=== PATIENT | female | born 1955 | race Caucasian/White ===

== ENCOUNTER → 2016-07-06 | Outpatient (CLI) | payer MEDICARE ==
[2016-07-06 14:01] VITALS: BMI 32.2
[2016-07-06 14:14] VITALS: BP 127/44; PULSE 40; TEMP 98.2
[2016-07-06 15:44] LABS: CH 27.9; CHCM 31.3; HCT 32.8 % (34.0-46.0); HDW 2.45; HGB 10.4 gm/dL (11.4-16.0); Hypochromasia Slight; MCH 28.4 pg (25.0-35.0); MCHC 31.7 g/dL (31.0-37.0); MCV 89.6 fL (80.0-100.0); Mean Platelet Volume 8.2; RBC 3.66 m/uL (3.80-5.40); RDW 15.9 % (11.5-15.5); WBC 3.8 k/uL (3.8-10.6)
[2016-07-06 15:55] LABS: INR 1.1 (<1.1); Partial Thromboplastin Time 23.6 sec (22.0-30.0); Prothrombin Time 10.7 sec (9.0-12.0)
[2016-07-06 16:06] LABS: ALT 27 U/L (9-52); AST 19 U/L (14-36); Alkaline Phosphatase 77 U/L (38-126); Anion Gap 9 mmol/L; Blood Urea Nitrogen 11 mg/dL (7-17); Calcium 9.9 mg/dL (8.4-10.2); Carbon Dioxide 27 mmol/L (22-30); Chloride 102 mmol/L (98-107); Cholesterol 204 mg/dL (<200); Glucose 89 mg/dL (74-99); HDL Cholesterol 73 mg/dL (40-60); Iron 57 ug/dL (37-170); Magnesium 1.7 mg/dL (1.6-2.3); Non-African American GFR(MDRD) 46 (>60 ml/min/1.73 sqM); Phosphorous 4.5 mg/dL (2.5-4.5); Potassium 4.3 mmol/L (3.5-5.1); Sodium 138 mmol/L (137-145); Total Bilirubin 0.6 mg/dL (0.2-1.3); Total Protein 6.6 g/dL (6.3-8.2); Triglycerides 84 mg/dL (<150)
[2016-07-06 16:17] LABS: Prealbumin 18 mg/dL (18-36); Total Iron Binding Capacity 250 ug/dL (265-497)
[2016-07-06 17:11] LABS: Vitamin B12 344 pg/mL (239-931)
[2016-07-06 19:46] LABS: Hemoglobin A1C 5.4 % (4.2-6.1)
[2016-07-12 17:58] LABS: Selenium 106 mcg/L (63-160)
--- NOTE | 2016-08-05 12:40 | P.PN ---
Progress Note - Text DATE OF SERVICE: 07/06/2016 CHIEF COMPLAINT: Follow up sleeve gastrectomy. HISTORY OF PRESENT ILLNESS: Anahi Nielsen is a 61-year-old female who is status post sleeve gastrectomy on 10/23/2015. She presents approximately 9 months postop. She has done remarkably well. At her height of 5 foot 4-1/2 inches her ideal body weight is 144 pounds. Highest personal weight was 272 pounds. Today she comes in weighing 190 pounds. She has lost 82 pounds. Percent excess weight loss 54%. Body mass index reduced from 46 down to 32.2. Total BMI point reduction 13.9 points. She is still 46 pounds overweight. She is accompanied by her who demonstrates that the patient actually has not been following her bariatric guideline. He reports poor protein intake. She is not taking her multivitamins as well. Separately she is still taking moderate amount of medications for fibromyalgia and as a result reports chronic low pulse and low blood pressure. She also has been tanning moderately as well. PAST MEDICAL HISTORY: 1. Diverticulitis. 2. Morbid obesity. 3. Hypothyroidism. 4. Restless leg syndrome. 5. Hypertension. 6. Osteoarthritis of the bilateral hips. 7. Osteoarthritis of the bilateral knees. 8. Depression. 9. Anxiety. 10. Fibromyalgia. 11. Panic disorder. PAST SURGICAL HISTORY: 1. Colon resection secondary to diverticulitis. 2. Cholecystectomy. 3. Heart catheterization. 4. Hysterectomy. 5. Joint replacement. 6. Tonsillectomy. 7. Upper endoscopy. 8. Status post sleeve gastrectomy. MEDICATIONS: 1. Ultram. 2. Risperidone. 3. Lamictal. 4. Catapres. 5. Risperdal. 6. Omeprazole. 7. Synthroid. 8. Ativan. 9. [place] 10. 10. Prozac. 11. Docusate. ALLERGIES: IODINE. SEROQUEL. SOCIAL HISTORY: Former tobacco user. No reports of illicit drug use. FAMILY HISTORY: Pertinent for diverticulitis including coronary artery disease. Reports morbid obesity. REVIEW OF SYSTEMS: CONSTITUTIONAL: [place] body weight 144 pounds. Highest weight of 272 pounds. Total weight loss of 82 pounds in approximately 9 months. Percent excess weight loss was 64%. CARDIOVASCULAR: She has developed new onset hypotension including severe bradycardia symptomatic. GASTROINTESTINAL: No reports of severe gastroesophageal reflux disease. She has not been taking her multivitamins. RESPIRATORY: She has completed sleep apnea assessment and is pending CPAP titration. MUSCULOSKELETAL: Has diffuse osteoarthritis. HEENT: No reports of troubles with vision or dysphagia. ENDOCRINE: No reports of diabetes. She has hypothyroidism. NEURO: No reports of stroke or seizure disorder. Has chronic pain. PSYCH: No reports of depression. No reports of suicidal ideation. She does take Prozac, however. HEMATOLOGIC: No reports of easy bruising or bleeding. DIETARY HISTORY: Prior history of medicinal including behavior changes for weight loss. PHYSICAL EXAM: VITAL SIGNS: 98.2, 40, 12, 127/44, 5 foot 4-1/2 inches, 190 pounds. Body mass index 32.2. ABDOMEN: Soft, nontender, nondistended. No palpable incisional hernias. GENERAL: Well-developed, pleasant female in no acute distress. HEENT: No sclerae icterus. Extraocular movements grossly intact. Moist buccal mucosa. NECK: Supple without lymphadenopathy. CHEST: Nonlabored respirations. Equal bilateral excursions. CARDIOVASCULAR: Regular rate and rhythm. MUSCULOSKELETAL: No clubbing, cyanosis, or edema. NEURO: No focal or lateralizing signs. PSYCH: Appropriate affect. Alert and oriented to person, place and time. ASSESSMENT: 1. Morbid obesity due to excess calories. 2. Body mass index reduced from 46 down to 32.2. 3. Obstructive sleep apnea, improved. 4. Status post sleeve gastrectomy. 5. Hypertriglyceridemia. 6. Renal insufficiency. 7. Elevated BUN. 8. Elevated creatinine. 9. History of depression. 10. Hypothyroidism. 11. Family history of premature cardiac . 12. History of diverticulitis. 13. A former tobacco user. 14. Hypercholesterolemia. 15. Glucose intolerance, now improved. 16. Dietary surveillance and counseling. 17. Medical noncompliance of bariatric guidelines. 18. Hypotension symptomatic secondary to medications. 19. Bradycardia, symptomatic. 20. Dietary surveillance and counseling. PLAN: 1. Recommend bariatric metabolic panel. 2. I am very concerned that she has not been taking her multivitamins or attaining her ideal protein intake. She also demonstrates generalized fatigue. 3. I have recommended close follow up especially for correction of any nutritional deficiency in the interim. 4. As she has symptomatic bradycardia I have also recommended to follow with her primary care provider including the principal clerk for adjustment of her medications. 5. I have also asked her to start taking her multivitamin in the interim. ADDENDUM: Bariatric metabolic panel was reviewed demonstrating hemoglobin low at 10.4. Platelet was low at 143. Creatinine was elevated at 1.2. Total iron binding capacity was low at 250. Cholesterol was elevated at 204, LDL elevated at 114, HDL elevated at 73. Thiamine low at 27. Thyroid stimulating hormone was suppressed at 0.15. Zinc was low at 58. I recommend thiamine supplement. I also recommend adjustment of her Synthroid medication as she is now having iatrogenic hyperthyroidism. Also recommend zinc supplement.
== END | disposition home or self-care (01) ==
LOC: BARWHC3 13:21
PROVIDERS: ATTEND Surgery Plastic and Reconstructive Surgery
DX: Z48.815 Encounter for surgical aftercare following surgery on the digestive system (principal); E66.01 Morbid (severe) obesity due to excess calories; Z68.32 Body mass index [BMI] 32.0-32.9, adult; Z71.3 Dietary counseling and surveillance; Z98.84 Bariatric surgery status; E21.1 Secondary hyperparathyroidism, not elsewhere classified; E89.1 Postprocedural hypoinsulinemia; D50.8 Other iron deficiency anemias; E44.0 Moderate protein-calorie malnutrition; E55.9 Vitamin D deficiency, unspecified; K74.1 Hepatic sclerosis; N19 Unspecified kidney failure; K50.90 Crohn's disease, unspecified, without complications
CPT/HCPCS: 84255; 84134; 84425; 80061; 80053; 82607; 82728; 83036; 82525; 82746; 83540; 83550; 83735; 84100; 84443; 84590; 84630; 85027; 85610; 85730; 82306; 83970; 97803; 36415; G0463; 99211

== ENCOUNTER → 2016-07-27 | Outpatient (CLI) | payer MEDICARE ==
[2016-07-27 16:22] VITALS: BP 166/74; PULSE 42; RESP 16; TEMP 97.7; BMI 31.3
--- NOTE | 2016-08-10 15:36 | P.PN ---
Progress Note - Text DATE OF SERVICE: 07/27/2016 CHIEF COMPLAINT: Follow up sleeve gastrectomy. HISTORY OF PRESENT ILLNESS: Anahi Nielsen is a 61-year-old female who is status post sleeve gastrectomy on 10/23/2015. She is 9 months postop. Since her last evaluation, she reported not taking her multivitamins or eating her goal protein of over 75 g daily. She had reported increased fatigue. At her height of 5 foot 4-1/2 inches her ideal body weight is 144 pounds. Highest personal weight was 272 pounds. Today she comes in weighing 185 pounds. She has lost 87 pounds. Percent excess weight loss 68%. Body mass index reduced from 46 down to 31.3. Total BMI point reduction 14.7 points. She is 41 pounds overweight. She has lost another 5 pounds in 3 weeks. PAST MEDICAL HISTORY: 1. Diverticulitis. 2. Morbid obesity. 3. Hypothyroidism. 4. Restless leg syndrome. 5. Hypertension. 6. Osteoarthritis of the bilateral hips. 7. Osteoarthritis of the bilateral knees. 8. Depression. 9. Anxiety. 10. Fibromyalgia. 11. Panic disorder. PAST SURGICAL HISTORY: 1. Colon resection secondary to diverticulitis. 2. Cholecystectomy. 3. Heart catheterization. 4. Hysterectomy. 5. Joint replacement. 6. Tonsillectomy. 7. Upper endoscopy. 8. Status post sleeve gastrectomy. MEDICATIONS: 1. Ultram. 2. Risperidone. 3. Lamictal. 4. Catapres. 5. Risperdal. 6. Omeprazole. 7. Synthroid. 8. Ativan. 9. [place] 10. 10. Prozac. 11. Docusate. ALLERGIES: IODINE. SEROQUEL. SOCIAL HISTORY: Former tobacco user. No reports of illicit drug use. FAMILY HISTORY: Pertinent for diverticulitis including coronary artery disease. Reports morbid obesity. REVIEW OF SYSTEMS: CONSTITUTIONAL: At her height of 5 foot 4-1/2 inches her ideal body weight is 144 pounds. Highest personal weight was 272 pounds. Today she comes in weighing 185 pounds. She has lost 87 pounds. Percent excess weight loss 68%. Body mass index reduced from 46 down to 31.3. Total BMI point reduction 14.7 points. She is 41 pounds overweight. CARDIOVASCULAR: She has developed new onset hypotension including bradycardia symptomatic. GASTROINTESTINAL: No reports of severe gastroesophageal reflux disease. She has not been taking her multivitamins. RESPIRATORY: She has completed sleep apnea assessment and is pending CPAP titration. MUSCULOSKELETAL: Has diffuse osteoarthritis. HEENT: No reports of troubles with vision or dysphagia. ENDOCRINE: No reports of diabetes. She has hypothyroidism. NEURO: No reports of stroke or seizure disorder. Has chronic pain. PSYCH: No reports of depression. No reports of suicidal ideation. She does take Prozac, however. HEMATOLOGIC: No reports of easy bruising or bleeding. DIETARY HISTORY: Prior history of medicinal including behavior changes for weight loss. PHYSICAL EXAM: VITAL SIGNS: 5 foot 4-1/2 inches, 190 pounds. Body mass index 31.3. Vital Signs Temp 97.7 F 07/27/16 16:14 Pulse 42 L 07/27/16 16:14 Resp 16 07/27/16 16:14 BP 166/74 07/27/16 16:14 Pulse Ox ABDOMEN: Soft, nontender, nondistended. No palpable incisional hernias. GENERAL: Well-developed, pleasant female in no acute distress. HEENT: No sclerae icterus. Extraocular movements grossly intact. Moist buccal mucosa. NECK: Supple without lymphadenopathy. CHEST: Nonlabored respirations. Equal bilateral excursions. CARDIOVASCULAR: Regular rate and rhythm. MUSCULOSKELETAL: No clubbing, cyanosis, or edema. NEURO: No focal or lateralizing signs. PSYCH: Appropriate affect. Alert and oriented to person, place and time. LABS: Laboratory Last Values WBC 3.8 k/uL (3.8-10.6) 07/06/16 15:04 RBC 3.66 m/uL (3.80-5.40) L 07/06/16 15:04 Hgb 10.4 gm/dL (11.4-16.0) L 07/06/16 15:04 Hct 32.8 % (34.0-46.0) L 07/06/16 15:04 MCV 89.6 fL (80.0-100.0) 07/06/16 15:04 MCH 28.4 pg (25.0-35.0) 07/06/16 15:04 MCHC 31.7 g/dL (31.0-37.0) 07/06/16 15:04 RDW 15.9 % (11.5-15.5) H 07/06/16 15:04 Plt Count 143 k/uL (150-450) L 07/06/16 15:04 Hypochromasia Slight 07/06/16 15:04 PT 10.7 sec (9.0-12.0) 07/06/16 15:04 INR 1.1 (<1.1) 07/06/16 15:04 APTT 23.6 sec (22.0-30.0) 07/06/16 15:04 Sodium 138 mmol/L (137-145) 07/06/16 15:04 Potassium 4.3 mmol/L (3.5-5.1) 07/06/16 15:04 Chloride 102 mmol/L (98-107) 07/06/16 15:04 Carbon Dioxide 27 mmol/L (22-30) 07/06/16 15:04 Anion Gap 9 mmol/L 07/06/16 15:04 BUN 11 mg/dL (7-17) 07/06/16 15:04 Creatinine 1.20 mg/dL (0.52-1.04) H 07/06/16 15:04 Est GFR (MDRD) Af Amer 55 (>60 ml/min/1.73 sqM) 07/06/16 15:04 Est GFR (MDRD) Non-Af 46 (>60 ml/min/1.73 sqM) 07/06/16 15:04 Glucose 89 mg/dL (74-99) 07/06/16 15:[address] Glu mg/dL 108 mg/dL 07/06/16 15:04 Hemoglobin A1c 5.4 % (4.2-6.1) 07/06/16 15:04 Calcium 9.9 mg/dL (8.4-10.2) 07/06/16 15:04 Phosphorus 4.5 mg/dL (2.5-4.5) 07/06/16 15:04 Magnesium 1.7 mg/dL (1.6-2.3) 07/06/16 15:04 Iron 57 ug/dL (37-170) 07/06/16 15:04 TIBC 250 ug/dL (265-497) L 07/06/16 15:04 Ferritin 121 ng/mL (11-264) 07/06/16 15:04 Total Bilirubin 0.6 mg/dL (0.2-1.3) 07/06/16 15:04 AST 19 U/L (14-36) 07/06/16 15:04 ALT 27 U/L (9-52) 07/06/16 15:04 Alkaline Phosphatase 77 U/L (38-126) 07/06/16 15:04 Total Protein 6.6 g/dL (6.3-8.2) 07/06/16 15:04 Albumin 3.9 g/dL (3.5-5.0) 07/06/16 15:04 Prealbumin 18 mg/dL (18-36) 07/06/16 15:04 Triglycerides 84 mg/dL (<150) 07/06/16 15:04 Cholesterol 204 mg/dL (<200) H 07/06/16 15:04 LDL Cholesterol, Calc 114 mg/dL (0-99) H 07/06/16 15:04 HDL Cholesterol 73 mg/dL (40-60) H 07/06/16 15:04 Vitamin A 39 ug/dL (38-106) 07/06/16 15:04 Vitamin B1 27 ug/L (38-122) L 07/06/16 15:04 Vitamin B12 344 pg/mL (239-931) 07/06/16 15:04 Vitamin D 25-Hydroxy 69.4 ng/mL (30.0-100.0) 07/06/16 15:04 Folate 4.90 ng/mL (>2.75) 07/06/16 15:04 TSH <0.015 mIU/L (0.465-4.680) L 07/06/16 15:04 PTH Intact 24.0 pg/mL (14.0-72.0) 07/06/16 15:04 Copper 1369 ug/L (810-1990) 07/06/16 15:04 Selenium 106 mcg/L (63-160) 07/06/16 15:04 Zinc 58 ug/dL (60-130) L 07/06/16 15:04 ASSESSMENT: 1. Morbid obesity due to excess calories. 2. Body mass index reduced from 46 down to 31.3 3. Obstructive sleep apnea, improved. 4. Status post sleeve gastrectomy. 5. Hypertriglyceridemia. 6. Renal insufficiency. 7. Elevated BUN. 8. Elevated creatinine. 9. History of depression. 10. Hypothyroidism. 11. Family history of premature cardiac . 12. History of diverticulitis. 13. A former tobacco user. 14. Hypercholesterolemia. 15. Glucose intolerance, now improved. 16. Dietary surveillance and counseling. 17. Medical noncompliance of bariatric guidelines. 18. Hypotension symptomatic secondary to medications. 19. Bradycardia, symptomatic. 20. Dietary surveillance and counseling. 21. Zinc deficiency. 22. Iron deficiency anemia. 23. Hyeprcholesterolemia. 24. Suppressed TSH, iatrogenic hyperthyroidism. 25. Thiamine deficiency, symptomatic. PLAN: 1. Recommend decreased doses of Synthroid. 2. Recommend iron supplement. 3. Recommend protein intake over at least 60 g daily. 4. Referral to bariatric dietitian regarding gastrectomy diet. 5. Recommend adjustment of cardiac medications for symptomatic bradycardia and hypotension. 6. Follow-up 1 year anniversary for October 2016. 7. Recommend IV thiamine infusions as she has symptomatic neuropathy with oral supplement to follow.
== END ==
LOC: BARWHC3 15:38
PROVIDERS: ATTEND Surgery Plastic and Reconstructive Surgery
DX: Z48.815 Encounter for surgical aftercare following surgery on the digestive system (principal); E66.01 Morbid (severe) obesity due to excess calories; G47.33 Obstructive sleep apnea (adult) (pediatric); E78.1 Pure hyperglyceridemia; N28.9 Disorder of kidney and ureter, unspecified; E03.9 Hypothyroidism, unspecified; E78.00 Pure hypercholesterolemia, unspecified; E74.39 Other disorders of intestinal carbohydrate absorption; R00.1 Bradycardia, unspecified; D50.9 Iron deficiency anemia, unspecified; E60 Dietary zinc deficiency; E51.9 Thiamine deficiency, unspecified; Z79.4 Long term (current) use of insulin; Z79.1 Long term (current) use of non-steroidal anti-inflammatories (NSAID); Z88.8 Allergy status to other drugs, medicaments and biological substances
CPT/HCPCS: 97803; G0463; 99211

== ENCOUNTER → 2016-10-27 | Outpatient (CLI) | payer MEDICARE ==
[2016-10-27 09:50] VITALS: BP 142/60; PULSE 54; RESP 16; TEMP 97.7; BMI 28.9
[2016-10-27 11:19] LABS: CH 29.8; HCT 39.1 % (34.0-46.0); HDW 2.24; HGB 12.5 gm/dL (11.4-16.0); MCV 90.5 fL (80.0-100.0); Mean Platelet Volume 7.8; RBC 4.32 m/uL (3.80-5.40); RDW 14.5 % (11.5-15.5)
[2016-10-27 11:22] LABS: Partial Thromboplastin Time 23.3 sec (22.0-30.0); Prothrombin Time 10.3 sec (9.0-12.0)
[2016-10-27 12:43] LABS: Hemoglobin A1C 5.1 % (4.2-6.1)
[2016-10-27 14:16] LABS: ALT 38 U/L (9-52); AST 79 U/L (14-36); Alkaline Phosphatase 75 U/L (38-126); Anion Gap 11 mmol/L; Blood Urea Nitrogen 13 mg/dL (7-17); Carbon Dioxide 29 mmol/L (22-30); Chloride 98 mmol/L (98-107); Glucose 85 mg/dL (74-99); HDL Cholesterol 102 mg/dL (40-60); Magnesium 1.5 mg/dL (1.6-2.3); Non-African American GFR(MDRD) 42 (>60 ml/min/1.73 sqM); Potassium 3.9 mmol/L (3.5-5.1); Sodium 138 mmol/L (137-145); Total Bilirubin 0.5 mg/dL (0.2-1.3); Total Protein 7.3 g/dL (6.3-8.2)
[2016-10-27 15:17] LABS: Cholesterol 340 mg/dL (<200); Vitamin B12 >1000 pg/mL (239-931)
[2016-10-27 16:21] LABS: Iron Saturation 31.11 (12.00-45.00)
[2016-11-02 19:15] LABS: Selenium 123 mcg/L (63-160)
--- NOTE | 2016-11-06 20:26 | P.PN ---
Progress Note - Text DATE OF SERVICE: 10/27/2016 CHIEF COMPLAINT: Follow up sleeve gastrectomy. HISTORY OF PRESENT ILLNESS: Anahi Nielsen is a 61-year-old female who is status post sleeve gastrectomy on 10/23/2015. She is 1 years out. At her height of 5 foot 6-1/2 inches, her ideal body weight is 154 pounds. Highest personal weight was 272 pounds. Today she comes in weighing 180 pounds. She has lost 92 pounds. Percent excess weight loss 78%. Body mass index reduced from 46 down to 28.9. She is 26 pounds overweight. She has lost another 5 pounds in 2 months. She feels much better after taking her multivitamins. She is still losing weight. She reports panniculitis and is pending panniculectomy. She also reports severe lower back pain. PAST MEDICAL HISTORY: 1. Diverticulitis. 2. Morbid obesity. 3. Hypothyroidism. 4. Restless leg syndrome. 5. Hypertension. 6. Osteoarthritis of the bilateral hips. 7. Osteoarthritis of the bilateral knees. 8. Depression. 9. Anxiety. 10. Fibromyalgia. 11. Panic disorder. PAST SURGICAL HISTORY: 1. Colon resection secondary to diverticulitis. 2. Cholecystectomy. 3. Heart catheterization. 4. Hysterectomy. 5. Joint replacement. 6. Tonsillectomy. 7. Upper endoscopy. 8. Status post sleeve gastrectomy. MEDICATIONS: 1. Ultram. 2. Risperidone. 3. Lamictal. 4. Catapres. 5. Risperdal. 6. Omeprazole. 7. Synthroid. 8. Ativan. 9. [place] 10. 10. Prozac. 11. Docusate. ALLERGIES: IODINE. SEROQUEL. SOCIAL HISTORY: Former tobacco user. No reports of illicit drug use. FAMILY HISTORY: Pertinent for diverticulitis including coronary artery disease. Reports morbid obesity. REVIEW OF SYSTEMS: CONSTITUTIONAL: At her height of 5 foot 6-1/2 inches, her ideal body weight is 154 pounds. Highest personal weight was 272 pounds. Today she comes in weighing 180 pounds. She has lost 92 pounds. Percent excess weight loss 78%. Body mass index reduced from 46 down to 28.9. She is 26 pounds overweight. She has lost another 5 pounds in 2 months. CARDIOVASCULAR: She has developed new onset hypotension including bradycardia symptomatic. GASTROINTESTINAL: No reports of severe gastroesophageal reflux disease. No diarrhea. RESPIRATORY: She has completed sleep apnea assessment. No asthma. MUSCULOSKELETAL: Has diffuse osteoarthritis. HEENT: No reports of troubles with vision or dysphagia. ENDOCRINE: No reports of diabetes. She has hypothyroidism. NEURO: No reports of stroke or seizure disorder. Has chronic pain. PSYCH: No reports of depression. No reports of suicidal ideation. She does take Prozac, however. HEMATOLOGIC: No reports of easy bruising or bleeding. PHYSICAL EXAM: VITAL SIGNS: 5 foot 6-1/2 inches, 180 pounds. Body mass index 28.9. Vital Signs Temp 97.7 F 10/27/16 10:19 Pulse 54 L 10/27/16 10:19 Resp 16 10/27/16 10:19 BP 142/60 10/27/16 10:19 Pulse Ox ABDOMEN: Soft, nontender, nondistended. No palpable incisional hernias. GENERAL: Well-developed, pleasant female in no acute distress. HEENT: No sclerae icterus. Extraocular movements grossly intact. Moist buccal mucosa. NECK: Supple without lymphadenopathy. CHEST: Nonlabored respirations. Equal bilateral excursions. CARDIOVASCULAR: Regular rate and rhythm. MUSCULOSKELETAL: No clubbing, cyanosis, or edema. NEURO: No focal or lateralizing signs. PSYCH: Appropriate affect. Alert and oriented to person, place and time. SKIN: Well perfused. Good skin turgor. Has panniculitis with weight of pannus of 5 pounds. LABS: Laboratory Last Values WBC 4.0 k/uL (3.8-10.6) 10/27/16 10:48 RBC 4.32 m/uL (3.80-5.40) 10/27/16 10:48 Hgb 12.5 gm/dL (11.4-16.0) 10/27/16 10:48 Hct 39.1 % (34.0-46.0) 10/27/16 10:48 MCV 90.5 fL (80.0-100.0) 10/27/16 10:48 MCH 29.0 pg (25.0-35.0) 10/27/16 10:48 MCHC 32.0 g/dL (31.0-37.0) 10/27/16 10:48 RDW 14.5 % (11.5-15.5) 10/27/16 10:48 Plt Count 172 k/uL (150-450) 10/27/16 10:48 PT 10.3 sec (9.0-12.0) 10/27/16 10:48 INR 1.0 (<1.2) 10/27/16 10:48 APTT 23.3 sec (22.0-30.0) 10/27/16 10:48 Sodium 138 mmol/L (137-145) 10/27/16 10:48 Potassium 3.9 mmol/L (3.5-5.1) 10/27/16 10:48 Chloride 98 mmol/L (98-107) 10/27/16 10:48 Carbon Dioxide 29 mmol/L (22-30) 10/27/16 10:48 Anion Gap 11 mmol/L 10/27/16 10:48 BUN 13 mg/dL (7-17) 10/27/16 10:48 Creatinine 1.30 mg/dL (0.52-1.04) H 10/27/16 10:48 Est GFR (MDRD) Af Amer 50 (>60 ml/min/1.73 sqM) 10/27/16 10:48 Est GFR (MDRD) Non-Af 42 (>60 ml/min/1.73 sqM) 10/27/16 10:48 Glucose 85 mg/dL (74-99) 10/27/16 10:[address] Glu mg/dL 100 mg/dL 10/27/16 10:48 Hemoglobin A1c 5.1 % (4.2-6.1) 10/27/16 10:48 Calcium 10.0 mg/dL (8.4-10.2) 10/27/16 10:48 Phosphorus 4.0 mg/dL (2.5-4.5) 10/27/16 10:48 Magnesium 1.5 mg/dL (1.6-2.3) L 10/27/16 10:48 Iron 84 ug/dL (50-170) 10/27/16 10:48 TIBC 270 ug/dL (228-460) 10/27/16 10:48 Iron Saturation 31.11 (12.00-45.00) 10/27/16 10:48 Ferritin 120.6 ng/mL (10.0-291.0) 10/27/16 10:48 Total Bilirubin 0.5 mg/dL (0.2-1.3) 10/27/16 10:48 AST 79 U/L (14-36) H 10/27/16 10:48 ALT 38 U/L (9-52) 10/27/16 10:48 Alkaline Phosphatase 75 U/L (38-126) 10/27/16 10:48 Total Protein 7.3 g/dL (6.3-8.2) 10/27/16 10:48 Albumin 4.3 g/dL (3.5-5.0) 10/27/16 10:48 Prealbumin 29.0 mg/dL (18.0-42.0) 10/27/16 10:48 Triglycerides 70 mg/dL (<150) 10/27/16 10:48 Cholesterol 340 mg/dL (<200) H 10/27/16 10:48 LDL Cholesterol, Calc 224 mg/dL (0-99) H 10/27/16 10:48 HDL Cholesterol 102 mg/dL (40-60) H 10/27/16 10:48 Vitamin A 61 ug/dL (38-106) 10/27/16 10:48 Vitamin B1 38 ug/L (38-122) 10/27/16 10:48 Vitamin B12 >1000 pg/mL (239-931) H 10/27/16 10:48 Vitamin D 25-Hydroxy 47.1 ng/mL (30.0-100.0) 10/27/16 10:48 Folate 8.7 ng/mL 10/27/16 10:48 TSH 4.890 mIU/L (0.465-4.680) H 10/27/16 10:48 PTH Intact 25.8 pg/mL (14.0-72.0) 10/27/16 10:48 Copper 1178 ug/L (810-1990) 10/27/16 10:48 Selenium 123 mcg/L (63-160) 10/27/16 10:48 Zinc 61 ug/dL (60-130) 10/27/16 10:48 ASSESSMENT: 1. Morbid obesity due to excess calories. 2. Body mass index reduced from 43.7 down to 28.9. 3. Obstructive sleep apnea, improved. 4. Status post sleeve gastrectomy. 5. Hypertriglyceridemia. 6. Renal insufficiency. 7. Elevated BUN. 8. Elevated creatinine. 9. History of depression. 10. Hypothyroidism. 11. Family history of premature cardiac . 12. History of diverticulitis. 13. A former tobacco user. 14. Hypercholesterolemia. 15. Glucose intolerance, now improved. 16. Dietary surveillance and counseling. 17. Elevated TSH. PLAN: 1. His TSH level is elevated consistent with hypothyroidism. Recommend adjustment of Synthroid. 2. She was recommended to continue taking her multivitamins. 3. On exam, her pannus is at least 5 pounds. She also has lower back pain. Recommend panniculectomy. 4. In the interim, treatment with nystatin powder. 5. Benefits and risks of panniculectomy was described in detail. The patient has right upper quadrant abdominal pain from an old gallbladder scar. Risk of panniculectomy including bleeding, infection, flap failure, postoperative seroma , chronic pain was described in detail. 6. Recommend correction of all nutritional deficiencies prior to panniculectomy.
== END | disposition home or self-care (01) ==
LOC: BARWHC3 09:02
PROVIDERS: ATTEND Surgery Plastic and Reconstructive Surgery
DX: Z48.815 Encounter for surgical aftercare following surgery on the digestive system (principal); E66.9 Obesity, unspecified; E78.1 Pure hyperglyceridemia; N28.9 Disorder of kidney and ureter, unspecified; F32.9 Major depressive disorder, single episode, unspecified; E03.9 Hypothyroidism, unspecified; R79.89 Other specified abnormal findings of blood chemistry; E21.1 Secondary hyperparathyroidism, not elsewhere classified; K90.9 Intestinal malabsorption, unspecified; E44.0 Moderate protein-calorie malnutrition; E55.9 Vitamin D deficiency, unspecified; K74.1 Hepatic sclerosis; N19 Unspecified kidney failure; K50.90 Crohn's disease, unspecified, without complications; E78.00 Pure hypercholesterolemia, unspecified; R94.6 Abnormal results of thyroid function studies; Z71.3 Dietary counseling and surveillance; Z68.28 Body mass index [BMI] 28.0-28.9, adult; Z79.899 Other long term (current) drug therapy; Z88.8 Allergy status to other drugs, medicaments and biological substances; Z98.84 Bariatric surgery status
CPT/HCPCS: 84255; 84134; 84425; 80061; 80053; 82607; 82728; 83036; 82525; 82746; 83540; 83550; 83735; 84100; 84443; 84590; 84630; 85027; 85610; 85730; 82306; 83970; G0463; 99211

== ENCOUNTER → 2017-05-31 | Outpatient (CLI) | payer MEDICARE ==
[2017-05-31 10:29] LABS: HCT 36.6 % (34.0-46.0); HGB 12.2 gm/dL (11.4-16.0); MCH 29.3 pg (25.0-35.0); MCHC 33.4 g/dL (31.0-37.0); MCV 87.8 fL (80.0-100.0); Mean Platelet Volume 7.6; Platelet Count 165 k/uL (150-450); RBC 4.17 m/uL (3.80-5.40); RDW 13.4 % (11.5-15.5); WBC 3.6 k/uL (3.8-10.6)
[2017-05-31 10:54] LABS: Albumin 4.3 g/dL (3.5-5.0); Calcium 9.7 mg/dL (8.4-10.2); Magnesium 1.5 mg/dL (1.6-2.3); Phosphorus 4.2 mg/dL (2.5-4.5); Prothrombin Time 9.9 sec (9.0-12.0); Total Bilirubin 0.6 mg/dL (0.2-1.3)
[2017-05-31 11:16] LABS: Partial Thromboplastin Time 21.6 sec (22.0-30.0)
[2017-05-31 16:21] LABS: Iron Saturation 23.86 (12.00-45.00)
[2017-05-31 16:30] LABS: Vitamin D 25 Hydroxy 50.6 ng/mL (30.0-100.0)
[2017-05-31 16:31] LABS: Folate, Serum 11.9 ng/mL
[2017-05-31 16:34] LABS: Parathyroid Hormone Intact 51.2 pg/mL (14.0-72.0)
[2017-06-01 14:46] LABS: Vitamin B1 37 ug/L (38-122)
[2017-06-01 15:02] LABS: Vitamin A 63 ug/dL (38-106)
[2017-06-02 07:02] LABS: Zinc, Serum 75 ug/dL (60-130)
[2017-06-02 19:00] LABS: Selenium 142 mcg/L (63-160)
== END | disposition home or self-care (01) ==
LOC: LABWHC1 09:52
PROVIDERS: ATTEND Surgery Plastic and Reconstructive Surgery
DX: E66.01 Morbid (severe) obesity due to excess calories (principal); E21.1 Secondary hyperparathyroidism, not elsewhere classified; E89.1 Postprocedural hypoinsulinemia; D50.9 Iron deficiency anemia, unspecified; E44.0 Moderate protein-calorie malnutrition; E55.9 Vitamin D deficiency, unspecified; K74.1 Hepatic sclerosis; N19 Unspecified kidney failure; K50.90 Crohn's disease, unspecified, without complications
CPT/HCPCS: 36415; 80053; 80061; 82306; 82525; 82607; 82728; 82746; 83036; 83540; 83550; 83735; 83970; 84100; 84134; 84255; 84425; 84443; 84590; 84630; 85027; 85610; 85730

== ENCOUNTER → 2017-06-07 | Outpatient (CLI) | payer MEDICARE ==
[2017-06-07 15:38] VITALS: BMI 28.5
[2017-06-07 15:47] VITALS: BP 163/72; PULSE 46; TEMP 98.1
--- NOTE | 2017-06-07 16:29 | P.PN ---
Subjective Progress Note Date: 06/07/17 DATE OF SERVICE: 06/07/2017 CHIEF COMPLAINT: Follow up sleeve gastrectomy. HISTORY OF PRESENT ILLNESS: Anahi Nielsen is a 62-year-old female who is status post sleeve gastrectomy on 10/23/2015. She is 1.5 years out. At her height of 5 foot 6-1/2 inches, her ideal body weight is 154 pounds. Highest personal weight was 272 pounds. Today she comes in weighing 178 from last visit 10/27/2016 at 180 pounds. She has lost 94 pounds. Percent excess weight loss 80% . Body mass index reduced from 43.3 down to 28.4. She is 24 pounds overweight. She has lost another 2 pounds in 8 months. She comes in with fogginess of thought. No reports of fatigue. She had past thiamine deficiency. No reports of nausea. She comes in with concern of her lab work. PAST MEDICAL HISTORY: 1. Diverticulitis. 2. Morbid obesity, BMI 43.3, initial. 3. Hypothyroidism. 4. Restless leg syndrome. 5. Hypertension. 6. Osteoarthritis of the bilateral hips. 7. Osteoarthritis of the bilateral knees. 8. Depression. 9. Anxiety. 10. Fibromyalgia. 11. Panic disorder. PAST SURGICAL HISTORY: 1. Colon resection secondary to diverticulitis. 2. Cholecystectomy. 3. Heart catheterization. 4. Hysterectomy. 5. Joint replacement. 6. Tonsillectomy. 7. Upper endoscopy. 8. Status post sleeve gastrectomy. MEDICATIONS: 1. Ultram. 2. Risperidone. 3. Lamictal. 4. Catapres. 5. Risperdal. 6. Omeprazole. 7. Synthroid. 8. Ativan. 9. [place] 10. 10. Prozac. 11. Docusate. ALLERGIES: IODINE. SEROQUEL. SOCIAL HISTORY: Former tobacco user. No reports of illicit drug use. FAMILY HISTORY: Pertinent for diverticulitis including coronary artery disease. Reports morbid obesity. REVIEW OF SYSTEMS: CONSTITUTIONAL: At her height of 5 foot 6-1/2 inches, her ideal body weight is 154 pounds. Highest personal weight was 272 pounds. Today she comes in weighing 178 from last visit 10/27/2016 at 180 pounds. She has lost 94 pounds. Percent excess weight loss 80%. Body mass index reduced from 43.3 down to 28.4. She is 24 pounds overweight. She has lost another 2 pounds in 8 months. CARDIOVASCULAR: Hypotension resolved. Normal total tachycardia. GASTROINTESTINAL: No reports of severe gastroesophageal reflux disease. No diarrhea. RESPIRATORY: She has completed sleep apnea assessment. No asthma. MUSCULOSKELETAL: Has diffuse osteoarthritis. HEENT: No reports of troubles with vision or dysphagia. ENDOCRINE: No reports of diabetes. She has hypothyroidism. NEURO: No reports of stroke or seizure disorder. Has chronic pain. PSYCH: No reports of depression. No reports of suicidal ideation. She does take Prozac, however. HEMATOLOGIC: No reports of easy bruising or bleeding. PHYSICAL EXAM: VITAL SIGNS: 5 foot 6-1/2 inches, 178 pounds. Body mass index 28.4. Vital Signs Temp 98.1 F 06/07/17 15:45 Pulse 46 L 06/07/17 15:45 Resp BP 163/72 06/07/17 15:45 Pulse Ox Intake & Output 06/06/17 06/07/17 06/07/17 18:59 06:59 18:59 Weight 80.966 kg ABDOMEN: Soft, nontender, nondistended. No palpable incisional hernias. GENERAL: Well-developed, pleasant female in no acute distress. HEENT: No sclerae icterus. Extraocular movements grossly intact. Moist buccal mucosa. NECK: Supple without lymphadenopathy. CHEST: Nonlabored respirations. Equal bilateral excursions. CARDIOVASCULAR: Regular rate and rhythm. MUSCULOSKELETAL: No clubbing, cyanosis, or edema. NEURO: No focal or lateralizing signs. PSYCH: Appropriate affect. Alert and oriented to person, place and time. SKIN: Well perfused. Good skin turgor. Has panniculitis with weight of pannus of 5 pounds. LABS:Reviewed. ASSESSMENT: 1. Morbid obesity due to excess calories. 2. Body mass index reduced from 43.3 down to 28.4. 3. Obstructive sleep apnea, improved. 4. Status post sleeve gastrectomy. 5. Hypertriglyceridemia. 6. Renal insufficiency. 7. Elevated BUN. 8. Elevated creatinine. 9. History of depression. 10. Hypothyroidism. 11. Family history of premature cardiac . 12. History of diverticulitis. 13. A former tobacco user. 14. Hypercholesterolemia. 15. Glucose intolerance, now improved. 16. Dietary surveillance and counseling. 17. Elevated TSH. 18. Thiamine deficiency. 19. Chronic constipation PLAN: 1. Her TSH level is elevated consistent with hypothyroidism. Recommend adjustment of Synthroid to 150 mcg daily for 2 months. 2. Thiamine is low. Needs supplement. 3. Kidney function is low and recommend drinking more fluids. 4. She has good HDL levels. 5. Follow up in 2 months for adjustment of thyroid medication. 6. She has troubles with constipation. Will start Miralax. Laboratory Last Values WBC 3.6 k/uL (3.8-10.6) L 05/31/17 09:54 RBC 4.17 m/uL (3.80-5.40) 05/31/17 09:54 Hgb 12.2 gm/dL (11.4-16.0) 05/31/17 09:54 Hct 36.6 % (34.0-46.0) 05/31/17 09:54 MCV 87.8 fL (80.0-100.0) 05/31/17 09:54 MCH 29.3 pg (25.0-35.0) 05/31/17 09:54 MCHC 33.4 g/dL (31.0-37.0) 05/31/17 09:54 RDW 13.4 % (11.5-15.5) 05/31/17 09:54 Plt Count 165 k/uL (150-450) 05/31/17 09:54 PT 9.9 sec (9.0-12.0) 05/31/17 09:54 INR 1.0 (<1.2) 05/31/17 09:54 APTT 21.6 sec (22.0-30.0) L 05/31/17 09:54 Sodium 142 mmol/L (137-145) 05/31/17 09:54 Potassium 4.0 mmol/L (3.5-5.1) 05/31/17 09:54 Chloride 98 mmol/L (98-107) 05/31/17 09:54 Carbon Dioxide 32 mmol/L (22-30) H 05/31/17 09:54 Anion Gap 12 mmol/L 05/31/17 09:54 BUN 19 mg/dL (7-17) H 05/31/17 09:54 Creatinine 1.49 mg/dL (0.52-1.04) H 05/31/17 09:54 Est GFR (CKD-EPI)AfAm 43 (>60 ml/min/1.73 sqM) 05/31/17 09:54 Est GFR (CKD-EPI)NonAf 38 (>60 ml/min/1.73 sqM) 05/31/17 09:54 Glucose 79 mg/dL (74-99) 05/31/17 09:[address] Glu mg/dL 97 05/31/17 09:54 Hemoglobin A1c 5.0 % (4.0-6.0) 05/31/17 09:54 Calcium 9.7 mg/dL (8.4-10.2) 05/31/17 09:54 Phosphorus 4.2 mg/dL (2.5-4.5) 05/31/17 09:54 Magnesium 1.5 mg/dL (1.6-2.3) L 05/31/17 09:54 Iron 73 ug/dL (50-170) 05/31/17 09:54 TIBC 306 ug/dL (228-460) 05/31/17 09:54 Iron Saturation 23.86 (12.00-45.00) 05/31/17 09:54 Ferritin 102.0 ng/mL (10.0-291.0) 05/31/17 09:54 Total Bilirubin 0.6 mg/dL (0.2-1.3) 05/31/17 09:54 AST 20 U/L (14-36) 05/31/17 09:54 ALT 22 U/L (9-52) 05/31/17 09:54 Alkaline Phosphatase 70 U/L (38-126) 05/31/17 09:54 Total Protein 7.0 g/dL (6.3-8.2) 05/31/17 09:54 Albumin 4.3 g/dL (3.5-5.0) 05/31/17 09:54 Prealbumin 31.0 mg/dL (18.0-42.0) 05/31/17 09:54 Triglycerides 69 mg/dL (<150) 05/31/17 09:54 Cholesterol 280 mg/dL (<200) H 05/31/17 09:54 LDL Cholesterol, Calc 178 mg/dL (0-99) H 05/31/17 09:54 HDL Cholesterol 88 mg/dL (40-60) H 05/31/17 09:54 Vitamin A 63 ug/dL (38-106) 05/31/17 09:54 Vitamin B1 37 ug/L (38-122) L 05/31/17 09:54 Vitamin B12 436.0 pg/mL (200.0-944.0) 05/31/17 09:54 Vitamin D 25-Hydroxy 50.6 ng/mL (30.0-100.0) 05/31/17 09:54 Folate 11.9 ng/mL 05/31/17 09:54 TSH 10.200 mIU/L (0.465-4.680) H 05/31/17 09:54 PTH Intact 51.2 pg/mL (14.0-72.0) 05/31/17 09:54 Copper 1078 ug/L (810-1990) 05/31/17 09:54 Selenium 142 mcg/L (63-160) 05/31/17 09:54 Zinc 75 ug/dL (60-130) 05/31/17 09:54 WBC is low Creatinine is elevated Cholesterol is elevated LDL is elevated HDL is elevated Thiamine is low TSH is elevated Magnesium is low Objective - Vital Signs Vital signs: Vital Signs Temp 98.1 F 06/07/17 15:45 Pulse 46 L 06/07/17 15:45 Resp BP 163/72 06/07/17 15:45 Pulse Ox Intake & Output 06/06/17 06/07/17 06/07/17 18:59 06:59 18:59 Weight 80.966 kg
== END | disposition home or self-care (01) ==
LOC: BARWHC3 14:40
PROVIDERS: ATTEND Surgery Plastic and Reconstructive Surgery
DX: Z09 Encounter for follow-up examination after completed treatment for conditions other than malignant neoplasm (principal); E44.0 Moderate protein-calorie malnutrition; E03.9 Hypothyroidism, unspecified; E66.01 Morbid (severe) obesity due to excess calories; Z68.28 Body mass index [BMI] 28.0-28.9, adult; G47.33 Obstructive sleep apnea (adult) (pediatric); E78.1 Pure hyperglyceridemia; N18.9 Chronic kidney disease, unspecified; R79.89 Other specified abnormal findings of blood chemistry; F32.9 Major depressive disorder, single episode, unspecified; E78.00 Pure hypercholesterolemia, unspecified; E74.39 Other disorders of intestinal carbohydrate absorption; R94.6 Abnormal results of thyroid function studies; E51.9 Thiamine deficiency, unspecified; K59.09 Other constipation; Z87.891 Personal history of nicotine dependence; Z98.84 Bariatric surgery status; Z87.19 Personal history of other diseases of the digestive system; Z84.89 Family history of other specified conditions; Z91.048 Other nonmedicinal substance allergy status; Z88.9 Allergy status to unspecified drugs, medicaments and biological substances; Z79.899 Other long term (current) drug therapy; Z79.891 Long term (current) use of opiate analgesic
CPT/HCPCS: 97803; G0463; 99211

== ENCOUNTER → 2017-07-20 | Outpatient (CLI) | payer MEDICARE | END | disposition home or self-care (01) | LOC: LABWHC1 10:45 | PROVIDERS: ATTEND Surgery Plastic and Reconstructive Surgery | DX: E66.01 Morbid (severe) obesity due to excess calories (principal); E44.0 Moderate protein-calorie malnutrition; E03.9 Hypothyroidism, unspecified | CPT/HCPCS: 36415; 84425; 84443 ==

== ENCOUNTER → 2018-08-20 | Outpatient (CLI) | payer MEDICARE ==
--- NOTE | 2018-08-20 15:57 | US ---
EXAMINATION TYPE: US kidneys/renal and bladder DATE OF EXAM: 08/20/2018 COMPARISON: NONE CLINICAL HISTORY: N18.2 Chronic kidney disease stage 2. CKD stage 2 EXAM MEASUREMENTS: Right Kidney: 9.4 x 4.0 x 4.3 cm Left Kidney: 10.0 x 5.1 x 5.2 cm Post Void Residual Volume: 5.9 mL Right Kidney: no hydronephrosis or masses seen Left Kidney: no hydronephrosis or masses seen Bladder: wnl Bilateral Jets seen: right jet seen, left jet not seen Normal Post Void Residual: yes IMPRESSION: No hydronephrosis or nephrolithiasis. Corticomedullary junction is maintained.
== END | disposition home or self-care (01) ==
LOC: RADUSWWP 15:06
PROVIDERS: ATTEND Family Medicine
DX: N18.2 Chronic kidney disease, stage 2 (mild) (principal)
CPT/HCPCS: 76770

== ENCOUNTER → 2019-02-12 | Outpatient (CLI) | payer MEDICARE ==
[2019-02-12 14:13] VITALS: BMI 31.6
== END | disposition home or self-care (01) ==
LOC: BARWHC3 12:38
PROVIDERS: ATTEND Surgery Plastic and Reconstructive Surgery
DX: E66.01 Morbid (severe) obesity due to excess calories (principal); Z68.31 Body mass index [BMI] 31.0-31.9, adult
CPT/HCPCS: 97803

== ENCOUNTER → 2019-07-04 | Outpatient (CLI) | payer MEDICARE | END | disposition home or self-care (01) | LOC: LABWHC1 09:34 | PROVIDERS: ATTEND Family Medicine | DX: Z98.84 Bariatric surgery status (principal) | CPT/HCPCS: 36415; 82607; 84425 ==

== ENCOUNTER → 2019-07-17 | Outpatient (CLI) | payer MEDICARE ==
[2019-07-17 14:57] VITALS: BP 150/70; PULSE 45; RESP 16; TEMP 98.1; BMI 32.3
--- NOTE | 2019-07-17 15:15 | P.PN ---
Subjective Progress Note Date: 07/17/19 DATE OF SERVICE: 07/17/2019 CHIEF COMPLAINT: Follow up sleeve gastrectomy. HISTORY OF PRESENT ILLNESS: Aanhi Nielsen is a 64-year-old female who is status post sleeve gastrectomy on 10/23/2015. She is 4 years out from her sleeve gastrectomy. Her last follow-up was over 2 years ago. She reports continued fatigue including worsening memory loss. She denies abdominal pain. She denies any gastroesophageal reflux disease. She has gained over 24 pounds in 2 years. She reports persistent low heart rate and is symptomatic with dizziness. She comes in with new problems of memory loss including bradycardia. She reports not seeing a sustainability officer in the past. At her height of 5 foot 6.25 inches, her ideal body weight is 154 pounds. Highest personal weight was 272 pounds. Today she comes in weighing 202 pounds from 178 pounds, 2 years ago. She has gained 23 pounds in 2 years. She has lost 70 pounds, lifetime. Percent excess weight loss 60%. Body mass index reduced from 43.3 down to 32.1. She is 48 pounds overweight. PAST MEDICAL HISTORY: 1. Diverticulitis. 2. Morbid obesity due to excess calories, BMI 43.3, initial. 3. Hypothyroidism. 4. Restless leg syndrome. 5. Hypertension. 6. Osteoarthritis of the bilateral hips. 7. Osteoarthritis of the bilateral knees. 8. Depression. 9. Anxiety. 10. Fibromyalgia. 11. Panic disorder. PAST SURGICAL HISTORY: 1. Colon resection secondary to diverticulitis. 2. Cholecystectomy. 3. Heart catheterization. 4. Hysterectomy. 5. Joint replacement. 6. Tonsillectomy. 7. Upper endoscopy. 8. Status post sleeve gastrectomy. MEDICATIONS: Home Medications Medication Instructions Recorded Confirmed FLUoxetine HCL [PROzac] 40 mg PO BID 08/19/15 06/07/17 LORazepam [Ativan] 0.5 mg PO TID PRN 08/19/15 06/07/17 Temazepam [Restoril] 30 mg PO HS 08/19/15 06/07/17 lamoTRIgine [LaMICtal] 100 mg PO BID 08/19/15 06/07/17 risperiDONE [RisperDAL] 1 mg PO BID 08/19/15 06/07/17 traMADol HCl [Ultram] 50 mg PO Q6H 08/19/15 06/07/17 Docusate Sodium [Dok] 100 mg PO TID 10/19/15 06/07/17 Levothyroxine Sodium [Synthroid] 75 mcg PO DAILY 10/23/15 06/07/17 cloNIDine HCL [Catapres] 0.2 mg PO BID 07/07/16 06/07/17 Polyethylene Glycol 3350 [Miralax] 17 gm PO DAILY PRN 07/27/16 06/07/17 Previous Rx's Medication Instructions Recorded HYDROcodone/APAP 10-325MG [[place] 1 each PO Q6H PRN #60 tab 10/23/15 10-325] Omeprazole 40 mg PO AC-BRKFST #60 cap 10/23/15 Polyethylene Glycol 3350 [Miralax] 17 gm PO DAILY PRN #255 gm 06/07/17 ALLERGIES: IODINE. SEROQUEL. SOCIAL HISTORY: Former tobacco user. No reports of illicit drug use. FAMILY HISTORY: Pertinent for diverticulitis including coronary artery disease. Reports morbid obesity. REVIEW OF SYSTEMS: CONSTITUTIONAL: At her height of 5 foot 6-1/2 inches, her ideal body weight is 154 pounds. Highest personal weight was 272 pounds. Body mass index reduced from 43.3. CARDIOVASCULAR: Reports new bradycardia. Reports dizziness. GASTROINTESTINAL: No reports of severe gastroesophageal reflux disease. No diarrhea. RESPIRATORY: Past sleep apnea. No asthma. MUSCULOSKELETAL: Has diffuse osteoarthritis. HEENT: No reports of troubles with vision or dysphagia. ENDOCRINE: No reports of diabetes. She has hypothyroidism. NEURO: No reports of stroke or seizure disorder. Has chronic pain. PSYCH: No reports of depression. No reports of suicidal ideation. HEMATOLOGIC: No reports of easy bruising or bleeding. SKIN: No rash. No cancer. PHYSICAL EXAM: VITAL SIGNS: 5 foot 6.25 inches, 202 pounds. Body mass index 32.4. Vital Signs Temp 98.1 F 07/17/19 14:54 Pulse 45 L 07/17/19 14:54 Resp 16 07/17/19 14:54 BP 150/70 07/17/19 14:54 Pulse Ox ABDOMEN: Soft, nontender, nondistended. GENERAL: Well-developed, pleasant female in no acute distress. HEENT: No sclerae icterus. Extraocular movements grossly intact. Moist buccal mucosa. NECK: Supple without lymphadenopathy. CHEST: Nonlabored respirations. Equal bilateral excursions. CARDIOVASCULAR: Regular rate and rhythm. MUSCULOSKELETAL: No clubbing, cyanosis, or edema. NEURO: No focal or lateralizing signs. Cranial nerves II through XII intact PSYCH: Appropriate affect. Alert and oriented to person, place and time. SKIN: Well perfused. Good skin turgor. Has panniculitis with weight of pannus of 5 pounds. LABS: Previous labs reviewed. Thiamine and vitamin B12 within normal limits. ASSESSMENT: 1. Morbid obesity due to excess calories. 2. Body mass index reduced from 43.3 down to 32.4 3. Obstructive sleep apnea, improved. 4. Status post sleeve gastrectomy. 5. Hypertriglyceridemia. 6. Renal insufficiency. 7. Elevated BUN. 8. Elevated creatinine. 9. History of depression. 10. Hypothyroidism. 11. Family history of premature cardiac . 12. History of diverticulitis. 13. A former tobacco user. 14. Hypercholesterolemia. 15. Glucose intolerance, now improved. 16. Dietary surveillance and counseling. 17. Elevated TSH. 18. Thiamine deficiency. 19. Chronic constipation 20. Bradycardia, symptomatic PLAN: 1. Recommend full bariatric labs 2. Recommend cardiologists to evaluate for symptomatic bradycardia. Objective - Vital Signs Vital signs: Vital Signs Temp 98.1 F 07/17/19 14:54 Pulse 45 L 07/17/19 14:54 Resp 16 07/17/19 14:54 BP 150/70 07/17/19 14:54 Pulse Ox Intake & Output 07/16/19 07/17/19 07/17/19 18:59 06:59 18:59 Weight 91.626 kg
== END | disposition home or self-care (01) ==
LOC: BARWHC3 14:38
PROVIDERS: ATTEND Surgery Plastic and Reconstructive Surgery
DX: E66.01 Morbid (severe) obesity due to excess calories (principal); Z68.32 Body mass index [BMI] 32.0-32.9, adult; E78.1 Pure hyperglyceridemia; N28.9 Disorder of kidney and ureter, unspecified; R94.4 Abnormal results of kidney function studies; R79.89 Other specified abnormal findings of blood chemistry; E03.9 Hypothyroidism, unspecified; E78.00 Pure hypercholesterolemia, unspecified; Z71.3 Dietary counseling and surveillance; R94.6 Abnormal results of thyroid function studies; K59.09 Other constipation; R00.1 Bradycardia, unspecified; Z87.891 Personal history of nicotine dependence; Z86.74 Personal history of sudden cardiac arrest; Z87.19 Personal history of other diseases of the digestive system; Z86.59 Personal history of other mental and behavioral disorders; Z88.8 Allergy status to other drugs, medicaments and biological substances; Z79.891 Long term (current) use of opiate analgesic; Z79.899 Other long term (current) drug therapy
CPT/HCPCS: 99211

== ENCOUNTER 2019-08-29 06:55 | Day surgery (SDC) | payer MEDICARE ==
[~2019-08-29 06:55] MED LIST: ALPRAZolam 0.25 MG TAB PO PRN; ALPRAZolam 0.5 MG TAB PO PRN; NITROGLYCERIN SL TABS 0.4 MG TAB SUBLINGUAL PRN; SODIUM CHLORIDE 0.9% 1,000 ML in EMPTY BAG 1 BAG IV ONE
[2019-08-29] MEDS ORDERED: ATORVASTATIN 80 MG TAB PO ONE (07:00)
[2019-08-29] MEDS ORDERED: ASPIRIN 325 MG TAB PO ONE (07:00)
[2019-08-29] MEDS ORDERED: SODIUM CHLORIDE 0.9% 1,000 ML IV ONE (07:40)
[2019-08-29] MEDS ORDERED: LIDOCAINE 1% INJ 10MG/ML (20 ML MDV) ONE (08:50)
[2019-08-29] MEDS ORDERED: fentaNYL (PF) 50 MCG/ML 2 ML AMP ONE (08:50)
[2019-08-29] MEDS ORDERED: VERAPAMIL 2.5 MG/ML 2 ML AMP ONE (09:00)
[2019-08-29] MEDS ORDERED: fentaNYL (PF) 50 MCG/ML 2 ML AMP IVP ONE (09:16)
[2019-08-29] MEDS: MIDAZOLAM 2 MG/2 ML VIAL IVP ONE ×2 (09:16→09:54)
[2019-08-29] MEDS ORDERED: LIDOCAINE 1% INJ 10MG/ML (20 ML MDV) SQ ONE (09:19)
[2019-08-29] MEDS ORDERED: HEPARIN SODIUM 1,000 UN/ML (10ML VL) ONE (09:21)
[2019-08-29] MEDS ORDERED: VERAPAMIL SYRINGE (5 MG/10 ML) INTRAARTER ONE (09:21)
[2019-08-29] MEDS: HEPARIN SODIUM 1,000 UN/ML (10ML VL) IV ONE ×2 (09:22→09:54)
[2019-08-29] MEDS ORDERED: IOPAMIDOL-370 100ML BTL INJ ONE ×3 (09:36→10:21)
--- NOTE | 2019-08-29 09:50 | P.CARDCATH ---
Date of Procedure: 08/29/19 Description of Procedure: T HISTORY: This is a 64-year-old female with history of hypertension, hypercholes terolemia and smoking history has been complaining of exertional shortness of breath. Patient had a nuclear stress test which showed left bundle-branch block pattern. There was reversible ischemia in the anterolateral wall. She was advised to have a cardiac catheterization for definitive diagnosiT CONSENT:I have discussed the risks, benefits and alternative therapies for the above-mentioned procedure and for both sedation/analgesia as well as necessary blood product administration, if indicated, as they pertain to this patient. The patient has indicated understanding and acceptance of the risks and procedures discussed. PROCEDURE: Patient was brought to the lab in a fasting state. Patient was given some IV sedation. The right wrist is infiltrated with lidocaine and right radial artery was entered using Seldinger technique. A 6-[place] catheter was left in place and selective coronary arteriography was performed. Patient tolerated the procedure well. Patient is found to have a critical lesion in the mid LAD. She went on to have stent placement of the LAD by Dr. Sena. No immediate complications were noted . Conscious Sedation: Versed 1mg Fentanyl 50 g Duration 23minutes HEMODYNAMICS: Aortic pressure is 140/70. Left ventricle end-diastolic pressures of 12 to15. There was no gradient across the aortic valve SELECTIVE CORONARY ARTERIOGRAPHY: LEFT MAIN: Good in caliber and free of occlusive disease. He mild calcification noted in the left coronary system THE LEFT ANTERIOR DESCENDING CORONARY ARTERY: Fair caliber vessel reaching the apex. There is calcification of the left anterior descending coronary artery. There appears to be a concentric 70% stenosis in mid LAD, followed by another 60-70% of the distal LAD THE LEFT CIRCUMFLEX AND IS CORONARY ARTERY: Good caliber vessel free of any significant occlusive disease THE RIGHT CORONARY ARTERY:. Good caliber vessel with mild disease and calcification LEFT VENTRICULOGRAPHY: Not performed FINAL IMPRESSION: Critical lesion in the mid LAD, followed by moderate to severe disease in the distal LAD. Calcified coronary system, especially left coronary system PLAN: Stent placement of the LAD being done by Dr. Sena PROGNOSIS: Fair
[2019-08-29] MEDS: NITROGLYCERIN 1000MCG/10ML SYRINGE INTRACORON ONE ×3 (10:02→10:16)
[2019-08-29] MEDS ORDERED: HYDROmorphone 1 MG/ML 1 ML SYRINGE ONE (10:05)
[2019-08-29] MEDS ORDERED: HYDROmorphone 1 MG/ML 1 ML SYRINGE IVP ONE (10:06)
[2019-08-29] MEDS ORDERED: TICAGRELOR 90 MG TAB ONE (10:11)
[2019-08-29] MEDS ORDERED: TICAGRELOR 90 MG TAB PO ONE (10:18)
[2019-08-29] MEDS ORDERED: DOCUSATE 100 MG CAP PO PRN (10:24)
[2019-08-29] MEDS ORDERED: NITROGLYCERIN SL TABS 0.4 MG TAB SUBLINGUAL PRN ×2 (10:24→10:26)
[2019-08-29] MEDS ORDERED: LORazepam 1 MG TAB PO PRN (10:24)
[2019-08-29] MEDS ORDERED: HYDROcodone/APAP 10-325MG 1 EACH TAB PO PRN (10:24)
[2019-08-29] MEDS ORDERED: polyethylene glycoL 3350 17 GM POWD.PACK PO PRN (10:24)
[2019-08-29] MEDS ORDERED: RX INFO: IV CONTRAST WAS GIVEN 1 EACH MISC MISCELLANE PRN (10:26)
[2019-08-29] MEDS ORDERED: ZOLPIDEM 5 MG TAB PO PRN (10:26)
[2019-08-29] MEDS ORDERED: MAG HYDROX/AL HYDROX/SIMETH 30 ML CUP PO PRN (10:26)
[2019-08-29] MEDS ORDERED: ATROPINE SULFATE 0.1 MG/ML 10ML SYRINGE IV PRN (10:26)
[2019-08-29] MEDS ORDERED: SODIUM CHLORIDE 0.9% 1,000 ML IV SCH (10:30)
--- NOTE | 2019-08-29 11:26 | PTCA ---
PERCUTANEOUSTRANS CORORONARY ANGIOGRAPHY DATE OF SERVICE: 08/29/2019. PERFORMING PHYSICIAN: Aníbal Stratton MD. PROCEDURE PERFORMED: Successful stenting of the mid left anterior descending artery using 2.5 x 18 mm Xience TAMARA which was post-dilated using 2.75 mm NC balloon with an excellent angiographic results and reduction of stenosis from 80% to 0%. INDICATION: This is a 64-year-old female patient who sees Dr. Edouard in the office, who was experiencing symptoms of chest discomfort and underwent myocardial perfusion imaging stress test and that revealed anterolateral ischemia. Because of that, a heart catheterization was advised. The patient underwent a heart catheterization by Dr. Edouard and was found to have severe disease involving the mid LAD. Because of that, a decision was made toward percutaneous coronary intervention. APPROACH: Right radial artery. COMPLICATION: None. LEVEL OF SEDATION: Moderate with sedation length of 32 minutes. PROCEDURE DESCRIPTION: Please refer to the diagnostic heart catheterization that was performed by Dr. Edouard earlier today. Anticoagulation was achieved with heparin with continuous ECT monitoring. The left main was engaged using JL3.5 guide. I did wire the LAD using 2 wires. The first wire was run-through and the second wire was Whisper wire. I did balloon angioplasty using 2.5 x 12 mm balloon where the balloon was inflated under 14 atmospheres for 20 seconds. After that, I deployed 2.5 x 18 mm Xience TAMARA where the stent was positioned under fluoroscopy guidance and deployed under 12 atmospheres for 20 seconds. I post-dilated the stent using 2.75 mm balloon. The final angiogram showed excellent angiographic results and the procedure was completed without any complication. POSTPROCEDURE MANAGEMENT: 1. Dual anti-platelet therapy. 2. Risk factor modifications. 3. Follow up with the patient. MMODL / IJN: [id number] /
[2019-08-29] MEDS: SODIUM CHLORIDE 0.9% 1,000 ML IV SCH ×2 (14:04→19:42)
[2019-08-29] MEDS: traMADol 50 MG TAB PO SCH ×2 (14:06→17:12)
[2019-08-29 15:32] VITALS: BMI 32.7
[2019-08-29] MEDS: amLODIPine 5 MG TAB PO SCH (20:29)
[2019-08-29] MEDS: TICAGRELOR 90 MG TAB PO SCH (20:29)
[2019-08-29] MEDS: hydrALAZINE HCL 50 MG TAB PO SCH (20:29)
[2019-08-29] MEDS: FLUoxetine HCL 20 MG CAP PO SCH (20:29)
[2019-08-29] MEDS: lamoTRIgine 100 MG TAB PO SCH (20:30)
[2019-08-29] MEDS: risperiDONE 1 MG TAB PO SCH (20:30)
[2019-08-29] MEDS ORDERED: TEMAZEPAM 15 MG CAP PO SCH (21:00)
[2019-08-29] MEDS ORDERED: TEMAZEPAM 30 MG CAP PO SCH (21:00)
[2019-08-30] MEDS: traMADol 50 MG TAB PO SCH ×3 (00:18→11:55)
[2019-08-30 03:18] VITALS: TEMP 98
[2019-08-30] MEDS: SODIUM CHLORIDE 0.9% 1,000 ML IV SCH (05:23)
[2019-08-30] MEDS ORDERED: LEVOTHYROXINE 75 MCG TAB PO SCH (06:30)
[2019-08-30] MEDS ORDERED: PANTOPRAZOLE 40 MG TABLET PO SCH (07:30)
[2019-08-30] MEDS ORDERED: hydroCHLOROthiazide 25 MG TAB PO SCH (09:00)
[2019-08-30] MEDS ORDERED: ATORVASTATIN 20 MG TAB PO SCH (09:00)
[2019-08-30] MEDS ORDERED: ASPIRIN 81 MG PO SCH (09:00)
[2019-08-30] MEDS ORDERED: CYANOCOBALAMIN 500 MCG TAB PO SCH (09:00)
[2019-08-30 09:17] VITALS: BP 125/69; PULSE 53; RESP 16
[2019-08-30] MEDS: amLODIPine 5 MG TAB PO SCH (09:45)
[2019-08-30] MEDS: FLUoxetine HCL 20 MG CAP PO SCH (09:45)
[2019-08-30] MEDS: hydrALAZINE HCL 50 MG TAB PO SCH (09:45)
[2019-08-30] MEDS: lamoTRIgine 100 MG TAB PO SCH (09:46)
[2019-08-30] MEDS: TICAGRELOR 90 MG TAB PO SCH (09:46)
[2019-08-30] MEDS: risperiDONE 1 MG TAB PO SCH (09:46)
--- NOTE | 2019-08-30 12:06 | P.DS ---
Providers Date of admission: 08/29/2019 Attending physician: Jessica Edouard Consults: 08/29/19 10:26 Consult Physician Routine Consulting Provider: [facility] Consult Reason/Comments: Post Interventional patient Do you want consulting provider notified?: Already Contacted Primary care physician: Isaias Ayon - Discharge Diagnosis(es) (1) Exertional dyspnea Current Visit: Yes Status: Acute (2) Positive cardiac stress test Current Visit: Yes Status: Acute (3) CAD (coronary artery disease) Current Visit: Yes Status: Acute (4) Bradycardia Current Visit: Yes Status: Acute Hospital Course: This patient was brought in for outpatient cardiac catheterization because of positive stress test and symptoms of exertional dyspnea. Cardiac catheterization revealed about 70% stenosis of the mid LAD and about 60% stenosis of the distal LAD. Calcification and diffuse disease noted in the right coronary artery. Patient had successful stenting of the mid LAD. Patient remained stable overnight. She still gets occasional episodes where she sat to take deep breaths but otherwise seemed to be comfortable. This puncture site has healed well without any evidence of hematoma. The radial pulses bounding. A lung findings are stable. Patient is being discharged home to stay on aspirin with addition of Brillinta. Patient is not a candidate for beta cindy because of bradycardia. Patient have follow-up in the office in one week. The patient is advised to not to do any heavy lifting, pushing or pulling with the right wrist Plan - Discharge Summary Discharge Rx Participant: Yes New Discharge Prescriptions: New Ticagrelor [Brilinta] 90 mg PO BID #180 tab Continue traMADol HCl [Ultram] 50 mg PO Q6H risperiDONE [RisperDAL] 1 mg PO BID FLUoxetine HCL [PROzac] 40 mg PO BID lamoTRIgine [LaMICtal] 100 mg PO BID Temazepam [Restoril] 30 mg PO HS LORazepam [Ativan] 1 mg PO TID PRN PRN Reason: Anxiety Docusate Sodium [Dok] 100 mg PO BID PRN PRN Reason: Constipation Levothyroxine Sodium [Synthroid] 150 mcg PO DAILY Omeprazole 40 mg PO AC-BRKFST #60 cap Polyethylene Glycol 3350 [Miralax] 17 gm PO DAILY PRN PRN Reason: Constipation HYDROcodone/APAP 10-325MG [[place] 10-325] 1 each PO Q12H PRN PRN Reason: Pain hydrALAZINE HCL [Apresoline] 50 mg PO BID Nitroglycerin Sl Tabs [Nitrostat] 0.4 mg SUBLINGUAL Q5M PRN PRN Reason: Chest Pain Cyanocobalamin [Vitamin B-12] 500 mcg PO DAILY Atorvastatin [Lipitor] 20 mg PO DAILY amLODIPine [Norvasc] 5 mg PO BID hydroCHLOROthiazide 25 mg PO DAILY Discharge Medication List FLUoxetine HCL [PROzac] 40 mg PO BID 08/19/15 [History] LORazepam [Ativan] 1 mg PO TID PRN 08/19/15 [History] Temazepam [Restoril] 30 mg PO HS 08/19/15 [History] lamoTRIgine [LaMICtal] 100 mg PO BID 08/19/15 [History] risperiDONE [RisperDAL] 1 mg PO BID 08/19/15 [History] traMADol HCl [Ultram] 50 mg PO Q6H 08/19/15 [History] Docusate Sodium [Dok] 100 mg PO BID PRN 10/19/15 [History] Levothyroxine Sodium [Synthroid] 150 mcg PO DAILY 10/23/15 [History] Omeprazole 40 mg PO AC-BRKFST #60 cap 10/23/15 [Rx] Polyethylene Glycol 3350 [Miralax] 17 gm PO DAILY PRN 07/27/16 [History] Atorvastatin [Lipitor] 20 mg PO DAILY 08/28/19 [History] Cyanocobalamin [Vitamin B-12] 500 mcg PO DAILY 08/28/19 [History] HYDROcodone/APAP 10-325MG [[place] 10-325] 1 each PO Q12H PRN 08/28/19 [History] Nitroglycerin Sl Tabs [Nitrostat] 0.4 mg SUBLINGUAL Q5M PRN 08/28/19 [History] amLODIPine [Norvasc] 5 mg PO BID 08/28/19 [History] hydrALAZINE HCL [Apresoline] 50 mg PO BID 08/28/19 [History] hydroCHLOROthiazide 25 mg PO DAILY 08/28/19 [History] Ticagrelor [Brilinta] 90 mg PO BID #180 tab 08/30/19 [Rx] Follow up Appointment(s)/Referral(s): Jessica Edouard MD [STAFF PHYSICIAN] - 09/05/19 2:15 pm
== END 2019-08-30 13:20 | disposition home or self-care (01) ==
LOC: CATHCVL 06:55 → 3NCARDOBS 13:48 → CATHCVL 08-30 13:20
PROVIDERS: ATTEND Internal Medicine Cardiovascular Disease
DX: I25.10 Atherosclerotic heart disease of native coronary artery without angina pectoris (principal); I10 Essential (primary) hypertension; I35.9 Nonrheumatic aortic valve disorder, unspecified; E78.00 Pure hypercholesterolemia, unspecified; E78.5 Hyperlipidemia, unspecified; E66.01 Morbid (severe) obesity due to excess calories; Z79.899 Other long term (current) drug therapy; Z79.890 Hormone replacement therapy; Z79.1 Long term (current) use of non-steroidal anti-inflammatories (NSAID); Z72.0 Tobacco use; Z68.34 Body mass index [BMI] 34.0-34.9, adult; Z91.041 Radiographic dye allergy status; Z88.8 Allergy status to other drugs, medicaments and biological substances; Z82.49 Family history of ischemic heart disease and other diseases of the circulatory system
CPT/HCPCS: 93458; 85347; 82565; C9600; C1769 ×3; C1887; C1725; C1874; C1894; J2250; J2001; J3010; J1644; J1170; Q9967

== ENCOUNTER 2019-09-01 13:01 | Observation (INO) | payer MEDICARE ==
[2019-09-01 13:43] LABS: Basophils % (A) 0 %; Eosinophils # (A) 0.1 k/uL (0-0.7); Eosinophils % (A) 2 %; HCT 37.4 % (34.0-46.0); HGB 12.6 gm/dL (11.4-16.0); Lymphocytes # (A) 0.7 k/uL (1.0-4.8); Lymphocytes % (A) 11 %; MCH 28.6 pg (25.0-35.0); MCHC 33.6 g/dL (31.0-37.0); MCV 85.2 fL (80.0-100.0); Mean Platelet Volume 7.5; Monocytes # (A) 0.4 k/uL (0-1.0); Monocytes % (A) 7 %; Neutrophils # (A) 5.1 k/uL (1.3-7.7); Neutrophils % (A) 78 %; Platelet Count 221 k/uL (150-450); RBC 4.39 m/uL (3.80-5.40); RDW 13.4 % (11.5-15.5); WBC 6.5 k/uL (3.8-10.6)
--- NOTE | 2019-09-01 13:43 | ED ---
General Adult HPI - General Chief complaint: Chest Pain Stated complaint: ERICK, cath done 08/28 Time Seen by Provider: 09/01/19 13:07 Source: patient, RN notes reviewed, old records reviewed Mode of arrival: wheelchair Limitations: no limitations - History of Present Illness Initial comments: 64-year-old female with chest heaviness, orthopnea and dyspnea for the past 3 days. She had a heart catheterization 3 days prior with stenting of the LAD. She has been prescribed Brilinta and aspirin. She has been compliant with these medications. She states her symptoms have been consistent over the past 3 days. She describes a chest pressure and tightness. Additionally she had some lower extremity edema and dyspnea while lying flat. No cough or fever. Previous tobacco use. - Related Data Home Medications Medication Instructions Recorded Confirmed FLUoxetine HCL [PROzac] 40 mg PO BID 08/19/15 08/29/19 LORazepam [Ativan] 1 mg PO TID PRN 08/19/15 08/29/19 Temazepam [Restoril] 30 mg PO HS 08/19/15 08/29/19 lamoTRIgine [LaMICtal] 100 mg PO BID 08/19/15 08/29/19 risperiDONE [RisperDAL] 1 mg PO BID 08/19/15 08/29/19 traMADol HCl [Ultram] 50 mg PO Q6H 08/19/15 08/29/19 Docusate Sodium [Dok] 100 mg PO BID PRN 10/19/15 08/28/19 Levothyroxine Sodium [Synthroid] 150 mcg PO DAILY 10/23/15 08/29/19 Polyethylene Glycol 3350 [Miralax] 17 gm PO DAILY PRN 07/27/16 08/28/19 Atorvastatin [Lipitor] 20 mg PO DAILY 08/28/19 08/29/19 Cyanocobalamin [Vitamin B-12] 500 mcg PO DAILY 08/28/19 08/28/19 HYDROcodone/APAP 10-325MG [[place] 1 each PO Q12H PRN 08/28/19 08/29/19 10-325] Nitroglycerin Sl Tabs [Nitrostat] 0.4 mg SUBLINGUAL Q5M PRN 08/28/19 08/28/19 amLODIPine [Norvasc] 5 mg PO BID 08/28/19 08/28/19 hydrALAZINE HCL [Apresoline] 50 mg PO BID 08/28/19 08/28/19 hydroCHLOROthiazide 25 mg PO DAILY 08/28/19 08/28/19 Previous Rx's Medication Instructions Recorded Omeprazole 40 mg PO AC-BRKFST #60 cap 10/23/15 Ticagrelor [Brilinta] 90 mg PO BID #180 tab 08/30/19 Allergies Allergy/AdvReac Type Severity Reaction Status Date / Time Iodinated Contrast Media Allergy Itching, Verified 09/01/19 13:06 hives quetiapine fumarate AdvReac Unknown Verified 09/01/19 13:06 [From Seroquel] Review of Systems ROS Statement: Those systems with pertinent positive or pertinent negative responses have been documented in the HPI. ROS Other: All systems not noted in ROS Statement are negative. Past Medical History Past Medical History: Coronary Artery Disease (CAD), Fibromyalgia, GERD/Reflux, Hearing Disorder / Deafness, Hyperlipidemia, Hypertension, Osteoarthritis (OA), Sleep Apnea/CPAP/BIPAP, Thyroid Disorder Additional Past Medical History / Comment(s): MINOR "LEAKY HEART VALVE." Hypothyroid. Diverticulitis. NO TX FOR SLEEP APNEA. past hx. FX JOSELO FEET, LOWER BACK pain, HYPOGLYCEMIA, [place] bilaterally, recent stresst test & echo, "slow heart rate", see Dr Edouard H & P History of Any Multi-Drug Resistant Organisms: None Reported Past Surgical History: Bariatric Surgery, Bowel Resection, Cholecystectomy, Hear t Catheterization, Hysterectomy, Joint Replacement, Tonsillectomy Additional Past Surgical History / Comment(s): 10/23/15 Laparoscopic gastric sleeve.EGD/extensive lysis of adhesions. Other surgical hx: Lt Hip Replaced. 8 inches Colon Removed. Colonoscopy and EGD. Past Anesthesia/Blood Transfusion Reactions: Motion Sickness Additional Past Anesthesia/Blood Transfusion Reaction / Comment(s): Pt states she has received blood in the past without reacion. Past Psychological History: Anxiety, Depression, Panic Disorder Smoking Status: Former smoker Past Alcohol Use History: Abuse Past Drug Use History: None Reported - Past Family History Father Family Medical History: Coronary Artery Disease (CAD) Additional Family Medical History / Comment(s): from Heart attack Mother Family Medical History: Congestive Heart Failure (CHF) Additional Family Medical History / Comment(s): from heart attack General Exam Limitations: no limitations General appearance: alert, in no apparent distress Head exam: Present: atraumatic, normocephalic Eye exam: Present: normal appearance, PERRL ENT exam: Present: normal exam Neck exam: Present: normal inspection. Absent: tenderness, meningismus Respiratory exam: Present: normal lung sounds bilaterally. Absent: respiratory distress, wheezes Cardiovascular Exam: Present: regular rate, normal rhythm GI/Abdominal exam: Present: soft. Absent: distended, tenderness, guarding Extremities exam: Present: normal inspection, normal capillary refill. Absent: pedal edema Back exam: Present: normal inspection Neurological exam: Present: alert, oriented X3, CN II-XII intact. Absent: motor sensory deficit Psychiatric exam: Present: normal affect, normal mood Skin exam: Present: warm, dry, intact. Absent: cyanosis, diaphoretic Course Vital Signs 09/01/19 09/01/19 13:04 14:26 Temperature 97.6 F Pulse Rate 65 56 L Respiratory 16 18 Rate Blood Pressure 144/70 162/75 O2 Sat by Pulse 99 100 Oximetry EKG Findings - EKG Comments: EKG Findings:: EKG: Sinus bradycardia with LVH ST segment depression in the lateral precordial leads, no ST segment elevation, rate of 57, MT interval 170, QRS duration 116, QTC 461, similar ST segment changes compared to previous EKG obtained August. Medical Decision Making - Medical Decision Making 64-year-old female 3 days status post heart cath with stenting in the LAD presents for evaluation of chest discomfort and dyspnea which is been ongoing over the past several days. Patient has EKG showing sinus rhythm with no significant change compared to EKG obtained. Prior. No ST segment elevation. She has a normal CBC, chest x-ray showing cardiomegaly. She has mild hyponatremia with a sodium of 129. Troponin is 0.088, this is likely post cath troponin elevation but this level will be trended. I did discuss case with Dr. Esparza, and with Dr. Bradford who will admit. Echo has been ordered. - Lab Data Result diagrams: 09/01/19 13:26 09/01/19 13:26 Lab Results 09/01/19 09/01/19 09/01/19 Range/Units 13:26 13:26 13:26 WBC 6.5 (3.8-10.6) k/uL RBC 4.39 (3.80-5.40) m/uL Hgb 12.6 (11.4-16.0) gm/dL Hct 37.4 (34.0-46.0) % MCV 85.2 (80.0-100.0) fL MCH 28.6 (25.0-35.0) pg MCHC 33.6 (31.0-37.0) g/dL RDW 13.4 (11.5-15.5) % Plt Count 221 (150-450) k/uL Neutrophils % 78 % Lymphocytes % 11 % Monocytes % 7 % Eosinophils % 2 % Basophils % 0 % Neutrophils # 5.1 (1.3-7.7) k/uL Lymphocytes # 0.7 L (1.0-4.8) k/uL Monocytes # 0.4 (0-1.0) k/uL Eosinophils # 0.1 (0-0.7) k/uL Basophils # 0.0 (0-0.2) k/uL PT 10.1 (9.0-12.0) sec INR 1.0 (<1.2) APTT 23.2 (22.0-30.0) sec Sodium 129 L (137-145) mmol/L Potassium 3.5 (3.5-5.1) mmol/L Chloride 94 L (98-107) mmol/L Carbon Dioxide 23 (22-30) mmol/L Anion Gap 12 mmol/L BUN 16 (7-17) mg/dL Creatinine 1.28 H (0.52-1.04) mg/dL Est GFR (CKD-EPI)AfAm 51 (>60 ml/min/1.73 sqM) Est GFR (CKD-EPI)NonAf 45 (>60 ml/min/1.73 sqM) Glucose 115 H (74-99) mg/dL Calcium 9.5 (8.4-10.2) mg/dL Magnesium 1.6 (1.6-2.3) mg/dL Total Bilirubin 0.6 (0.2-1.3) mg/dL AST 37 H (14-36) U/L ALT 25 (4-34) U/L Alkaline Phosphatase 84 (38-126) U/L Troponin I (0.000-0.034) ng/mL NT-Pro-B Natriuret Pep pg/mL Total Protein 7.2 (6.3-8.2) g/dL Albumin 4.2 (3.5-5.0) g/dL 09/01/19 09/01/19 Range/Units 13:26 13:26 WBC (3.8-10.6) k/uL RBC (3.80-5.40) m/uL Hgb (11.4-16.0) gm/dL Hct (34.0-46.0) % MCV (80.0-100.0) fL MCH (25.0-35.0) pg MCHC (31.0-37.0) g/dL RDW (11.5-15.5) % Plt Count (150-450) k/uL Neutrophils % % Lymphocytes % % Monocytes % % Eosinophils % % Basophils % % Neutrophils # (1.3-7.7) k/uL Lymphocytes # (1.0-4.8) k/uL Monocytes # (0-1.0) k/uL Eosinophils # (0-0.7) k/uL Basophils # (0-0.2) k/uL PT (9.0-12.0) sec INR (<1.2) APTT (22.0-30.0) sec Sodium (137-145) mmol/L Potassium (3.5-5.1) mmol/L Chloride (98-107) mmol/L Carbon Dioxide (22-30) mmol/L Anion Gap mmol/L BUN (7-17) mg/dL Creatinine (0.52-1.04) mg/dL Est GFR (CKD-EPI)AfAm (>60 ml/min/1.73 sqM) Est GFR (CKD-EPI)NonAf (>60 ml/min/1.73 sqM) Glucose (74-99) mg/dL Calcium (8.4-10.2) mg/dL Magnesium (1.6-2.3) mg/dL Total Bilirubin (0.2-1.3) mg/dL AST (14-36) U/L ALT (4-34) U/L Alkaline Phosphatase (38-126) U/L Troponin I 0.088 H* (0.000-0.034) ng/mL NT-Pro-B Natriuret Pep 201 pg/mL Total Protein (6.3-8.2) g/dL Albumin (3.5-5.0) g/dL Disposition Clinical Impression: CAD (coronary artery disease), Elevated troponin Disposition: ADMITTED IP TO THIS HOSP Condition: Stable Is patient prescribed a controlled substance at d/c from ED?: No Referrals: Isaias Ayon MD [Primary Care Provider] - 1-2 days Decision to Admit Reason: Admit from EC Decision Date: 09/01/19 Decision Time: 15:04
[2019-09-01 13:50] LABS: Albumin 4.2 g/dL (3.5-5.0); Calcium 9.5 mg/dL (8.4-10.2); Magnesium 1.6 mg/dL (1.6-2.3); Potassium 3.5 mmol/L (3.5-5.1); Total Bilirubin 0.6 mg/dL (0.2-1.3); Total Protein 7.2 g/dL (6.3-8.2)
[2019-09-01 13:52] LABS: Partial Thromboplastin Time 23.2 sec (22.0-30.0); Prothrombin Time 10.1 sec (9.0-12.0)
--- NOTE | 2019-09-01 14:42 | XR ---
EXAMINATION TYPE: XR chest 2V DATE OF EXAM: 09/01/2019 HISTORY: Chest Pain. REFERENCE: Previous study dated 03/06/2013. FINDINGS: The heart is enlarged. The lungs are clear. Pleural space are clear. IMPRESSION: CARDIOMEGALY.
[2019-09-01] MEDS ORDERED: NALOXONE 0.4 MG/ML 1 ML VIAL IV PRN (15:00)
[2019-09-01] MEDS ORDERED: ACETAMINOPHEN TAB 325 MG TAB PO PRN (15:00)
[2019-09-01] MEDS ORDERED: NITROGLYCERIN SL TABS 0.4 MG TAB SUBLINGUAL PRN (17:12)
[2019-09-01] MEDS ORDERED: polyethylene glycoL 3350 17 GM POWD.PACK PO PRN (17:12)
[2019-09-01] MEDS ORDERED: LORazepam 1 MG TAB PO PRN (17:12)
[2019-09-01] MEDS ORDERED: DOCUSATE 100 MG CAP PO PRN (17:12)
--- NOTE | 2019-09-01 17:29 | P.HPIM ---
History of Present Illness H&P Date: 09/01/19 Chief Complaint: Chest pain 64-year-old female with PMH of CAD, hypothyroidism, hypertension, bipolar disorder, recent stent placement on August 28 presents the ED for chest heaviness. Patient reports undergoing cardiac cath on August 28 which showed 70 % stenosis in the mid LAD, 60-70% of the distal LAD. Subsequently, a stent was placed in the LAD. Patient states that she went home and started to feel heaviness in her chest. Patient states that "I couldn't catch my breath". She reports shortness of breath with minimal exertion and orthopnea since her cardiac cath. She also reports lightheadedness that changes with position which started yesterday. Patient states that she took sublingual nitroglycerin today which helped her symptoms. These symptoms prompted her to come to the ED. Patient denies any headache, lower extremity edema, nausea vomiting, fever or chills, cough, palpitations, changes in urination or bowel habits. She does report one episode of diarrhea today. She denies any numbness/weakness/tingling of the extremities. In the ED, vital signs were stable. Her blood pressure was 162/75 and pulse was 56. CBC showed lymphocyte count of 0.7. INR was 1. CMP showed sodium of 129, chloride of 94, creatinine 1.28, glucose 115, AST 37. Troponin was 0.088, EKG showing sinus bradycardia. BNP was 201, chest x-ray showing cardiomegaly. Patient is admitted for chest heaviness, troponin elevation with cardiology on consultation. Review of Systems Pertinent positives and negatives as discussed in HPI, a complete review of systems was performed and all other systems are negative. Past Medical History Past Medical History: Coronary Artery Disease (CAD), Fibromyalgia, GERD/Reflux, Hearing Disorder / Deafness, Hyperlipidemia, Hypertension, Osteoarthritis (OA), Sleep Apnea/CPAP/BIPAP, Thyroid Disorder Additional Past Medical History / Comment(s): MINOR "LEAKY HEART VALVE." Hypothyroid. Diverticulitis. NO TX FOR SLEEP APNEA. past hx. FX JOSELO FEET, LOWER BACK pain, HYPOGLYCEMIA, [place] bilaterally, recent stresst test & echo, "slow heart rate", see Dr Edouard H & P History of Any Multi-Drug Resistant Organisms: None Reported Past Surgical History: Bariatric Surgery, Bowel Resection, Cholecystectomy, Heart Catheterization, Hysterectomy, Joint Replacement, Tonsillectomy Additional Past Surgical History / Comment(s): 10/23/15 Laparoscopic gastric sleeve.EGD/extensive lysis of adhesions. Other surgical hx: Lt Hip Replaced. 8 inches Colon Removed. Colonoscopy and EGD. Past Anesthesia/Blood Transfusion Reactions: Motion Sickness Additional Past Anesthesia/Blood Transfusion Reaction / Comment(s): Pt states she has received blood in the past without reacion. Past Psychological History: Anxiety, Depression, Panic Disorder Smoking Status: Former smoker Past Alcohol Use History: Abuse Past Drug Use History: None Reported - Past Family History Father Family Medical History: Coronary Artery Disease (CAD) Additional Family Medical History / Comment(s): from Heart attack Mother Family Medical History: Congestive Heart Failure (CHF) Additional Family Medical History / Comment(s): from heart attack Medications and Allergies Home Medications Medication Instructions Recorded Confirmed Type FLUoxetine HCL [PROzac] 40 mg PO BID 08/19/15 08/29/19 History LORazepam [Ativan] 1 mg PO TID PRN 08/19/15 08/29/19 History Temazepam [Restoril] 30 mg PO HS 08/19/15 08/29/19 History lamoTRIgine [LaMICtal] 100 mg PO BID 08/19/15 08/29/19 History risperiDONE [RisperDAL] 1 mg PO BID 08/19/15 08/29/19 History traMADol HCl [Ultram] 50 mg PO Q6H 08/19/15 08/29/19 History Docusate Sodium [Dok] 100 mg PO BID PRN 10/19/15 08/28/19 History Levothyroxine Sodium [Synthroid] 150 mcg PO DAILY 10/23/15 08/29/19 History Omeprazole 40 mg PO AC-BRKFST #60 cap 10/23/15 08/29/19 Rx Polyethylene Glycol 3350 [Miralax] 17 gm PO DAILY PRN 07/27/16 08/28/19 History Atorvastatin [Lipitor] 20 mg PO DAILY 08/28/19 08/29/19 History Cyanocobalamin [Vitamin B-12] 500 mcg PO DAILY 08/28/19 08/28/19 History HYDROcodone/APAP 10-325MG [[place] 1 each PO Q12H PRN 08/28/19 08/29/19 History 10-325] Nitroglycerin Sl Tabs [Nitrostat] 0.4 mg SUBLINGUAL Q5M PRN 08/28/19 08/28/19 History amLODIPine [Norvasc] 5 mg PO BID 08/28/19 08/28/19 History hydrALAZINE HCL [Apresoline] 50 mg PO BID 08/28/19 08/28/19 History hydroCHLOROthiazide 25 mg PO DAILY 08/28/19 08/28/19 History Ticagrelor [Brilinta] 90 mg PO BID #180 tab 08/30/19 Rx Lactulose [Constulose] 6.66 gm PO Q12H 09/01/19 09/01/19 History cycloSPORINE 0.05% OPHTH SOLN 1 drop BOTH EYES BID 09/01/19 09/01/19 History [Restasis] Allergies Allergy/AdvReac Type Severity Reaction Status Date / Time Iodinated Contrast Media Allergy Itching, Verified 09/01/19 16:00 hives quetiapine fumarate AdvReac Unknown Verified 09/01/19 16:00 [From Seroquel] Physical Exam Vitals: Vital Signs Temp Pulse Resp BP Pulse Ox 09/01/19 16:04 97.8 F 58 L 18 162/72 100 09/01/19 15:22 97.8 F 55 L 18 158/73 100 09/01/19 14:26 56 L 18 162/75 100 09/01/19 13:04 97.6 F 65 16 144/70 99 Intake and Output 09/01/19 09/01/19 09/01/19 06:59 14:59 22:59 Other: Weight 88.904 kg General: [non toxic], [no distress], [appears at stated age] Derm: [warm], [dry] Head: [atraumatic], [normocephalic], [symmetric] Eyes: [EOMI], [no lid lag], [anicteric sclera] Mouth: [no lip lesion], [mucus membranes moist] Cardiovascular: [S1S2 reg], [holosystolic murmur], [positive DP pulse bilateral], Lungs: [CTA bilateral], [no rhonchi, no rales] , [no accessory muscle use] Abdominal: [soft], [ nontender to palpation], [no guarding], [no appreciable organomegaly] Ext: [no gross muscle atrophy], [no edema], [no contractures], right wrist with bruising Neuro: [ CN II-XI grossly intact], [no focal neuro deficits] Psych: [Alert], [oriented], [appropriate affect] Results CBC & Chem 7: 09/01/19 13:09/01/19 13: Labs: Abnormal Lab Results - Last 24 Hours (Table) 09/01/19 09/01/19 09/01/19 Range/Units 13: 13: 13: Lymphocytes # 0.7 L (1.0-4.8) k/uL Sodium 129 L (137-145) mmol/L Chloride 94 L (98-107) mmol/L Creatinine 1.28 H (0.52-1.04) mg/dL Glucose 115 H (74-99) mg/dL AST 37 H (14-36) U/L Troponin I 0.088 H* (0.000-0.034) ng/mL Assessment and Plan Assessment: Chest pain with troponin elevation, history of CAD and recent stent Hyponatremia with Acute kidney injury Hypertension Bipolar disorder, anxiety and depression Hypothyroidism Patient symptoms are concerning for ACS, new onset CHF. Troponin is 0.088 with EKG showing sinus bradycardia. Patient underwent cardiac cath and stent placement of the LAD on August 28. She has been compliant with her antiplatelet medication. Plans: Trend troponins/EKG to rule out ACS. Continue aspirin, L ipitor and Brilinta. Repeat echocardiogram. Telemetry monitoring. Follow cardiology consultation. Patient's sodium is 129. Her creatinine is 1.28. This is likely related to dehydration versus contrast-induced. Plans: Start normal saline at 50 mL per hour. Avoid nephrotoxic medications. Repeat BMP tomorrow morning. Her BP is 162/72. Plans: Continue amlodipine, hydrochlorothiazide, hydralazine. Monitor vitals and adjust medications as necessary. Plans: Continue Lamictal and Risperdal for bipolar disorder. Restart fluoxetine and Ativan as needed for depression and bipolar disorder. Restart temazepam for sleep. Plans: Restart Synthroid. DVT prophylaxis: [Heparin] Discussed with: [Patient] Anticipated discharge: [1-2 days] Anticipated discharge place: [Home] A total of [45] minutes was spent on the care of this complex patient more than 50% of the time was spent in counseling and care coordination. Patient names her Vik decision maker if she can't make decisions for herself. Patient would like to be full code.
[2019-09-01] MEDS ORDERED: SODIUM CHLORIDE 0.9% 1,000 ML IV SCH (17:30)
[2019-09-01] MEDS: LORazepam 1 MG TAB PO SCH ×2 (18:21→22:21)
[2019-09-01] MEDS ORDERED: TEMAZEPAM 30 MG CAP PO PRN (21:00)
[2019-09-01] MEDS: lamoTRIgine 100 MG TAB PO SCH (21:11)
[2019-09-01] MEDS: FLUoxetine HCL 20 MG CAP PO SCH (21:11)
[2019-09-01] MEDS: TICAGRELOR 90 MG TAB PO SCH (21:11)
[2019-09-01] MEDS: risperiDONE 1 MG TAB PO SCH (21:11)
[2019-09-01] MEDS: amLODIPine 5 MG TAB PO SCH (21:11)
[2019-09-01] MEDS: HEPARIN SODIUM,PORCINE 5,000 UNIT/ML 1 ML VIAL SQ SCH (21:11)
[2019-09-01] MEDS: hydrALAZINE HCL 50 MG TAB PO SCH (21:11)
[2019-09-01] MEDS: HYDROcodone/APAP 10-325MG 1 EACH TAB PO PRN (21:15)
[2019-09-01] MEDS: TEMAZEPAM 15 MG CAP PO PRN (23:57)
[2019-09-02] MEDS: PANTOPRAZOLE 40 MG TABLET PO SCH (05:54)
[2019-09-02] MEDS: LEVOTHYROXINE 75 MCG TAB PO SCH (05:54)
[2019-09-02 07:34] LABS: Basophils % (A) 0 %; Eosinophils # (A) 0.1 k/uL (0-0.7); Eosinophils % (A) 2 %; HCT 35.2 % (34.0-46.0); HGB 11.3 gm/dL (11.4-16.0); Lymphocytes # (A) 0.7 k/uL (1.0-4.8); Lymphocytes % (A) 15 %; MCH 27.9 pg (25.0-35.0); MCHC 32.2 g/dL (31.0-37.0); MCV 86.5 fL (80.0-100.0); Mean Platelet Volume 7.2; Monocytes # (A) 0.4 k/uL (0-1.0); Monocytes % (A) 9 %; Neutrophils # (A) 3.4 k/uL (1.3-7.7); Neutrophils % (A) 71 %; Platelet Count 209 k/uL (150-450); RBC 4.07 m/uL (3.80-5.40); RDW 13.7 % (11.5-15.5); WBC 4.8 k/uL (3.8-10.6)
[2019-09-02 07:40] LABS: Albumin 3.7 g/dL (3.5-5.0); Potassium 3.8 mmol/L (3.5-5.1); Total Bilirubin 0.7 mg/dL (0.2-1.3); Total Protein 6.3 g/dL (6.3-8.2)
[2019-09-02] MEDS: ATORVASTATIN 20 MG TAB PO SCH (08:19)
[2019-09-02] MEDS: ASPIRIN 81 MG PO SCH (08:19)
[2019-09-02] MEDS: hydrALAZINE HCL 50 MG TAB PO SCH ×2 (08:19→21:22)
[2019-09-02] MEDS: risperiDONE 1 MG TAB PO SCH ×2 (08:19→21:22)
[2019-09-02] MEDS: LORazepam 1 MG TAB PO SCH ×3 (08:19→21:23)
[2019-09-02] MEDS: TICAGRELOR 90 MG TAB PO SCH ×2 (08:20→21:22)
[2019-09-02] MEDS: FLUoxetine HCL 20 MG CAP PO SCH ×2 (08:20→21:21)
[2019-09-02] MEDS: amLODIPine 5 MG TAB PO SCH ×2 (08:20→21:21)
[2019-09-02] MEDS: HEPARIN SODIUM,PORCINE 5,000 UNIT/ML 1 ML VIAL SQ SCH ×2 (08:20→21:23)
[2019-09-02] MEDS: lamoTRIgine 100 MG TAB PO SCH ×2 (08:20→21:21)
[2019-09-02] MEDS ORDERED: hydroCHLOROthiazide 25 MG TAB PO SCH (09:00)
--- NOTE | 2019-09-02 09:54 | ECHOF ---
Referral Reason:CP MEASUREMENTS -------- HEIGHT: 167.6 cm WEIGHT: 89.4 kg BP: RVIDd: 2.1 cm (< 3.3) IVSd: 1.5 cm (0.6 - 1.1) LVIDd: 3.9 cm (3.9 - 5.3) LVPWd: 1.4 cm (0.6 - 1.1) IVSs: 1.8 cm LVIDs: 2.2 cm LVPWs: 1.9 cm LAESV Index (A-L): 37.76 ml/m Ao Diam: 2.6 cm (2.0 - 3.7) AV Cusp: 1.7 cm (1.5 - 2.6) LA Diam: 3.8 cm (2.7 - 3.8) MV EXCURSION: 15.271 mm (> 18.000) MV EF SLOPE: 107 mm/s (70 - 150) EPSS: 0.9 cm MV E Darrell: 1.09 m/s MV DecT: 265 ms MV A Darrell: 1.11 m/s MV E/A Ratio: 0.99 AR PHT: 509 ms RAP: 5.00 mmHg RVSP: 20.08 mmHg FINDINGS -------- Sinus rhythm. This was a technically good study. The left ventricular size is normal. There is moderate concentric left ventricular hypertrophy. O verall left ventricular systolic function is normal with, an EF between 55 - 60 %. Increased LAP Gr albert 2 Diastolic Dysfunction. The right ventricle is normal in size. LA is moderately dilated 34-39 ml/m2 The right atrial size is normal. Interatrial and interventricular septum intact. The aortic valve is trileaflet and appears structurally normal. There is moderate aortic regurgitat ion. The mitral valve is normal. The mitral valve leaflets are mildly thickened. Mild mitral regurgita tion is present. The tricuspid valve appears structurally normal. Mild tricuspid regurgitation present. Right vent ricular systolic pressure is normal at < 35 mmHg. There is no pulmonic regurgitation present. The aortic root size is normal. IVC Not well visulized. There is no pericardial effusion. CONCLUSIONS -------- 1. There is moderate concentric left ventricular hypertrophy. 2. Overall left ventricular systolic function is normal with, an EF between 55 - 60 %. 3. Increased LAP Grade 2 Diastolic Dysfunction. 4. LA is moderately dilated 34-39 ml/m2 5. There is moderate aortic regurgitation. 6. The mitral valve leaflets are mildly thickened. 7. Mild mitral regurgitation is present. 8. Mild tricuspid regurgitation present. END FINDER TWISTING DEPARTMENT: Leona Saeed RDCS
[2019-09-02] MEDS: SODIUM CHLORIDE 0.9% 1,000 ML IV SCH ×2 (12:26→21:33)
[2019-09-02 12:38] VITALS: BMI 31.8
--- NOTE | 2019-09-02 16:19 | CONS ---
CONSULTATION Anahi Rodriguez is a 64-year-old lady with recent history of coronary artery disease, status post angioplasty of LAD who after going home, has had symptoms of feeling heaviness and shortness of breath. She took sublingual nitroglycerin following which her symptoms have resolved. Her EKG shows extensive ST-T wave changes but there were noted before. Troponin was slightly elevated, but it does not have a pattern to it and I do not have the troponin from her recent admission. The creatinine is slightly elevated and that could be contributing to the troponin elevation also. There are 1 of 3 etiological possibilities for her shortness of breath. One of them is a pulmonary embolism in a recently hospitalized patient, congestive heart failure or problems related to the recent intervention. Patient at the time of my evaluation appears comfortable at rest and is free of symptoms. I obtained a D-dimer on her that came back negative. Her BNP is normal. She had an echocardiogram that showed an ejection fraction of 55%-60% with moderate aortic regurgitation. PAST MEDICAL HISTORY: Significant for hypertension, hypothyroidism, dyslipidemia, coronary artery disease, status post recent intervention. PATIENT'S CURRENT MEDICATIONS: Include Ultram, Brilinta, Restoril, Lamictal, Apresoline, Synthroid, Ativan, [place], Lipitor and Norvasc. The patient is allergic to IV DYE and STEROIDS. FAMILY HISTORY: Negative for premature coronary artery disease. SOCIAL HISTORY: Negative for current smoking, EtOH abuse, or drug abuse. REVIEW OF SYSTEMS: HEENT: Unremarkable. CARDIAC: As described above. RESPIRATORY: As described above. GI: Negative. GENITOURINARY: Negative. ALLERGY: Negative. SKIN: Negative. MUSCULOSKELETAL: Significant for arthritis. PSYCHOSOCIAL: Negative. CONSTITUTIONAL: Negative. DERMATOLOGICAL: Negative. ONCOLOGICAL: Negative. EXECUTIVE MANAGER: Negative. Rest of the system review is not relevant. PHYSICAL EXAM: Comfortable at rest, afebrile. Heart rate is 57 beats per minute. Blood pressure is 130/66, respiratory rate is 18. There is no jugular venous distention. Carotid upstroke is diminished. There is no bruit. Chest exam reveals good air entry bilaterally. Heart exam reveals first and second heart sounds. No gallop. No murmur. Abdomen is soft. Exam of extremities did not reveal any edema. Peripheral pulses are felt. EKG is abnormal as described above. Troponins are mildly elevated. ASSESSMENT: 1. Symptoms of unstable angina in a patient who recently underwent a cardiac catheterization and angioplasty of LAD. 2. Hypertension. 3. Dyslipidemia. PLAN: The patient is not in congestive heart failure. Does not have pulmonary embolism. I believe we need to rule out problems related to recent stenting. I have advised her to undergo cardiac catheterization. She is being hydrated at the moment. The right radial artery access site shows quite a bit of ecchymosis and mild swelling. We might have to do a femoral catheterization on her. MMODL / IJN: [id number] /
--- NOTE | 2019-09-02 19:36 | P.PN ---
Progress Note - Text Progress Note Date: 09/02/19 Presenting complaint: Chest pain Interval history: This is a 64-year-old patient of from [facility] chronic stable medical conditions include fibromyalgia, GERD, hypertension, hyperlipidemia, question status, hypothyroid anxiety depression. cardiac cath on August 28 which showed 70 % stenosis in the mid LAD, 60-70% of the distal LAD. Subsequently, a stent was placed in the LAD. Patient now presents with the chest heaviness. Today-tired. Laying in bed. Review of systems: Was done for constitutional, cardiovascular, GI, pulmonary. relevant finding as above Active Medications Acetaminophen (Tylenol Tab) 650 mg PO Q6HR PRN PRN Reason: Mild Pain or Fever > 100.5 Hydrocodone Bitart/Acetaminophen ([place] 10) 1 each PO Q12H PRN PRN Reason: Pain Last Admin: 09/01/19 21:15 Dose: 1 each Documented by: Aminophylline (Aminophylline) 100 mg IV ONCE PRN PRN Reason: Patient Response Stop: 09/03/19 23:00 Amlodipine Besylate (Norvasc) 5 mg PO BID [facility] Last Admin: 09/02/19 08:20 Dose: 5 mg Documented by: Aspirin (Aspirin) 81 mg PO DAILY [facility] Last Admin: 09/02/19 08:19 Dose: 81 mg Documented by: Atorvastatin Calcium (Lipitor) 20 mg PO DAILY [facility] Last Admin: 09/02/19 08:19 Dose: 20 mg Documented by: Caffeine Citrate (Cafcit Inj) 60 mg IV ONCE PRN PRN Reason: Patient Response Stop: 09/03/19 23:00 Docusate Sodium (Colace) 100 mg PO BID PRN PRN Reason: Constipation Fluoxetine HCl (Prozac) 40 mg PO BID [facility] Last Admin: 09/02/19 08:20 Dose: 40 mg Documented by: Heparin Sodium (Porcine) (Heparin) 5,000 unit SQ Q12HR [facility] Last Admin: 09/02/19 08:20 Dose: 5,000 unit Documented by: Hydralazine HCl (Apresoline) 50 mg PO BID [facility] Last Admin: 09/02/19 08:19 Dose: 50 mg Documented by: Hydrochlorothiazide (Hydrodiuril) 25 mg PO DAILY [facility] Last Admin: 09/02/19 08:19 Dose: 25 mg Documented by: Sodium Chloride (Saline 0.9%) 1,000 mls @ 100 mls/hr IV .Q10H [facility] Last Admin: 09/02/19 12:26 Dose: Not Given Documented by: Lamotrigine (Lamictal) 100 mg PO BID [facility] Last Admin: 09/02/19 08:20 Dose: 100 mg Documented by: Levothyroxine Sodium (Synthroid) 150 mcg PO DAILY@0630 [facility] Last Admin: 09/02/19 05:54 Dose: 150 mcg Documented by: Lorazepam (Ativan) 1 mg PO TID [facility] Last Admin: 09/02/19 16:33 Dose: 1 mg Documented by: Naloxone HCl (Narcan) 0.2 mg IV Q2M PRN PRN Reason: Opioid Reversal Nitroglycerin (Nitrostat) 0.4 mg SUBLINGUAL Q5M PRN PRN Reason: Chest Pain Pantoprazole Sodium (Protonix) 40 mg PO AC-BRKFST [facility] Last Admin: 09/02/19 05:54 Dose: 40 mg Documented by: Polyethylene Glycol (Miralax) 17 gm PO DAILY PRN PRN Reason: Constipation Regadenoson (Lexiscan) 0.4 mg IV ONCE ONE Stop: 09/03/19 07:01 Risperidone (Risperdal) 1 mg PO BID [facility] Last Admin: 09/02/19 08:19 Dose: 1 mg Documented by: Temazepam (Restoril) 30 mg PO HS PRN PRN Reason: Insomnia Last Admin: 09/01/19 23:57 Dose: 30 mg Documented by: Ticagrelor (Brilinta) 90 mg PO BID [facility] Last Admin: 09/02/19 08:20 Dose: 90 mg Documented by: On examination: VITAL SIGNS: 98.2, 60, 16, and 52/6 26, 98% room GENERAL APPEARANCE: BMI 31.9, laying in bed awake. HEENT: Normal external appearance of nose and ear. Oral cavity normal EYES: Pupils equal. Conjunctiva normal. NECK: JVD not raised. Mass not palpable. RESPIRATORY: Respiratory effort normal. Lungs clear to auscultation. CARDIOVASCULAR: First and second sounds normal. No edema. ABDOMEN: Soft. Liver and spleen not palpable. No tenderness. No mass palpable. PSYCHIATRY: Alert and oriented x3. Mood and affect normal. INVESTIGATIONS, reviewed in the clinical context: White count 4.8 hemoglobin 11.3 potassium 3.8 creatinine 1.16 Troponin I 0.088, 0.85, 0.086 EKG tracing personally reviewed by me-sensitive with LVH Chest x-ray from-cardiomegaly 2-D echocardiogram-EF 55-60%, moderate aortic regurgitation, moderate concentric LVH Previous labs: Creatinine 1.09 on August 29 Assessment: -Possible unstable angina in a patient with recent coronary intervention on August 28, pending cardiac catheterization -Coronary artery disease stent on August 28 2 LAD -Chronic fibromyalgia -Hyperlipidemia -Essential hypertension -Primary osteoarthritis -Hypothyroid -Hyponatremia Plan: Patient is getting hydrated. Awaiting cardiac catheterization tomorrow. Discussed with the patient. Other medications to continue. Repeat BMP in the morning. Patient is on aspirin and Brilinta
[2019-09-02] MEDS: TEMAZEPAM 15 MG CAP PO PRN (21:22)
[2019-09-02] MEDS: HYDROcodone/APAP 10-325MG 1 EACH TAB PO PRN (22:33)
[2019-09-03] MEDS: LEVOTHYROXINE 75 MCG TAB PO SCH (05:42)
[2019-09-03] MEDS: SODIUM CHLORIDE 0.9% 1,000 ML IV SCH (05:43)
[2019-09-03] MEDS ORDERED: CAFFEINE CITRATE 60 MG/3 ML VIAL IV PRN (06:00)
[2019-09-03] MEDS: PANTOPRAZOLE 40 MG TABLET PO SCH (06:16)
[2019-09-03] MEDS ORDERED: AMINOPHYLLINE 500 MG/20 ML VIAL IV PRN (07:00)
[2019-09-03] MEDS ORDERED: REGADENOSON 0.4 MG/5 ML SYRINGE IV ONE (07:00)
[2019-09-03 10:28] VITALS: RESP 18
--- NOTE | 2019-09-03 11:25 | NM ---
EXAMINATION TYPE: NM stress lexiscan cardiolite DATE OF EXAM: 09/03/2019 COMPARISON: NONE HISTORY: Elevated troponins. Shortness of breath. TECHNIQUE: After the intravenous administration of 9.6 mCi Tc 99m Sestamibi - Cardiolite resting SPE CT images acquired 60 minutes post injection. The patient received 0.4mg Lexiscan, 25.2 mCi Tc 99m Sestamibi - Stress images obtained [address] injection FINDINGS: Review of stress and rest SPECT images demonstrates no distinct perfusion abnormality. There is some decreased perfusion of the anterior wall which improves with stress, due to breast attenuation artif act. Gated analysis shows normal wall motion with an estimated left ventricular ejection fraction of 69%. TID 1.0 IMPRESSION: 1. No scintigraphic evidence for reversible ischemia. 2. Ejection fraction 69%.
[2019-09-03] MEDS: amLODIPine 5 MG TAB PO SCH (11:31)
[2019-09-03] MEDS: FLUoxetine HCL 20 MG CAP PO SCH (11:31)
[2019-09-03] MEDS: ATORVASTATIN 20 MG TAB PO SCH (11:31)
[2019-09-03] MEDS: ASPIRIN 81 MG PO SCH (11:31)
[2019-09-03] MEDS: risperiDONE 1 MG TAB PO SCH (11:32)
[2019-09-03] MEDS: hydrALAZINE HCL 50 MG TAB PO SCH (11:32)
[2019-09-03] MEDS: TICAGRELOR 90 MG TAB PO SCH (11:32)
[2019-09-03] MEDS: LORazepam 1 MG TAB PO SCH (11:32)
[2019-09-03] MEDS: HEPARIN SODIUM,PORCINE 5,000 UNIT/ML 1 ML VIAL SQ SCH (11:33)
[2019-09-03] MEDS: lamoTRIgine 100 MG TAB PO SCH (11:33)
[2019-09-03] MEDS: HYDROcodone/APAP 10-325MG 1 EACH TAB PO PRN (11:33)
--- NOTE | 2019-09-03 12:27 | PN ---
PROGRESS NOTE Anahi is a 64-year-old lady who is admitted to hospital with chest pain. She had a recent admission with intervention, had a distal LAD lesion that was not addressed. Her troponin was slightly elevated. On this admission, her primary alteration tailor apprentice, Dr. Edouard, wanted her to have a Lexiscan and if that showed an abnormality that he would perform a cardiac catheterization on her. The coronavirus test had come back negative. She did not have any other labs today. An echocardiogram on this admission showed an ejection fraction of 55%-60% with moderate aortic regurgitation. On exam, her vital signs are stable. O2 saturation is 98% and rest of her exam is unchanged. ASSESSMENT: Precordial chest pain in a patient with known CAD, status post recent angioplasty. PLAN: Patient is undergoing Lexiscan. If this is abnormal, she needs further intervention. MMODL / IJN: [id number] /
--- NOTE | 2019-09-03 14:14 | EST ---
EXERCISE STRESS AGE: 64 SEX: F HT: 66" WT: 197 lbs. PROTOCOL: Lexiscan STAGE: DURATION OF EXERCISE: HEART RATE REST: 59 BLOOD PRESSURE REST: 151/66 MAXIMUM HEART RATE ACHIEVED: 82 MAXIMUM BLOOD PRESSURE: 151/66 85% MPHR: 133 100% MPHR: 156 METS: INDICATIONS: Elevated troponin with difficulty in breathing. CLINICAL INFORMATION: Baseline EKG revealed normal sinus rhythm with inferolateral ST abnormality and mild QRS widening. Possibility of LVH should be considered. The patient was administered Lexiscan as per protocol. Heart rate changed from 59 to 80 beats per minute, blood pressure changed from 151/66 to 147/46. Patient demonstrated IVCD with nonspecific ST- T changes. No angina. By EKG criteria, this is an inconclusive stress test because of resting EKG changes. The nuclear scan results which are more pertinent will be reported by the radiologist. RODY / SCARLETT: [id number] /
[2019-09-03 16:13] VITALS: BP 139/75; PULSE 65; TEMP 97.8
--- NOTE | 2019-09-04 00:35 | P.DS ---
Providers Date of admission: 09/01/19 15:00 Expected date of discharge: 09/03/19 Attending physician: Vj Dillard Consults: 09/01/19 15:01 Consult Physician Routine Consulting Provider: Willam Esparza Consult Reason/Comments: Chest discomfort, dyspnea status post cath Do you want consulting provider notified?: Already Contacted Primary care physician: Isaias Ayon [facility] Course: Presenting complaint: Chest pain Interval history: This is a 64-year-old patient of from [facility] chronic stable medical conditions include fibromyalgia, GERD, hypertension, hyperlipidemia, question status, hypothyroid anxiety depression. cardiac cath on August 28 which showed 70 % stenosis in the mid LAD, 60-70% of the distal LAD. Subsequently, a stent was placed in the LAD. Patient now presents with the chest heaviness. nuclear stress test was negative. cleared by cardiology. No further chest pain. Consultation: Cardiology associates. On examination: VITAL SIGNS: 97.8, 65, 18, 139/75, 98% room air GENERAL APPEARANCE: negative but, comfortable HEENT: Normal external appearance of nose and ear. Oral cavity normal EYES: Pupils equal. Conjunctiva normal. NECK: JVD not raised. Mass not palpable. RESPIRATORY: Respiratory effort normal. Lungs clear to auscultation. CARDIOVASCULAR: First and second sounds normal. No edema. ABDOMEN: Soft. Liver and spleen not palpable. No tenderness. No mass palpable. PSYCHIATRY: Alert and oriented x3. Mood and affect normal. INVESTIGATIONS, reviewed in the clinical context: Nuclear stress tests did show any reversibility White count 4.8 hemoglobin 11.3 potassium 3.8 creatinine 1.16 Troponin I 0.088, 0.85, 0.086 EKG tracing personally reviewed by me-sensitive with LVH Chest x-ray from-cardiomegaly 2-D echocardiogram-EF 55-60%, moderate aortic regurgitation, moderate concentric LVH Previous labs: Creatinine 1.09 on August 29 Assessment: -anterior chest wall pain could be musculoskeletal -Coronary artery disease stent on August 28 2 LAD -Chronic fibromyalgia -Hyperlipidemia -Essential hypertension -Primary osteoarthritis -Hypothyroid -Hyponatremia -Moderate aortic regurgitation disposition: Home Patient Condition at Discharge: Stable Plan - Discharge Summary Discharge Rx Participant: Yes New Discharge Prescriptions: New Aspirin 81 mg PO DAILY chew Chlorthalidone 25 mg PO DAILY #30 tab Continue traMADol HCl [Ultram] 50 mg PO Q6H risperiDONE [RisperDAL] 1 mg PO BID FLUoxetine HCL [PROzac] 40 mg PO BID lamoTRIgine [LaMICtal] 100 mg PO BID Temazepam [Restoril] 30 mg PO HS LORazepam [Ativan] 1 mg PO TID PRN PRN Reason: Anxiety Docusate Sodium [Dok] 100 mg PO BID PRN PRN Reason: Constipation Levothyroxine Sodium [Synthroid] 150 mcg PO DAILY Omeprazole 40 mg PO AC-BRKFST #60 cap Polyethylene Glycol 3350 [Miralax] 17 gm PO DAILY PRN PRN Reason: Constipation HYDROcodone/APAP 10-325MG [[place] 10-325] 1 each PO Q12H PRN PRN Reason: Pain hydrALAZINE HCL [Apresoline] 50 mg PO BID Nitroglycerin Sl Tabs [Nitrostat] 0.4 mg SUBLINGUAL Q5M PRN PRN Reason: Chest Pain Cyanocobalamin [Vitamin B-12] 500 mcg PO DAILY Atorvastatin [Lipitor] 20 mg PO DAILY amLODIPine [Norvasc] 5 mg PO BID Ticagrelor [Brilinta] 90 mg PO BID #180 tab cycloSPORINE 0.05% OPHTH SOLN [Restasis] 1 drop BOTH EYES BID Lactulose [Constulose] 6.66 gm PO Q12H Discontinued hydroCHLOROthiazide 25 mg PO DAILY Discharge Medication List FLUoxetine HCL [PROzac] 40 mg PO BID 08/19/15 [History] LORazepam [Ativan] 1 mg PO TID PRN 08/19/15 [History] Temazepam [Restoril] 30 mg PO HS 08/19/15 [History] lamoTRIgine [LaMICtal] 100 mg PO BID 08/19/15 [History] risperiDONE [RisperDAL] 1 mg PO BID 08/19/15 [History] traMADol HCl [Ultram] 50 mg PO Q6H 08/19/15 [History] Docusate Sodium [Dok] 100 mg PO BID PRN 10/19/15 [History] Levothyroxine Sodium [Synthroid] 150 mcg PO DAILY 10/23/15 [History] Omeprazole 40 mg PO AC-BRKFST #60 cap 10/23/15 [Rx] Polyethylene Glycol 3350 [Miralax] 17 gm PO DAILY PRN 07/27/16 [History] Atorvastatin [Lipitor] 20 mg PO DAILY 08/28/19 [History] Cyanocobalamin [Vitamin B-12] 500 mcg PO DAILY 08/28/19 [History] HYDROcodone/APAP 10-325MG [[place] 10-325] 1 each PO Q12H PRN 08/28/19 [History] Nitroglycerin Sl Tabs [Nitrostat] 0.4 mg SUBLINGUAL Q5M PRN 08/28/19 [History] amLODIPine [Norvasc] 5 mg PO BID 08/28/19 [History] hydrALAZINE HCL [Apresoline] 50 mg PO BID 08/28/19 [History] Ticagrelor [Brilinta] 90 mg PO BID #180 tab 08/30/19 [Rx] Lactulose [Constulose] 6.66 gm PO Q12H 09/01/19 [History] cycloSPORINE 0.05% OPHTH SOLN [Restasis] 1 drop BOTH EYES BID 09/01/19 [History] Aspirin 81 mg PO DAILY chew 09/03/19 [Rx] Chlorthalidone 25 mg PO DAILY #30 tab 09/03/19 [Rx] Follow up Appointment(s)/Referral(s): Isaias Ayon MD [Primary Care Provider] - 1-2 days Jessica Edouard MD [STAFF PHYSICIAN] - 1 Week (September 04, 2:15) Patient Instructions/Handouts: Coronary Artery Disease in Women (DC) Activity/Diet/Wound Care/Special Instructions: heart healthy diet activity as tolerated Discharge Disposition: HOME SELF-CARE
== END 2019-09-03 15:55 | disposition home or self-care (01) ==
LOC: EC 13:01 → 3SCARD 15:00
PROVIDERS: ADMIT Hospitalist; ATTEND Hospitalist
DX: R07.89 Other chest pain (principal); I25.110 Atherosclerotic heart disease of native coronary artery with unstable angina pectoris; N17.9 Acute kidney failure, unspecified; I35.1 Nonrheumatic aortic (valve) insufficiency; E87.1 Hypo-osmolality and hyponatremia; I11.0 Hypertensive heart disease with heart failure; I50.9 Heart failure, unspecified; K21.9 Gastro-esophageal reflux disease without esophagitis; H91.90 Unspecified hearing loss, unspecified ear; Z95.5 Presence of coronary angioplasty implant and graft; Z87.891 Personal history of nicotine dependence; E78.5 Hyperlipidemia, unspecified; M19.91 Primary osteoarthritis, unspecified site; G47.30 Sleep apnea, unspecified; F31.9 Bipolar disorder, unspecified; R06.01 Orthopnea; M79.7 Fibromyalgia; Z99.89 Dependence on other enabling machines and devices; I38 Endocarditis, valve unspecified; E03.9 Hypothyroidism, unspecified; E16.2 Hypoglycemia, unspecified; H91.93 Unspecified hearing loss, bilateral; Z98.84 Bariatric surgery status; F41.9 Anxiety disorder, unspecified; F32.9 Major depressive disorder, single episode, unspecified; F41.0 Panic disorder [episodic paroxysmal anxiety]; Z82.49 Family history of ischemic heart disease and other diseases of the circulatory system; Z90.49 Acquired absence of other specified parts of digestive tract; Z90.710 Acquired absence of both cervix and uterus; Z96.642 Presence of left artificial hip joint; Z98.890 Other specified postprocedural states; Z79.890 Hormone replacement therapy; Z79.891 Long term (current) use of opiate analgesic; Z79.899 Other long term (current) drug therapy; Z79.02 Long term (current) use of antithrombotics/antiplatelets; Z88.8 Allergy status to other drugs, medicaments and biological substances; Z91.041 Radiographic dye allergy status
CPT/HCPCS: 96372 ×3; 99285; 36415; 93005; 93017; 93306; 85379; 83880; 80053 ×2; 83735; 84484; 85025 ×2; 85610; 85730; 71046; 78452; G0378 ×3; U0003; A9500; J1644 ×3; J2785

== ENCOUNTER 2020-07-24 05:31 | Day surgery (SDC) | payer MEDICARE ==
[2020-07-23 08:58] VITALS: BMI 33.8
[2020-07-24] MEDS ORDERED: SODIUM CHLORIDE 0.9% 500 ML 500 ML IV ONE (06:15)
[2020-07-24 06:24] VITALS: RESP 16; TEMP 98.5
[2020-07-24] MEDS ORDERED: fentaNYL (PF) 50 MCG/ML 2 ML AMP ONE (07:08)
[2020-07-24] MEDS ORDERED: hydrALAZINE HCL 20 MG/ML 1 ML VIAL ONE (07:41)
[2020-07-24] MEDS: BENZOCAINE SPRAY 1 CAN TOPICAL ONE ×2 (07:43→07:53)
[2020-07-24] MEDS ORDERED: MIDAZOLAM 2 MG/2 ML VIAL IVP ONE ×2 (07:54→07:55)
[2020-07-24] MEDS ORDERED: fentaNYL (PF) 50 MCG/ML 2 ML AMP IVP ONE (07:54)
[2020-07-24] MEDS ORDERED: hydrALAZINE HCL 20 MG/ML 1 ML VIAL IVP ONE (08:04)
[2020-07-24] MEDS ORDERED: SODIUM CHLORIDE 0.9% 1,000 ML IV SCH (08:15)
--- NOTE | 2020-07-24 08:18 | P.TEE ---
Indications for Procedure(s): Aortic stenosis and regurgitation and symptoms of dyspnea Date of Procedure: 07/24/20 Preoperative Diagnosis: Nontraumatic aortic regurgitation/stenosis Postoperative Diagnosis: No evidence of aortic stenosis. 3+ aortic regurgitation and 2+ mitral regur gitation Procedure(s) Performed: THEODORE Description of Procedure(s): INDICATION: This is a 65-year-old female with history of hypertension and also aortic valve disease who was noted to have evidence of moderate to severe aortic stenosis and regurgitation. Patient is advised to have a THEODORE examination. Because of symptoms of shortness of breath and edema CONSENT:. Informed consent was obtained from the patient verbally PROCEDURE: Patient was brought to the lab in a fasting state. Patient was prepped and draped in the usual fashion. The throat was sprayed with Hurricaine. Patient was given a total of 12 mg of Versed and 50 g of fentanyl for sedation. A lubricated Omni probe was introduced into the oropharynx and was advanced into the esophagus. Multiple views were obtained. Color, pulsed and continuous Doppler studies were done. Saline contrast bubble injection was performed. She tolerated the procedure well FINDINGS:. The aortic valve is tricuspid and seemed to be opening normally. There is 3+ aortic regurgitation, which is slightly eccentric. The aortic root diameter is normal. The ascending aorta appeared slightly dilated. The mitral valve showed mild thickening and evidence of central 2+ regurgitation. Tricuspid valve showed mild to moderate regurgitation. The calculated peak Systolic blood blood pressure is about 40-45. There appears to be biatrial enlargement. Left ankle size and normal with preserved LV function. The left atrial appendage is free of any clot. The interatrial septum appeared to be intact without any spontaneous shunt. Injection of the contrast bubble did not show any shunt. IMPRESSION: #1. No evidence for aortic stenosis. #2. 3+ aortic regurgitation #3. 2+ mitral regurgitation #4.. 2+ tricuspid regurgitation. #5. Mild to moderate pulmonary hypertension #6. Preserved LV function. #7. No clot in the left atrial appendage. #8. No PFO PLAN: Continued medical therapy and optimal control of blood pressure. Patient may need aortic valve surgery in the future
[2020-07-24 09:09] VITALS: BP 142/64; PULSE 58
== END 2020-07-24 09:11 | disposition home or self-care (01) ==
LOC: CATHCVL 05:31
PROVIDERS: ATTEND Internal Medicine Cardiovascular Disease
DX: I08.3 Combined rheumatic disorders of mitral, aortic and tricuspid valves (principal); I27.20 Pulmonary hypertension, unspecified; I25.10 Atherosclerotic heart disease of native coronary artery without angina pectoris; I10 Essential (primary) hypertension; E78.00 Pure hypercholesterolemia, unspecified; E78.5 Hyperlipidemia, unspecified; Z20.822 Contact with and (suspected) exposure to COVID-19; Z86.16 Personal history of COVID-19; Z82.49 Family history of ischemic heart disease and other diseases of the circulatory system; Z72.0 Tobacco use; E66.2 Morbid (severe) obesity with alveolar hypoventilation; Z68.35 Body mass index [BMI] 35.0-35.9, adult; Q23.1 Congenital insufficiency of aortic valve; Z79.02 Long term (current) use of antithrombotics/antiplatelets; Z79.82 Long term (current) use of aspirin; Z79.890 Hormone replacement therapy; Z79.899 Other long term (current) drug therapy; Z91.048 Other nonmedicinal substance allergy status; Z88.8 Allergy status to other drugs, medicaments and biological substances
CPT/HCPCS: 93312; 93320; 93325; 87635; J2250; J0360; J3010

== ENCOUNTER → 2020-11-05 | Outpatient (CLI) | payer MEDICARE ==
--- NOTE | 2020-11-05 12:25 | XR ---
EXAMINATION TYPE: XR chest 2V DATE OF EXAM: 11/05/2020 COMPARISON: Chest x-ray 09/01/2019 HISTORY: Shortness of breath, chest pain TECHNIQUE: Frontal and lateral views of the chest are obtained. FINDINGS: There is no focal air space opacity, pleural effusion, or pneumothorax seen. Some minimal possible scarring present in the lingula. The cardiac silhouette size is stable, enlarged. Suspect coronary artery calcification, stent placement is present. Aorta is dense. The osseous structures are intact. IMPRESSION: Cardiomegaly, coronary artery disease.
[2020-11-06 00:26] LABS: African American GFR (CKD) 42.6 (60.0-200.0); Anion Gap 12.5 mmol/L (4.00-12.00); BUN/Creat Ratio 12.57 Ratio (12.00-20.00); Blood Urea Nitrogen 18.6 mg/dL (9.0-27.0); Calcium 9.4 mg/dL (8.7-10.3); Carbon Dioxide 21.8 mmol/L (21.6-31.8); Non-African American GFR(CKD) 36.8 (60.0-200.0); Potassium 4.3 mmol/L (3.5-5.5)
== END | disposition home or self-care (01) ==
LOC: LABWHC1 10:16
PROVIDERS: ATTEND Internal Medicine Cardiovascular Disease
DX: I51.7 Cardiomegaly (principal); I25.10 Atherosclerotic heart disease of native coronary artery without angina pectoris
CPT/HCPCS: 36415; 71046; 80048; 83880

== ENCOUNTER → 2021-01-21 | Outpatient (CLI) | payer MEDICARE ==
[2021-01-21 10:27] LABS: HCT 36.2 % (34.0-46.0); HGB 12.1 gm/dL (11.4-16.0); MCH 31.1 pg (25.0-35.0); MCHC 33.4 g/dL (31.0-37.0); MCV 93.3 fL (80.0-100.0); Mean Platelet Volume 8.3; Platelet Count 185 k/uL (150-450); RBC 3.88 m/uL (3.80-5.40)
[2021-01-21 10:34] LABS: Potassium 4.9 mmol/L (3.5-5.1)
== END | disposition home or self-care (01) ==
LOC: LABWHC1 08:30
PROVIDERS: ATTEND Internal Medicine Cardiovascular Disease
DX: Z01.812 Encounter for preprocedural laboratory examination (principal); Z20.822 Contact with and (suspected) exposure to COVID-19; R07.9 Chest pain, unspecified
CPT/HCPCS: 80051; 82565; 84520; 85027; 36415; U0003; C9803

== ENCOUNTER 2021-01-25 12:13 | Inpatient (IN) | payer MEDICARE ==
[2021-01-25] MEDS ORDERED: NITROGLYCERIN SL TABS 0.4 MG TAB SUBLINGUAL STA ×3 (13:39)
[2021-01-25] MEDS ORDERED: ASPIRIN 81 MG PO STA ×2 (13:39→14:21)
--- NOTE | 2021-01-25 13:45 | ED ---
General Adult HPI - General Chief complaint: Chest Pain Stated complaint: chest pain, SOB Time Seen by Provider: 01/25/21 12:25 Source: patient, RN notes reviewed Limitations: no limitations - History of Present Illness Initial comments: Patient is a pleasant 65-year-old female presenting to the emergency department with chest discomfort. Symptoms have been occurring for several months. Patient was supposed to have heart catheterization today however her kidney function was not good enough and she was told he could not occur. Patient is still having discomfort. Discomfort is currently 7/10. Discomfort feels like heaviness. Patient has mild associated dyspnea. Patient does have history of cardiac stent placed just over a year ago. No leg pain or leg swelling. Blood pressure has been labile. - Related Data Home Medications Medication Instructions Recorded Confirmed Temazepam [Restoril] 30 mg PO HS 08/19/15 01/25/21 lamoTRIgine [LaMICtal] 100 mg PO DAILY 08/19/15 01/25/21 risperiDONE [RisperDAL] 1 mg PO BID 08/19/15 01/25/21 Levothyroxine Sodium [Synthroid] 150 mcg PO DAILY 10/23/15 01/25/21 Atorvastatin [Lipitor] 20 mg PO DAILY 08/28/19 01/25/21 HYDROcodone/APAP 10-325MG [[place] 1 tab PO Q12H PRN 08/28/19 01/25/21 10-325] FLUoxetine HCL [PROzac] 40 mg PO BID 10/23/19 01/25/21 Aspirin 81 mg PO DAILY 07/23/20 01/25/21 Furosemide [Lasix] 20 mg PO DAILY 07/23/20 01/25/21 Potassium Chloride [Klor-Con 10 ER] 10 meq PO DAILY 07/23/20 01/25/21 Docusate [Colace] 100 mg PO BID 01/22/21 01/25/21 Isosorbide Mononitrate [Isosorbide 30 mg PO DAILY 01/22/21 01/25/21 Mononitrate ER] LORazepam [Ativan] 1 mg PO TID 01/25/21 01/25/21 hydrALAZINE HCL [Apresoline] 100 mg PO TID 01/25/21 01/25/21 lisinopriL [Zestril] 5 mg PO DAILY 01/25/21 01/25/21 traMADol HCL 50 mg PO Q4H 01/25/21 01/25/21 Allergies Allergy/AdvReac Type Severity Reaction Status Date / Time Iodinated Contrast Media Allergy Itching, Verified 01/25/21 14:30 hives quetiapine fumarate AdvReac Unknown Verified 01/25/21 14:30 [From Seroquel] Review of Systems ROS Statement: Those systems with pertinent positive or pertinent negative responses have been documented in the HPI. ROS Other: All systems not noted in ROS Statement are negative. Constitutional: Denies: fever Eyes: Denies: eye pain ENT: Denies: ear pain Respiratory: Reports: as per HPI, dyspnea Cardiovascular: Reports: as per HPI, chest pain Endocrine: Denies: fatigue Gastrointestinal: Reports: nausea. Denies: abdominal pain Genitourinary: Denies: dysuria Musculoskeletal: Denies: arthralgia Skin: Denies: rash Neurological: Denies: weakness Past Medical History Past Medical History: Coronary Artery Disease (CAD), Fibromyalgia, Hearing Disorder / Deafness, Hyperlipidemia, Hypertension, Osteoarthritis (OA), Sleep Apnea/CPAP/BIPAP, Thyroid Disorder Additional Past Medical History / Comment(s): leaky heart valve, SOB w/exertion, Hypothyroid. Diverticulitis. no longer has sleep apnea since lost 100 lbs. w/bariatric surg. past hx. FX JOSELO FEET, LOWER BACK pain, HYPOGLYCEMIA, see Dr Edouard H & P History of Any Multi-Drug Resistant Organisms: None Reported Past Surgical History: Bariatric Surgery, Bowel Resection, Cholecystectomy, Heart Catheterization, Heart Catheterization With Stent, Hysterectomy, Joint Replacement, Tonsillectomy Additional Past Surgical History / Comment(s): 10/23/15 Laparoscopic gastric sleeve.EGD/extensive lysis of adhesions. Other surgical hx: Lt Hip Replaced. 8 inches Colon Removed. Colonoscopy and EGD. stent placement 08/2019 Past Anesthesia/Blood Transfusion Reactions: Motion Sickness Additional Past Anesthesia/Blood Transfusion Reaction / Comment(s): Pt states she has received blood in the past without reaction. Date of Last Stent Placement:: 08/2019 Past Psychological History: Anxiety, Depression, Panic Disorder Smoking Status: Former smoker Past Alcohol Use History: Abuse Past Drug Use History: None Reported - Past Family History Father Family Medical History: Coronary Artery Disease (CAD) Additional Family Medical History / Comment(s): from heart attack. Mother Family Medical History: Congestive Heart Failure (CHF) Additional Family Medical History / Comment(s): from heart attack. General Exam Limitations: no limitations General appearance: alert, in no apparent distress Head exam: Present: normocephalic Eye exam: Present: normal appearance Neck exam: Present: normal inspection Respiratory exam: Present: normal lung sounds bilaterally Cardiovascular Exam: Present: regular rate, normal rhythm Expanded Peripheral pulses: 2+: Radial (R), Radial (L), Posterior Tibialis (R), Posterior Tibialis (L) GI/Abdominal exam: Present: soft. Absent: tenderness Extremities exam: Present: normal inspection. Absent: pedal edema, calf tenderness Back exam: Present: normal inspection. Absent: tenderness Neurological exam: Present: alert Psychiatric exam: Present: normal affect, normal mood Skin exam: Present: normal color Course Vital Signs 01/25/21 01/25/21 01/25/21 12:16 14:24 15:15 Temperature 97.7 F Pulse Rate 63 52 L 64 Respiratory 18 18 20 Rate Blood Pressure 142/67 168/63 178/67 O2 Sat by Pulse 97 100 100 Oximetry EKG Findings - EKG Comments: EKG Findings:: Sinus bradycardia with rate of 58. IN 156. QRS 114. QT 438. QTC 429. Normal axis. Normal QRS. Nonspecific ST-T. Previous EKG reviewed. Medical Decision Making - Medical Decision Making Patient reevaluated and resting comfortably in bed. Patient and family updated. Patient does admit to drinking large amounts of water and agrees with this. Case was discussed with Dr. Lucia, who will admit covering for Dr. Allred. He does request consults with cardiology and nephrology. - Lab Data Result diagrams: 01/25/21 14:07 01/25/21 14:07 Lab Results 01/25/21 01/25/21 01/25/21 Range/Units 12:19 14:07 14:07 WBC 5.6 (3.8-10.6) k/uL RBC 4.14 (3.80-5.40) m/uL Hgb 12.6 (11.4-16.0) gm/dL Hct 36.7 (34.0-46.0) % MCV 88.8 (80.0-100.0) fL MCH 30.6 (25.0-35.0) pg MCHC 34.5 (31.0-37.0) g/dL RDW 12.6 (11.5-15.5) % Plt Count 183 (150-450) k/uL MPV 7.7 Neutrophils % 82 % Lymphocytes % 8 % Monocytes % 8 % Eosinophils % 1 % Basophils % 0 % Neutrophils # 4.6 (1.3-7.7) k/uL Lymphocytes # 0.5 L (1.0-4.8) k/uL Monocytes # 0.4 (0-1.0) k/uL Eosinophils # 0.1 (0-0.7) k/uL Basophils # 0.0 (0-0.2) k/uL PT 9.7 (9.0-12.0) sec INR 0.9 (<1.2) APTT 24.7 (22.0-30.0) sec D-Dimer 6.10 H (<0.60) mg/L FEU Sodium (137-145) mmol/L Potassium (3.5-5.1) mmol/L Chloride (98-107) mmol/L Carbon Dioxide (22-30) mmol/L Anion Gap mmol/L BUN (7-17) mg/dL Creatinine (0.52-1.04) mg/dL Est GFR (CKD-EPI)AfAm (>60 ml/min/1.73 sqM) Est GFR (CKD-EPI)NonAf (>60 ml/min/1.73 sqM) Glucose (74-99) mg/dL Calcium (8.4-10.2) mg/dL Magnesium (1.6-2.3) mg/dL Total Bilirubin (0.2-1.3) mg/dL AST (14-36) U/L ALT (4-34) U/L Alkaline Phosphatase (38-126) U/L Troponin I (0.000-0.034) ng/mL NT-Pro-B Natriuret Pep pg/mL Total Protein (6.3-8.2) g/dL Albumin (3.5-5.0) g/dL Coronavirus (PCR) Not Detected (Not Detectd) 01/25/21 01/25/21 01/25/21 Range/Units 14:07 14:07 14:07 WBC (3.8-10.6) k/uL RBC (3.80-5.40) m/uL Hgb (11.4-16.0) gm/dL Hct (34.0-46.0) % MCV (80.0-100.0) fL MCH (25.0-35.0) pg MCHC (31.0-37.0) g/dL RDW (11.5-15.5) % Plt Count (150-450) k/uL MPV Neutrophils % % Lymphocytes % % Monocytes % % Eosinophils % % Basophils % % Neutrophils # (1.3-7.7) k/uL Lymphocytes # (1.0-4.8) k/uL Monocytes # (0-1.0) k/uL Eosinophils # (0-0.7) k/uL Basophils # (0-0.2) k/uL PT (9.0-12.0) sec INR (<1.2) APTT (22.0-30.0) sec D-Dimer (<0.60) mg/L FEU Sodium 121 L (137-145) mmol/L Potassium 4.2 (3.5-5.1) mmol/L Chloride 86 L (98-107) mmol/L Carbon Dioxide 21 L (22-30) mmol/L Anion Gap 14 mmol/L BUN 20 H (7-17) mg/dL Creatinine 1.31 H (0.52-1.04) mg/dL Est GFR (CKD-EPI)AfAm 49 (>60 ml/min/1.73 sqM) Est GFR (CKD-EPI)NonAf 43 (>60 ml/min/1.73 sqM) Glucose 101 H (74-99) mg/dL Calcium 9.3 (8.4-10.2) mg/dL Magnesium 1.4 L (1.6-2.3) mg/dL Total Bilirubin 0.6 (0.2-1.3) mg/dL AST 24 (14-36) U/L ALT 15 (4-34) U/L Alkaline Phosphatase 79 (38-126) U/L Troponin I <0.012 (0.000-0.034) ng/mL NT-Pro-B Natriuret Pep 313 pg/mL Total Protein 7.6 (6.3-8.2) g/dL Albumin 4.5 (3.5-5.0) g/dL Coronavirus (PCR) (Not Detectd) - Radiology Data Radiology results: image reviewed (Left lower lobe possible scarring or atelectasis.) Disposition Clinical Impression: Chest pain, Hyponatremia Disposition: ADMITTED IP TO THIS HOSP Is patient prescribed a controlled substance at d/c from ED?: No Referrals: Isaias Ayon MD [Primary Care Provider] - 1-2 days Decision Time: 15:19
[2021-01-25 14:32] LABS: Basophils % (A) 0 %; Eosinophils # (A) 0.1 k/uL (0-0.7); Eosinophils % (A) 1 %; HCT 36.7 % (34.0-46.0); HGB 12.6 gm/dL (11.4-16.0); Lymphocytes # (A) 0.5 k/uL (1.0-4.8); Lymphocytes % (A) 8 %; MCH 30.6 pg (25.0-35.0); MCHC 34.5 g/dL (31.0-37.0); MCV 88.8 fL (80.0-100.0); Mean Platelet Volume 7.7; Monocytes # (A) 0.4 k/uL (0-1.0); Monocytes % (A) 8 %; Neutrophils # (A) 4.6 k/uL (1.3-7.7); Neutrophils % (A) 82 %; Platelet Count 183 k/uL (150-450); RBC 4.14 m/uL (3.80-5.40); RDW 12.6 % (11.5-15.5); WBC 5.6 k/uL (3.8-10.6)
[2021-01-25 14:46] LABS: Albumin 4.5 g/dL (3.5-5.0); Calcium 9.3 mg/dL (8.4-10.2); Magnesium 1.4 mg/dL (1.6-2.3); Potassium 4.2 mmol/L (3.5-5.1); Total Bilirubin 0.6 mg/dL (0.2-1.3); Total Protein 7.6 g/dL (6.3-8.2)
--- NOTE | 2021-01-25 14:50 | XR ---
EXAMINATION TYPE: XR chest 2V DATE OF EXAM: 01/25/2021 COMPARISON: 11/05/2020 TECHNIQUE: PA and lateral views submitted. HISTORY: Chest pain FINDINGS: The lungs are clear and there is no pneumothorax, pleural effusion, or focal pneumonia. Left midlun g and lower lobe subsegmental atelectasis favored over infiltrate. No overt failure. Hypertrophic and degenerative change of the spine. Atherosclerotic change of the aorta. IMPRESSION: 1. Linear changes involving the left midlung and lower lobe suggestive of scar or atelectasis unchang ed prior exam..
[2021-01-25 14:53] LABS: INR 0.9 (<1.2); Partial Thromboplastin Time 24.7 sec (22.0-30.0); Prothrombin Time 9.7 sec (9.0-12.0)
[2021-01-25] MEDS ORDERED: SODIUM CHLORIDE 0.9% 250 ML IV STA (14:59)
[2021-01-25] MEDS ORDERED: SODIUM CHLORIDE 0.9% 1,000 ML IV STA (14:59)
[2021-01-25] MEDS ORDERED: FAMOTIDINE 20 MG/2 ML VIAL IV STA (15:03)
[2021-01-25] MEDS ORDERED: methylPREDNISolone SOD SUCCI 125 MG/2 ML VIAL IV STA (15:03)
[2021-01-25] MEDS ORDERED: diphenhydrAMINE 50 MG/ML 1 ML VIAL IVP STA (15:03)
[2021-01-25] MEDS ORDERED: NITROGLYCERIN SL TABS 0.4 MG TAB SUBLINGUAL PRN (15:20)
--- NOTE | 2021-01-25 15:35 | P.HPIM ---
History of Present Illness H&P Date: 01/25/21 This is a 65-year-old female with past medical history of chronic kidney disease hypertension was admitted to the hospital with chest pains and generalized weakness nausea and not feeling well for the last few days patient was supposed to have cardiac cath as an outpatient but because of the elevated creatinine it was postponed but the patient continued to have nausea and chest pain and was then directed to the ER was found to have hyponatremia and elevated d-dimer Review of systems and systems has been reviewed all negative and positive findings as per history of present illness Constitutional: No acute distress, conversant, pleasant Eyes: Anicteric sclerae, moist conjunctiva, no lid-lag PERRLA ENMT: NC/AT Oropharynx clear, no erythema, exudates Neck: Supple, FROM, no masses, or JVD No carotid bruits No thyromegaly Lungs: Clear to auscultation Clear to percussion Normal respiratory effort, no accessory muscle use Cardiovascular: Heart regular in rate and rhythm, No murmurs, gallops, or rubs No peripheral edema Abdominal: Soft Nontender, no guarding, rebound or rigidity Abdomen moving with respiration Normoactive bowel sounds No hepatomegaly, No splenomegaly No palpable mass No abdominal wall hernia noted Skin: Normal temperature, tone, texture, turgor No induration No subcutaneous nodules No rash, lesions No ulcers Extremities: No digital cyanosis No clubbing Pedal pulses intact and symmetrical Radial pulses intact and symmetrical Normal gait and station No calf tenderness Psychiatric:Alert and oriented to person, place and time Appropriate affect Intact judgement Neuro: Muscles Strength 5/5 in all 4 extremities Sensation to light touch grossly present throughout Cranial nerves II-XII grossly intact No focal sensory deficits Assessment and plan Symptomatic hyponatremia likely due to diuretics hydrochlorothiazide nephrology has been consulted and patient has been started on normal saline Elevated E d-dimer in the setting of chest pain computed tomography scan of the chest has been ordered to rule out PE Cardiology has been consulted Hypertension Other: Past Medical History Past Medical History: Coronary Artery Disease (CAD), Fibromyalgia, Hearing Disorder / Deafness, Hyperlipidemia, Hypertension, Osteoarthritis (OA), Sleep Apnea/CPAP/BIPAP, Thyroid Disorder Additional Past Medical History / Comment(s): leaky heart valve, SOB w/exertion, Hypothyroid. Diverticulitis. no longer has sleep apnea since lost 100 lbs. w/bariatric surg. past hx. FX JOSELO FEET, LOWER BACK pain, HYPOGLYCEMIA, see Dr Edouard H & P History of Any Multi-Drug Resistant Organisms: None Reported Past Surgical History: Bariatric Surgery, Bowel Resection, Cholecystectomy, Heart Catheterization, Heart Catheterization With Stent, Hysterectomy, Joint Replacement, Tonsillectomy Additional Past Surgical History / Comment(s): 10/23/15 Laparoscopic gastric sleeve.EGD/extensive lysis of adhesions. Other surgical hx: Lt Hip Replaced. 8 inches Colon Removed. Colonoscopy and EGD. stent placement 08/2019 Past Anesthesia/Blood Transfusion Reactions: Motion Sickness Additional Past Anesthesia/Blood Transfusion Reaction / Comment(s): Pt states she has received blood in the past without reaction. Date of Last Stent Placement:: 08/2019 Past Psychological History: Anxiety, Depression, Panic Disorder Smoking Status: Former smoker Past Alcohol Use History: Abuse Past Drug Use History: None Reported - Past Family History Father Family Medical History: Coronary Artery Disease (CAD) Additional Family Medical History / Comment(s): from heart attack. Mother Family Medical History: Congestive Heart Failure (CHF) Additional Family Medical History / Comment(s): from heart attack. Medications and Allergies Home Medications Medication Instructions Recorded Confirmed Type Temazepam [Restoril] 30 mg PO HS 08/19/15 01/25/21 History lamoTRIgine [LaMICtal] 100 mg PO DAILY 08/19/15 01/25/21 History risperiDONE [RisperDAL] 1 mg PO BID 08/19/15 01/25/21 History Levothyroxine Sodium [Synthroid] 150 mcg PO DAILY 10/23/15 01/25/21 History Atorvastatin [Lipitor] 20 mg PO DAILY 08/28/19 01/25/21 History HYDROcodone/APAP 10-325MG [[place] 1 tab PO Q12H PRN 08/28/19 01/25/21 History 10-325] FLUoxetine HCL [PROzac] 40 mg PO BID 10/23/19 01/25/21 History Aspirin 81 mg PO DAILY 07/23/20 01/25/21 History Furosemide [Lasix] 20 mg PO DAILY 07/23/20 01/25/21 History Potassium Chloride [Klor-Con 10 ER] 10 meq PO DAILY 07/23/20 01/25/21 History Docusate [Colace] 100 mg PO BID 01/22/21 01/25/21 History Isosorbide Mononitrate [Isosorbide 30 mg PO DAILY 01/22/21 01/25/21 History Mononitrate ER] LORazepam [Ativan] 1 mg PO TID 01/25/21 01/25/21 History hydrALAZINE HCL [Apresoline] 100 mg PO TID 01/25/21 01/25/21 History lisinopriL [Zestril] 5 mg PO DAILY 01/25/21 01/25/21 History traMADol HCL 50 mg PO Q4H 01/25/21 01/25/21 History Allergies Allergy/AdvReac Type Severity Reaction Status Date / Time Iodinated Contrast Media Allergy Itching, Verified 01/25/21 14:30 hives quetiapine fumarate AdvReac Unknown Verified 01/25/21 14:30 [From Seroquel] Physical Exam Vitals: Vital Signs Temp Pulse Resp BP Pulse Ox 01/25/21 15:15 64 20 178/67 100 01/25/21 14:24 52 L 18 168/63 100 01/25/21 12:16 97.7 F 63 18 142/67 97 Intake and Output 01/25/21 01/25/21 01/25/21 06:59 14:59 22:59 Other: Weight 102.058 kg Results CBC & Chem 7: 01/25/21 14:07 01/25/21 14:07 Labs: Abnormal Lab Results - Last 24 Hours (Table) 01/25/21 01/25/21 01/25/21 Range/Units 14:07 14:07 14:07 Lymphocytes # 0.5 L (1.0-4.8) k/uL D-Dimer 6.10 H (<0.60) mg/L FEU Sodium 121 L (137-145) mmol/L Chloride 86 L (98-107) mmol/L Carbon Dioxide 21 L (22-30) mmol/L BUN 20 H (7-17) mg/dL Creatinine 1.31 H (0.52-1.04) mg/dL Glucose 101 H (74-99) mg/dL Magnesium 1.4 L (1.6-2.3) mg/dL
[2021-01-25] MEDS ORDERED: ACETAMINOPHEN TAB 325 MG TAB PO PRN (15:37)
[2021-01-25] MEDS ORDERED: NALOXONE 0.4 MG/ML 1 ML VIAL IV PRN (15:37)
[2021-01-25] MEDS ORDERED: MAG HYDROX/AL HYDROX/SIMETH 30 ML CUP PO PRN (15:37)
[2021-01-25] MEDS ORDERED: CALCIUM CARBONATE 500 MG CHEWABLE PO PRN (15:37)
[2021-01-25] MEDS ORDERED: ONDANSETRON 4 MG/2 ML VIAL IVP PRN (15:37)
--- NOTE | 2021-01-25 16:13 | CT ---
EXAMINATION TYPE: CT angio chest DATE OF EXAM: 01/25/2021 COMPARISON: Radiographs same date HISTORY: 65-year-old female chest pain TECHNIQUE: Contiguous axial scanning of the chest performed with IV Contrast, patient injected with 7 0cc mL of Isovue 370. Coronal/sagittal MIP reconstructions performed. 3-D reconstructions generated o n a dedicated independent workstation. CT DLP: 423.1 mGycm Automated exposure control for dose reduction was used. FINDINGS: The heart is upper limits of normal in size without pericardial effusion. Three-vessel coronary arter y calcifications are present. No flattening of the interventricular septum reflux of contrast into th e hepatic veins. Mild atherosclerotic calcification and plaque within the aortic arch. Conventional arch vessel branch ing anatomy. No thoracic lymphadenopathy by CT size criteria. Satisfactory opacification of the pulmonary arterial system without evidence for pulmonary embolus. Mild diffuse bronchial wall thickening. Some stranding areas of atelectasis in the mid and lower lung s. No consolidation or pleural effusion. Small hiatal hernia. Post surgical changes of sleeve gastrectomy. Hilar splenule. A few left-sided co lonic diverticula noted. Bones: DISH in the lower thoracic spine. IMPRESSION: 1. NO EVIDENCE FOR PULMONARY EMBOLUS. 2. MILD BRONCHIAL WALL THICKENING MAY BE SEEN WITH BRONCHITIS OR CHRONIC ASTHMA. STRANDY AREAS OF ATE LECTASIS IN THE MID AND LOWER LUNGS. 3. THREE-VESSEL CORONARY ARTERY CALCIFICATIONS. 4. SMALL HIATAL HERNIA. STATUS POST SLEEVE GASTRECTOMY.
[2021-01-25] MEDS: NITROGLYCERIN OINT 1 INCH/GM PACKET TOPICAL SCH (18:01)
[2021-01-25] MEDS: hydrALAZINE HCL 50 MG TAB PO SCH (18:01)
[2021-01-25] MEDS ORDERED: TEMAZEPAM 30 MG CAP PO SCH (21:00)
[2021-01-25] MEDS: risperiDONE 1 MG TAB PO SCH (21:35)
[2021-01-25] MEDS: DOCUSATE 100 MG CAP PO SCH (21:35)
[2021-01-25] MEDS: FLUoxetine HCL 20 MG CAP PO SCH (21:35)
[2021-01-25] MEDS: HYDROcodone/APAP 10-325MG 1 EACH TAB PO PRN (23:10)
[2021-01-26] MEDS: hydrALAZINE HCL 50 MG TAB PO SCH ×4 (00:06→23:03)
[2021-01-26] MEDS: NITROGLYCERIN OINT 1 INCH/GM PACKET TOPICAL SCH ×5 (00:07→23:04)
[2021-01-26] MEDS: LEVOTHYROXINE 75 MCG TAB PO SCH (05:32)
[2021-01-26 05:48] LABS: Calcium 9.1 mg/dL (8.4-10.2); Potassium 4.1 mmol/L (3.5-5.1)
[2021-01-26] MEDS ORDERED: HEPARIN SODIUM 1,000 UN/ML (10ML VL) IV ONE (08:50)
[2021-01-26] MEDS ORDERED: HEPARIN SODIUM 1,000 UN/ML (10ML VL) IV PRN (08:50)
[2021-01-26] MEDS ORDERED: hydrALAZINE HCL 20 MG/ML 1 ML VIAL IVP PRN (08:58)
[2021-01-26] MEDS ORDERED: FUROSEMIDE 20 MG TAB PO SCH (09:00)
[2021-01-26] MEDS ORDERED: POTASSIUM CITRATE 10 MEQ TABLET.ER PO SCH (09:00)
[2021-01-26] MEDS ORDERED: ASPIRIN 325 MG TAB PO SCH (09:00)
--- NOTE | 2021-01-26 09:02 | P.NPCON ---
History of Present Illness - Reason for Consult hyponatremia - History of Present Illness Reason for consultation: Hyponatremia and chronic kidney disease History of present illness: Patient is a 65-year-old female seen in renal consultation for chronic kidney disease and hyponatremia. Patient has chronic kidney disease stage III with baseline creatinine near 1.3. Renal function is stable. Sodium level was 121 on admission and repeated was down to 119. It was back up to 122 this morning. She is receiving normal saline at 75 mL an hour. Patient presented to the hospital with nausea vomiting going on for the last few days as well as chest discomfort. Patient states she had a cardiac stent placed in August 2019. She was scheduled for outpatient cardiac catheterization yesterday but was admitted instead due to chest pain and hyponatremia. Blood pressure has been on the higher side. No vomiting or diarrhea today. Oral intake is fair. Patient states she's been quite nauseated and was not eating much prior to admission and was only drinking fluids. Patient states she was also taken off hydrochlorothiazide last Monday by cardiology. She still does take Lasix 20 mg daily. Denies use of nonsteroidals. No history of malignancy. No hematuria or dysuria. No history of diabetes. Vital signs are stable. General: The patient appeared well nourished and normally developed. HEENT: Head exam is unremarkable. LUNGS: Breath sounds decreased. HEART: Rate and Rhythm are regular. ABDOMEN: Soft, no distention. EXTREMITITES: No edema. Past Medical History Past Medical History: Coronary Artery Disease (CAD), Fibromyalgia, Hearing Disorder / Deafness, Hyperlipidemia, Hypertension, Osteoarthritis (OA), Sleep Apnea/CPAP/BIPAP, Thyroid Disorder Additional Past Medical History / Comment(s): leaky heart valve, SOB w/exertion, Hypothyroid. Diverticulitis. no longer has sleep apnea since lost 100 lbs. w/bariatric surg. past hx. FX JOSELO FEET, LOWER BACK pain, HYPOGLYCEMIA, see Dr Edouard H & P History of Any Multi-Drug Resistant Organisms: None Reported Past Surgical History: Bariatric Surgery, Bowel Resection, Cholecystectomy, Heart Catheterization, Heart Catheterization With Stent, Hysterectomy, Joint Replacement, Tonsillectomy Additional Past Surgical History / Comment(s): 10/23/15 Laparoscopic gastric sleeve.EGD/extensive lysis of adhesions. Other surgical hx: Lt Hip Replaced. 8 inches Colon Removed. Colonoscopy and EGD. stent placement 08/2019 Past Anesthesia/Blood Transfusion Reactions: Motion Sickness Additional Past Anesthesia/Blood Transfusion Reaction / Comment(s): Pt states she has received blood in the past without reaction. Date of Last Stent Placement:: 08/2019 Past Psychological History: Anxiety, Depression, Panic Disorder Additional Psychological History / Comment(s): since medicated 10 years ago no issues. Pt lives at home with her spouse. She is independent. Smoking Status: Former smoker Past Alcohol Use History: Abuse Additional Past Alcohol Use History / Comment(s): SMOKED 10 YEARS, 1 1/2 PPD, Quit 2010. HX ETOH ABUSE, Quit ALCOHOL in 2008 Past Drug Use History: None Reported - Past Family History Father Family Medical History: Coronary Artery Disease (CAD) Additional Family Medical History / Comment(s): from heart attack. Mother Family Medical History: Congestive Heart Failure (CHF) Additional Family Medical History / Comment(s): from heart attack. Medications and Allergies Home Medications Medication Instructions Recorded Confirmed Type Temazepam [Restoril] 30 mg PO HS 08/19/15 01/25/21 History lamoTRIgine [LaMICtal] 100 mg PO DAILY 08/19/15 01/25/21 History risperiDONE [RisperDAL] 1 mg PO BID 08/19/15 01/25/21 History Levothyroxine Sodium [Synthroid] 150 mcg PO DAILY 10/23/15 01/25/21 History Atorvastatin [Lipitor] 20 mg PO DAILY 08/28/19 01/25/21 History HYDROcodone/APAP 10-325MG [[place] 1 tab PO Q12H PRN 08/28/19 01/25/21 History 10-325] FLUoxetine HCL [PROzac] 40 mg PO BID 10/23/19 01/25/21 History Aspirin 81 mg PO DAILY 07/23/20 01/25/21 History Furosemide [Lasix] 20 mg PO DAILY 07/23/20 01/25/21 History Potassium Chloride [Klor-Con 10 ER] 10 meq PO DAILY 07/23/20 01/25/21 History Docusate [Colace] 100 mg PO BID 01/22/21 01/25/21 History Isosorbide Mononitrate [Isosorbide 30 mg PO DAILY 01/22/21 01/25/21 History Mononitrate ER] LORazepam [Ativan] 1 mg PO TID 01/25/21 01/25/21 History hydrALAZINE HCL [Apresoline] 100 mg PO TID 01/25/21 01/25/21 History lisinopriL [Zestril] 5 mg PO DAILY 01/25/21 01/25/21 History traMADol HCL 50 mg PO Q4H 01/25/21 01/25/21 History Allergies Allergy/AdvReac Type Severity Reaction Status Date / Time Iodinated Contrast Media Allergy Itching, Verified 01/25/21 14:30 hives quetiapine fumarate AdvReac Unknown Verified 01/25/21 14:30 [From Seroquel] Physical Exam Vitals: Vital Signs Temp Pulse Pulse Resp BP BP Pulse Ox 01/26/21 04:00 98.0 F 60 18 152/65 95 01/26/21 02:00 56 L 01/26/21 00:00 97.9 F 56 L 18 176/66 98 01/25/21 20:07 97 01/25/21 17:41 98.0 F 61 16 183/64 99 01/25/21 17:34 97.7 F 62 20 182/70 100 01/25/21 16:59 62 20 182/70 100 01/25/21 15:15 64 20 178/67 100 01/25/21 14:24 52 L 18 168/63 100 01/25/21 12:16 97.7 F 63 18 142/67 97 Intake and Output 01/25/21 01/26/21 01/26/21 22:59 06:59 14:59 Output Total 200 Balance -200 Output: Urine 200 Other: # Voids 1 Weight 102.058 kg 102.7 kg Results - Lab Results Most recent lab results Calcium 9.1 mg/dL (8.4-10.2) 01/26/21 05:26 Magnesium 1.4 mg/dL (1.6-2.3) L 01/25/21 14:07 01/25/21 14:07 01/26/21 05:26 Assessment and Plan Plan: Assessment: 1. Hyponatremia. Partially hypovolemic as did improve with IV fluids. Also component of poor solute intake. Hydrochlorothiazide was discontinued last week. Sodium level was 119 last night and up to 122 this morning. TSH low. 2. Chronic kidney disease stage IIIa with baseline creatinine near 1.3. Etiology is nephrosclerosis. 3. Hypertension with chronic kidney disease. 4. Coronary artery disease. Had a stent placed in August 2019. Currently on he nimo drip. Plan: Maintain IV fluids. 1200 mL fluid restriction. Encourage oral intake. Check urine sodium and urine osmolality. Add IV hydralazine as needed for systolic blood pressure greater than 160. Repeat sodium level at noon. May need cardiac catheterization this admission. She is on IV fluids. Will monitor for contrast-induced acute kidney injury. Hold Lasix for now. Avoid thiazide diuretics. Thank you for the consultation. I will continue to follow the patient with you during her hospital stay.
[2021-01-26] MEDS: lisinopriL 5 MG TAB PO SCH (09:19)
[2021-01-26] MEDS: risperiDONE 1 MG TAB PO SCH ×2 (09:19→20:03)
[2021-01-26] MEDS: ASPIRIN 81 MG PO SCH (09:20)
[2021-01-26] MEDS: ATORVASTATIN 20 MG TAB PO SCH (09:20)
[2021-01-26] MEDS: FLUoxetine HCL 20 MG CAP PO SCH ×2 (09:20→20:03)
[2021-01-26] MEDS: DOCUSATE 100 MG CAP PO SCH ×2 (09:20→20:03)
[2021-01-26 10:09] LABS: Basophils % (A) 0 %; Eosinophils % (A) 0 %; HCT 38.3 % (34.0-46.0); HGB 13.1 gm/dL (11.4-16.0); Lymphocytes # (A) 0.4 k/uL (1.0-4.8); Lymphocytes % (A) 5 %; MCH 30.6 pg (25.0-35.0); MCHC 34.2 g/dL (31.0-37.0); MCV 89.3 fL (80.0-100.0); Mean Platelet Volume 7.9; Monocytes # (A) 0.3 k/uL (0-1.0); Monocytes % (A) 4 %; Neutrophils # (A) 7.8 k/uL (1.3-7.7); Neutrophils % (A) 90 %; Platelet Count 179 k/uL (150-450); RBC 4.29 m/uL (3.80-5.40); RDW 12.5 % (11.5-15.5); WBC 8.7 k/uL (3.8-10.6)
[2021-01-26] MEDS: traMADol 50 MG TAB PO SCH (10:25)
[2021-01-26] MEDS: HEPARIN SOD,PORK IN 0.45% NACL 25,000 UNIT in 0.45% NACL 1 250ML.BAG IV SCH (10:27)
[2021-01-26 10:40] LABS: INR 0.9 (<1.2); Prothrombin Time 9.8 sec (9.0-12.0)
[2021-01-26] MEDS: SODIUM CHLORIDE 0.9% 1,000 ML IV SCH ×2 (10:44→23:05)
--- NOTE | 2021-01-26 10:51 | P.CRDCN ---
History of Present Illness History of present illness: HISTORY OF PRESENTING ILLNESS This is a pleasant 65-year-old female past medical history significant for coronary artery disease status post PCI to mid LAD in 08/2019, hypertension, dyslipidemia, former tobacco use, aortic regurgitation, mitral regurgitation. She follows in the office with Dr. Edouard . We have been asked to see in consultation for chest pain. Patient presents to the emergency department with complaints of chest pain starting on Monday. She states she had chest pain in the center of her chest, describes it as heaviness/pressure as if "someone is sitting on the chest". She rates it /. Radiating to her back and under her left breast. She had associated nausea, vomiting, shortness of breath and lightheadedness. She states she also had episode of diarrhea on Monday. Her pain continued through Monday. She took a total of 4 nitros without any relief. Her pain was aggravated by any activity. She denies any specific alleviating factors. This morning she continues to have chest pain but has significantly improved from Monday. She denies lower extremity edema, orthopnea, PND, syncope or near syncope. She is a former smoker, quit in 2010. Patient did have an abnormal Lexiscan in 12/2020 and had a planned cardiac catheterization on 01/25/[address] Edouard DIAGNOSTICS -EKG reveals sinus bradycardia HR 58, early repolarization, nonspecific ST-T wave abnormalities. Prior EKG with similar findings -[facility] 07/2020- Preserved LV Function, No evidence of aortic stenosis, 3+ aortic regurgitation, 2+ mitral regurgitation, 2+tricuspid regurgitation, mild to moderate pulmonary hypertesion, No clot in left atrial appendage, No PFO -Last Cardiac Catheterization 08/2019- 70% stenosis in the mid LAD, followed by another 6070 percent distal LAD, left circumflex free of any significant occlusive disease. Mild disease in RCA. Patient underwent PCI to LAD -Telemetry tracings indicate sinus mechanism . -Chest CT- no evidence of pulmonary embolism, three-vessel coronary artery calcifications, small hiatal hernia, mild bronchial wall thickening -Laboratory reviewed, troponin negative x 3, WBC 8.6, hemoglobin 13, platelets 179, sodium 122, potassium 4.1, BUN 19, serum creatinine 1.3, TSH 0.3, free T4 within normal limits. -Current home medications include lisinopril 5 mg daily, hydralazine 100 mg 3 times a day, Imdur 30 mg daily, Lasix 20 mg daily, atorvastatin 20 mg daily, aspirin 81 mg daily REVIEW OF SYSTEMS At the time of my exam: CONSTITUTIONAL: Denies fever or chills. CARDIOVASCULAR:+ chest pain, +shortness of breath, Denies orthopnea, PND or palpitations. RESPIRATORY: Denies cough. GASTROINTESTINAL: +nausea +vomiting Denies abdominal pain, diarrhea, constipation MUSCULOSKELETAL: Denies myalgias. NEUROLOGIC: Denies numbness, tingling, headache or weakness. ENDOCRINE: Denies fatigue, weight change, polydipsia or polyurina. GENITOURINARY: Denies burning, hematuria or urgency with micturation. HEMATOLOGIC: Denies history of anemia or bleeding. PHYSICAL EXAMINATION Blood pressure 152/65 HR 60, afebrile, SpO2 95% 2L nasal cannula CONSTITUTIONAL: No apparent distress. HEENT: Head is normocephalic. Pupils are equal, round. Sclerae anicteric. Mucous membranes of the mouth are moist. No JVD. No carotid bruit. CHEST EXAMINATION: Lungs are clear to auscultation. No chest wall tenderness is noted on palpation or with deep breathing. HEART EXAMINATION: Regular rate and rhythm. S1, S2 heard. Systolic and diastolic murmur noted. ABDOMEN: Soft, nontender. Positive bowel sounds. EXTREMITIES: 2+ peripheral pulses, no lower extremity edema and no calf tenderness. SKIN: warm, dry NEUROLOGIC EXAMINATION: Patient is awake, alert and oriented x3. ASSESSMENT Unstable Angina Chronic kidney disease Hyponatremia Coronary artery disease status post PCI to mid LAD in 08/2019 Hypertension Dyslipidemia Former nicotine dependence Aortic regurgitation Mitral regurgitation PLAN -Obtain 2D echocardiogram and doppler study to assess cardiac structure and function. -Continue IV Fluids, hold Lasix -Nephrology consult for hyponatremia -Continue IV Heparin, aspirin, statin, hydralazine and lisinopril and PRN Nitro -Patient not on beta cindy due to bradycardia -We will monitor patient's renal function and electrolytes -Patient will need cardiac catheterization I have discussed the risks, benefits and alternative therapies for the above-mentioned procedure and for both sedation/analgesia as well as necessary blood product administration, if indicated, as they pertain to this patient. The patient has indicated understanding and acceptance of the risks and procedures discussed. Questions have been answered appropriately and she is agreeable to move forward with the above-stated procedure. Will monitor patient's renal function, sodium and electrolytes to decide on timing on cardiac catheterization Thank you kindly for this consultation. Nurse Practitioner note has been reviewed, I agree with a documented findings and plan of care. Patient was seen and examined. Past Medical History Past Medical History: Coronary Artery Disease (CAD), Fibromyalgia, Hearing Disorder / Deafness, Hyperlipidemia, Hypertension, Osteoarthritis (OA), Sleep Apnea/CPAP/BIPAP, Thyroid Disorder Additional Past Medical History / Comment(s): leaky heart valve, SOB w/exertion, Hypothyroid. Diverticulitis. no longer has sleep apnea since lost 100 lbs. w/bariatric surg. past hx. FX JOSELO FEET, LOWER BACK pain, HYPOGLYCEMIA, see Dr Edouard H & P History of Any Multi-Drug Resistant Organisms: None Reported Past Surgical History: Bariatric Surgery, Bowel Resection, Cholecystectomy, Heart Catheterization, Heart Catheterization With Stent, Hysterectomy, Joint Replacement, Tonsillectomy Additional Past Surgical History / Comment(s): 10/23/15 Laparoscopic gastric sleeve.EGD/extensive lysis of adhesions. Other surgical hx: Lt Hip Replaced. 8 inches Colon Removed. Colonoscopy and EGD. stent placement 08/2019 Past Anesthesia/Blood Transfusion Reactions: Motion Sickness Additional Past Anesthesia/Blood Transfusion Reaction / Comment(s): Pt states she has received blood in the past without reaction. Date of Last Stent Placement:: 08/2019 Past Psychological History: Anxiety, Depression, Panic Disorder Additional Psychological History / Comment(s): since medicated 10 years ago no issues. Pt lives at home with her spouse. She is independent. Smoking Status: Former smoker Past Alcohol Use History: Abuse Additional Past Alcohol Use History / Comment(s): SMOKED 10 YEARS, 1 1/2 PPD, Quit 2010. HX ETOH ABUSE, Quit ALCOHOL in 2008 Past Drug Use History: None Reported - Past Family History Father Family Medical History: Coronary Artery Disease (CAD) Additional Family Medical History / Comment(s): from heart attack. Mother Family Medical History: Congestive Heart Failure (CHF) Additional Family Medical History / Comment(s): from heart attack. Medications and Allergies Home Medications Medication Instructions Recorded Confirmed Type Temazepam [Restoril] 30 mg PO HS 08/19/15 01/25/21 History lamoTRIgine [LaMICtal] 100 mg PO DAILY 08/19/15 01/25/21 History risperiDONE [RisperDAL] 1 mg PO BID 08/19/15 01/25/21 History Levothyroxine Sodium [Synthroid] 150 mcg PO DAILY 10/23/15 01/25/21 History Atorvastatin [Lipitor] 20 mg PO DAILY 08/28/19 01/25/21 History HYDROcodone/APAP 10-325MG [[place] 1 tab PO Q12H PRN 08/28/19 01/25/21 History 10-325] FLUoxetine HCL [PROzac] 40 mg PO BID 10/23/19 01/25/21 History Aspirin 81 mg PO DAILY 07/23/20 01/25/21 History Furosemide [Lasix] 20 mg PO DAILY 07/23/20 01/25/21 History Potassium Chloride [Klor-Con 10 ER] 10 meq PO DAILY 07/23/20 01/25/21 History Docusate [Colace] 100 mg PO BID 01/22/21 01/25/21 History Isosorbide Mononitrate [Isosorbide 30 mg PO DAILY 01/22/21 01/25/21 History Mononitrate ER] LORazepam [Ativan] 1 mg PO TID 01/25/21 01/25/21 History hydrALAZINE HCL [Apresoline] 100 mg PO TID 01/25/21 01/25/21 History lisinopriL [Zestril] 5 mg PO DAILY 01/25/21 01/25/21 History traMADol HCL 50 mg PO Q4H 01/25/21 01/25/21 History Allergies Allergy/AdvReac Type Severity Reaction Status Date / Time Iodinated Contrast Media Allergy Itching, Verified 01/25/21 14:30 hives quetiapine fumarate AdvReac Unknown Verified 01/25/21 14:30 [From Seroquel] Physical Exam Vitals: Vital Signs Temp Pulse Pulse Resp BP BP Pulse Ox 01/26/21 04:00 98.0 F 60 18 152/65 95 01/26/21 02:00 56 L 01/26/21 00:00 97.9 F 56 L 18 176/66 98 01/25/21 20:07 97 01/25/21 17:41 98.0 F 61 16 183/64 99 01/25/21 17:34 97.7 F 62 20 182/70 100 01/25/21 16:59 62 20 182/70 100 01/25/21 15:15 64 20 178/67 100 01/25/21 14:24 52 L 18 168/63 100 01/25/21 12:16 97.7 F 63 18 142/67 97 Intake and Output 01/25/21 01/25/21 01/26/21 14:59 22:59 06:59 Output Total 200 Balance -200 Output: Urine 200 Other: # Voids 1 Weight 102.058 kg 102.058 kg 102.7 kg Results 01/26/21 09:46 01/26/21 05:26 Cardiac Enzymes 01/25/21 01/25/21 01/25/21 Range/Units 14:07 14:07 15:56 AST 24 (14-36) U/L Troponin I <0.012 <0.012 (0.000-0.034) ng/mL 01/25/21 Range/Units 19:04 AST (14-36) U/L Troponin I 0.012 (0.000-0.034) ng/mL Coagulation 01/25/21 Range/Units 14:07 PT 9.7 (9.0-12.0) sec APTT 24.7 (22.0-30.0) sec CBC 01/25/21 Range/Units 14:07 WBC 5.6 (3.8-10.6) k/uL RBC 4.14 (3.80-5.40) m/uL Hgb 12.6 (11.4-16.0) gm/dL Hct 36.7 (34.0-46.0) % Plt Count 183 (150-450) k/uL Comprehensive Metabolic Panel 01/25/21 01/25/21 01/26/21 Range/Units 14:07 22:37 05:26 Sodium 121 L 119 L* 122 L (137-145) mmol/L Potassium 4.2 4.1 (3.5-5.1) mmol/L Chloride 86 L 92 L (98-107) mmol/L Carbon Dioxide 21 L 22 (22-30) mmol/L BUN 20 H 19 H (7-17) mg/dL Creatinine 1.31 H 1.33 H (0.52-1.04) mg/dL Glucose 101 H 124 H (74-99) mg/dL Calcium 9.3 9.1 (8.4-10.2) mg/dL AST 24 (14-36) U/L ALT 15 (4-34) U/L Alkaline Phosphatase 79 (38-126) U/L Total Protein 7.6 (6.3-8.2) g/dL Albumin 4.5 (3.5-5.0) g/dL Current Medications Generic Name Dose Route Start Last Admin Trade Name Freq PRN Reason Stop Dose Admin Acetaminophen 650 mg 01/25/21 15:37 Acetaminophen Tab 325 Mg Tab PO Q6HR PRN Mild Pain or Fever > 100.5 Hydrocodone Bitart/Acetaminophen 1 each 01/25/21 16:46 01/25/21 23:10 Hydrocodone/Apap 10-325mg 1 Each Tab PO 1 each Q12H PRN Administration Pain Al Hydroxide/Mg Hydroxide 15 ml 01/25/21 15:37 Mag Hydrox/Al Hydrox/Simeth 30 Ml Cup PO Q6HR PRN Indigestion Aspirin 325 mg 01/26/21 09:00 Aspirin 325 Mg Tab PO DAILY REPLACED BY [facility] Atorvastatin Calcium 20 mg 01/26/21 09:00 Atorvastatin 20 Mg Tab PO DAILY VALERIE Calcium Carbonate/Glycine 1,000 mg 01/25/21 15:37 Calcium Carbonate 500 Mg Chewable PO Q4HR PRN Dyspepsia Docusate Sodium 100 mg 01/25/21 21:00 01/25/21 21:35 Docusate 100 Mg Cap PO 100 mg BID VALERIE Administration Fluoxetine HCl 40 mg 01/25/21 21:00 01/25/21 21:35 Fluoxetine Hcl 20 Mg Cap PO 40 mg BID VALERIE Administration Furosemide 20 mg 01/26/21 09:00 Furosemide 20 Mg Tab PO DAILY VALERIE Hydralazine HCl 100 mg 01/25/21 17:00 01/26/21 00:06 Hydralazine Hcl 50 Mg Tab PO 100 mg TID VALERIE Administration Levothyroxine Sodium 150 mcg 01/26/21 06:30 01/26/21 05:32 Levothyroxine 75 Mcg Tab PO 150 mcg DAILY@0630 VALERIE Administration Lisinopril 5 mg 01/26/21 09:00 Lisinopril 5 Mg Tab PO DAILY VALERIE Naloxone HCl 0.2 mg 01/25/21 15:37 Naloxone 0.4 Mg/Ml 1 Ml Vial IV Q2M PRN Opioid Reversal Nitroglycerin 0.4 mg 01/25/21 15:20 Nitroglycerin Sl Tabs 0.4 Mg Tab SUBLINGUAL Q5M PRN Chest Pain Nitroglycerin 1 inch 01/25/21 18:00 01/26/21 05:32 Nitroglycerin Oint 1 Inch/Gm Packet TOPICAL 1 inch Q6HR VALERIE Administration Ondansetron HCl 4 mg 01/25/21 15:37 Ondansetron 4 Mg/2 Ml Vial IVP Q8HR PRN Nausea And Vomiting Potassium Citrate 10 meq 01/26/21 09:00 Potassium Citrate 10 Meq Tablet.Er PO DAILY VALERIE Risperidone 1 mg 01/25/21 21:00 01/25/21 21:35 Risperidone 1 Mg Tab PO 1 mg BID VALERIE Administration Temazepam 30 mg 01/26/21 21:00 Temazepam 15 Mg Cap PO HS VALERIE Intake and Output 01/25/21 01/25/21 01/26/21 14:59 22:59 06:59 Output Total 200 Balance -200 Output: Urine 200 Other: # Voids 1 Weight 102.058 kg 102.058 kg 102.7 kg Patient Weight 01/26/21 06:59 Weight 102.7 kg 01/25/21 14:07 01/26/21 05:26
--- NOTE | 2021-01-26 11:11 | P.PN ---
Subjective Progress Note Date: 01/26/21 Patient feels better still have some chest heaviness but overall improving Constitutional: No acute distress, conversant, pleasant Eyes: Anicteric sclerae, moist conjunctiva, no lid-lag PERRLA ENMT: NC/AT Oropharynx clear, no erythema, exudates Neck: Supple, FROM, no masses, or JVD No carotid bruits No thyromegaly Lungs: Clear to auscultation Clear to percussion Normal respiratory effort, no accessory muscle use Cardiovascular: Heart regular in rate and rhythm, No murmurs, gallops, or rubs No peripheral edema Abdominal: Soft Nontender, no guarding, rebound or rigidity Abdomen moving with respiration Normoactive bowel sounds No hepatomegaly, No splenomegaly No palpable mass No abdominal wall hernia noted Skin: Normal temperature, tone, texture, turgor No induration No subcutaneous nodules No rash, lesions No ulcers Extremities: No digital cyanosis No clubbing Pedal pulses intact and symmetrical Radial pulses intact and symmetrical Normal gait and station No calf tenderness Psychiatric:Alert and oriented to person, place and time Appropriate affect Intact judgement Neuro: Muscles Strength 5/5 in all 4 extremities Sensation to light touch grossly present throughout Cranial nerves II-XII grossly intact No focal sensory deficits Symptomatic hyponatremia l nephrology following Elevated E d-dimer in the setting of chest pain computed tomography scan of the chest has been ordered to rule out PE Cardiology has been consulted Hypertension Other: Overall improving we'll continue to monitor overnight Objective - Vital Signs Vital signs: Vital Signs Temp 98.0 F 01/26/21 09:33 Pulse 56 L 01/26/21 09:33 Resp 18 01/26/21 09:33 BP 187/71 01/26/21 09:33 Pulse Ox 100 01/26/21 09:33 Intake & Output 01/25/21 01/26/21 01/26/21 18:59 06:59 18:59 Intake Total 360 Output Total 200 Balance -200 360 Weight 102.058 kg 102.7 kg Intake: Oral 360 Output: Urine 200 Other: # Voids 1 - Labs CBC & Chem 7: 01/26/21 09:46 01/26/21 05:26 Labs: Abnormal Lab Results - Last 24 Hours (Table) 01/25/21 01/25/21 01/25/21 Range/Units 14:07 14:07 14:07 Neutrophils # (1.3-7.7) k/uL Lymphocytes # 0.5 L (1.0-4.8) k/uL D-Dimer 6.10 H (<0.60) mg/L FEU Sodium 121 L (137-145) mmol/L Chloride 86 L (98-107) mmol/L Carbon Dioxide 21 L (22-30) mmol/L BUN 20 H (7-17) mg/dL Creatinine 1.31 H (0.52-1.04) mg/dL Glucose 101 H (74-99) mg/dL Osmolality (280-301) mosm/kg Magnesium 1.4 L (1.6-2.3) mg/dL TSH (0.465-4.680) mIU/L 01/25/21 01/26/21 01/26/21 Range/Units 22:37 05:26 05:26 Neutrophils # (1.3-7.7) k/uL Lymphocytes # (1.0-4.8) k/uL D-Dimer (<0.60) mg/L FEU Sodium 119 L* 122 L (137-145) mmol/L Chloride 92 L (98-107) mmol/L Carbon Dioxide (22-30) mmol/L BUN 19 H (7-17) mg/dL Creatinine 1.33 H (0.52-1.04) mg/dL Glucose 124 H (74-99) mg/dL Osmolality 258 L (280-301) mosm/kg Magnesium (1.6-2.3) mg/dL TSH 0.321 L (0.465-4.680) mIU/L 01/26/21 Range/Units 09:46 Neutrophils # 7.8 H (1.3-7.7) k/uL Lymphocytes # 0.4 L (1.0-4.8) k/uL D-Dimer (<0.60) mg/L FEU Sodium (137-145) mmol/L Chloride (98-107) mmol/L Carbon Dioxide (22-30) mmol/L BUN (7-17) mg/dL Creatinine (0.52-1.04) mg/dL Glucose (74-99) mg/dL Osmolality (280-301) mosm/kg Magnesium (1.6-2.3) mg/dL TSH (0.465-4.680) mIU/L
[2021-01-26 14:08] VITALS: BMI 36.5
[2021-01-26] MEDS ORDERED: traMADol 50 MG TAB PO PRN (15:27)
[2021-01-26] MEDS: HYDROcodone/APAP 10-325MG 1 EACH TAB PO PRN (20:04)
[2021-01-26] MEDS: TEMAZEPAM 15 MG CAP PO SCH (20:04)
[2021-01-27] MEDS: LEVOTHYROXINE 75 MCG TAB PO SCH (06:35)
[2021-01-27] MEDS: NITROGLYCERIN OINT 1 INCH/GM PACKET TOPICAL SCH ×4 (06:36→23:28)
[2021-01-27] MEDS: traMADol 50 MG TAB PO SCH (07:58)
[2021-01-27 08:26] LABS: INR 0.9 (<1.2); Partial Thromboplastin Time 48.7 sec (22.0-30.0); Prothrombin Time 10.2 sec (9.0-12.0)
[2021-01-27 08:31] LABS: Basophils % (A) 0 %; Eosinophils % (A) 0 %; HCT 33.9 % (34.0-46.0); HGB 11.3 gm/dL (11.4-16.0); Lymphocytes # (A) 0.7 k/uL (1.0-4.8); Lymphocytes % (A) 11 %; MCH 30.4 pg (25.0-35.0); MCHC 33.3 g/dL (31.0-37.0); MCV 91.1 fL (80.0-100.0); Mean Platelet Volume 8.1; Monocytes # (A) 0.6 k/uL (0-1.0); Monocytes % (A) 10 %; Neutrophils # (A) 4.9 k/uL (1.3-7.7); Neutrophils % (A) 77 %; Platelet Count 181 k/uL (150-450); RBC 3.72 m/uL (3.80-5.40); RDW 12.9 % (11.5-15.5); WBC 6.3 k/uL (3.8-10.6)
[2021-01-27 08:36] LABS: Albumin 3.6 g/dL (3.5-5.0); Magnesium 1.6 mg/dL (1.6-2.3); Potassium 4.3 mmol/L (3.5-5.1); Total Bilirubin 0.4 mg/dL (0.2-1.3); Total Protein 6.4 g/dL (6.3-8.2)
--- NOTE | 2021-01-27 09:15 | ECHOF ---
Referral Reason: MEASUREMENTS -------- HEIGHT: 165.1 cm WEIGHT: 102.1 kg BP: IVSd: 1.2 cm (0.6 - 1.1) LVIDd: 4.9 cm (3.9 - 5.3) LVPWd: 1.7 cm (0.6 - 1.1) IVSs: 1.6 cm LVIDs: 2.4 cm LVPWs: 2.1 cm LAESV Index (A-L): 42.79 ml/m Ao Diam: 2.6 cm (2.0 - 3.7) LA Diam: 4.8 cm (2.7 - 3.8) MV EXCURSION: 15.618 mm (> 18.000) MV EF SLOPE: 65 mm/s (70 - 150) EPSS: 0.4 cm MV E Darrell: 0.77 m/s MV DecT: 299 ms MV A Darrell: 1.05 m/s MV E/A Ratio: 0.74 AV maxP.53 mmHg AV meanP.72 mmHg AR PHT: 617 ms RAP: 5.00 mmHg RVSP: 10.82 mmHg FINDINGS -------- Sinus rhythm. This was a technically adequate study. The left ventricular size is normal. There is mild concentric left ventricular hypertrophy. Overa ll left ventricular systolic function is low-normal with, an EF between 50 - 55 %. The right ventricle is normal in size. The right atrial size is normal. The aortic valve was not well visualized. There is yexi-zj-loscdpzs aortic regurgitation. There i s mild aortic stenosis present. Peak/mean gradient across the Aortic Valve is 44.53mmHg / 18.72mmHg . Mild mitral regurgitation is present. Mild tricuspid regurgitation present. Right ventricular systolic pressure is normal at < 35 mmHg. There is no pulmonic regurgitation present. The aortic root size is normal. There is no pericardial effusion. CONCLUSIONS -------- 1. The left ventricular size is normal. 2. There is mild concentric left ventricular hypertrophy. 3. Overall left ventricular systolic function is low-normal with, an EF between 50 - 55 %. 4. The right ventricle is normal in size. 5. The right atrial size is normal. 6. The aortic valve was not well visualized. 7. There is gbex-av-sydhehrc aortic regurgitation. 8. There is mild aortic stenosis present. 9. Peak/mean gradient across the Aortic Valve is 44.53mmHg / 18.72mmHg. 10. Mild mitral regurgitation is present. 11. Mild tricuspid regurgitation present. 12. The aortic root size is normal. 13. There is no pericardial effusion. DIRECTOR SALES SUPPORT: Matilde Layne RDCS
[2021-01-27] MEDS: ASPIRIN 81 MG PO SCH (09:19)
[2021-01-27] MEDS: DOCUSATE 100 MG CAP PO SCH ×2 (09:19→19:59)
[2021-01-27] MEDS: lisinopriL 5 MG TAB PO SCH (09:19)
[2021-01-27] MEDS: FLUoxetine HCL 20 MG CAP PO SCH ×2 (09:19→19:59)
[2021-01-27] MEDS: risperiDONE 1 MG TAB PO SCH ×2 (09:19→19:59)
[2021-01-27] MEDS: ATORVASTATIN 20 MG TAB PO SCH (09:19)
[2021-01-27] MEDS: hydrALAZINE HCL 50 MG TAB PO SCH ×3 (09:20→23:28)
--- NOTE | 2021-01-27 09:22 | P.PN ---
Subjective Patient is seen in follow-up for hyponatremia and chronic kidney disease. Sodium level improving with IV hydration. Renal function fairly stable. May undergo cardiac catheterization today. Hemodynamically stable. Vital signs are stable. General: The patient appeared well nourished and normally developed. HEENT: Head exam is unremarkable. LUNGS: Breath sounds decreased. HEART: Rate and Rhythm are regular. ABDOMEN: Soft, no distention. EXTREMITITES: No edema. Objective - Vital Signs Vital signs: Vital Signs Temp 98.0 F 01/27/21 04:00 Pulse 60 01/27/21 04:00 Resp 20 01/27/21 04:00 BP 156/63 01/27/21 04:00 Pulse Ox 99 01/27/21 04:00 Intake & Output 01/26/21 01/27/21 01/27/21 18:59 06:59 18:59 Intake Total 1090 Output Total 800 Balance 1090 -800 Weight 102.7 kg Intake: Oral 1090 Output: Urine 800 Other: Voiding Method Toilet # Voids 2 1 - Labs CBC & Chem 7: 01/27/21 07:00 01/27/21 07:00 Labs: Abnormal Lab Results - Last 24 Hours (Table) 01/26/21 01/26/21 01/26/21 Range/Units 02:01 09:46 11:43 RBC (3.80-5.40) m/uL Hgb (11.4-16.0) gm/dL Hct (34.0-46.0) % Neutrophils # 7.8 H (1.3-7.7) k/uL Lymphocytes # 0.4 L (1.0-4.8) k/uL APTT (22.0-30.0) sec Sodium 124 L (137-145) mmol/L Chloride (98-107) mmol/L BUN (7-17) mg/dL Creatinine (0.52-1.04) mg/dL Ur Random Sodium 25 L (40-220) mmol/L 01/26/21 01/26/21 01/27/21 Range/Units 16:27 16:27 07:00 RBC (3.80-5.40) m/uL Hgb (11.4-16.0) gm/dL Hct (34.0-46.0) % Neutrophils # (1.3-7.7) k/uL Lymphocytes # (1.0-4.8) k/uL APTT 49.8 H (22.0-30.0) sec Sodium 126 L 127 L (137-145) mmol/L Chloride 96 L (98-107) mmol/L BUN 20 H (7-17) mg/dL Creatinine 1.41 H (0.52-1.04) mg/dL Ur Random Sodium (40-220) mmol/L 01/27/21 01/27/21 Range/Units 07:00 07:00 RBC 3.72 L (3.80-5.40) m/uL Hgb 11.3 L (11.4-16.0) gm/dL Hct 33.9 L (34.0-46.0) % Neutrophils # (1.3-7.7) k/uL Lymphocytes # 0.7 L (1.0-4.8) k/uL APTT 48.7 H (22.0-30.0) sec Sodium (137-145) mmol/L Chloride (98-107) mmol/L BUN (7-17) mg/dL Creatinine (0.52-1.04) mg/dL Ur Random Sodium (40-220) mmol/L Assessment and Plan Plan: Assessment: 1. Hyponatremia. Partially hypovolemic as improving with IV fluids. Also component of poor solute intake. Hydrochlorothiazide was discontinued last week. Sodium level was as low as 119 this admission and up to 127 this morning. TSH low. Urine sodium 25 and urine osmolality 399. 2. Chronic kidney disease stage IIIa with baseline creatinine near 1.3. Etiology is nephrosclerosis. 3. Hypertension with chronic kidney disease. 4. Coronary artery disease. Had a stent placed in August 2019. Currently on heparin drip. Plan: Maintain normal saline at 50 mL an hour - increase rate to 75 mL an hour if goes for cardiac catheterization and Hep-Lock 10-12 hours post cardiac c atheterization. 1200 mL fluid restriction. Encourage oral intake. Risk of worsening renal function post IV contrast exposure was discussed with the patient. She understands. Monitor for contrast-induced acute kidney injury. Continue to hold Lasix for now. Avoid thiazide diuretics. Add amlodipine
[2021-01-27] MEDS: HYDROcodone/APAP 10-325MG 1 EACH TAB PO PRN (09:25)
[2021-01-27] MEDS: HEPARIN SOD,PORK IN 0.45% NACL 25,000 UNIT in 0.45% NACL 1 250ML.BAG IV SCH (11:33)
[2021-01-27] MEDS: amLODIPine 5 MG TAB PO SCH (12:23)
--- NOTE | 2021-01-27 12:42 | P.PN ---
Subjective Progress Note Date: 01/27/21 No new complaints today, pending [facility] tomorrow per cardiology. Na is improving, nephrology following, Cr stable to mildly worse. Objective - Vital Signs Vital signs: Vital Signs Temp 98.3 F 01/27/21 09:05 Pulse 55 L 01/27/21 09:05 Resp 20 01/27/21 09:05 BP 173/69 01/27/21 09:05 Pulse Ox 100 01/27/21 09:05 Intake & Output 01/26/21 01/27/21 01/27/21 18:59 06:59 18:59 Intake Total 1090 250 Output Total 800 350 Balance 1090 -800 -100 Weight 102.7 kg 103.2 kg Intake: Intake, IV Titration 250 Amount Heparin Sod,Pork in 0.45% 250 NaCl 25,000 unit In 0.45 % NaCl 1 250ml.bag @ 9.74 UNITS/KG/HR 10.003 mls/ hr IV .Q24H [facility] Rx#: [id number] Oral 1090 Output: Urine 800 350 Other: Voiding Method Toilet Toilet # Voids 2 1 - Exam Gen: awake, alert HEENT: normocephalic, atraumatic, good hearing acuity, moist mucous membranes Resp: good air exchange, breathing comfortably with no accessory muscle use CVS: good distal perfusion x 4, GI: soft, NTTP, ND : no SPT, no CVAT, peralta catheter not present MSK: no pitting edema, no clubbing Neuro: non-focal, moving all extremities Psych: cooperative, euthymic mood - Labs CBC & Chem 7: 01/27/21 07:00 01/27/21 07:00 Labs: Abnormal Lab Results - Last 24 Hours (Table) 01/26/21 01/26/21 01/26/21 Range/Units 11:43 16:27 16:27 RBC (3.80-5.40) m/uL Hgb (11.4-16.0) gm/dL Hct (34.0-46.0) % Lymphocytes # (1.0-4.8) k/uL APTT 49.8 H (22.0-30.0) sec Sodium 124 L 126 L (137-145) mmol/L Chloride (98-107) mmol/L BUN (7-17) mg/dL Creatinine (0.52-1.04) mg/dL 01/27/21 01/27/21 01/27/21 Range/Units 07:00 07:00 07:00 RBC 3.72 L (3.80-5.40) m/uL Hgb 11.3 L (11.4-16.0) gm/dL Hct 33.9 L (34.0-46.0) % Lymphocytes # 0.7 L (1.0-4.8) k/uL APTT 48.7 H (22.0-30.0) sec Sodium 127 L (137-145) mmol/L Chloride 96 L (98-107) mmol/L BUN 20 H (7-17) mg/dL Creatinine 1.41 H (0.52-1.04) mg/dL Assessment and Plan Assessment: Unstable Angina -admit to inpatient, telemetry -Cardiology consulted, left heart cath planned for 01/28 -Aspirin, statin, heparin drip -1 inch Nitropaste every 6 hours him a hold home imdur while on Nitropaste -Echo with good EF, no wall motion abnormality, mild aortic stenosis, mild AR Hyponatremia -Continue IV fluids -Fluid restriction of 1200 mL -Nephrology following -Continue to monitor HTN HLD Mood Disorder Hypothyroidism -Home medications reviewed and reconciled, changes noted above Patient is full code On heparin drip
--- NOTE | 2021-01-27 13:02 | P.PN ---
Subjective This is a pleasant 65-year-old female past medical history significant for coronary artery disease status post PCI to mid LAD in 08/2019, hypertension, dyslipidemia, former tobacco use, aortic regurgitation, mitral regurgitation. She follows in the office with Dr. Edouard . We have been asked to see in consultation for chest pain. Patient presents to the emergency department with complaints of chest pain starting on Monday. Patient did have an abnormal Lexiscan in 12/2020 and had a planned cardiac catheterization on 01/25/[address] Edouard, however, cardiac catheterization has been on hold due to hyponatremia and chronic kidney disease. Patient seen and examined at bedside, no acute distress. Denies chest pain or shortness of breath. Echocardiogram revealed EF 50-55%, mild to moderate aortic regurgitation, mild aortic stenosis, mild mitral regurgitation, mild tricupsid regurgitation. Labs, Sodium improved 127, K 4.3, BUN 20, sCr 1.41, Mag 1.6. She is currently maintained on IV heparin, amlodipine 5mg daily, aspirin 81mg daily, atorvastatin 20mg daily, hydralazine 100mg TID, lisinopril 5mg daily, PRN sublingual niro. and IV fluids. PHYSICAL EXAMINATION Vitals: Reviewed. CONSTITUTIONAL: No apparent distress. HEENT: Neck Supple. No JVD. CHEST EXAMINATION: Lungs are clear to auscultation. No chest wall tenderness is noted on palpation or with deep breathing. HEART EXAMINATION: Regular rate and rhythm. S1, S2 heard. Systolic and diastolic murmur noted. ABDOMEN: Soft, nontender. Positive bowel sounds. EXTREMITIES: 2+ peripheral pulses, no lower extremity edema and no calf tenderness. SKIN: warm, dry NEUROLOGIC EXAMINATION: Patient is awake, alert and oriented x3. ASSESSMENT Unstable Angina Chronic kidney disease Hyponatremia Coronary artery disease status post PCI to mid LAD in 08/2019 Hypertension Dyslipidemia Former nicotine dependence Aortic regurgitation Mitral regurgitation PLAN -Continue IV Fluids, hold Lasix -Nephrology following for hyponatremia, appreciate recommendations -Continue IV Heparin, aspirin, statin, hydralazine and lisinopril and PRN Nitro -Patient not on beta cindy due to bradycardia -We will monitor patient's renal function and electrolytes -Plan for cardiac catheterization with Dr. Edouard tomorrow 01/28/21. I have discussed the risks, benefits and alternative therapies for the above-mentioned procedure and for both sedation/analgesia as well as necessary blood product administration, if indicated, as they pertain to this patient. The patient has indicated understanding and acceptance of the risks and procedures discussed. Questions have been answered appropriately and she is agreeable to move forward with the above-stated procedure. -Further recommendations based on clinical course Objective - Vital Signs Vital signs: Vital Signs Temp 98.3 F 01/27/21 09:05 Pulse 55 L 01/27/21 09:05 Resp 20 01/27/21 09:05 BP 173/69 01/27/21 09:05 Pulse Ox 100 01/27/21 09:05 Intake & Output 01/26/21 01/27/21 01/27/21 18:59 06:59 18:59 Intake Total 1090 250 Output Total 800 350 Balance 1090 -800 -100 Weight 102.7 kg 103.2 kg Intake: Intake, IV Titration 250 Amount Heparin Sod,Pork in 0.45% 250 NaCl 25,000 unit In 0.45 % NaCl 1 250ml.bag @ 9.74 UNITS/KG/HR 10.003 mls/ hr IV .Q24H [facility] Rx#: [id number] Oral 1090 Output: Urine 800 350 Other: Voiding Method Toilet Toilet # Voids 2 1 - Labs CBC & Chem 7: 01/27/21 07:00 01/27/21 07:00 Labs: Abnormal Lab Results - Last 24 Hours (Table) 01/26/21 01/26/21 01/27/21 Range/Units 16:27 16:27 07:00 RBC (3.80-5.40) m/uL Hgb (11.4-16.0) gm/dL Hct (34.0-46.0) % Lymphocytes # (1.0-4.8) k/uL APTT 49.8 H (22.0-30.0) sec Sodium 126 L 127 L (137-145) mmol/L Chloride 96 L (98-107) mmol/L BUN 20 H (7-17) mg/dL Creatinine 1.41 H (0.52-1.04) mg/dL 01/27/21 01/27/21 Range/Units 07:00 07:00 RBC 3.72 L (3.80-5.40) m/uL Hgb 11.3 L (11.4-16.0) gm/dL Hct 33.9 L (34.0-46.0) % Lymphocytes # 0.7 L (1.0-4.8) k/uL APTT 48.7 H (22.0-30.0) sec Sodium (137-145) mmol/L Chloride (98-107) mmol/L BUN (7-17) mg/dL Creatinine (0.52-1.04) mg/dL
[2021-01-27] MEDS: TEMAZEPAM 15 MG CAP PO SCH (19:59)
[2021-01-27] MEDS: SODIUM CHLORIDE 0.9% 1,000 ML IV SCH (19:59)
[2021-01-27] MEDS: SODIUM CHLORIDE 0.9% 1,000 ML in EMPTY BAG 1 BAG IV SCH (23:30)
[2021-01-28] MEDS: LEVOTHYROXINE 75 MCG TAB PO SCH (06:03)
[2021-01-28] MEDS: NITROGLYCERIN OINT 1 INCH/GM PACKET TOPICAL SCH ×2 (06:03→12:42)
[2021-01-28] MEDS ORDERED: HEPARIN SODIUM,PORCINE 10,000 UNIT in SODIUM CHLORIDE 0.9% 1,000 ML IRRIGATION PRN (07:00)
[2021-01-28] MEDS ORDERED: HEPARIN SODIUM,PORCINE 2,500 UNIT in SODIUM CHLORIDE 0.9% 250 ML IRRIGATION PRN (07:00)
[2021-01-28] MEDS: amLODIPine 5 MG TAB PO SCH (07:40)
[2021-01-28] MEDS: ASPIRIN 81 MG PO SCH (07:40)
[2021-01-28] MEDS: ATORVASTATIN 20 MG TAB PO SCH (07:41)
[2021-01-28] MEDS: lamoTRIgine 100 MG TAB PO SCH (07:41)
[2021-01-28] MEDS: lisinopriL 5 MG TAB PO SCH (07:42)
[2021-01-28] MEDS: hydrALAZINE HCL 50 MG TAB PO SCH ×3 (07:42→21:12)
[2021-01-28] MEDS: DOCUSATE 100 MG CAP PO SCH ×3 (07:43→21:12)
[2021-01-28] MEDS: FLUoxetine HCL 20 MG CAP PO SCH ×2 (07:43→21:12)
[2021-01-28] MEDS: risperiDONE 1 MG TAB PO SCH ×2 (07:43→21:12)
[2021-01-28 08:21] LABS: Basophils % (A) 0 %; Eosinophils # (A) 0.1 k/uL (0-0.7); Eosinophils % (A) 1 %; HCT 33.5 % (34.0-46.0); Lymphocytes # (A) 0.7 k/uL (1.0-4.8); Lymphocytes % (A) 11 %; MCH 30.1 pg (25.0-35.0); MCHC 32.9 g/dL (31.0-37.0); MCV 91.6 fL (80.0-100.0); Monocytes # (A) 0.5 k/uL (0-1.0); Monocytes % (A) 9 %; Neutrophils # (A) 4.7 k/uL (1.3-7.7); Neutrophils % (A) 78 %; Platelet Count 173 k/uL (150-450); RBC 3.65 m/uL (3.80-5.40); RDW 12.8 % (11.5-15.5); WBC 6.1 k/uL (3.8-10.6)
[2021-01-28] MEDS ORDERED: LIDOCAINE 1% INJ 10MG/ML (20 ML MDV) ONE (08:30)
[2021-01-28] MEDS ORDERED: VERAPAMIL 2.5 MG/ML 2 ML AMP ONE (08:30)
[2021-01-28] MEDS ORDERED: diphenhydrAMINE 50 MG/ML 1 ML VIAL ONE (08:37)
[2021-01-28] MEDS ORDERED: methylPREDNISolone SOD SUCCI 125 MG/2 ML VIAL ONE (08:37)
[2021-01-28] MEDS ORDERED: fentaNYL (PF) 50 MCG/ML 2 ML AMP ONE (08:38)
[2021-01-28] MEDS ORDERED: methylPREDNISolone SOD SUCCI 125 MG/2 ML VIAL IV ONE (08:43)
[2021-01-28] MEDS ORDERED: ISOSORBIDE MONONITRATE ER 30 MG TAB.ER.24H PO SCH (09:00)
[2021-01-28 09:42] LABS: Calcium 9.2 mg/dL (8.4-10.2); Magnesium 1.7 mg/dL (1.6-2.3)
[2021-01-28] MEDS ORDERED: ASPIRIN 81 MG PO ONE (10:12)
[2021-01-28] MEDS ORDERED: diphenhydrAMINE 50 MG/ML 1 ML VIAL IVP ONE (10:17)
[2021-01-28] MEDS ORDERED: LIDOCAINE 1% INJ 10MG/ML (20 ML MDV) IV ONE ×2 (10:18→10:19)
[2021-01-28] MEDS ORDERED: MIDAZOLAM 2 MG/2 ML VIAL IV ONE ×2 (10:18)
[2021-01-28] MEDS ORDERED: fentaNYL (PF) 50 MCG/ML 5 ML AMP IV ONE (10:18)
[2021-01-28] MEDS ORDERED: VERAPAMIL SYRINGE (5 MG/10 ML) IV ONE ×3 (10:18→10:20)
[2021-01-28] MEDS ORDERED: HEPARIN SODIUM 1,000 UN/ML (10ML VL) IV ONE (10:23)
[2021-01-28] MEDS ORDERED: SODIUM CHLORIDE 0.9% 1,000 ML IV ONE (10:30)
[2021-01-28] MEDS ORDERED: IOPAMIDOL-370 125ML BTL INJ ONE ×2 (10:31→10:36)
[2021-01-28] MEDS: HEPARIN SOD,PORK IN 0.45% NACL 25,000 UNIT in 0.45% NACL 1 250ML.BAG IV SCH (10:37)
[2021-01-28] MEDS: SODIUM CHLORIDE 0.9% 1,000 ML in EMPTY BAG 1 BAG IV SCH (10:37)
[2021-01-28] MEDS: HYDROcodone/APAP 10-325MG 1 EACH TAB PO PRN (11:15)
[2021-01-28] MEDS ORDERED: RX INFO: IV CONTRAST WAS GIVEN 1 EACH MISC MISCELLANE PRN (11:20)
[2021-01-28] MEDS ORDERED: SODIUM CHLORIDE 0.9% 1,000 ML IV SCH (11:30)
[2021-01-28] MEDS ORDERED: ISOSORBIDE MONONITRATE ER 60 MG TAB.ER.24H PO STA (11:35)
--- NOTE | 2021-01-28 12:17 | P.PN ---
Subjective Progress Note Date: 01/28/21 No new complaints. Ongoing substernal chest pain. Nitro paste has been d/c'd. Objective - Vital Signs Vital signs: Vital Signs Temp 96.4 F L 01/28/21 08:00 Pulse 59 L 01/28/21 11:27 Resp 16 01/28/21 11:27 BP 165/74 01/28/21 11:27 Pulse Ox 99 01/28/21 11:27 Intake & Output 01/27/21 01/28/21 01/28/21 18:59 06:59 18:59 Intake Total 848 297.893 Output Total 1150 625 Balance -302 -625 297.893 Weight 103.6 kg Intake: IV 100 Intake, IV Titration 250 197.893 Amount Heparin Sod,Pork in 0.45% 250 197.893 NaCl 25,000 unit In 0.45 % NaCl 1 250ml.bag @ 9.74 UNITS/KG/HR 10.003 mls/ hr IV .Q24H [facility] Rx#: [id number] Oral 598 Output: Urine 1150 625 Other: Voiding Method Toilet # Voids 1 - Exam Gen: awake, alert HEENT: normocephalic, atraumatic, good hearing acuity, moist mucous membranes Resp: good air exchange, breathing comfortably with no accessory muscle use CVS: good distal perfusion x 4, GI: soft, NTTP, ND : no SPT, no CVAT, peralta catheter not present MSK: no pitting edema, no clubbing Neuro: non-focal, moving all extremities Psych: cooperative, euthymic mood - Labs CBC & Chem 7: 01/28/21 07:16 01/28/21 07:16 Labs: Abnormal Lab Results - Last 24 Hours (Table) 01/28/21 01/28/21 Range/Units 07:16 07:16 RBC 3.65 L (3.80-5.40) m/uL Hgb 11.0 L (11.4-16.0) gm/dL Hct 33.5 L (34.0-46.0) % Lymphocytes # 0.7 L (1.0-4.8) k/uL Sodium 129 L (137-145) mmol/L Creatinine 1.29 H (0.52-1.04) mg/dL Assessment and Plan Assessment: Chronic Stable Angina -admit to inpatient, telemetry -Cardiology consulted, left heart cath on 01/28 has no obstructive disease -Aspirin, statin, heparin drip -1 inch Nitropaste every 6 hours him a hold home imdur while on Nitropaste -Echo with good EF, no wall motion abnormality, mild aortic stenosis, mild AR -Imdur restarted and increased to 60mg Hyponatremia -Continue IV fluids -Fluid restriction of 1200 mL -Nephrology following -Continue to monitor HTN HLD Mood Disorder Hypothyroidism -Home medications reviewed and reconciled, changes noted above Patient is full code
--- NOTE | 2021-01-28 12:57 | P.PN ---
Subjective Progress Note Date: 01/28/21 Follow-up for hyponatremia. Objective - Vital Signs Vital signs: Vital Signs Temp 97.4 F L 01/28/21 12:00 Pulse 63 01/28/21 12:12 Resp 16 01/28/21 12:12 BP 149/69 01/28/21 12:12 Pulse Ox 100 01/28/21 12:00 Intake & Output 01/27/21 01/28/21 01/28/21 18:59 06:59 18:59 Intake Total 848 297.893 Output Total 1150 625 Balance -302 -625 297.893 Weight 103.6 kg Intake: IV 100 Intake, IV Titration 250 197.893 Amount Heparin Sod,Pork in 0.45% 250 197.893 NaCl 25,000 unit In 0.45 % NaCl 1 250ml.bag @ 9.74 UNITS/KG/HR 10.003 mls/ hr IV .Q24H [facility] Rx#: [id number] Oral 598 Output: Urine 1150 625 Other: Voiding Method Toilet # Voids 1 - Exam No acute distress S1-S2 heard Lungs clear No edema - Labs CBC & Chem 7: 01/28/21 07:16 01/28/21 07:16 Labs: Abnormal Lab Results - Last 24 Hours (Table) 01/28/21 01/28/21 Range/Units 07:16 07:16 RBC 3.65 L (3.80-5.40) m/uL Hgb 11.0 L (11.4-16.0) gm/dL Hct 33.5 L (34.0-46.0) % Lymphocytes # 0.7 L (1.0-4.8) k/uL Sodium 129 L (137-145) mmol/L Creatinine 1.29 H (0.52-1.04) mg/dL Assessment and Plan Assessment: #1 hypovolemic hyponatremia secondary to decreased by mouth intake and hydrochlorothiazide use. #2 chronic kidney disease stage III with a baseline creatinine of 1.3 MG per DL. #3 hypertension with chronic kidney disease. Plan: #1 sodium improving continue with normal saline at 75 ML's an hour. #2 avoid nephrotoxic agents and hypotensive episodes.
--- NOTE | 2021-01-28 14:15 | P.CARDCATH ---
Date of Procedure: 01/28/21 Preoperative Diagnosis: Chest pain and positive stress test Postoperative Diagnosis: Stable coronary artery disease Procedure(s) Performed: Left heart catheterization without left ventriculography Description of Procedure: HISTORY: This is a 65-year-old female with history of ischemic heart disease with stent placement of the mid LAD. Patient has been having recurrent chest pains and palpitations and stress test showed possible mild ischemia of the anterolateral wall. Because of ongoing symptoms patient is advised to have a cardiac catheterization. Patient and family were fully aware of the risks and benefits of the procedure CONSENT:I have discussed the risks, benefits and alternative therapies for the above-mentioned procedure and for both sedation/analgesia as well as necessary blood product administration, if indicated, as they pertain to this patient. The patient has indicated understanding and acceptance of the risks and procedures discussed. PROCEDURE: Patient was brought to the lab in a fasting state. Patient was given some IV sedation. The right wrist is infiltrated with lidocaine and right radial artery was entered using Seldinger technique. A 6-Arabic catheter was left in place and selective coronary arteriography was performed. Patient tolerated the procedure well. TR band was applied for hemostasis. No immediate complications were noted and patient was transferred to [facility] in a stable condition Conscious Sedation: Versed 1mg Fentanyl 50 g Duration 18minutes HEMODYNAMICS: The aortic pressure is about 160/80. Left ventricular end- diastolic pressure 16. There was mild gradient across the aortic valve of about 10-15 mm SELECTIVE CORONARY ARTERIOGRAPHY: LEFT MAIN: Normal length and free of occlusive disease THE LEFT ANTERIOR DESCENDING CORONARY ARTERY: . This is a good caliber vessel, tortuous in its proximal portion. There maybe about 30-40% stenosis in the proximal portion. The LAD is calcified. This stented area. Appears to be patent. There is also moderate disease involving the mid and distal LAD. No significant critical lesion noted THE LEFT CIRCUMFLEX AND IS CORONARY ARTERY: . Good caliber vessel giving rise good-sized OM branch. He seemed to be free of any significant occlusive disease except mild plaque in midportion THE RIGHT CORONARY ARTERY: . This a fairly caliber vessel and codominant. Mild disease in the proximal and midportion. No critical lesions LEFT VENTRICULOGRAPHY: Not Performed FINAL IMPRESSION: Patent stent in the LAD. Diffuse disease with calcification with areas of about 30-40% stenosis in the LAD, circumflex, and also RCA PLAN: Continued medical therapy and this factor modification PROGNOSIS: Fair
[2021-01-28] MEDS: LORazepam 1 MG TAB PO PRN (17:22)
[2021-01-28] MEDS: SODIUM CHLORIDE 0.9% 1,000 ML IV SCH (17:31)
[2021-01-28] MEDS: TEMAZEPAM 15 MG CAP PO SCH (21:12)
[2021-01-29] MEDS: LEVOTHYROXINE 75 MCG TAB PO SCH (06:34)
[2021-01-29] MEDS: HYDROcodone/APAP 10-325MG 1 EACH TAB PO PRN (06:36)
[2021-01-29 06:58] LABS: Basophils % (A) 0 %; Eosinophils % (A) 0 %; HGB 11.4 gm/dL (11.4-16.0); Lymphocytes # (A) 0.7 k/uL (1.0-4.8); Lymphocytes % (A) 7 %; MCH 29.8 pg (25.0-35.0); MCHC 32.6 g/dL (31.0-37.0); MCV 91.4 fL (80.0-100.0); Mean Platelet Volume 7.9; Monocytes # (A) 0.5 k/uL (0-1.0); Monocytes % (A) 5 %; Neutrophils # (A) 9.4 k/uL (1.3-7.7); Neutrophils % (A) 88 %; Platelet Count 203 k/uL (150-450); RBC 3.83 m/uL (3.80-5.40); RDW 12.7 % (11.5-15.5); WBC 10.7 k/uL (3.8-10.6)
[2021-01-29 07:12] LABS: Calcium 9.7 mg/dL (8.4-10.2); Magnesium 1.7 mg/dL (1.6-2.3); Potassium 4.6 mmol/L (3.5-5.1)
[2021-01-29] MEDS ORDERED: ISOSORBIDE MONONITRATE ER 60 MG TAB.ER.24H PO SCH (09:00)
[2021-01-29] MEDS: amLODIPine 5 MG TAB PO SCH (09:47)
[2021-01-29] MEDS: hydrALAZINE HCL 50 MG TAB PO SCH (09:48)
[2021-01-29] MEDS: ASPIRIN 81 MG PO SCH (09:48)
[2021-01-29] MEDS: ATORVASTATIN 20 MG TAB PO SCH (09:48)
[2021-01-29] MEDS: FLUoxetine HCL 20 MG CAP PO SCH (09:48)
[2021-01-29] MEDS: DOCUSATE 100 MG CAP PO SCH (09:48)
[2021-01-29] MEDS: risperiDONE 1 MG TAB PO SCH (09:49)
[2021-01-29] MEDS: lisinopriL 5 MG TAB PO SCH (09:49)
[2021-01-29] MEDS: lamoTRIgine 100 MG TAB PO SCH (09:49)
[2021-01-29] MEDS: LORazepam 1 MG TAB PO PRN (09:53)
[2021-01-29 10:53] VITALS: RESP 18
--- NOTE | 2021-01-29 11:44 | P.DS ---
Providers Date of admission: 01/25/21 15:24 Expected date of discharge: 01/29/21 Attending physician: Cindi Song MD Consults: 01/25/21 15:20 Consult Physician Urgent Consulting Provider: Skyler Johnson Consult Reason/Comments: hyponatremia Do you want consulting provider notified?: Yes Consult Physician Urgent Consulting Provider: Jessica Edouard Consult Reason/Comments: cp Do you want consulting provider notified?: Yes Primary care physician: Isaias Ayon MD Hospital Course: Chronic Stable Angina Hypertensive Urgency -Admitted to inpatient, telemetry. Cardiology consulted, left heart cath on 01/28 has no obstructive disease. Treated with Aspirin, statin, heparin drip; hep gtt d/c'd after LHC. Pain resolved with 1 inch Nitropaste every 6 hours while holding home imdur, however, returned after nitropaste was d/c'd, and again resolved with increased dose of imdur from 30mg at home to 60mg. Blood pressures also improved with this change. Echo with good EF, no wall motion abnormality, mild aortic stenosis, mild AR. Pt will f/u with PCP and cardiology. BP was elevated during admission likely contributing to pain. Foll owing changes were made: amlodipine added, lasix/potassium removed, and imdur increased. -Imdur restarted and increased to 60mg Hyponatremia -Continued IV fluids with Fluid restriction of 1200 mL resulted in improvement of Na to 129. Nephrology followed along and facilitated treatment. HTN HLD Mood Disorder Hypothyroidism -Home medications reviewed and reconciled on discharge, changes noted above I spent 34 minutes coordinating this discharge. Assessment: Gen: awake, alert HEENT: normocephalic, atraumatic, good hearing acuity, moist mucous membranes Resp: good air exchange, breathing comfortably with no accessory muscle use CVS: good distal perfusion x 4, GI: soft, NTTP, ND : no SPT, no CVAT, peralta catheter not present MSK: no pitting edema, no clubbing Neuro: non-focal, moving all extremities Psych: cooperative, euthymic mood Patient Condition at Discharge: Good Plan - Discharge Summary Discharge Rx Participant: No New Discharge Prescriptions: New Nitroglycerin Sl Tabs [Nitrostat] 0.4 mg SUBLINGUAL Q5M PRN #30 tab PRN Reason: Chest Pain amLODIPine [Norvasc] 5 mg PO DAILY #30 tab Continue risperiDONE [RisperDAL] 1 mg PO BID lamoTRIgine [LaMICtal] 100 mg PO DAILY Temazepam [Restoril] 30 mg PO HS Levothyroxine Sodium [Synthroid] 150 mcg PO DAILY HYDROcodone/APAP 10-325MG [[place] 10-325] 1 tab PO Q12H PRN PRN Reason: Pain Atorvastatin [Lipitor] 20 mg PO DAILY FLUoxetine HCL [PROzac] 40 mg PO BID LORazepam [Ativan] 1 mg PO TID Aspirin 81 mg PO DAILY Docusate [Colace] 100 mg PO BID hydrALAZINE HCL [Apresoline] 100 mg PO TID lisinopriL [Zestril] 5 mg PO DAILY traMADol HCL 50 mg PO Q4H Changed Isosorbide Mononitrate [Isosorbide Mononitrate ER] 60 mg PO DAILY #60 tab Discontinued Furosemide [Lasix] 20 mg PO DAILY Potassium Chloride [Klor-Con 10 ER] 10 meq PO DAILY Discharge Medication List Temazepam [Restoril] 30 mg PO HS 08/19/15 [History] lamoTRIgine [LaMICtal] 100 mg PO DAILY 08/19/15 [History] risperiDONE [RisperDAL] 1 mg PO BID 08/19/15 [History] Levothyroxine Sodium [Synthroid] 150 mcg PO DAILY 10/23/15 [History] Atorvastatin [Lipitor] 20 mg PO DAILY 08/28/19 [History] HYDROcodone/APAP 10-325MG [[place] 10-325] 1 tab PO Q12H PRN 08/28/19 [History] FLUoxetine HCL [PROzac] 40 mg PO BID 10/23/19 [History] Aspirin 81 mg PO DAILY 07/23/20 [History] Docusate [Colace] 100 mg PO BID 01/22/21 [History] LORazepam [Ativan] 1 mg PO TID 01/25/21 [History] hydrALAZINE HCL [Apresoline] 100 mg PO TID 01/25/21 [History] lisinopriL [Zestril] 5 mg PO DAILY 01/25/21 [History] traMADol HCL 50 mg PO Q4H 01/25/21 [History] Isosorbide Mononitrate [Isosorbide Mononitrate ER] 60 mg PO DAILY #60 tab 01/28/21 [Rx] Nitroglycerin Sl Tabs [Nitrostat] 0.4 mg SUBLINGUAL Q5M PRN #30 tab 01/28/21 [Rx] amLODIPine [Norvasc] 5 mg PO DAILY #30 tab 01/28/21 [Rx] Follow up Appointment(s)/Referral(s): Isaias Ayon MD [Primary Care Provider] - 1-2 days Jessica Edouard MD [STAFF PHYSICIAN] - 1 Week Discharge Disposition: HOME SELF-CARE
[2021-01-29 11:53] VITALS: BP 158/65; PULSE 59; TEMP 97.5
--- NOTE | 2021-01-29 12:16 | P.PN ---
Subjective Progress Note Date: 01/29/21 Follow-up for hyponatremia. Objective - Vital Signs Vital signs: Vital Signs Temp 97.5 F L 01/29/21 11:52 Pulse 59 L 01/29/21 11:52 Resp 18 01/29/21 11:52 BP 158/65 01/29/21 11:52 Pulse Ox 100 01/29/21 11:52 Intake & Output 01/28/21 01/29/21 01/29/21 18:59 06:59 18:59 Intake Total 537.893 240 420 Output Total 650 200 Balance -112.107 40 420 Intake: IV 100 Intake, IV Titration 197.893 Amount Heparin Sod,Pork in 0.45% 197.893 NaCl 25,000 unit In 0.45 % NaCl 1 250ml.bag @ 9.74 UNITS/KG/HR 10.003 mls/ hr IV .Q24H [facility] Rx#: [id number] Oral 240 240 420 Output: Urine 650 200 Other: Voiding Method Toilet Toilet # Voids 100 - Exam No acute distress S1-S2 heard Lungs clear No edema - Labs CBC & Chem 7: 01/29/21 06:21 01/29/21 06:21 Labs: Abnormal Lab Results - Last 24 Hours (Table) 01/29/21 01/29/21 Range/Units 06:21 06:21 WBC 10.7 H (3.8-10.6) k/uL Neutrophils # 9.4 H (1.3-7.7) k/uL Lymphocytes # 0.7 L (1.0-4.8) k/uL Sodium 128 L (137-145) mmol/L Chloride 97 L (98-107) mmol/L Creatinine 1.30 H (0.52-1.04) mg/dL Glucose 102 H (74-99) mg/dL Assessment and Plan Assessment: #1 hypovolemic hyponatremia secondary to decreased by mouth intake and hydrochlorothiazide use. #2 chronic kidney disease stage III with a baseline creatinine of 1.3 MG per DL. #3 hypertension with chronic kidney disease. Plan: #1 sodium improving, stop normal saline. #2 avoid nephrotoxic agents and hypotensive episodes. #3 one from nephrology for discharge. Add Lasix 20 mg by mouth daily.
[2021-01-29] MEDS ORDERED: FUROSEMIDE 20 MG TAB PO SCH (12:30)
--- NOTE | 2021-01-29 17:35 | P.PN ---
Subjective Progress Note Date: 01/29/21 This is a 65-year-old female with history of ischemic heart disease with a previous stent placement of the mid LAD was recently admitted to the hospital with complaints of weakness and chest pains. She was found to have evidence of hyponatremia. She was scheduled to have cardiac cath as an outpatient but was canceled because of recent increase in creatinine to 1.75. At the time of admission and creatinine was 1.3 but she was hyponatremic. Patient is put on fluid restriction and also on diuretics. Patient's creatinine remained stable but other sodium has improved to 127. Patient had a cardiac catheterization and was found to have patent stent. There is mild to moderate noncritical disease in the LAD at different locations. The films were reviewed with Dr. Sena and maximum medical therapy is advised. Patient remains stable. Her puncture site in the right wrist is healing well. Lungs are clear. Heart is regular. Patient is being discharged home on medical therapy. Follow-up in the office in one week Objective - Vital Signs Vital signs: Vital Signs Temp 97.5 F L 01/29/21 11:52 Pulse 59 L 01/29/21 11:52 Resp 18 01/29/21 11:52 BP 158/65 01/29/21 11:52 Pulse Ox 100 01/29/21 11:52 Intake & Output 01/28/21 01/29/21 01/29/21 18:59 06:59 18:59 Intake Total 537.893 240 420 Output Total 650 200 Balance -112.107 40 420 Intake: IV 100 Intake, IV Titration 197.893 Amount Heparin Sod,Pork in 0.45% 197.893 NaCl 25,000 unit In 0.45 % NaCl 1 250ml.bag @ 9.74 UNITS/KG/HR 10.003 mls/ hr IV .Q24H [facility] Rx#: [id number] Oral 240 240 420 Output: Urine 650 200 Other: Voiding Method Toilet Toilet # Voids 100 - Exam GENERAL EXAM: Patient is alert and oriented and doesn't appear to be in any acute distress HEENT: Normocephalic. Normal reaction of pupils, equal size, normal range of extraocular motion. No erythema or exudates in the throat. NECK: No masses, no nuchal rigidity. CHEST: No chest wall deformity. LUNGS: Equal air entry with no crackles or wheeze. HEART: S1 and S2 normal with no audible mumurs or gallops. Regular rhythm, femorals equal on both sides.. ABDOMEN: No hepatosplenomegaly, normal bowel sounds, no guarding or rigidity. SKIN: No rashes CENTRAL NERVOUS SYSTEM: No focal deficits. EXTREMITIES: No cyanosis, clubbing or edema. - Labs CBC & Chem 7: 01/29/21 06:21 01/29/21 06:21 Labs: Abnormal Lab Results - Last 24 Hours (Table) 01/29/21 01/29/21 Range/Units 06:21 06:21 WBC 10.7 H (3.8-10.6) k/uL Neutrophils # 9.4 H (1.3-7.7) k/uL Lymphocytes # 0.7 L (1.0-4.8) k/uL Sodium 128 L (137-145) mmol/L Chloride 97 L (98-107) mmol/L Creatinine 1.30 H (0.52-1.04) mg/dL Glucose 102 H (74-99) mg/dL Assessment and Plan (1) CAD (coronary artery disease) Status: Acute Code(s): I25.10 - ATHSCL HEART DISEASE OF [place] CORONARY ARTERY W/O ANG PCTRS SNOMED Code(s): 81353315 (2) Chest pain Status: Acute Code(s): R07.9 - CHEST PAIN, UNSPECIFIED SNOMED Code(s): 28192340 (3) Hyponatremia Status: Acute Code(s): E87.1 - HYPO-OSMOLALITY AND HYPONATREMIA SNOMED Code(s): 01098106 (4) Positive cardiac stress test Status: Acute Code(s): R94.39 - ABNORMAL RESULT OF OTHER CARDIOVASCULAR FUNCTION STUDY SNOMED Code(s): 867292946 Plan: Patient is being discharged home in a stable condition. Continue with maximal medical therapy and this factor modification. Patient needs to reduce free water intake. Follow-up in the office in one week
== END 2021-01-29 13:33 | disposition home or self-care (01) | DRG 287 ==
LOC: EC 12:13 → 3SCARD 15:24 → UNDODISIN 17:00
PROVIDERS: ADMIT Internal Medicine; ATTEND Internal Medicine
PROC: B2111ZZ Fluoroscopy of Multiple Coronary Arteries using Low Osmolar Contrast (ICD-10-PCS; principal; 2021-01-28 09:00)
PROC: 4A023N7 Measurement of Cardiac Sampling and Pressure, Left Heart, Percutaneous Approach (ICD-10-PCS; principal; 2021-01-28 09:00)
DX: I25.110 Atherosclerotic heart disease of native coronary artery with unstable angina pectoris (principal); E87.1 Hypo-osmolality and hyponatremia; N18.31 Chronic kidney disease, stage 3a; Z20.822 Contact with and (suspected) exposure to COVID-19; I12.9 Hypertensive chronic kidney disease with stage 1 through stage 4 chronic kidney disease, or unspecified chronic kidney disease; I16.0 Hypertensive urgency; M79.7 Fibromyalgia; E03.9 Hypothyroidism, unspecified; E78.5 Hyperlipidemia, unspecified; T50.2X5A Adverse effect of carbonic-anhydrase inhibitors, benzothiadiazides and other diuretics, initial encounter; E86.1 Hypovolemia; I08.0 Rheumatic disorders of both mitral and aortic valves; F32.A Depression, unspecified; M19.90 Unspecified osteoarthritis, unspecified site; F41.0 Panic disorder [episodic paroxysmal anxiety]; H91.90 Unspecified hearing loss, unspecified ear; M54.50 Low back pain, unspecified; F10.11 Alcohol abuse, in remission; Z79.82 Long term (current) use of aspirin; Z79.890 Hormone replacement therapy; Z79.891 Long term (current) use of opiate analgesic; Z79.899 Other long term (current) drug therapy; Z95.5 Presence of coronary angioplasty implant and graft; Z87.891 Personal history of nicotine dependence; Z98.84 Bariatric surgery status; Z90.49 Acquired absence of other specified parts of digestive tract; Z87.19 Personal history of other diseases of the digestive system; Z87.81 Personal history of (healed) traumatic fracture; Z90.710 Acquired absence of both cervix and uterus; Z90.89 Acquired absence of other organs; Z96.642 Presence of left artificial hip joint; Z87.42 Personal history of other diseases of the female genital tract; Z87.09 Personal history of other diseases of the respiratory system; Z98.890 Other specified postprocedural states; Z88.8 Allergy status to other drugs, medicaments and biological substances; Z91.041 Radiographic dye allergy status; Z82.49 Family history of ischemic heart disease and other diseases of the circulatory system
CPT/HCPCS: 36415; 71046; 71275; 80048; 80053; 83735; 83880; 83930; 83935; 84295; 84300; 84439; 84443; 84484; 85025; 85379; 85610; 85730; 87635; 93005; 93306; 93458; 96374; 99285

== ENCOUNTER 2021-10-11 13:41 | Inpatient (IN) | payer MEDICARE ==
--- NOTE | 2021-10-11 15:31 | XR ---
EXAMINATION TYPE: XR chest 2V DATE OF EXAM: 10/11/2021 3:25 PM COMPARISON: Chest radiographs from 01/25/2021 TECHNIQUE: XR chest 2V Frontal and lateral views of the chest. CLINICAL INDICATION:Female, 66 years old with history of difficulty breathing; FINDINGS: Lungs/Pleura: There is no evidence of pleural effusion, focal consolidation, or pneumothorax. Pulmonary vascularity: Unremarkable. Heart/mediastinum: Cardiomediastinal silhouette is unremarkable. Atherosclerotic calcifications are seen in the aorta. Musculoskeletal: No acute osseous pathology. Degenerative changes of the spine. IMPRESSION: No acute cardiopulmonary disease/process.
[2021-10-11] MEDS ORDERED: IPRATROPIUM-ALBUTEROL 3 ML NEB INHALATION STA (17:17)
--- NOTE | 2021-10-11 17:20 | ED ---
SOB HPI - General Chief Complaint: Shortness of Breath Stated Complaint: SOB Time Seen by Provider: 10/11/21 17:06 Source: patient Mode of arrival: wheelchair Limitations: no limitations - History of Present Illness Initial Comments: This 66-year-old female presents with a complaint of some shortness of breath. She states that this is been present for approximately 3 weeks. She denies any leg pain or swelling. She denies any cough. She has had occasional chills but denies any actual fever. She does complain of some chest pressure in her midsternal region. She has some minimal lower back pain as well. She does relate a history of COPD. She also has a history of previous coronary artery disease with cardiac stent in the last 1-2 years. She has tried her breathing treatments with limited relief. The shortness of breath is much worse with any exertion and somewhat better with rest. She's had the chest pain for the last 3 weeks as well. No other complaints or modifying factors. She does relate a history of anxiety but does not feel as though her anxiety is flared at this time. - Related Data Home Medications Medication Instructions Recorded Confirmed Temazepam [Restoril] 30 mg PO HS 08/19/15 10/11/21 Levothyroxine Sodium [Synthroid] 150 mcg PO DAILY 10/23/15 10/11/21 Atorvastatin [Lipitor] 20 mg PO DAILY 08/28/19 10/11/21 FLUoxetine HCL [PROzac] 40 mg PO BID 10/23/19 10/11/21 LORazepam [Ativan] 0.5 - 1 mg PO TID PRN 01/25/21 10/11/21 Albuterol Sulfate [Ventolin HFA] 2 puff INHALATION RT-QID PRN 10/11/21 10/11/21 Budesonide-Formot 160-4.5 Mcg 2 puff INHALATION RT-BID 10/11/21 10/11/21 [Symbicort 160-4.5 Mcg Inhaler] Furosemide [Lasix] 40 mg PO DAILY 10/11/21 10/11/21 HYDROcodone/APAP 7.5-325MG [[place] 1 tab PO BID 10/11/21 10/11/21 7.5-325] Isosorbide Mononitrate [Isosorbide 30 mg PO DAILY 10/11/21 10/11/21 Mononitrate ER] Omeprazole Magnesium [PriLOSEC OTC] 40 mg PO DAILY PRN 10/11/21 10/11/21 cycloSPORINE 0.05% OPHTH SOLN 1 applic BOTH EYES BID 10/11/21 10/11/21 [Restasis] lisinopriL [Zestril] 2.5 mg PO DAILY 10/11/21 10/11/21 methylPREDNISolone Dose Pack See Taper PO DIRECTED 10/11/21 10/11/21 [Medrol Dose Pack] Previous Rx's Medication Instructions Recorded Nitroglycerin Sl Tabs [Nitrostat] 0.4 mg SUBLINGUAL Q5M PRN #30 tab 01/28/21 amLODIPine [Norvasc] 5 mg PO DAILY #30 tab 01/28/21 Allergies Allergy/AdvReac Type Severity Reaction Status Date / Time Iodinated Contrast Media Allergy Itching, Verified 10/11/21 19:52 hives quetiapine fumarate AdvReac Unknown Verified 10/11/21 19:52 [From Seroquel] Review of Systems ROS Statement: Those systems with pertinent positive or pertinent negative responses have been documented in the HPI. ROS Other: All systems not noted in ROS Statement are negative. Past Medical History Past Medical History: Coronary Artery Disease (CAD), COPD, Fibromyalgia, Hearing Disorder / Deafness, Hyperlipidemia, Hypertension, Osteoarthritis (OA), Sleep Apnea/CPAP/BIPAP, Thyroid Disorder Additional Past Medical History / Comment(s): leaky heart valve, SOB w/exertion, Hypothyroid. Diverticulitis. no longer has sleep apnea since lost 100 lbs. w/bariatric surg. past hx. FX JOSELO FEET, LOWER BACK pain, HYPOGLYCEMIA, see Dr Edouard H & P History of Any Multi-Drug Resistant Organisms: None Reported Past Surgical History: Bariatric Surgery, Bowel Resection, Cholecystectomy, Heart Catheterization, Heart Catheterization With Stent, Hysterectomy, Joint Replacement, Tonsillectomy Additional Past Surgical History / Comment(s): 10/23/15 Laparoscopic gastric sleeve.EGD/extensive lysis of adhesions. Other surgical hx: Lt Hip Replaced. 8 inches Colon Removed. Colonoscopy and EGD. stent placement 08/2019 Past Anesthesia/Blood Transfusion Reactions: Motion Sickness Additional Past Anesthesia/Blood Transfusion Reaction / Comment(s): Pt states she has received blood in the past without reaction. Date of Last Stent Placement:: 08/2019 Past Psychological History: Anxiety, Depression, Panic Disorder Smoking Status: Former smoker Past Alcohol Use History: None Reported Past Drug Use History: None Reported - Past Family History Father Family Medical History: Coronary Artery Disease (CAD) Additional Family Medical History / Comment(s): from heart attack. Mother Family Medical History: Congestive Heart Failure (CHF) Additional Family Medical History / Comment(s): from heart attack. General Exam - General Exam Comments Initial Comments: GENERAL: The patient is well nourished and well hydrated. VITAL SIGNS: Heart rate, blood pressure, respiratory rate reviewed as recorded in nurse's notes. EYES: Pupils are round and reactive. Extraocular movements are intact. No conjunctival / lid redness or swelling. ENT: No external evidence of injury, swelling, or ecchymosis. Airway is patent. Throat is clear. NECK: Nontender. No swelling or evidence of injury. No subcutaneous emphysema. Trachea is midline. No thyroid mass. HEART: Regular rate and rhythm. Good peripheral pulses. No lower extremity edema or tenderness noted. LUNGS/CHEST: Breath sounds clear and equal bilaterally. No rales, rhonchi, or wheezes. No ecchymosis, subcutaneous emphysema, or tenderness. ABDOMEN: Abdomen soft without tenderness. No palpable masses or organomegaly. No peritoneal signs. No abdominal wall swelling or ecchymosis. EXTREMITIES: No extremity tenderness. Normal muscle tone and function. No thor acolumbar tenderness. NEUROLOGIC: Sensation is grossly intact. Cranial nerve exam reveals face is s ymmetrical, tongue is midline, speech is clear. SKIN: No abrasions or ecchymosis is noted. No induration or masses noted. PSYCHIATRIC: Alert and oriented. Appears anxious at times. Limitations: no limitations Course Vital Signs 10/11/21 10/11/21 10/11/21 14:14 18:08 19:08 Temperature 97.8 F Pulse Rate 61 58 L 60 Respiratory 26 H 16 Rate Blood Pressure 141/62 161/112 O2 Sat by Pulse 99 99 Oximetry 10/11/21 10/11/21 10/11/21 19:18 19:27 20:00 Temperature Pulse Rate 64 64 57 L Respiratory 20 16 Rate Blood Pressure 175/63 175/61 O2 Sat by Pulse 100 100 Oximetry Medical Decision Making - Medical Decision Making The patient was seen and examined. All diagnostics are reviewed. The EKG shows a normal sinus rhythm at a rate of 60. There appears to be some downward sloping T waves in the lateral and inferior leads. There is no ST elevation identified. The LA intervals 149, QRS duration is 114, and the QTC intervals 460. Patient is placed on a hospital monitor no ectopy is identified. Laboratory is reviewed and there is mild hyponatremia as well as mild hypochloremia. She is given some mild fluid hydration in this regard. Her CO2 is slightly low consistent with mild dehydration as well. Her BNP is minimally elevated. Her d-dimer came back elevated. She apparently is ALLERGIC to iodine but states that she only will develop hives. She has had many CT scans with pre-treatment and states that she is fine if she gets pretreated. Solu-Medrol and Benadryl are ordered and a CT angiogram of the chest also is ordered and is pending. Case is discussed with Dr. Colmenares and he is agreeable with admission. CT results will be followed up with to rule out any possibility of pulmonary embolism. If negative, patient will still need admission to rule out any possibility of acute coronary syndrome. Patient does appear to be anxious on recheck and receives Ativan intravenously. She is 100% on oxygen. The CTA of the chest was eventually completed and does not show any evidence of pulmonary embolism or other acute processes. - Lab Data Result diagrams: 10/11/21 18:45 10/11/21 18:45 Lab Results 10/11/21 10/11/21 10/11/21 Range/Units 18:00 18:45 18:45 WBC 13.6 H (3.8-10.6) k/uL RBC 4.78 (3.80-5.40) m/uL Hgb 13.6 (11.4-16.0) gm/dL Hct 41.9 (34.0-46.0) % MCV 87.6 (80.0-100.0) fL MCH 28.5 (25.0-35.0) pg MCHC 32.5 (31.0-37.0) g/dL RDW 12.6 (11.5-15.5) % Plt Count 220 (150-450) k/uL MPV 8.0 Neutrophils % 86 % Lymphocytes % 5 % Monocytes % 8 % Eosinophils % 0 % Basophils % 0 % Neutrophils # 11.7 H (1.3-7.7) k/uL Lymphocytes # 0.7 L (1.0-4.8) k/uL Monocytes # 1.0 (0-1.0) k/uL Eosinophils # 0.0 (0-0.7) k/uL Basophils # 0.0 (0-0.2) k/uL PT 10.2 (9.0-12.0) sec INR 0.9 (<1.2) APTT 20.7 L (22.0-30.0) sec D-Dimer 0.70 H (<0.60) mg/L FEU Sodium (137-145) mmol/L Potassium (3.5-5.1) mmol/L Chloride (98-107) mmol/L Carbon Dioxide (22-30) mmol/L Anion Gap mmol/L BUN (7-17) mg/dL Creatinine (0.52-1.04) mg/dL Est GFR (CKD-EPI)AfAm (>60 ml/min/1.73 sqM) Est GFR (CKD-EPI)NonAf (>60 ml/min/1.73 sqM) Glucose (74-99) mg/dL Lactic Ac Sepsis Rflx Plasma Lactic Acid Alexand[place] (0.7-2.0) mmol/L Calcium (8.4-10.2) mg/dL Total Bilirubin (0.2-1.3) mg/dL AST (14-36) U/L ALT (4-34) U/L Alkaline Phosphatase (38-126) U/L Troponin I (0.000-0.034) ng/mL NT-Pro-B Natriuret Pep pg/mL Total Protein (6.3-8.2) g/dL Albumin (3.5-5.0) g/dL Urine Color Light Yellow Urine Appearance Clear (Clear) Urine pH 7.0 (5.0-8.0) Ur Specific [place] 1.010 (1.001-1.035) Urine Protein Negative (Negative) Urine Glucose (UA) Negative (Negative) Urine Ketones Negative (Negative) Urine Blood Negative (Negative) Urine Nitrite Negative (Negative) Urine Bilirubin Negative (Negative) Urine Urobilinogen <2.0 (<2.0) mg/dL Ur Leukocyte Esterase Small H (Negative) Urine RBC 1 (0-5) /hpf Urine WBC <1 (0-5) /hpf Ur Squamous Epith Cells 1 (0-4) /hpf Hyaline Casts 1 (0-2) /lpf 10/11/21 10/11/21 10/11/21 Range/Units 18:45 18:45 18:45 WBC (3.8-10.6) k/uL RBC (3.80-5.40) m/uL Hgb (11.4-16.0) gm/dL Hct (34.0-46.0) % MCV (80.0-100.0) fL MCH (25.0-35.0) pg MCHC (31.0-37.0) g/dL RDW (11.5-15.5) % Plt Count (150-450) k/uL MPV Neutrophils % % Lymphocytes % % Monocytes % % Eosinophils % % Basophils % % Neutrophils # (1.3-7.7) k/uL Lymphocytes # (1.0-4.8) k/uL Monocytes # (0-1.0) k/uL Eosinophils # (0-0.7) k/uL Basophils # (0-0.2) k/uL PT (9.0-12.0) sec INR (<1.2) APTT (22.0-30.0) sec D-Dimer (<0.60) mg/L FEU Sodium 131 L (137-145) mmol/L Potassium 3.8 (3.5-5.1) mmol/L Chloride 97 L (98-107) mmol/L Carbon Dioxide 19 L (22-30) mmol/L Anion Gap 15 mmol/L BUN 31 H (7-17) mg/dL Creatinine 1.42 H (0.52-1.04) mg/dL Est GFR (CKD-EPI)AfAm 45 (>60 ml/min/1.73 sqM) Est GFR (CKD-EPI)NonAf 39 (>60 ml/min/1.73 sqM) Glucose 115 H (74-99) mg/dL Lactic Ac Sepsis Rflx Plasma Lactic Acid [place] 2.2 H* (0.7-2.0) mmol/L Calcium 9.4 (8.4-10.2) mg/dL Total Bilirubin 1.0 (0.2-1.3) mg/dL AST 26 (14-36) U/L ALT 20 (4-34) U/L Alkaline Phosphatase 113 (38-126) U/L Troponin I <0.012 (0.000-0.034) ng/mL NT-Pro-B Natriuret Pep pg/mL Total Protein 7.7 (6.3-8.2) g/dL Albumin 4.5 (3.5-5.0) g/dL Urine Color Urine Appearance (Clear) Urine pH (5.0-8.0) Ur Specific [place] (1.001-1.035) Urine Protein (Negative) Urine Glucose (UA) (Negative) Urine Ketones (Negative) Urine Blood (Negative) Urine Nitrite (Negative) Urine Bilirubin (Negative) Urine Urobilinogen (<2.0) mg/dL Ur Leukocyte Esterase (Negative) Urine RBC (0-5) /hpf Urine WBC (0-5) /hpf Ur Squamous Epith Cells (0-4) /hpf Hyaline Casts (0-2) /lpf 10/11/21 10/11/21 Range/Units 18:45 19:32 WBC (3.8-10.6) k/uL RBC (3.80-5.40) m/uL Hgb (11.4-16.0) gm/dL Hct (34.0-46.0) % MCV (80.0-100.0) fL MCH (25.0-35.0) pg MCHC (31.0-37.0) g/dL RDW (11.5-15.5) % Plt Count (150-450) k/uL MPV Neutrophils % % Lymphocytes % % Monocytes % % Eosinophils % % Basophils % % Neutrophils # (1.3-7.7) k/uL Lymphocytes # (1.0-4.8) k/uL Monocytes # (0-1.0) k/uL Eosinophils # (0-0.7) k/uL Basophils # (0-0.2) k/uL PT (9.0-12.0) sec INR (<1.2) APTT (22.0-30.0) sec D-Dimer (<0.60) mg/L FEU Sodium (137-145) mmol/L Potassium (3.5-5.1) mmol/L Chloride (98-107) mmol/L Carbon Dioxide (22-30) mmol/L Anion Gap mmol/L BUN (7-17) mg/dL Creatinine (0.52-1.04) mg/dL Est GFR (CKD-EPI)AfAm (>60 ml/min/1.73 sqM) Est GFR (CKD-EPI)NonAf (>60 ml/min/1.73 sqM) Glucose (74-99) mg/dL Lactic Ac Sepsis Rflx Y Plasma Lactic Acid [place] (0.7-2.0) mmol/L Calcium (8.4-10.2) mg/dL Total Bilirubin (0.2-1.3) mg/dL AST (14-36) U/L ALT (4-34) U/L Alkaline Phosphatase (38-126) U/L Troponin I (0.000-0.034) ng/mL NT-Pro-B Natriuret Pep 1070 pg/mL Total Protein (6.3-8.2) g/dL Albumin (3.5-5.0) g/dL Urine Color Urine Appearance (Clear) Urine pH (5.0-8.0) Ur Specific [place] (1.001-1.035) Urine Protein (Negative) Urine Glucose (UA) (Negative) Urine Ketones (Negative) Urine Blood (Negative) Urine Nitrite (Negative) Urine Bilirubin (Negative) Urine Urobilinogen (<2.0) mg/dL Ur Leukocyte Esterase (Negative) Urine RBC (0-5) /hpf Urine WBC (0-5) /hpf Ur Squamous Epith Cells (0-4) /hpf Hyaline Casts (0-2) /lpf Disposition Clinical Impression: Shortness of breath, Exertional dyspnea, Chest pain, Elevated d-dimer, Anxiety, COPD (chronic obstructive pulmonary disease), Hyponatremia, Hypochloremia, Hypertension Disposition: ADMITTED IP TO THIS HOSP Condition: Fair Is patient prescribed a controlled substance at d/c from ED?: No Time of Disposition: 20:06 Decision Date: 10/11/21 Decision Time: 20:06
[2021-10-11 18:20] LABS: Appearance,Urine Clear (Clear); Bilirubin,Urine Negative (Negative); Blood,Urine Negative (Negative); Color,Urine Light Yellow; Glucose,Urine (UA) Negative (Negative); Hyaline Casts,Urine 1 /lpf (0-2); Ketones,Urine Negative (Negative); Leukocyte Esterase,Urine Small (Negative); Nitrite,Urine Negative (Negative); Protein,Urine Negative (Negative); RBC,Urine 1 /hpf (0-5); Squamous Epithelial Cell,Urine 1 /hpf (0-4); Urobilinogen,Urine <2.0 mg/dL (<2.0); WBC,Urine <1 /hpf (0-5)
[2021-10-11 19:08] LABS: Basophils % (A) 0 %; Eosinophils % (A) 0 %; HCT 41.9 % (34.0-46.0); HGB 13.6 gm/dL (11.4-16.0); Lymphocytes # (A) 0.7 k/uL (1.0-4.8); Lymphocytes % (A) 5 %; MCH 28.5 pg (25.0-35.0); MCHC 32.5 g/dL (31.0-37.0); MCV 87.6 fL (80.0-100.0); Monocytes % (A) 8 %; Neutrophils # (A) 11.7 k/uL (1.3-7.7); Neutrophils % (A) 86 %; Platelet Count 220 k/uL (150-450); RBC 4.78 m/uL (3.80-5.40); RDW 12.6 % (11.5-15.5); WBC 13.6 k/uL (3.8-10.6)
[2021-10-11 19:22] LABS: Albumin 4.5 g/dL (3.5-5.0); Calcium 9.4 mg/dL (8.4-10.2); Potassium 3.8 mmol/L (3.5-5.1); Total Protein 7.7 g/dL (6.3-8.2)
[2021-10-11 19:31] LABS: INR 0.9 (<1.2); Prothrombin Time 10.2 sec (9.0-12.0)
[2021-10-11] MEDS ORDERED: LORazepam 0.5 MG TAB PO PRN (19:37)
[2021-10-11 19:43] LABS: Partial Thromboplastin Time 20.7 sec (22.0-30.0)
[2021-10-11] MEDS ORDERED: LORazepam 2 MG/ML INJ IV STA (19:50)
[2021-10-11] MEDS: HYDROcodone/APAP 7.5-325MG 1 EACH TAB PO PRN (19:50)
[2021-10-11] MEDS ORDERED: SODIUM CHLORIDE 0.9% 1,000 ML IV STA (19:51)
[2021-10-11] MEDS ORDERED: SODIUM CHLORIDE 0.9% 500 ML IV STA (19:51)
[2021-10-11] MEDS ORDERED: diphenhydrAMINE 50 MG/ML 1 ML VIAL IVP STA (20:01)
[2021-10-11] MEDS ORDERED: methylPREDNISolone SOD SUCCI 125 MG/2 ML VIAL IV STA (20:01)
[2021-10-11] MEDS ORDERED: NITROGLYCERIN OINT 1 INCH/GM PACKET TOPICAL STA (20:05)
[2021-10-11] MEDS ORDERED: ASPIRIN 81 MG PO STA (20:05)
[2021-10-11] MEDS: amLODIPine 5 MG TAB PO SCH (20:20)
[2021-10-11] MEDS ORDERED: NITROGLYCERIN SL TABS 0.4 MG TAB SUBLINGUAL PRN (20:45)
[2021-10-11] MEDS ORDERED: NON FORMULARY DRUG (Omeprazole Magnesium [Prilosec Otc] 20 MG Tablet) PO PRN (20:45)
[2021-10-11] MEDS ORDERED: NALOXONE 0.4 MG/ML 1 ML VIAL IV PRN (20:48)
[2021-10-11] MEDS ORDERED: ONDANSETRON 4 MG/2 ML VIAL IVP PRN (20:48)
[2021-10-11] MEDS ORDERED: IPRATROPIUM-ALBUTEROL 3 ML NEB INHALATION PRN (20:58)
[2021-10-11] MEDS ORDERED: WARFARIN 5 MG TAB PO ONE (21:00)
[2021-10-11] MEDS: FLUoxetine HCL 20 MG CAP PO SCH (21:05)
--- NOTE | 2021-10-11 21:09 | CT ---
EXAMINATION TYPE: CT angio chest DATE OF EXAM: 10/11/2021 COMPARISON: 01/25/2021 HISTORY: sob and cp CT DLP: 1033.9 mGycm Automated exposure control for dose reduction was used. CONTRAST: Performed with IV Contrast, patient injected with 80ml mL of Isovue 370. Images obtained from the thoracic inlet to the diaphragm with the IV contrast. There are Three-D postprocessed images. The lungs are clear of infiltrate. No evidence of a pulmonary mass. No pleural effusion or pneumothor ax. Heart size is normal. There is gastric bariatric surgery. No pericardial effusion. There are no h ilar masses. There is no mediastinal adenopathy. Thoracic aorta has normal size. No aneurysm. There is no evidence of filling defect in the pulmonary arteries. The thoracic spine is intact. No compression fracture. Sternum is intact. IMPRESSION: Normal exam. No evidence of pulmonary embolism.
[2021-10-11] MEDS: TEMAZEPAM 30 MG CAP PO SCH ×2 (21:48→21:49)
[2021-10-11] MEDS: ENOXAPARIN 40 MG/0.4 ML SYRINGE SQ SCH (21:48)
[2021-10-11] MEDS: cycloSPORINE 0.05% OPHTH 0.4 ML DROPERETTE BOTH EYES SCH (21:51)
[2021-10-12] MEDS ORDERED: IPRATROPIUM-ALBUTEROL 3 ML NEB INHALATION SCH
[2021-10-12] MEDS: methylPREDNISolone SOD SUCCI 125 MG/2 ML VIAL IV SCH ×4 (02:35→21:01)
[2021-10-12] MEDS: LEVOTHYROXINE 75 MCG TAB PO SCH (06:40)
[2021-10-12] MEDS: SYMBICORT 160-4.5 MCG INHALER INHALATION SCH ×2 (08:03→19:20)
[2021-10-12] MEDS: IPRATROPIUM-ALBUTEROL 3 ML NEB INHALATION SCH ×4 (08:03→19:20)
[2021-10-12] MEDS: ENOXAPARIN 40 MG/0.4 ML SYRINGE SQ SCH (09:44)
[2021-10-12] MEDS: amLODIPine 5 MG TAB PO SCH ×2 (09:44→21:00)
[2021-10-12] MEDS: FUROSEMIDE 40 MG TAB PO SCH (09:44)
[2021-10-12] MEDS: PANTOPRAZOLE 40 MG TABLET PO SCH (09:44)
[2021-10-12] MEDS: ATORVASTATIN 20 MG TAB PO SCH (09:44)
--- NOTE | 2021-10-12 10:04 | P.CRDCN ---
History of Present Illness History of present illness: This is a pleasant 65-year-old female past medical history significant for coronary artery disease status post PCI to mid LAD in 08/2019, hypertension, dyslipidemia, former tobacco use, aortic regurgitation, mitral regurgitation, COPD. She follows in the office with Dr. Edouard . We have been asked to see in consultation for shortness of breath. Patient presents to the emergency [facility] with complaints of worsening shortness of breath and multiple falls at home for 1 month. She states she feels short of breath with activities and at rest. She states she also has been having falls at home, states she feels weakness in her legs. Denies any syncope or loss of consciousness. Denies chest pain currently, however she has been having intermittent chest discomfort midsternal, non-radiating. Not clearly exertional. She states she has been worked up multiple times for her shortness of breath and does not find anything abnormal when she is evaluated. She denies any cough, fever, chills, symptoms of orthopnea or PND, lower extremity edema.She denies any syncope. She states that she tried breathing treatments with limited relief at home. She is a former smoker, quit in 2010. Denies any illicit drug use. DIAGNOSTICS -EKG reveals sinus rhythm HR 60, early repolarization noted with downsloping ST segments in inferior and lateral leads, nonspecific ST-T wave abnormalities. Prior EKG with similar findings -[facility] 07/2020- Preserved LV Function, No evidence of aortic stenosis, 3+ aortic regurgitation, 2+ mitral regurgitation, 2+tricuspid regurgitation, mild to moderate pulmonary hypertesion, No clot in left atrial appendage, No PFO -2-D echocardiogram 01/2021 revealed EF 5055 percent, mild to moderate regurgitation, moderate stenosis of the assessment gradient of 44 mmHg/18, mild MR -Last Cardiac Catheterization 01/2021 patient stent in LAD, diffuse disease with calcification with there is about 3040 percent stenosis in the LAD, circumflex and RCA. -Telemetry tracings indicate sinus mechanism . -Chest CT- no evidence of pulmonary embolism, no abnormality reported with the heart, thoracic aorta or lungs. -Laboratory reviewed, WBC 13.6, hemoglobin 13.6, platelets 220, d-dimer 0.7, lactate 2.2, potassium 3.8, BUN 31, serum creatinine 1.4, troponin negative 3, pro BNP 1070. -Current home medications include lisinopril 2.5 mg daily, amlodipine 5 mg daily, Imdur 30 mg daily, Lasix 40 mg daily, atorvastatin 20 mg daily, aspirin 81 mg daily REVIEW OF SYSTEMS At the time of my exam: CONSTITUTIONAL: Denies fever or chills. CARDIOVASCULAR:+ chest pain, +shortness of breath, Denies orthopnea, PND or palpitations. RESPIRATORY: Denies cough. GASTROINTESTINAL:Denies nausea or vomiting Denies abdominal pain, diarrhea, constipation MUSCULOSKELETAL: Denies myalgias. NEUROLOGIC: Denies numbness, tingling, headache or weakness. ENDOCRINE: Denies fatigue, weight change, polydipsia or polyurina. GENITOURINARY: Denies burning, hematuria or urgency with micturation. HEMATOLOGIC: Denies history of anemia or bleeding. PHYSICAL EXAMINATION Blood pressure 141/62, height 52, afebrile, saturations 100% on 3 L nasal cannula CONSTITUTIONAL: No apparent distress. HEENT: Head is normocephalic. Pupils are equal, round. Sclerae anicteric. Mucous membranes of the mouth are moist. No JVD. No carotid bruit. CHEST EXAMINATION: Lungs are clear to auscultation. No chest wall tenderness is noted on palpation or with deep breathing. HEART EXAMINATION: Regular rate and rhythm. S1, S2 heard. Systolic and diastolic murmur noted. ABDOMEN: Soft, nontender. Positive bowel sounds. EXTREMITIES: 2+ peripheral pulses, no lower extremity edema and no calf tenderness. SKIN: warm, dry NEUROLOGIC EXAMINATION: Patient is awake, alert and oriented x3. ASSESSMENT Symptoms of shortness of breath, unclear etiology at this time Chest discomfort, acute coronary syndrome has been ruled out Leukocytosis Lactic acidosis Generalized weakness with falls at home Chronic kidney disease Coronary artery disease status post PCI to mid LAD in 08/2019 Hypertension Dyslipidemia Former nicotine dependence Mild to moderate Aortic regurgitation Mild aortic stenosis PLAN -Obtain 2D echocardiogram and doppler study to assess cardiac structure and function. -Monitor on telemetry -Continue home cardiac medications -Pulmonary and Neurology have also been consulted -Further recommendations based on clinical course Thank you kindly for this consultation. Nurse Practitioner note has been reviewed, I agree with a documented findings and plan of care. Patient was seen and examined. Past Medical History Past Medical History: Coronary Artery Disease (CAD), COPD, Fibromyalgia, Hearing Disorder / Deafness, Hyperlipidemia, Hypertension, Osteoarthritis (OA), Sleep Apnea/CPAP/BIPAP, Thyroid Disorder Additional Past Medical History / Comment(s): leaky heart valve, SOB w/exertion, Hypothyroid. Diverticulitis. no longer has sleep apnea since lost 100 lbs. w/bariatric surg. past hx. FX JOSELO FEET, LOWER BACK pain, HYPOGLYCEMIA, see Dr Edouard H & P History of Any Multi-Drug Resistant Organisms: None Reported Past Surgical History: Bariatric Surgery, Bowel Resection, Cholecystectomy, Heart Catheterization, Heart Catheterization With Stent, Hysterectomy, Joint Replacement, Tonsillectomy Additional Past Surgical History / Comment(s): 10/23/15 Laparoscopic gastric sleeve.EGD/extensive lysis of adhesions. Other surgical hx: Lt Hip Replaced. 8 inches Colon Removed. Colonoscopy and EGD. stent placement 08/2019 Past Anesthesia/Blood Transfusion Reactions: Motion Sickness Additional Past Anesthesia/Blood Transfusion Reaction / Comment(s): Pt states she has received blood in the past without reaction. Date of Last Stent Placement:: 08/2019 Past Psychological History: Anxiety, Depression, Panic Disorder Smoking Status: Former smoker Past Alcohol Use History: None Reported Past Drug Use History: None Reported - Past Family History Father Family Medical History: Coronary Artery Disease (CAD) Additional Family Medical History / Comment(s): from heart attack. Mother Family Medical History: Congestive Heart Failure (CHF) Additional Family Medical History / Comment(s): from heart attack. Medications and Allergies Home Medications Medication Instructions Recorded Confirmed Type Temazepam [Restoril] 30 mg PO HS 08/19/15 10/11/21 History Levothyroxine Sodium [Synthroid] 150 mcg PO DAILY 10/23/15 10/11/21 History Atorvastatin [Lipitor] 20 mg PO DAILY 08/28/19 10/11/21 History FLUoxetine HCL [PROzac] 40 mg PO BID 10/23/19 10/11/21 History LORazepam [Ativan] 0.5 - 1 mg PO TID PRN 01/25/21 10/11/21 History Nitroglycerin Sl Tabs [Nitrostat] 0.4 mg SUBLINGUAL Q5M PRN #30 tab 01/28/21 10/11/21 Rx amLODIPine [Norvasc] 5 mg PO DAILY #30 tab 01/28/21 10/11/21 Rx Albuterol Sulfate [Ventolin HFA] 2 puff INHALATION RT-QID PRN 10/11/21 10/11/21 History Budesonide-Formot 160-4.5 Mcg 2 puff INHALATION RT-BID 10/11/21 10/11/21 History [Symbicort 160-4.5 Mcg Inhaler] Furosemide [Lasix] 40 mg PO DAILY 10/11/21 10/11/21 History HYDROcodone/APAP 7.5-325MG [[place] 1 tab PO BID 10/11/21 10/11/21 History 7.5-325] Isosorbide Mononitrate [Isosorbide 30 mg PO DAILY 10/11/21 10/11/21 History Mononitrate ER] Omeprazole Magnesium [PriLOSEC OTC] 40 mg PO DAILY PRN 10/11/21 10/11/21 History cycloSPORINE 0.05% OPHTH SOLN 1 applic BOTH EYES BID 10/11/21 10/11/21 History [Restasis] lisinopriL [Zestril] 2.5 mg PO DAILY 10/11/21 10/11/21 History methylPREDNISolone Dose Pack See Taper PO DIRECTED 10/11/21 10/11/21 History [Medrol Dose Pack] Allergies Allergy/AdvReac Type Severity Reaction Status Date / Time Iodinated Contrast Media Allergy Itching, Verified 10/11/21 19:52 hives quetiapine fumarate AdvReac Unknown Verified 10/11/21 19:52 [From Seroquel] Physical Exam Vitals: Vital Signs Temp Pulse Resp BP Pulse Ox 10/12/21 04:00 52 L 16 141/62 100 10/11/21 21:53 59 L 16 154/62 100 10/11/21 20:00 57 L 16 175/61 100 10/11/21 19:27 64 20 175/63 100 10/11/21 19:18 64 10/11/21 19:08 60 10/11/21 18:08 58 L 16 161/112 99 10/11/21 18:00 24 10/11/21 14:14 97.8 F 61 26 H 141/62 99 Results 10/11/21 18:45 10/11/21 18:45 Cardiac Enzymes 10/11/21 10/11/21 10/11/21 Range/Units 18:45 18:45 21:11 AST 26 (14-36) U/L Troponin I <0.012 <0.012 (0.000-0.034) ng/mL 10/12/21 Range/Units 00:04 AST (14-36) U/L Troponin I <0.012 (0.000-0.034) ng/mL Coagulation 10/11/21 Range/Units 18:45 PT 10.2 (9.0-12.0) sec APTT 20.7 L (22.0-30.0) sec CBC 10/11/21 Range/Units 18:45 WBC 13.6 H (3.8-10.6) k/uL RBC 4.78 (3.80-5.40) m/uL Hgb 13.6 (11.4-16.0) gm/dL Hct 41.9 (34.0-46.0) % Plt Count 220 (150-450) k/uL Comprehensive Metabolic Panel 10/11/21 Range/Units 18:45 Sodium 131 L (137-145) mmol/L Potassium 3.8 (3.5-5.1) mmol/L Chloride 97 L (98-107) mmol/L Carbon Dioxide 19 L (22-30) mmol/L BUN 31 H (7-17) mg/dL Creatinine 1.42 H (0.52-1.04) mg/dL Glucose 115 H (74-99) mg/dL Calcium 9.4 (8.4-10.2) mg/dL AST 26 (14-36) U/L ALT 20 (4-34) U/L Alkaline Phosphatase 113 (38-126) U/L Total Protein 7.7 (6.3-8.2) g/dL Albumin 4.5 (3.5-5.0) g/dL Current Medications Generic Name Dose Route Start Last Admin Trade Name Freq PRN Reason Stop Dose Admin Hydrocodone Bitart/Acetaminophen 1 each 10/11/21 19:36 10/11/21 19:50 Hydrocodone/Apap 7.5-325mg 1 Each Tab PO 1 each Q12HR PRN Administration Pain Albuterol/Ipratropium 3 ml 10/12/21 08:00 Ipratropium-Albuterol 3 Ml Neb INHALATION RT-QID VALERIE Albuterol/Ipratropium 3 ml 10/11/21 20:58 Ipratropium-Albuterol 3 Ml Neb INHALATION RT-Q2H PRN Shortness Of Breath Or Wheezing Amlodipine Besylate 5 mg 10/11/21 21:00 10/11/21 20:20 Amlodipine 5 Mg Tab PO 5 mg Q12HR VALERIE Administration Atorvastatin Calcium 20 mg 10/12/21 09:00 Atorvastatin 20 Mg Tab PO DAILY [facility] Budesonide/Formoterol Fumarate 2 puff 10/12/21 08:00 Symbicort 160-4.5 Mcg Inhaler INHALATION RT-BID VALERIE Cyclosporine 1 drops 10/11/21 21:00 10/11/21 21:51 Cyclosporine 0.05% Ophth 0.4 Ml Droperette BOTH EYES 1 drops BID VALERIE Administration Enoxaparin Sodium 40 mg 10/11/21 21:00 10/11/21 21:48 Enoxaparin 40 Mg/0.4 Ml Syringe SQ 40 mg DAILY VALERIE Administration Fluoxetine HCl 80 mg 10/11/21 21:00 10/11/21 21:05 Fluoxetine Hcl 20 Mg Cap PO 80 mg 2100 VALERIE Administration Furosemide 40 mg 10/12/21 09:00 Furosemide 40 Mg Tab PO DAILY [facility] Sodium Chloride 1,000 mls @ 80 mls/hr 10/11/21 19:51 10/11/21 21:16 Saline 0.9% IV 10/12/21 08:20 80 mls/hr .[id number] STA Administration Levothyroxine Sodium 150 mcg 10/12/21 06:30 10/12/21 06:40 Levothyroxine 75 Mcg Tab PO 150 mcg DAILY@0630 VALERIE Administration Lisinopril 2.5 mg 10/12/21 09:00 Lisinopril 2.5 Mg Tab PO DAILY VALERIE Lorazepam 0.5 mg 10/11/21 19:37 10/11/21 19:50 Lorazepam 0.5 Mg Tab PO 0.5 mg Q8HR PRN Administration Anxiety Methylprednisolone Sodium Succinate 60 mg 10/12/21 02:00 10/12/21 02:35 Methylprednisolone Sod Succi 125 Mg/2 Ml Vial IV 60 mg Q6H VALERIE Administration Naloxone HCl 0.2 mg 10/11/21 20:48 Naloxone 0.4 Mg/Ml 1 Ml Vial IV Q2M PRN Opioid Reversal Nitroglycerin 0.4 mg 10/11/21 20:45 Nitroglycerin Sl Tabs 0.4 Mg Tab SUBLINGUAL Q5M PRN Chest Pain Ondansetron HCl 4 mg 10/11/21 20:48 Ondansetron 4 Mg/2 Ml Vial IVP Q8HR PRN Nausea And Vomiting Pantoprazole Sodium 40 mg 10/12/21 07:30 Pantoprazole 40 Mg Tablet PO [id number] VALERIE Temazepam 30 mg 10/11/21 21:00 10/11/21 21:49 Temazepam 30 Mg Cap PO 30 mg HS VALERIE Administration 10/11/21 18:45 10/11/21 18:45
[2021-10-12] MEDS: HYDROcodone/APAP 7.5-325MG 1 EACH TAB PO PRN ×2 (10:37→22:23)
[2021-10-12] MEDS: cycloSPORINE 0.05% OPHTH 0.4 ML DROPERETTE BOTH EYES SCH ×2 (10:38→21:01)
--- NOTE | 2021-10-12 11:36 | P.CNPUL ---
History of Present Illness Consult date: 10/12/21 Requesting physician: Jerry Conti Reason for consult: dyspnea Chief complaint: Shortness of breath History of present illness: This is a very pleasant 66-year-old female patient who follows with Dr. Conti as her primary care provider. She has a history of coronary disease with previo us stent placement, chronic obstructive pulmonary disease with previous history of chronic tobacco dependence however quit in 2010 and maintained on Symbicort and albuterol, hyperlipidemia, hypertension, osteoarthritis, previous obesity with laparoscopic gastric sleeve placement in 2016, anxiety/depression, panic disorder, hypothyroidism, chronic kidney disease. She presented to the emergency room yesterday with complaints of increasing shortness of breath. It had been getting progressively worse over the past 3 weeks. Chest x-ray shows no acute cardiopulmonary process. CT angiogram ruled out pulmonary embolism. Lung sounds are clear of infiltrate. No pulmonary mass. No pleural effusions. No pneumothorax. No mediastinal adenopathy. No aneurysm. No pericardial effusion. White count 13.6. Hemoglobin 13.6. Glipizide 0.7. D-dimer 0.7. Sodium 131. Potassium 3.8. Bicarb 19. BUN 31. Creatinine 1.42. Troponins negative 3. ProBNP 1070. Urinalysis clean. She is seen today in consultation in the emergency department. She is sitting up on a stretcher. Awake and alert in no acute distress. Maintaining O2 saturations up to 100% on room air. She appears somewhat anxious. She also states she has fallen 3 times in the past 8 days to loss of balance. A computed tomography scan of the brain was to be scheduled in the outpatient setting by her PCP which had not been completed. Review of Systems REVIEW OF SYSTEMS: CONSTITUTIONAL: Denies any recent significant weight loss or weight gain. EYES: Denies change in vision. EARS, NOSE, MOUTH, THROAT: Denies headaches, denies sore throat. CARDIOVASCULAR: Denies chest pain, palpitations or syncopal episodes. RESPIRATORY: Positive for shortness of breath, no cough, congestion or hemoptysis. GASTROINTESTINAL: Denies change in appetite, denies abdominal pain GENITOURINARY: Denies hematuria, denies infections. MUSKULOSKELETAL: Denies pain, denies swelling. INTEGUMENTARY: Denies rash, denies eczema. NEUROLOGICAL: Positive for dizziness and falls. PSYCHIATRIC: Denies anxiety, denies depression. HEMATOLOGIC/LYMPHATIC: Denies anemia, denies enlarged lymph nodes. Past Medical History Past Medical History: Coronary Artery Disease (CAD), COPD, Fibromyalgia, Hearing Disorder / Deafness, Hyperlipidemia, Hypertension, Osteoarthritis (OA), Sleep Apnea/CPAP/BIPAP, Thyroid Disorder Additional Past Medical History / Comment(s): leaky heart valve, SOB w/exertion, Hypothyroid. Diverticulitis. no longer has sleep apnea since lost 100 lbs. w/bariatric surg. past hx. FX JOSELO FEET, LOWER BACK pain, HYPOGLYCEMIA, see Dr Edouard H & P History of Any Multi-Drug Resistant Organisms: None Reported Past Surgical History: Bariatric Surgery, Bowel Resection, Cholecystectomy, Heart Catheterization, Heart Catheterization With Stent, Hysterectomy, Joint Replacement, Tonsillectomy Additional Past Surgical History / Comment(s): 10/23/15 Laparoscopic gastric sleeve.EGD/extensive lysis of adhesions. Other surgical hx: Lt Hip Replaced. 8 inches Colon Removed. Colonoscopy and EGD. stent placement 08/2019 Past Anesthesia/Blood Transfusion Reactions: Motion Sickness Additional Past Anesthesia/Blood Transfusion Reaction / Comment(s): Pt states she has received blood in the past without reaction. Date of Last Stent Placement:: 08/2019 Past Psychological History: Anxiety, Depression, Panic Disorder Smoking Status: Former smoker Past Alcohol Use History: None Reported Past Drug Use History: None Reported - Past Family History Father Family Medical History: Coronary Artery Disease (CAD) Additional Family Medical History / Comment(s): from heart attack. Mother Family Medical History: Congestive Heart Failure (CHF) Additional Family Medical History / Comment(s): from heart attack. Medications and Allergies Home Medications Medication Instructions Recorded Confirmed Type Temazepam [Restoril] 30 mg PO HS 08/19/15 10/11/21 History Levothyroxine Sodium [Synthroid] 150 mcg PO DAILY 10/23/15 10/11/21 History Atorvastatin [Lipitor] 20 mg PO DAILY 08/28/19 10/11/21 History FLUoxetine HCL [PROzac] 40 mg PO BID 10/23/19 10/11/21 History LORazepam [Ativan] 0.5 - 1 mg PO TID PRN 01/25/21 10/11/21 History Nitroglycerin Sl Tabs [Nitrostat] 0.4 mg SUBLINGUAL Q5M PRN #30 tab 01/28/21 10/11/21 Rx amLODIPine [Norvasc] 5 mg PO DAILY #30 tab 01/28/21 10/11/21 Rx Albuterol Sulfate [Ventolin HFA] 2 puff INHALATION RT-QID PRN 10/11/21 10/11/21 History Budesonide-Formot 160-4.5 Mcg 2 puff INHALATION RT-BID 10/11/21 10/11/21 History [Symbicort 160-4.5 Mcg Inhaler] Furosemide [Lasix] 40 mg PO DAILY 10/11/21 10/11/21 History HYDROcodone/APAP 7.5-325MG [[place] 1 tab PO BID 10/11/21 10/11/21 History 7.5-325] Isosorbide Mononitrate [Isosorbide 30 mg PO DAILY 10/11/21 10/11/21 History Mononitrate ER] Omeprazole Magnesium [PriLOSEC OTC] 40 mg PO DAILY PRN 10/11/21 10/11/21 History cycloSPORINE 0.05% OPHTH SOLN 1 applic BOTH EYES BID 10/11/21 10/11/21 History [Restasis] lisinopriL [Zestril] 2.5 mg PO DAILY 10/11/21 10/11/21 History methylPREDNISolone Dose Pack See Taper PO DIRECTED 10/11/21 10/11/21 History [Medrol Dose Pack] Allergies Allergy/AdvReac Type Severity Reaction Status Date / Time Iodinated Contrast Media Allergy Itching, Verified 10/11/21 19:52 hives quetiapine fumarate AdvReac Unknown Verified 10/11/21 19:52 [From Seroquel] Physical Exam Vitals: Vital Signs Temp Pulse Pulse Resp BP BP Pulse Ox 10/12/21 09:35 98.0 F 65 18 149/69 100 10/12/21 08:16 71 10/12/21 08:05 55 L 10/12/21 04:00 52 L 16 141/62 100 10/11/21 21:53 59 L 16 154/62 100 10/11/21 20:00 57 L 16 175/61 100 10/11/21 19:27 64 20 175/63 100 10/11/21 19:18 64 10/11/21 19:08 60 10/11/21 18:08 58 L 16 161/112 99 10/11/21 18:00 24 10/11/21 14:14 97.8 F 61 26 H 141/62 99 Intake and Output 10/11/21 10/12/21 10/12/21 22:59 06:59 14:59 Other: Voiding Method Toilet # Voids 1 GENERAL EXAM: Alert, pleasant 66-year-old female, on room air, comfortable in no apparent distress. HEAD: Normocephalic. EYES: Normal reaction of pupils, equal size. NOSE: Clear with pink turbinates. THROAT: No erythema or exudates. NECK: No masses, no JVD. CHEST: No chest wall deformity. LUNGS: Equal air entry with no crackles, wheeze, rhonchi or dullness. CVS: S1 and S2 normal with no audible murmur, regular rhythm. ABDOMEN: No hepatosplenomegaly, normal bowel sounds, no guarding or rigidity. SPINE: No scoliosis or deformity SKIN: No rashes CENTRAL NERVOUS SYSTEM: No focal deficits, tone is normal in all 4 extremities. EXTREMITIES: There is no peripheral edema. No clubbing, no cyanosis. Peripheral pulses are intact. Results - Laboratory Findings CBC and BMP: 10/11/21 18:45 10/11/21 18:45 PT/INR, D-dimer PT 10.2 sec (9.0-12.0) 10/11/21 18:45 INR 0.9 (<1.2) 10/11/21 18:45 D-Dimer 0.70 mg/L FEU (<0.60) H 10/11/21 18:45 Abnormal lab findings: Abnormal Labs 10/11/21 10/11/21 10/11/21 18:00 18:45 18:45 WBC 13.6 H Neutrophils # 11.7 H Lymphocytes # 0.7 L APTT 20.7 L D-Dimer 0.70 H Sodium Chloride Carbon Dioxide BUN Creatinine Glucose Plasma Lactic Acid Alexandro Ur Leukocyte Esterase Small H 10/11/21 10/11/21 10/11/21 18:45 18:45 21:37 WBC Neutrophils # Lymphocytes # APTT D-Dimer Sodium 131 L Chloride 97 L Carbon Dioxide 19 L BUN 31 H Creatinine 1.42 H Glucose 115 H Plasma Lactic Acid Alexandro 2.2 H* 2.4 H* Ur Leukocyte Esterase - Diagnostic Findings Chest x-ray: image reviewed CT scan - chest: image reviewed Assessment and Plan Assessment: Shortness of breath of unclear etiology, possibly related to mild COPD exacerbation with some faint end expiratory wheeze. Chest x-ray is clear. CT angiogram revealed no pulmonary embolism. No infiltrates. History of COPD maintained on Symbicort and albuterol in the outpatient setting History of chronic tobacco dependence however quit 2010 Coronary artery disease with previous stent placement, follow-up cardiac clifton terization did not reveal significant stenosis. History of chronic kidney disease Hypothyroidism Hypertension Hyperlipidemia Anxiety/depression/panic disorder History of obesity with previous sleeve placement 2015 Osteoarthritis Dizziness with recent falls 3 Plan: The patient was seen and evaluated Chest x-ray, CAT scan, labs and medications reviewed Continue Symbicort, DuoNeb inhalations, IV Solu-Medrol Neurology consult for frequent falls Would benefit from outpatient pulmonary function testing We will continue to follow and make further recommendations based on her clinical status I have personally seen and examined the patient, performed the documentation and the assessment and plan as written. Number of minutes spent on the visit: 20.
[2021-10-12 11:43] LABS: ABG Base Excess -3.3 mmol/L; ABG HCO3 17 mmol/L (21-25); ABG Hematocrit 39 % (34.0-46.0); ABG PO2 130 mmHg (83-108); ABG TCO2 18 mmol/L (19-24); Allen Test Performed? Yes
[2021-10-12 11:49] LABS: ABG PCO2 16 mmHg (35-45); ABG PH 7.65 (7.35-7.45)
[2021-10-12] MEDS ORDERED: TEMAZEPAM 30 MG CAP PO SCH (21:00)
[2021-10-12] MEDS: FLUoxetine HCL 20 MG CAP PO SCH (21:05)
[2021-10-12] MEDS: ALPRAZolam 0.5 MG TAB PO PRN (23:08)
[2021-10-12] MEDS ORDERED: DEXTROSE 50% SYRINGE 50 ML IVP PRN ×2 (23:08)
[2021-10-13] MEDS: methylPREDNISolone SOD SUCCI 125 MG/2 ML VIAL IV SCH ×2 (02:27→09:07)
--- NOTE | 2021-10-13 03:21 | HP ---
HISTORY AND PHYSICAL CHIEF COMPLAINT: Chest pain. HISTORY OF PRESENT ILLNESS: This is another visit for this 66-year-old female who has a history of coronary artery disease. She has had a stent placed in the past and she has hyperlipidemia and COPD. She came through the emergency room with chest pain and was admitted. She had a troponin, which was slightly elevated. REVIEW OF SYSTEMS: Otherwise unremarkable. She denies any syncope, neurologic problems, difficulty with vision or hearing, shortness of breath, cough, hemoptysis, fever and chills, abdominal pain, nausea, vomiting, hematemesis, melena, hematochezia, jaundice, hepatitis, renal failure, dysuria, hematuria, incontinence, diabetes, etc. Past medical history, family history and personal and social histories reveal that she is on, 1. Inhalers for her COPD. 2. Vicodin 7.5. 3. Aspirin. 4. Temazepam. 5. Ativan. 6. Prozac. 7. Lipitor. 8. Isosorbide. 9. . 10.Lisinopril. 11.Amlodipine. ALLERGIES: Seroquel and iodine. SOCIAL HISTORY: She used to smoke, but does not any longer. PHYSICAL EXAMINATION: VITAL SIGNS: Blood pressure is 128/87 with a pulse of 81, respirations of 34, and she is afebrile. GENERAL: She appeared to be in no acute distress. SKIN: Dry. LYMPH NODES: Not enlarged. HEENT: Head, ears, eyes, nose, mouth and throat were normal. CHEST: Clear. CARDIAC: Demonstrated normal sinus rhythm with no murmurs or extra sounds. ABDOMEN: Soft and nontender. EXTREMITIES: Normal. NEUROLOGICAL: She is intact. IMPRESSION: She is admitted to the hospital with diagnosis of, 1. Chest pain. 2. History of coronary artery disease, status post stenting. 3. Hyperlipidemia. 4. Chronic obstructive pulmonary disease. PLAN: 1. Bedrest. 2. IV fluids. 3. Serial EKGs and enzymes. 4. Consult Cardiology. MMODL / IJN: [id number] /
[2021-10-13] MEDS: LEVOTHYROXINE 75 MCG TAB PO SCH (05:32)
[2021-10-13] MEDS: SYMBICORT 160-4.5 MCG INHALER INHALATION SCH ×2 (07:23→21:02)
[2021-10-13] MEDS: IPRATROPIUM-ALBUTEROL 3 ML NEB INHALATION SCH ×4 (07:24→21:02)
[2021-10-13] MEDS: FUROSEMIDE 40 MG TAB PO SCH (09:07)
[2021-10-13] MEDS: ATORVASTATIN 20 MG TAB PO SCH (09:07)
[2021-10-13] MEDS: ASPIRIN 81 MG PO SCH (09:07)
[2021-10-13] MEDS: amLODIPine 5 MG TAB PO SCH ×2 (09:07→20:43)
[2021-10-13] MEDS: PANTOPRAZOLE 40 MG TABLET PO SCH (09:07)
[2021-10-13] MEDS: ENOXAPARIN 40 MG/0.4 ML SYRINGE SQ SCH (09:08)
[2021-10-13] MEDS: ALPRAZolam 0.5 MG TAB PO PRN (09:09)
[2021-10-13] MEDS: cycloSPORINE 0.05% OPHTH 0.4 ML DROPERETTE BOTH EYES SCH ×2 (09:09→20:45)
[2021-10-13 09:20] LABS: Basophils # (A) 0.01 X 10*3/uL (0.00-0.10); Basophils % (A) 0.1 %; Eosinophils # (A) 0 X 10*3/uL (0.04-0.35); Eosinophils % (A) 0 %; HCT 37.2 % (37.2-46.3); HGB 12.1 g/dL (12.0-15.0); Immature Grans, Automated 0.7 %; Lymphocytes # (A) 0.34 X 10*3/uL (0.90-5.00); Lymphocytes % (A) 2.6 %; MCH 28.6 pg (27.0-32.0); MCHC 32.5 g/dL (32.0-37.0); MCV 87.9 fL (80.0-97.0); Mean Platelet Volume 10.7 fL (9.5-12.2); Monocytes # (A) 0.23 X 10*3/uL (0.20-1.00); Monocytes % (A) 1.8 %; NRBC Per 100 WBC 0 /100 WBCS (0.0-0.0); Neutrophils # (A) 12.32 X 10*3/uL (1.80-7.70); Neutrophils % (A) 94.8 %; Platelet Count 205 X 10*3/uL (140-440); RBC 4.23 X 10*6/uL (4.10-5.20); RDW 12.9 % (11.5-14.5); WBC 12.99 X 10*3/uL (4.50-10.00)
--- NOTE | 2021-10-13 09:29 | CA ---
Transthoracic Echo Report Name: Anahi Nielsen Age: 66 Gender: F : 1955 Exam Date: 10/12/2021 11:00 Exam Location: [facility] Ht (in): 66 Wt (lb): 230 Ordering Physician: Komal Nguyen Attending/Referring Phys: Willam Esparza MD ([id number]) Mathematical Statistician Marta Spence RDCS Procedure CPT: Indications: SHORTNESS OF BREATH Cardiac Hx: Technical Quality: Fair Contrast 1: Total Dose (mL): Contrast 2: Total Dose (mL): MEASUREMENTS (Male / Female) Normal Values 2D ECHO LV Diastolic Diameter PLAX 4.8 cm 4.2 - 5.9 / 3.9 - 5.3 cm LV Systolic Diameter PLAX 3.4 cm IVS Diastolic Thickness 1.4 cm 0.6 - 1.0 / 0.6 - 0.9 cm LVPW Diastolic Thickness 1.4 cm 0.6 - 1.0 / 0.6 - 0.9 cm LV Relative Wall Thickness 0.6 RV Internal Dim ED PLAX 3.0 cm LA Volume 102.6 cm??? 18 - 58 / 22 - 52 cm??? M-MODE Aortic Root Diameter MM 2.5 cm LA Systolic Diameter MM 4.9 cm LA Ao Ratio MM 2.0 AV Cusp Separation MM 1.4 cm DOPPLER AV Peak Velocity 376.4 cm/s AV Peak Gradient 56.7 mmHg AV Mean Velocity 254.9 cm/s AV Mean Gradient 30.0 mmHg AV Velocity Time Integral 84.8 cm AI Peak Velocity 492.1 cm/s AI Peak Gradient 96.9 mmHg AI Pressure Half Time 529.3 ms LVOT Peak Velocity 184.2 cm/s LVOT Peak Gradient 13.6 mmHg Mitral E Point Velocity 103.8 cm/s Mitral A Point Velocity 127.8 cm/s Mitral E to A Ratio 0.8 MV E' Velocity 5.2 cm/s Mitral E to MV E' Ratio 19.9 FINDINGS Left Ventricle Moderately increased septal wall thickness. Moderately increased posterior wall thickness. Normal left ventricular systolic function with no obvious regional wall motion abnormalities. Left ventricular ejection fraction is estimated at 55-60 %. Abnormal left ventricular diastolic filling pattern. Right Ventricle Normal right ventricular size and function. Right ventricular systolic pressure within normal limits. Right Atrium Normal right atrial size. Left Atrium Severely increased left atrial volume. Mitral Valve Mild mitral annular calcification. [id number] mitral regurgitation. Aortic Valve Moderate aortic stenosis with a peak gradient of 30 and mean of 18 mmHg Tricuspid Valve Structurally normal tricuspid valve. Mild tricuspid regurgitation. Pulmonic Valve Structurally normal pulmonic valve. Trace pulmonic regurgitation. Pericardium No pericardial effusion. Aorta Normal size aortic root and proximal ascending aorta. CONCLUSIONS Normal LV size and systolic function. There is moderate aortic stenosis and regurgitation. The velocity seem higher but there is also aortic regurgitation making the gradient appears larger. LV systolic function is well-preserved and LV size is normal. No significant pulmonary hypertension Previewed by: Dr. Juanpablo Rae MD (Electronically Signed) Final Date: 13 October 2021 09:29
[2021-10-13 09:30] LABS: ALT 19 U/L (8-44); AST 22 U/L (13-35); African American GFR (CKD) 45.3 (60.0-200.0); Albumin 4.1 g/dL (3.8-4.9); Albumin/Globulin Ratio 1.71 (1.60-3.17); Alkaline Phosphatase 91 U/L (41-126); Bilirubin, Conjugated <0.20 mg/dL (0.20-0.40); Blood Urea Nitrogen 28.7 mg/dL (9.0-27.0); Calcium 9.3 mg/dL (8.7-10.3); Carbon Dioxide 21.5 mmol/L (20.0-27.5); Chloride 98 mmol/L (96-109); Globulin 2.4 g/dL (1.6-3.3); Glucose 165 mg/dL (70-110); Magnesium 2.1 mg/dL (1.5-2.4); Non-African American GFR(CKD) 39.1 (60.0-200.0); Potassium 4.2 mmol/L (3.5-5.5); Sodium 132 mmol/L (135-145); Total Protein 6.5 g/dL (6.2-8.2)
--- NOTE | 2021-10-13 09:34 | P.CNNES ---
History of Present Illness Consult date: 10/12/21 Requesting physician: Kiarra Aquino Reason for Consult: Frequent falls, off balance History of Present Illness: (Dictation performed late because the [employer] was down). Patient is a 66-year-old female with history of COPD, X tobacco use, came to the hospital yesterday at 1:41 PM for 3 week history of difficulty breathing and falls 3 times in the last 8 days, hurting herself. Patient states that she does not know why she has difficulty breathing, although she is on breathing treatment, inhalers and steroids. Patient states that the first fall occurred when she was doing her laundry, and she was walking down stairs, when she took 2 steps back and fell backwards in the landing. The second fall occurred when she was in a home, and wanted to get from garage into the home where there was one step. She wanted to take a step, but fell backwards in a garage. The third fall occurred when she had just got off the toilet, fell backwards and then went sideways tearing the curtain and hitting the bathtub on that side. She denies passing out or losing consciousness. She does get dizzy and lighthe aded off and on and often walks into the benz, but denies any presyncopal symptoms prior to these fall. Vital signs on arrival blood pressure 141/62 pulse rate 61 temperature 97.8. Chest x-ray showed no acute process. EKG with normal sinus rhythm. CTA of the chest showed normal exam, no evidence of pulmonary embolism. Blood tests showed WBC 13.6 hemoglobin 13.6, platelets 220. INR is normal. Sodium 131 potassium 3.8, BUN 31 creatinine 1.42. Lactate was 2.2. Hepatic panel normal, troponin negative. UA negative. ABG showed pH of 7.65, pCO2 is 16, saturation 99%. Patient denies diabetes. She does have hypertension. She smoked from [id number] 9 years and then again smoked from 2001 until she quit in 2010. Therefore she smoked 1-1/2 pack per day total of 18 years. He also stopped drinking alcohol in 2008. Patient denies any history of peripheral neuropathy, or any numbness or tingling in the feet. Patient had undergone bariatric sleep surgery in 2016. Patient states that she had problems with falls in the past and was found to have thiamine deficiency. Also was low on B12. Patient states that since she started taking thiamine, the balance improved and she did not fall subsequently. She takes B12 couple tablets about once a month. Patient states that she has history of heart murmur since . Her 2-D echo from 01/27/2021 shows mild concentric LVH, EF is between 50-55%. Mild to moderate aortic regurgitation. Mild aortic stenosis. Mild MR. Review of Systems Constitutional: Denies chills, Denies fever Eyes: denies blurred vision, denies pain Ears, nose, mouth and throat: Denies headache, Denies sore throat Cardiovascular: Reports high blood pressure, Denies chest pain, Denies shortness of breath Respiratory: Reports as per HPI, Denies hemoptysis Gastrointestinal: Denies abdominal pain, Denies diarrhea, Denies nausea, Denies vomiting Genitourinary: Denies dysuria, Denies hematuria Musculoskeletal: Denies myalgias Integumentary: Reports unusual bruising, Denies pruritus, Denies rash Neurological: Reports as per HPI Psychiatric: Denies anxiety, Denies depression Hematologic/Lymphatic: Reports easy bruising, Denies lymphedema Allergic/Immunologic: Denies persistent infections Past Medical History Past Medical History: Coronary Artery Disease (CAD), COPD, Fibromyalgia, GERD/Reflux, Hyperlipidemia, Hypertension, Osteoarthritis (OA), Renal Disease, Sleep Apnea/CPAP/BIPAP, Thyroid Disorder Additional Past Medical History / Comment(s): Aortic/mitral regurgitation, sob with exertion, DUC/no device used, hyponatremia, kidneys not functioning properly, diverticulitis/bowel resection, hypothyroid, chronic low back pain/bilateral sciatica, R hip pain, hypoglycemia. History of Any Multi-Drug Resistant Organisms: None Reported Past Surgical History: Bariatric Surgery, Bowel Resection, Cholecystectomy, Heart Catheterization, Heart Catheterization With Stent, Hysterectomy, Joint Replacement, Tonsillectomy Additional Past Surgical History / Comment(s): Gastric sleeve, bowel resection/lysis of adhesions, EGDs, colonoscopy, total L hip arthroplasty Past Anesthesia/Blood Transfusion Reactions: Motion Sickness Additional Past Anesthesia/Blood Transfusion Reaction / Comment(s): Pt states she has received blood in the past without reaction. Date of Last Stent Placement:: 08/2019 Smoking Status: Former smoker - Past Family History Father Family Medical History: Coronary Artery Disease (CAD) Additional Family Medical History / Comment(s): from heart attack at age 72 yrs. Mother Family Medical History: Congestive Heart Failure (CHF), Myocardial Infarction (MS) Additional Family Medical History / Comment(s): from heart attack at age 70 yrs. Medications and Allergies Home Medications Medication Instructions Recorded Confirmed Type Temazepam [Restoril] 30 mg PO HS 08/19/15 10/11/21 History Levothyroxine Sodium [Synthroid] 150 mcg PO DAILY 10/23/15 10/11/21 History Atorvastatin [Lipitor] 20 mg PO DAILY 08/28/19 10/11/21 History FLUoxetine HCL [PROzac] 40 mg PO BID 10/23/19 10/11/21 History LORazepam [Ativan] 0.5 - 1 mg PO TID PRN 01/25/21 10/11/21 History Nitroglycerin Sl Tabs [Nitrostat] 0.4 mg SUBLINGUAL Q5M PRN #30 tab 01/28/21 10/11/21 Rx amLODIPine [Norvasc] 5 mg PO DAILY #30 tab 01/28/21 10/11/21 Rx Albuterol Sulfate [Ventolin HFA] 2 puff INHALATION RT-QID PRN 10/11/21 10/11/21 History Budesonide-Formot 160-4.5 Mcg 2 puff INHALATION RT-BID 10/11/21 10/11/21 History [Symbicort 160-4.5 Mcg Inhaler] Furosemide [Lasix] 40 mg PO DAILY 10/11/21 10/11/21 History HYDROcodone/APAP 7.5-325MG [[place] 1 tab PO BID 10/11/21 10/11/21 History 7.5-325] Isosorbide Mononitrate [Isosorbide 30 mg PO DAILY 10/11/21 10/11/21 History Mononitrate ER] Omeprazole Magnesium [PriLOSEC OTC] 40 mg PO DAILY PRN 10/11/21 10/11/21 History cycloSPORINE 0.05% OPHTH SOLN 1 applic BOTH EYES BID 10/11/21 10/11/21 History [Restasis] lisinopriL [Zestril] 2.5 mg PO DAILY 10/11/21 10/11/21 History methylPREDNISolone Dose Pack See Taper PO DIRECTED 10/11/21 10/11/21 History [Medrol Dose Pack] Allergies Allergy/AdvReac Type Severity Reaction Status Date / Time Iodinated Contrast Media Allergy Itching, Verified 10/11/21 19:52 hives quetiapine fumarate AdvReac Unknown Verified 10/11/21 19:52 [From Seroquel] Physical Examination - Vital Signs Vital Signs: Vital Signs Temp Pulse Pulse Resp BP BP Pulse Ox 10/12/21 19:54 97.9 F 80 19 170/79 99 10/12/21 19:32 68 10/12/21 19:20 66 97 10/12/21 11:48 70 10/12/21 11:37 69 10/12/21 09:35 98.0 F 65 18 149/69 100 10/12/21 08:16 71 10/12/21 08:05 55 L 10/12/21 04:00 52 L 16 141/62 100 Intake and Output 10/12/21 10/12/21 10/13/21 14:59 22:59 06:59 Other: Voiding Method Toilet Toilet # Voids 1 1 Weight 104.326 kg Patient is an elderly female, very pleasant, appears to be slightly t achypneic, taking deep breaths, but does not appear to be any obvious distress. Patient is alert awake oriented to time place and person. Speech and language functions are normal. Patient can name and repeat very well. No aphasia or dysarthria. Attention, concentration and fund of knowledge is adequate. On cranial nerve examination, pupils are equal, round and reacting to light, visual pagan are full on confrontation, with no neglect on double simultaneous depression. Extraocular muscles are intact with no nystagmus. Patient has slight right facial asymmetry, but because of lack of dentition over the right upper jaw with decreased dental support (patient did not bring her bridge). Her tongue protrudes to the midline. Palatal elevation and sensation normal, hearing and shoulder shrug normal, facial sensation normal. On muscle strength testing, there is no pronator drift and the strength is normal in arms and legs distally and proximally. Deep tendon reflexes are symmetric biceps 2, brachioradialis 2, knee 3, ankles 2+3, plantars are withdrawal bilaterally. Sensory to touch is equal with no neglect on double simultaneous stimulation. Cerebellar function showed shakiness, but no ataxia for [id number] testing. No dysdiadochokinesia. No ataxia for [id number] testing on either side. Tone and bulk of muscles normal. Gait deferred.. On general examination, there is heart murmur. There is bilateral carotid bruit, probably radiation from the heart murmur. S1-S2 audible. Chest reveals mild expiratory wheezes on consultation. Abdomen is soft nontender. No organomegaly, bowel sounds present. Peripheral pulses are present. No edema. Patient has evidence of bruise from the falls. Results - Laboratory Findings CBC and BMP: 10/11/21 18:45 10/11/21 18:45 Abnormal Lab Findings: Abnormal Labs 10/11/21 10/11/21 10/11/21 18:00 18:45 18:45 WBC 13.6 H Neutrophils # 11.7 H Lymphocytes # 0.7 L APTT 20.7 L D-Dimer 0.70 H ABG pH ABG pCO2 ABG pO2 ABG HCO3 ABG Total CO2 ABG O2 Saturation Sodium Chloride Carbon Dioxide BUN Creatinine Glucose Plasma Lactic Acid Alexandro Ur Leukocyte Esterase Small H 10/11/21 10/11/21 10/11/21 18:45 18:45 21:37 WBC Neutrophils # Lymphocytes # APTT D-Dimer ABG pH ABG pCO2 ABG pO2 ABG HCO3 ABG Total CO2 ABG O2 Saturation Sodium 131 L Chloride 97 L Carbon Dioxide 19 L BUN 31 H Creatinine 1.42 H Glucose 115 H Plasma Lactic Acid Alexandro 2.2 H* 2.4 H* Ur Leukocyte Esterase 10/12/21 11:35 WBC Neutrophils # Lymphocytes # APTT D-Dimer ABG pH 7.65 H* ABG pCO2 16 L* ABG pO2 130 H ABG HCO3 17 L ABG Total CO2 18 L ABG O2 Saturation 99.0 H Sodium Chloride Carbon Dioxide BUN Creatinine Glucose Plasma Lactic Acid Alexandro Ur Leukocyte Esterase Assessment and Plan Assessment: * Gait imbalance, frequent falls. Rule out vitamin deficiency. * History of bariatric sleeve surgery in 2016. * Previous history of B1 and B12 deficiency. * Difficulty breathing, with respiratory alkalosis. Possible COPD exacerbation. * X tobacco use * Hypertension * History of heart murmur. Plan: * We will check for any vitamin deficiency, that may be affecting her balance. * B12, folate, MMA, B6, B1, TSH * Hemoglobin A1c is normal 5.6. * Carotid Doppler to rule out stenosis. * Patient's neurological examination is nonfocal. * Pulmonary medicine following respiratory difficulty. * Neurology will follow. Thank you for the consult.
--- NOTE | 2021-10-13 09:36 | P.PN ---
Subjective This is a pleasant 65-year-old female past medical history significant for coronary artery disease status post PCI to mid LAD in 08/2019, hypertension, dyslipidemia, former tobacco use, aortic regurgitation, mitral regurgitation, COPD. She follows in the office with Dr. Edouard . We have been asked to see in consultation for shortness of breath. Patient presents to the emergency department with complaints of worsening shortness of breath and multiple falls at home for 1 month. She states she feels short of breath with activities and at rest. She states she also has been having falls at home, states she feels weakness in her legs. Denies any syncope or loss of consciousness. Denies chest pain currently, however she has been having intermittent chest discomfort midsternal, non-radiating. Not clearly exertional. She states she has been worked up multiple times for her shortness of breath and does not find anything abnormal when she is evaluated. She denies any cough, fever, chills, symptoms of orthopnea or PND, lower extremity edema.She denies any syncope. She states that she tried breathing treatments with limited relief at home. She is a former smoker, quit in 2010. Denies any illicit drug use. DIAGNOSTICS -[facility] 07/2020- Preserved LV Function, No evidence of aortic stenosis, 3+ aortic regurgitation, 2+ mitral regurgitation, 2+tricuspid regurgitation, mild to moderate pulmonary hypertesion, No clot in left atrial appendage, No PFO -2-D echocardiogram 01/2021 revealed EF 5055 %, mild to moderate regurgitation, moderate stenosis of the assessment gradient of 44 mmHg/18, mild MR -Last Cardiac Catheterization 01/2021 patient stent in LAD, diffuse disease with calcification with there is about 3040 percent stenosis in the LAD, circumflex and RCA. -Chest CT- no evidence of pulmonary embolism, no abnormality reported with the heart, thoracic aorta or lungs. 10/13 Patient seen and examined at bedside, no acute distress. She slept well overnight, denies any worsening shortness of breath. Her breathing has improved. Vital signs are stable. Echocardiogram revealed EF 55-60%, moderately increased septal wall and posterior wall thickness, moderate aortic stenosis with peak/mean gradient of 30/18mmHg, mild to moderate aortic regurgitation. No significant pulmonary hypertension, no pericardial effusion. PHYSICAL EXAMINATION Vitals reviewed CONSTITUTIONAL: No apparent distress. HEENT: Head is normocephalic. Neck Supple. No JVD. CHEST EXAMINATION: Lungs are clear to auscultation. No chest wall tenderness is noted on palpation or with deep breathing. HEART EXAMINATION: Regular rate and rhythm. S1, S2 heard. Systolic and diastolic murmur noted. ABDOMEN: Soft, nontender. Positive bowel sounds. EXTREMITIES: 2+ peripheral pulses, no lower extremity edema and no calf tenderness. SKIN: warm, dry NEUROLOGIC EXAMINATION: Patient is awake, alert and oriented x3. ASSESSMENT Symptoms of shortness of breath, unclear etiology at this time Chest discomfort, acute coronary syndrome has been ruled out Leukocytosis Lactic acidosis Generalized weakness with falls at home Chronic kidney disease Coronary artery disease status post PCI to mid LAD in 08/2019 Hypertension Dyslipidemia Former nicotine dependence Mild to moderate Aortic regurgitation Mild to moderate aortic stenosis PLAN -Echocardiogram reviewed -Continue home cardiac medications -From a cardiology perspective, no further inpatient workup at this time. Recommend follow up outpatient in the office, patient will follow up with Dr. Esparza in the office. Thank you kindly for this consultation. Nurse Practitioner note has been reviewed, I agree with a documented findings and plan of care. Patient was seen and examined. Objective - Vital Signs Vital signs: Vital Signs Temp 98.1 F 10/13/21 07:10 Pulse 70 10/13/21 07:34 Resp 18 10/13/21 07:10 BP 153/69 10/13/21 07:10 Pulse Ox 97 10/13/21 07:24 FiO2 21 10/13/21 07:24 Intake & Output 10/12/21 10/13/21 10/13/21 18:59 06:59 18:59 Intake Total 118 Balance 118 Weight 104.326 kg Intake: Oral 118 Other: Voiding Method Toilet Toilet # Voids 1 3 - Labs CBC & Chem 7: 10/13/21 05:55 10/11/21 18:45 Labs: Abnormal Lab Results - Last 24 Hours (Table) 10/12/21 10/13/21 Range/Units 11:35 05:55 WBC 12.99 H (4.50-10.00) X 10*3/uL Immature Gran # 0.09 H (0.00-0.04) X 10*3/uL Neutrophils # 12.32 H (1.80-7.70) X 10*3/uL Lymphocytes # 0.34 L (0.90-5.00) X 10*3/uL Eosinophils # 0 L (0.04-0.35) X 10*3/uL ABG pH 7.65 H* (7.35-7.45) ABG pCO2 16 L* (35-45) mmHg ABG pO2 130 H (83-108) mmHg ABG HCO3 17 L (21-25) mmol/L ABG Total CO2 18 L (19-24) mmol/L ABG O2 Saturation 99.0 H (94-97) %
[2021-10-13] MEDS: INSULIN ASPART (NovoLOG) 100 UNIT/ML VIAL SQ SCH ×4 (09:55→21:31)
[2021-10-13] MEDS: HYDROcodone/APAP 7.5-325MG 1 EACH TAB PO PRN ×2 (09:59→22:11)
--- NOTE | 2021-10-13 10:48 | P.PN ---
Subjective Progress Note Date: 10/13/21 This is a very pleasant 66-year-old female patient who follows with Dr. Conti as her primary care provider. She has a history of coronary disease with previous stent placement, chronic obstructive pulmonary disease with previous history of chronic tobacco dependence however quit in 2010 and maintained on Symbicort and albuterol, hyperlipidemia, hypertension, osteoarthritis, previous obesity with laparoscopic gastric sleeve placement in 2016, anxiety/depression, panic disorder, hypothyroidism, chronic kidney disease. She presented to the emergency room yesterday with complaints of increasing shortness of breath. It had been getting progressively worse over the past 3 weeks. Chest x-ray shows no acute cardiopulmonary process. CT angiogram ruled out pulmonary embolism. Lung sounds are clear of infiltrate. No pulmonary mass. No pleural effusions. No pneumothorax. No mediastinal adenopathy. No aneurysm. No pericardial effusion. White count 13.6. Hemoglobin 13.6. Glipizide 0.7. D-dimer 0.7. Sodium 131. Potassium 3.8. Bicarb 19. BUN 31. Creatinine 1.42. Troponins negative 3. ProBNP 1070. Urinalysis clean. She is seen today in consultation in the emergency department. She is sitting up on a stretcher. Awake and alert in no acute distress. Maintaining O2 saturations up to 100% on room air. She appears somewhat anxious. She also states she has fallen 3 times in the past 8 days to loss of balance. A computed tomography scan of the brain was to be scheduled in the outpatient setting by her PCP which had not been completed. The patient is seen today 10/13/2021 in follow-up on the regular medical floor. She is sitting up in bed having breakfast. Awake and alert in no acute distress. Maintaining O2 saturations in the 90s on room air. Arterial blood ga ses did reveal a pO2 of 1:30, pCO2 of 16 and a pH of 7.65. She had been anxious and hyperventilating. She receives Xanax that seems to help and she is improved today. No worsening shortness breath, cough or congestion white count to 0.9. Hemoglobin 12.1. Sodium 132. Potassium 4.2. BUN 28. Creatinine 1.4. Bicarb 22. Objective - Vital Signs Vital signs: Vital Signs Temp 98.1 F 10/13/21 07:10 Pulse 70 10/13/21 07:34 Resp 18 10/13/21 07:10 BP 153/69 10/13/21 07:10 Pulse Ox 97 10/13/21 07:24 FiO2 21 10/13/21 07:24 Intake & Output 10/12/21 10/13/21 10/13/21 18:59 06:59 18:59 Intake Total 118 Balance 118 Weight 104.326 kg Intake: Oral 118 Other: Voiding Method Toilet Toilet # Voids 1 3 - Exam GENERAL EXAM: Alert, 66-year-old female, on room air, comfortable in no apparent distress. HEAD: Normocephalic. EYES: Normal reaction of pupils, equal size. NOSE: Clear with pink turbinates. THROAT: No erythema or exudates. NECK: No masses, no JVD. CHEST: No chest wall deformity. LUNGS: Equal air entry with no crackles, wheeze, rhonchi or dullness. CVS: S1 and S2 normal with no audible murmur, regular rhythm. ABDOMEN: No hepatosplenomegaly, normal bowel sounds, no guarding or rigidity. SPINE: No scoliosis or deformity SKIN: No rashes CENTRAL NERVOUS SYSTEM: No focal deficits, tone is normal in all 4 extremities. EXTREMITIES: There is no peripheral edema. No clubbing, no cyanosis. Peripheral pulses are intact. - Labs CBC & Chem 7: 10/13/21 05:55 10/13/21 05:55 Labs: Abnormal Lab Results - Last 24 Hours (Table) 10/12/21 10/13/21 10/13/21 Range/Units 11:35 05:55 05:55 WBC 12.99 H (4.50-10.00) X 10*3/uL Immature Gran # 0.09 H (0.00-0.04) X 10*3/uL Neutrophils # 12.32 H (1.80-7.70) X 10*3/uL Lymphocytes # 0.34 L (0.90-5.00) X 10*3/uL Eosinophils # 0 L (0.04-0.35) X 10*3/uL ABG pH 7.65 H* (7.35-7.45) ABG pCO2 16 L* (35-45) mmHg ABG pO2 130 H (83-108) mmHg ABG HCO3 17 L (21-25) mmol/L ABG Total CO2 18 L (19-24) mmol/L ABG O2 Saturation 99.0 H (94-97) % Sodium 132 L (135-145) mmol/L BUN 28.7 H (9.0-27.0) mg/dL Est GFR (CKD-EPI)AfAm 45.3 L (60.0-200.0) Est GFR (CKD-EPI)NonAf 39.1 L (60.0-200.0) BUN/Creatinine Ratio 20.50 H (12.00-20.00) Ratio Glucose 165 H (70-110) mg/dL Conjugated Bilirubin <0.20 L (0.20-0.40) mg/dL Assessment and Plan Assessment: Shortness of breath of unclear etiology, possibly related to mild COPD exacerbation with some faint end expiratory wheeze. Chest x-ray is clear. CT angiogram revealed no pulmonary embolism. No infiltrates. Respiratory acidosis secondary to hyperventilation and anxiety, improved with Xanax History of COPD maintained on Symbicort and albuterol in the outpatient setting History of chronic tobacco dependence however quit 2010 Coronary artery disease with previous stent placement, follow-up cardiac catheterization did not reveal significant stenosis. History of chronic kidney disease Hypothyroidism Hypertension Hyperlipidemia Anxiety/depression/panic disorder History of obesity with previous sleeve placement 2015 Osteoarthritis Dizziness with recent falls 3 Plan: The patient was seen and evaluated ABGs , labs and medications reviewed Responded well to Xanax, would recommend continuing in the outpatient setting Cleared for discharge from pulmonary standpoint I have personally seen and examined the patient, performed the documentation and the assessment and plan as written. Number of minutes spent on the visit: 10.
[2021-10-13 12:12] LABS: Glucose,Whole Blood 129 mg/dL (70-110)
--- NOTE | 2021-10-13 14:23 | P.CN ---
Psychiatric Consult - . Consult date: 10/13/21 Consult:: 10/13/21 14:23 IDENTIFYING DATA: This patient is a , retired, 66-year-old female with significant history of bipolar disorder and anxiety who presented to our hospital with shortness of breath. HISTORY OF PRESENT ILLNESS: The patient presented to the hospital on 10/11/2021 with a chief complaint of shortness of breath. Patient has a previous history of CAD with a cardiac stent in the last 1-2 years. She has tried numerous breathing treatments with limited relief. She was admitted for medical evaluation. Psychiatry has been consulted for evaluation of bipolar disorder and anxiety. Present at the patient's bedside is her Vik. Patient is agreeable to having him present during the psychiatric evaluation. Upon evaluation on the medical floor, the patient reports no significant acute stressors aside from her increased shortness of breath and worsening health. She does report that approximately 2 weeks ago, she had 3 falls over 8 days. She expresses that she has been having increased episodes of hyperventilation that have been shifting to her elevated anxiety. In regards to mood symptoms, the patient reports that she has always had elevated anxiety however after her mother in 2001, the patient has had significant worsening of her mental health. The patient states that she has a significant history of depression and bipolar disorder. She reports that more recently, she has been concerned about her anxiety and has been having depressive symptoms of anhedonia, hopelessness, helplessness, and poor sleep and appetite. She denies any suicidal or homicidal ideation, intention, and/or plan. She reports no history of psychotic symptoms. She denies any auditory or visual hallucinations. The patient does report a significant history of bipolar disorder. She does state that she has had episodes where she had increased goal-directed activity, excessive spending, mood lability, and pressured speech. She does report going to to 3 days with little to no sleep. She states that it has been years since her last manic episode. The patient states that she has not seen any outpatient psychiatric provider. She reports that she last saw therapist a couple of years ago. She has been chronically prescribed her current regimen of Prozac, Ativan, and Restoril. PAST PSYCHIATRIC HISTORY: Patient has a history of bipolar disorder and anxiety disorder. The patient has trialed in the past Seroquel, Prozac, Ativan, Restoril, and Xanax. Patient denies any previous psychiatric hospitalizations. Patient denies any psychiatric outpatient follow-up. Patient denies any history of suicide attempts in the past. PAST MEDICAL HISTORY: Past Medical History: Coronary Artery Disease (CAD), COPD, Fibromyalgia, GERD/Reflux, Hyperlipidemia, Hypertension, Osteoarthritis (OA), Renal Disease, Sleep Apnea/CPAP/BIPAP, Thyroid Disorder Additional Past Medical History / Comment(s): Aortic/mitral regurgitation, sob w ith exertion, DUC/no device used, hyponatremia, kidneys not functioning properly, diverticulitis/bowel resection, hypothyroid, chronic low back pain/bilateral sciatica, R hip pain, hypoglycemia. History of Any Multi-Drug Resistant Organisms: None Reported Past Surgical History: Bariatric Surgery, Bowel Resection, Cholecystectomy, Heart Catheterization, Heart Catheterization With Stent, Hysterectomy, Joint Replacement, Tonsillectomy Additional Past Surgical History / Comment(s): Gastric sleeve, bowel resection/lysis of adhesions, EGDs, colonoscopy, total L hip arthroplasty Past Anesthesia/Blood Transfusion Reactions: Motion Sickness Additional Past Anesthesia/Blood Transfusion Reaction / Comment(s): Pt states she has received blood in the past without reaction. Date of Last Stent Placement:: 08/2019 Smoking Status: Former smoker ALLERGIES: Seroquel, Iodinated contrast media CHEMICAL DEPENDENCY HISTORY: Patient reports a history of heavy alcohol use however stopped drinking in 2008. She states that prior to quitting, she is drinking up to 12 alcoholic beverages a day. She denies any tobacco use since 2010. She reports no marijuana or illicit drug use. FAMILY PSYCHIATRIC/SUBSTANCE USE HISTORY: The patient presented her mother was bipolar. She reports her maternal grandmother also had anxiety. SOCIAL HISTORY: Patient was born and raised in [place], [place]. She is been to her Vik. She has 2 children from a previous marriage. She reports being estranged from her daughter who is currently living in [place]. She is retired. Previously, she was working odd jobs. She graduated high school. She reports a Yazdanism tian. She denies any legal issues. She currently lives with her Vik. MENTAL STATUS EXAM: General Appearance: Patient appears to be stated age is alert, pleasant, and cooperative. Patient appears to have fair hygiene and grooming wearing hospital gown with fair eye contact. Blonde hair. Multiple tattoos. Behavior: Patient is calmly lying in bed without any agitated behavior. Patient appears to be trying to catch her breath. Speech: Patient's speech is fluent and nonpressured. Mood/Affect: Patient reports their mood is "anxious", affect is congruent and nervous Suicidality/Homicidality: Patient denies having any suicidal or homicidal ideation intent or plan. Perceptions: Patient denies any visual hallucinations and denies any auditory hallucinations Though content/process: There is no evidence of any delusional thought content and thought process is linear and goal-directed. Memory and concentration: AOX3, grossly intact for the purposes of this session. Can spell "WORLD" backwards Judgment and insight: Fair IMPRESSIONS: Generalized anxiety disorder Bipolar 2 disorder Chronic benzodiazepine use -The patient has been chronically prescribed benzodiazepine medications. Concern that the medication is causing respiratory depression and central sleep apnea. Furthermore, the patient has been having falls recently. As per MAPS review, the patient is also prescribed narcotic medications. Her medication regimen at high risk for respiratory depression and falls. PLAN: -Continue your medical evaluation and management. -This provider discussed with the patient at length her chronic use of benzodiazepine medications and the risks and treatment alternatives of these medications. We discussed respiratory depression, falls, dependence, and seizures if abruptly withdrawn. She is agreeable to a gradual taper of her benzodiazepine medication with the understanding that she may have rebound anxiety. -At this time patient DOES NOT meet criteria for inpatient psychiatric admission. -Would recommend the following medication changes/additions: Discontinue Xanax. Start Vistaril 25 mg by mouth 3 times a day for anxiety Continue Prozac 80 mg by mouth at bedtime for depression/anxiety We will decrease Restoril to 15 mg by mouth at bedtime for insomnia/anxiety. We will gradually taper this medication. Consider transition to mood stabilizer or antipsychotic medication in the near future. -Patient DOES NOT require one-to-one sitter. -Will continue to follow along 10/13/21 14:23
[2021-10-13] MEDS ORDERED: CYANOCOBALAMIN 1,000 MCG/ML 1 ML VIAL IM ONE (15:30)
[2021-10-13] MEDS: hydrOXYzine pamoate 25 MG CAP PO SCH ×2 (15:31→20:44)
--- NOTE | 2021-10-13 15:43 | P.PN ---
Subjective Progress Note Date: 10/13/21 Patient was seen for a follow-up. Patient continues to have tremors. Still has some difficulty breathing. No new concerns. Objective - Vital Signs Vital signs: Vital Signs Temp 97.5 F L 10/13/21 15:06 Pulse 56 L 10/13/21 15:06 Resp 18 10/13/21 15:06 BP 138/58 10/13/21 15:06 Pulse Ox 100 10/13/21 15:06 FiO2 21 10/13/21 07:24 Intake & Output 10/12/21 10/13/21 10/13/21 18:59 06:59 18:59 Intake Total 118 Balance 118 Weight 104.326 kg Intake: Oral 118 Other: Voiding Method Toilet Toilet Toilet # Voids 1 3 3 - Exam Patient's mental status, speech and leg which functions are normal. Patient has mild to moderate fine tremors of outstretched hands. She has mild exophthalmos. - Labs CBC & Chem 7: 10/13/21 05:55 10/13/21 05:55 Labs: Abnormal Lab Results - Last 24 Hours (Table) 10/13/21 10/13/21 10/13/21 Range/Units 05:55 05:55 08:55 WBC 12.99 H (4.50-10.00) X 10*3/uL Immature Gran # 0.09 H (0.00-0.04) X 10*3/uL Neutrophils # 12.32 H (1.80-7.70) X 10*3/uL Lymphocytes # 0.34 L (0.90-5.00) X 10*3/uL Eosinophils # 0 L (0.04-0.35) X 10*3/uL Sodium 132 L (135-145) mmol/L BUN 28.7 H (9.0-27.0) mg/dL Est GFR (CKD-EPI)AfAm 45.3 L (60.0-200.0) Est GFR (CKD-EPI)NonAf 39.1 L (60.0-200.0) BUN/Creatinine Ratio 20.50 H (12.00-20.00) Ratio Glucose 165 H (70-110) mg/dL POC Glucose (mg/dL) (70-110) mg/dL Conjugated Bilirubin <0.20 L (0.20-0.40) mg/dL TSH 0.050 L (0.350-5.500) uIU/mL Free (T4) Reflex I 2.750 H (0.800-1.800) ng/dL 10/13/21 Range/Units 12:10 WBC (4.50-10.00) X 10*3/uL Immature Gran # (0.00-0.04) X 10*3/uL Neutrophils # (1.80-7.70) X 10*3/uL Lymphocytes # (0.90-5.00) X 10*3/uL Eosinophils # (0.04-0.35) X 10*3/uL Sodium (135-145) mmol/L BUN (9.0-27.0) mg/dL Est GFR (CKD-EPI)AfAm (60.0-200.0) Est GFR (CKD-EPI)NonAf (60.0-200.0) BUN/Creatinine Ratio (12.00-20.00) Ratio Glucose (70-110) mg/dL POC Glucose (mg/dL) 129 H (70-110) mg/dL Conjugated Bilirubin (0.20-0.40) mg/dL TSH (0.350-5.500) uIU/mL Free (T4) Reflex I (0.800-1.800) ng/dL Assessment and Plan Assessment: * Gait imbalance, frequent falls. Rule out vitamin deficiency. * History of bariatric sleeve surgery in 2016. * Previous history of B1 and B12 deficiency. * Hyperthyroidism, perhaps iatrogenic. * Difficulty breathing, with respiratory alkalosis. Possible COPD exacerbation. * X tobacco use * Hypertension * History of heart murmur. Plan: * B12 is borderline 377, folate, MMA, B6, B1 still pending. TSH is significantly decreased 0.050 and free T4 is elevated 2.75/1.80. Patient's tremors, ash thing difficulty could be related to hyperthyroidism. Patient is on levothyroxine 150 g daily. Need to adjust her levothyroxine. Will defer to IM. * Patient's B12 is borderline. We will give B12 injection 1000 g IM 1 dose. Patient will be started on vitamin B12 1000 g orally daily as well. * Hemoglobin A1c is normal 5.6. * Carotid Doppler completed, results pending. * Psychiatry has seen the patient, diagnosed with generalized anxiety disorder, bipolar 2 disorder and chronic benzodiazepine use. Medications have been adjusted.
[2021-10-13 17:25] LABS: Glucose,Whole Blood 163 mg/dL (70-110)
[2021-10-13] MEDS ORDERED: methIMAzole 5 MG TAB PO SCH (18:00)
--- NOTE | 2021-10-13 18:09 | P.PN ---
Subjective This is a pleasant 66 years old female with multiple medical problems presents with dyspnea and frequent falls. Patient been evaluated by pulmonary service for possible COPD exacerbation however patient with no evidence of obstructive lung disease, she is tachypneic secondary to anxiety. IV steroids are stopped and patient clear for discharge by msw Patient is very anxious, her TSH is elevated mildly while she is on levothyroxine 150 g daily, lower the dose to 125 g daily. Patient will need to check her thyroid function tests in one month Also she has anxiety and benzodiazepine dependence, evaluated by psychiatrist, she was started on Vistaril 3 times a day and lower the dose of her sterile 30 mg down to 15 mg at bedtime with recommendation to gradually tapered off. There is some evidence of flow vitamin B-12, patient started on replacement therapy already. Leukocytosis trending down mostly secondary to steroid effect Echocardiogram showing combined aortic stenosis and regurgitation, evaluated by aircraft engine dismantler and placed on baby aspirin, she will need outpatient follow up with aircraft engine dismantler. Medical And Scientific Illustrator team already on the case. Creatinine is stable at 1.4 patient has chronic kidney disease. Ejection fraction is 55-60% and hemoglobin A1c is normal at 5.6% Objective - Vital Signs Vital signs: Vital Signs Temp 98.1 F 10/13/21 07:10 Pulse 70 10/13/21 07:34 Resp 18 10/13/21 07:10 BP 153/69 10/13/21 07:10 Pulse Ox 97 10/13/21 07:24 FiO2 21 10/13/21 07:24 Intake & Output 10/12/21 10/13/21 10/13/21 18:59 06:59 18:59 Intake Total 118 Balance 118 Weight 104.326 kg Intake: Oral 118 Other: Voiding Method Toilet Toilet # Voids 1 3 - Exam -GENERAL: The patient is alert and oriented x3, not in any acute distress. Well developed, well nourished. Patient is anxious HEENT: Pupils are round and equally reacting to light. EOMI. No scleral icterus. No conjunctival pallor. Normocephalic, atraumatic. No pharyngeal erythema. No thyromegaly. CARDIOVASCULAR: S1 and S2 present. No murmurs, rubs, or gallops. PULMONARY: Chest is clear to auscultation, no wheezing or crackles. ABDOMEN: Soft, nontender, nondistended, normoactive bowel sounds. No palpable organomegaly. MUSCULOSKELETAL: No joint swelling or deformity. EXTREMITIES: No cyanosis, clubbing, or pedal edema. NEUROLOGICAL: Gross neurological examination did not reveal any focal deficits. SKIN: No rashes. no petechiae. - Labs CBC & Chem 7: 10/13/21 05:55 10/13/21 05:55 Labs: Abnormal Lab Results - Last 24 Hours (Table) 10/12/21 10/13/21 10/13/21 Range/Units 11:35 05:55 05:55 WBC 12.99 H (4.50-10.00) X 10*3/uL Immature Gran # 0.09 H (0.00-0.04) X 10*3/uL Neutrophils # 12.32 H (1.80-7.70) X 10*3/uL Lymphocytes # 0.34 L (0.90-5.00) X 10*3/uL Eosinophils # 0 L (0.04-0.35) X 10*3/uL ABG pH 7.65 H* (7.35-7.45) ABG pCO2 16 L* (35-45) mmHg ABG pO2 130 H (83-108) mmHg ABG HCO3 17 L (21-25) mmol/L ABG Total CO2 18 L (19-24) mmol/L ABG O2 Saturation 99.0 H (94-97) % Sodium 132 L (135-145) mmol/L BUN 28.7 H (9.0-27.0) mg/dL Est GFR (CKD-EPI)AfAm 45.3 L (60.0-200.0) Est GFR (CKD-EPI)NonAf 39.1 L (60.0-200.0) BUN/Creatinine Ratio 20.50 H (12.00-20.00) Ratio Glucose 165 H (70-110) mg/dL Conjugated Bilirubin <0.20 L (0.20-0.40) mg/dL Assessment and Plan Assessment: -Acute shortness of breath secondary to anxiety disorder. No evidence of COPD. Serous discontinue it admitted for discharge by pulmonary service -Mild iatrogenic hyperthyroidism. Lower the dose of levothyroxine and to 125 g daily -Generalized anxiety disorder, continue with vistaril , he wanted by psychiatrist -Benzodiazepine dependence, lower the dose of Restoril 30 mg down to 15 mg at bedtime with recommendation to taper it off and replace it with antipsychotic or mood stabilizer per psychiatrist -Combined aortic stenosis and regurgitation, evaluated by aircraft engine dismantler, continue with baby aspirin -Chronic kidney disease stage III, creatinine is stable at 1.4. -Hypertension, continue with Norvasc and Lasix -Multiple falls, evaluated by neurologist, replace vitamin B12, her dose of levothyroxine, ordered physical therapy and occupational therapy evaluation. DVT prophylaxis Lovenox GI prophylaxis Protonix Prognosis still guarded Dr. Conti resume the care of the patient to more
[2021-10-13] MEDS: TEMAZEPAM 15 MG CAP PO SCH (20:44)
[2021-10-13] MEDS: FLUoxetine HCL 20 MG CAP PO SCH (20:44)
[2021-10-13 21:12] LABS: Glucose,Whole Blood 137 mg/dL (70-110)
[2021-10-14] MEDS: LEVOTHYROXINE 125 MCG TAB PO SCH (06:03)
[2021-10-14 07:26] LABS: Glucose,Whole Blood 122 mg/dL (70-110)
[2021-10-14] MEDS: IPRATROPIUM-ALBUTEROL 3 ML NEB INHALATION SCH ×4 (08:15→19:43)
[2021-10-14] MEDS: SYMBICORT 160-4.5 MCG INHALER INHALATION SCH ×2 (08:15→19:43)
[2021-10-14] MEDS: INSULIN ASPART (NovoLOG) 100 UNIT/ML VIAL SQ SCH ×4 (08:17→21:44)
[2021-10-14] MEDS: amLODIPine 5 MG TAB PO SCH ×2 (09:14→21:27)
[2021-10-14] MEDS: PANTOPRAZOLE 40 MG TABLET PO SCH ×2 (09:14→21:27)
[2021-10-14] MEDS: ENOXAPARIN 40 MG/0.4 ML SYRINGE SQ SCH (09:14)
[2021-10-14] MEDS: ASPIRIN 81 MG PO SCH (09:14)
[2021-10-14] MEDS: cycloSPORINE 0.05% OPHTH 0.4 ML DROPERETTE BOTH EYES SCH ×2 (09:14→21:28)
[2021-10-14] MEDS: ATORVASTATIN 20 MG TAB PO SCH (09:14)
[2021-10-14] MEDS: FUROSEMIDE 40 MG TAB PO SCH (09:14)
[2021-10-14] MEDS: hydrOXYzine pamoate 25 MG CAP PO SCH ×3 (09:15→21:26)
[2021-10-14] MEDS: CYANOCOBALAMIN 500 MCG TAB PO SCH (09:23)
[2021-10-14] MEDS: HYDROcodone/APAP 7.5-325MG 1 EACH TAB PO PRN ×2 (09:23→21:42)
[2021-10-14 11:58] LABS: Glucose,Whole Blood 102 mg/dL (70-110)
[2021-10-14] MEDS ORDERED: CYANOCOBALAMIN 1,000 MCG/ML 1 ML VIAL IM ONE (13:00)
--- NOTE | 2021-10-14 13:48 | P.PN ---
Progress Note - Text Progress Note Date: 10/14/21 Interval History: Patient was seen sitting upright in her chair and was directable and agreeable to speak with the health underwriter in her room. Present at her bedside as her Vik. Currently, the patient is not reporting any suicidal or homicidal ideation, intention, and/or plan. She reports that she had some difficult to sleep last night due to her IV line coming out. She reports slight improvement in regards to her overall mood however continues to endorse shortness of breath and elevated anxiety. She reports an improvement in her appetite. She has been adherent with her medications and is not reporting any significant side effects at this time. She is aware of her thyroid issues and her B12 deficiency. She denies any auditory or visual hallucinations. She reports no paranoia or other delusions. She denies any significant symptoms of christel or hypomania. Mental Status Exam: General Appearance: Patient appears to be stated age is alert, directable, and cooperative. Behavior: Patient is calmly seated without any agitated behavior. Speech: Patient's speech is fluent and nonpressured. Mood/Affect: Mood is improving mildly, affect is congruent and euthymic. Suicidality/Homicidality: Patient denies having any suicidal or homicidal ideation intent or plan. Perceptions: Patient denies any visual hallucinations and denies any auditory hallucinations Though content/process: There is no evidence of any delusional thought content and thought process is linear and goal-directed. Memory and concentration: AOX3, grossly intact for the purposes of this session Judgment and insight: Good Vital Signs Temp 98.1 F 10/14/21 07:00 Pulse 64 10/14/21 07:00 Resp 18 10/14/21 07:00 BP 151/67 10/14/21 07:00 Pulse Ox 98 10/14/21 07:00 FiO2 21 10/13/21 07:24 Intake & Output 10/13/21 10/14/21 10/14/21 18:59 06:59 18:59 Intake Total 118 118 Balance 118 118 Intake: Oral 118 118 Other: Voiding Method Toilet Toilet # Voids 3 2 1 Laboratory Results - Last 24 Hours 10/13/21 10/13/21 10/13/21 08:55 17:24 21:11 POC Glucose (mg/dL) 163 H 137 H POC Glu Stockbroking Dealer ID Joan Sterling Shila Vitamin B12 377.0 TSH 0.050 L Free (T4) Reflex I 2.750 H 10/14/21 10/14/21 07:23 11:56 POC Glucose (mg/dL) 122 H 102 POC Glu Stockbroking Dealer ID Mariya Moreira Lesli Vitamin B12 TSH Free (T4) Reflex I Assessment Generalized anxiety disorder Bipolar 2 disorder Chronic benzodiazepine use Hyperthyroidism B12 deficiency -The patient has been chronically prescribed benzodiazepine medications. Concern that the medication is causing respiratory depression and central sleep apnea. Furthermore, the patient has been having falls recently. As per MAPS review, the patient is also prescribed narcotic medications. Her medication regimen places her at high risk for respiratory depression and falls. Plan: -Continue your medical evaluation and management. -At this time patient DOES NOT meet criteria for inpatient psychiatric admission. -Would recommend the following medication changes/additions: Increase Vistaril to 25 mg by mouth twice a day and 50 mg at at bedtime. We will begin taper of Restoril on Monday. Continue Restoril 15 mg by mouth at bedtime with plans to decrease Restoril to 7.5 mg by mouth at bedtime Monday. Continue Prozac 80 mg by mouth at bedtime for depression/anxiety -Patient is cleared psychiatrically for discharge, however we will continue to follow along while the patient is currently admitted to the medical floor and will make psychiatric medication adjustments if necessary. -Recommend outpatient psychiatric follow-up.
[2021-10-14 16:53] LABS: Glucose,Whole Blood 115 mg/dL (70-110)
[2021-10-14 20:41] LABS: Glucose,Whole Blood 105 mg/dL (70-110)
[2021-10-14] MEDS: FLUoxetine HCL 20 MG CAP PO SCH (21:27)
--- NOTE | 2021-10-14 21:30 | US ---
EXAMINATION TYPE: US carotid duplex BILAT DATE OF EXAM: 10/13/2021 COMPARISON: NONE CLINICAL HISTORY: Recurrent falls. Recurrent falls. Prior smoker. Hypertension, hyperlipidemia. TECHNIQUE: Carotid duplex ultrasound examination. Indirect Doppler criteria was utilized. FINDINGS: EXAM MEASUREMENTS: RIGHT: Peak Systolic Velocity (PSV) cm/sec ----- Right CCA: 72.9 ----- Right ICA: 76.6 ----- Right ECA: 92.3 ICA/CCA ratio: 1.05 RIGHT: End Diastole cm/sec ----- Right CCA: 7.87 ----- Right ICA: 8.39 ----- Right ECA: 0.0 LEFT: Peak Systolic Velocity (PSV) cm/sec ----- Left CCA: 84.3 ----- Left ICA: 92.7 ----- Left ECA: 117 ICA/CCA ratio: 1.10 LEFT: End Diastole cm/sec ----- Left CCA: 9.50 ----- Left ICA: 14.8 ----- Left ECA: 5.35 VERTEBRALS (direction of flow): Right Vertebral: Antegrade Left Vertebral: Antegrade Rhythm: Normal HOGSHEAD OPENER NOTES: No elevated velocities at this time. Plaque seen within bilateral bulbs. IMPRESSION: No hemodynamically significant stenosis in either internal carotid artery. Criteria for Assigning % of Stenosis / Diameter reduction (Estimation based on the indirect measurements of the internal carotid artery velocities (ICA PSV). 1. Normal (no stenosis)=ICA PSV < 125 cm/s: ratio < 2.0: ICA EDV<40 cm/s. 2. Less than 50% stenosis=ICA PSV < 125 cm/s: ratio < 2.0: ICA EDV<40 cm/s. 3. 50 to 69% stenosis=ICA PSV of 125 to 230 cm/s: ration 2.0 ? 4.0: ICA EDV 40-100 cm/s. 4. Greater than 70% stenosis to near occlusion= ICA PSV > 230 cm/s: ratio > 4.0: ICA EDV > 100 cm/s. 5. Near occlusion= ICA PSV velocities may be low or undetectable: variable ratio and ICA EDV. 6. Total occlusion=unable to detect flow.
[2021-10-14] MEDS: TEMAZEPAM 15 MG CAP PO SCH (21:33)
[2021-10-15] MEDS: LEVOTHYROXINE 125 MCG TAB PO SCH (05:37)
[2021-10-15 07:26] LABS: Glucose,Whole Blood 69 mg/dL (70-110)
[2021-10-15 07:39] LABS: Glucose,Whole Blood 89 mg/dL (70-110)
[2021-10-15] MEDS: INSULIN ASPART (NovoLOG) 100 UNIT/ML VIAL SQ SCH ×4 (07:49→22:54)
[2021-10-15] MEDS: IPRATROPIUM-ALBUTEROL 3 ML NEB INHALATION SCH ×4 (07:57→21:42)
[2021-10-15] MEDS: SYMBICORT 160-4.5 MCG INHALER INHALATION SCH ×2 (07:57→21:42)
--- NOTE | 2021-10-15 09:12 | P.PN ---
Subjective Progress Note Date: 10/14/21 Patient was seen for a follow-up. Patient is sitting comfortably in the recliner. Patient continues to state that "I cannot breathe", feels tired. No new concerns. Tremors are improved. Objective - Vital Signs Vital signs: Vital Signs Temp 98.1 F 10/14/21 07:00 Pulse 64 10/14/21 07:00 Resp 18 10/14/21 07:00 BP 151/67 10/14/21 07:00 Pulse Ox 98 10/14/21 07:00 FiO2 21 10/13/21 07:24 Intake & Output 10/13/21 10/14/21 10/14/21 18:59 06:59 18:59 Intake Total 118 118 Balance 118 118 Intake: Oral 118 118 Other: Voiding Method Toilet Toilet # Voids 3 2 - Exam Patient's mental status, speech and leg which functions are normal. Patient has mild fine tremors of outstretched hands. She has mild exophthalmos. Patient appears anxious. - Labs CBC & Chem 7: 10/13/21 05:55 10/13/21 05:55 Labs: Abnormal Lab Results - Last 24 Hours (Table) 10/13/21 10/13/21 10/13/21 Range/Units 08:55 12:10 17:24 POC Glucose (mg/dL) 129 H 163 H (70-110) mg/dL TSH 0.050 L (0.350-5.500) uIU/mL Free (T4) Reflex I 2.750 H (0.800-1.800) ng/dL 10/13/21 10/14/21 Range/Units 21:11 07:23 POC Glucose (mg/dL) 137 H 122 H (70-110) mg/dL TSH (0.350-5.500) uIU/mL Free (T4) Reflex I (0.800-1.800) ng/dL Assessment and Plan Assessment: * Gait imbalance, frequent falls. Rule out vitamin deficiency. * History of bariatric sleeve surgery in 2016. * Previous history of B1 and B12 deficiency. * Hyperthyroidism, perhaps iatrogenic. * Difficulty breathing, with respiratory alkalosis. Possible COPD exacerbation. * X tobacco use * Hypertension * History of heart murmur. Plan: * B12 is borderline 377, folate 10.8, MMA, B6, B1 pending. TSH is significantly decreased 0.050 and free T4 is elevated 2.75/1.80. Patient's tremors, breathing difficulty could be related to hyperthyroidism. Patient is on levothyroxine 150 g daily. Dose has been decreased to 125 g daily by PCP. * Patient's B12 is borderline. We will give B12 injection 1000 g IM 1 dose. Patient will be started on vitamin B12 1000 g orally daily as well. * Hemoglobin A1c is normal 5.6. * Carotid Doppler revealed no hemodynamically significant stenosis in either ICA. Antegrade flow in both vertebral arteries. * Psychiatry has seen the patient, diagnosed with generalized anxiety disorder, bipolar 2 disorder and chronic benzodiazepine use. Medications have been adjusted. * Neurologically clear for discharge.
[2021-10-15] MEDS: ENOXAPARIN 40 MG/0.4 ML SYRINGE SQ SCH (09:58)
[2021-10-15] MEDS: CYANOCOBALAMIN 500 MCG TAB PO SCH (09:59)
[2021-10-15] MEDS: HYDROcodone/APAP 7.5-325MG 1 EACH TAB PO PRN (09:59)
[2021-10-15] MEDS: PANTOPRAZOLE 40 MG TABLET PO SCH ×3 (09:59→20:40)
[2021-10-15] MEDS: amLODIPine 5 MG TAB PO SCH ×2 (09:59→20:39)
[2021-10-15] MEDS: ASPIRIN 81 MG PO SCH (09:59)
[2021-10-15] MEDS: ATORVASTATIN 20 MG TAB PO SCH (09:59)
[2021-10-15] MEDS: cycloSPORINE 0.05% OPHTH 0.4 ML DROPERETTE BOTH EYES SCH ×2 (10:00→20:40)
[2021-10-15] MEDS: FUROSEMIDE 40 MG TAB PO SCH (10:00)
[2021-10-15] MEDS: hydrOXYzine pamoate 25 MG CAP PO SCH ×2 (10:00→20:40)
[2021-10-15 10:51] LABS: Glucose,Whole Blood 80 mg/dL (70-110)
[2021-10-15 12:16] LABS: Glucose,Whole Blood 97 mg/dL (70-110)
--- NOTE | 2021-10-15 12:48 | P.PN ---
Progress Note - Text Progress Note Date: 10/15/21 Interval History: Patient was seen sitting upright in her chair and was directable and agreeable to speak with the account underwriter in her room. Currently, the patient not reporting any suicidal or homicidal ideation, intention, and/or plan. She is not reporting any auditory or visual hallucinations. She is denying any paranoia or other delusions. The patient continues to report elevated anxiety as well as shortness of breath. However, the patient becomes hyper focused on her blood sugars. We discussed at length the likely diagnosis of somatic symptom disorder as a reflection of her psychological well-being. This provider provided her with reassurance and informed her that the treatment for this is frequent outpatient follow-up. She has been adherent with her medication is not reporting any significant side effects at this time. She understands that it is recommended to follow-up in the outpatient setting. Mental Status Exam: General Appearance: Patient appears to be stated age is alert, directable, and cooperative. Behavior: Patient is calmly seated without any agitated behavior. Speech: Patient's speech is fluent and nonpressured. Mood/Affect: Mood is improving mildly, affect is congruent and euthymic. Suicidality/Homicidality: Patient denies having any suicidal or homicidal ideation intent or plan. Perceptions: Patient denies any visual hallucinations and denies any auditory hallucinations Though content/process: There is no evidence of any delusional thought content and thought process is linear and goal-directed. Memory and concentration: AOX3, grossly intact for the purposes of this session Judgment and insight: Good Vital Signs Temp 97.5 F L 10/15/21 07:00 Pulse 50 L 10/15/21 09:19 Resp 16 10/15/21 07:00 BP 140/70 10/15/21 09:19 Pulse Ox 100 10/15/21 07:00 FiO2 21 10/13/21 07:24 Intake & Output 10/14/21 10/15/21 10/15/21 18:59 06:59 18:59 Intake Total 118 118 Balance 118 118 Intake: Oral 118 118 Other: Voiding Method Toilet Toilet # Voids 1 1 Laboratory Results - Last 24 Hours 10/13/21 10/14/21 10/14/21 05:55 16:51 20:40 POC Glucose (mg/dL) 115 H 105 POC [employer] ID Courtney Carpio Robert Folate 10.80 10/15/21 10/15/21 10/15/21 07:23 07:37 10:49 POC Glucose (mg/dL) 69 L 89 80 POC [employer] ID Jessica Tyson Jennifer Gavlinski, Jennifer Folate 10/15/21 12:14 POC Glucose (mg/dL) 97 POC [employer] ID Jessica Tyson Folate Assessment Generalized anxiety disorder Bipolar 2 disorder Rule out somatic symptom disorderChronic benzodiazepine use Hyperthyroidism B12 deficiency -The patient has been chronically prescribed benzodiazepine medications. Concern that the medication is causing respiratory depression and central sleep apnea. Furthermore, the patient has been having falls recently. As per [facility] review, the patient is also prescribed narcotic medications. Her medication regimen places her at high risk for respiratory depression and falls. Patient was counseled on this in great detail. Plan: -Continue your medical evaluation and management. -At this time patient DOES NOT meet criteria for inpatient psychiatric admission. -Would recommend the following medication changes/additions: Change Vistaril to 25 mg by mouth 3 times a day when necessary for anxiety and 50 mg by mouth when necessary for insomnia Continue Restoril 15 mg by mouth at bedtime with recommendation to decrease Restoril to 7.5 mg upon discharge Continue Prozac 80 mg by mouth at bedtime for depression/anxiety -Patient is cleared psychiatrically for discharge. -Recommend outpatient psychiatric follow-up. Recommend outpatient primary care follow-up with frequent visits to address somatic symptoms.
[2021-10-15] MEDS: hydrOXYzine pamoate 25 MG CAP PO PRN ×2 (15:38→20:37)
[2021-10-15 17:21] LABS: Glucose,Whole Blood 97 mg/dL (70-110)
[2021-10-15 20:32] LABS: Glucose,Whole Blood 104 mg/dL (70-110)
[2021-10-15] MEDS: FLUoxetine HCL 20 MG CAP PO SCH ×2 (20:36→20:39)
[2021-10-15] MEDS: TEMAZEPAM 15 MG CAP PO SCH (20:41)
[2021-10-15] MEDS: HYDROcodone/APAP 5-325MG 1 EACH TAB PO PRN (23:27)
--- NOTE | 2021-10-16 03:25 | HP ---
HISTORY AND PHYSICAL CHIEF COMPLAINT: Chest pain and elevated D-dimer. HISTORY OF PRESENT ILLNESS: This is another admission for this 66-year-old white female with numerous problems including COPD, bipolar depression, and hyperlipidemia. This lady presented to the emergency room with complaints of chest pain and shortness of breath. Her D-dimer was slightly elevated and she was admitted. Troponin was negative. REVIEW OF SYSTEMS: She denies fever and chills, hemoptysis, nausea, vomiting, diarrhea, etc. Past medical history, family history and personal and social histories demonstrate that she is on the Symbicort, updraft of albuterol, Vicodin, aspirin, Ativan, Prozac, Lipitor, isosorbide dinitrate, levothyroxine, lisinopril, and amlodipine. ALLERGIES: She is allergic to Seroquel and iodine. SOCIAL HISTORY: She used to smoke but does not any longer. PHYSICAL EXAMINATION: VITAL SIGNS: Blood pressure is 136/88 with a pulse of 94, respirations of 38, and she is afebrile. GENERAL: She appeared to be short of breath. Skin was dry. HEENT: Head, ears, eyes, nose, mouth and throat were normal. NECK: Veins are not distended. Thyroid not enlarged. CHEST: Clear. Breath sounds are diminished throughout due to her COPD. CARDIAC: Exam is normal. ABDOMEN: Soft and nontender. EXTREMITIES: Normal. IMPRESSION: 1. Shortness of breath. 2. Chronic obstructive pulmonary disease. 3. Elevated D-dimer. 4. Chest pain. PLAN: 1. Bedrest. 2. IV fluids. 3. Nasal O2. 4. Updrafts. 5. Rule out pulmonary embolism. MMODL / IJN: [id number] /
[2021-10-16 03:51] LABS: Glucose,Whole Blood 82 mg/dL (70-110)
--- NOTE | 2021-10-16 05:19 | PN ---
PROGRESS NOTE CHIEF COMPLAINT: Chest pain and shortness of breath. HISTORY OF PRESENT ILLNESS: This lady still states she cannot breathe. She has had no fever or chills. She is not coughing up sputum or blood. PHYSICAL EXAMINATION: LUNGS: Breath sounds are quite clear bilaterally. CARDIAC: Exam is normal. ABDOMEN: Soft, nontender. IMPRESSION: 1. Chronic obstructive pulmonary disease. 2. Chest pain. 3. Bipolar depression. 4. Elevated D-dimer. PLAN: Can continue efforts to improve her breathing. Her pulse ox is good, however. MMODL / IJN: [id number] /
--- NOTE | 2021-10-16 05:52 | PN ---
PROGRESS NOTE CHIEF COMPLAINT: Shortness of breath. HISTORY OF PRESENT ILLNESS: This lady is still complaining of being extremely short of breath. Pulse ox is normal on nasal O2. She denies chest pain, fever, chills, etc. PHYSICAL EXAMINATION: CHEST: Clear. CARDIAC: Exam is normal. ABDOMEN: Soft, nontender. IMPRESSION: 1. Shortness of breath. 2. Chronic obstructive pulmonary disease. 3. Bipolar depression. PLAN: Continue with nasal O2 and looking for the source of her shortness of breath. MMODL / IJN: [id number] /
[2021-10-16] MEDS: LEVOTHYROXINE 125 MCG TAB PO SCH (06:12)
[2021-10-16 07:00] LABS: Glucose,Whole Blood 106 mg/dL (70-110)
[2021-10-16] MEDS: SYMBICORT 160-4.5 MCG INHALER INHALATION SCH ×2 (07:30→18:59)
[2021-10-16] MEDS: IPRATROPIUM-ALBUTEROL 3 ML NEB INHALATION SCH ×4 (07:30→18:59)
[2021-10-16] MEDS: INSULIN ASPART (NovoLOG) 100 UNIT/ML VIAL SQ SCH ×4 (07:55→21:34)
[2021-10-16] MEDS: ASPIRIN 81 MG PO SCH (08:11)
[2021-10-16] MEDS: FUROSEMIDE 40 MG TAB PO SCH ×2 (08:11→08:12)
[2021-10-16] MEDS: PANTOPRAZOLE 40 MG TABLET PO SCH (08:12)
[2021-10-16] MEDS: cycloSPORINE 0.05% OPHTH 0.4 ML DROPERETTE BOTH EYES SCH ×2 (08:12→21:33)
[2021-10-16] MEDS: ATORVASTATIN 20 MG TAB PO SCH (08:12)
[2021-10-16] MEDS: CYANOCOBALAMIN 500 MCG TAB PO SCH (08:12)
[2021-10-16] MEDS: amLODIPine 5 MG TAB PO SCH ×2 (08:12→21:33)
[2021-10-16] MEDS: ENOXAPARIN 40 MG/0.4 ML SYRINGE SQ SCH (08:13)
[2021-10-16] MEDS: HYDROcodone/APAP 5-325MG 1 EACH TAB PO PRN ×2 (08:20→17:55)
[2021-10-16] MEDS: hydrOXYzine pamoate 25 MG CAP PO PRN ×2 (08:58→21:32)
[2021-10-16 10:17] LABS: Glucose,Whole Blood 78 mg/dL (70-110)
[2021-10-16 12:09] LABS: Glucose,Whole Blood 87 mg/dL (70-110)
[2021-10-16 17:01] LABS: Glucose,Whole Blood 102 mg/dL (70-110)
[2021-10-16 17:03] LABS: Methylmalonic Acid 0.24 umol/L (<0.40)
--- NOTE | 2021-10-16 20:21 | P.PN ---
Progress Note - Text Progress Note Date: 10/16/21 Patient seen earlier this afternoon for follow-up. Discussed recommendations with nurse. Decrease Temazepam to 7.5 mg QHS starting tonight. Decrease Hydroxyzine to 25 mg BID PRN for anxiety. Medical team to continue to evaluate bradycardia. Full note to follow.
[2021-10-16 21:15] LABS: Glucose,Whole Blood 119 mg/dL (70-110)
[2021-10-16] MEDS: TEMAZEPAM 7.5 MG CAP PO SCH (21:32)
--- NOTE | 2021-10-16 22:38 | P.PN ---
Subjective This is a pleasant 66 years old female with multiple medical problems presents with dyspnea and frequent falls. Patient been evaluated by pulmonary service for possible COPD exacerbation however patient with no evidence of obstructive lung disease, she is tachypneic secondary to anxiety. IV steroids are stopped and patient clear for discharge by rubber insulator Patient is very anxious, her TSH is elevated mildly while she is on levothyroxine 150 g daily, lower the dose to 125 g daily. Patient will need to check her thyroid function tests in one month Also she has anxiety and benzodiazepine dependence, evaluated by psychiatrist, she was started on Vistaril 3 times a day and lower the dose of her sterile 30 mg down to 15 mg at bedtime with recommendation to gradually tapered off. There is some evidence of flow vitamin B-12, patient started on replacement therapy already. Leukocytosis trending down mostly secondary to steroid effect Echocardiogram showing combined aortic stenosis and regurgitation, evaluated by profile saw operator and placed on baby aspirin, she will need outpatient follow up with profile saw operator. [facility] team already on the case. Creatinine is stable at 1.4 patient has chronic kidney disease. Ejection fraction is 55-60% and hemoglobin A1c is normal at 5.6% 10/16/2021 This patient is a pleasant 66 years old female who known to me from taking care of her earlier in the week. I'm resume the care of the patient today for Dr. Conti and over the weekend and he'll be back on Monday. The patient originally admitted for COPD and evaluated by rubber insulator and she is doing well, and even her systemic steroids were stopped, and the rhythm is stable. Also patient with frequent fall, she fell 3 times about 8 weeks earlier to admission. Neurologist evaluation and some vitamins been replaced. Also patient found to have an that a lot of anxiety and stress and psychiatrist already evaluated her and she is currently placed on Vistaril 25 mg 3 times a day when necessary and 50 mg at bedtime which she received last night, metoprolol for [place] she got this morning, she was feeling unwell this morning but she was insistent upon discharged today, I explained for the patient still needs to be monitored for another day. Since she is not completely asymptomatic. And after morning rounds the afternoon patient got more dizzy and fell on the ground. She denies any head trauma only some scratching wounds in her left thigh, staff for at bedside when the seventh and they couldn't hold her and help her. We'll put a neuro check for precaution. Psychiatric follow-up requested today and this atrial 50 mg just was discontinue it and the when necessary dose lower to twice a day. Also I agree with tapering down her Restoril into 7.5 mg at bedtime. Orthostatic vitals checked and there were negative Also patient was mildly tachycardic with 40 to 50s is the rate. We will reconsult cardiology tomorrow. Objective - Vital Signs Vital signs: Vital Signs Temp 98 F 10/16/21 07:00 Pulse 52 L 10/16/21 08:00 Resp 18 10/16/21 08:00 BP 130/58 10/16/21 07:00 Pulse Ox 99 10/16/21 07:00 FiO2 21 10/13/21 07:24 Intake & Output 10/15/21 10/16/21 10/16/21 18:59 06:59 18:59 Intake Total 236 200 Balance 236 200 Intake: Oral 236 200 Other: Voiding Method Toilet Toilet # Voids 3 2 - Exam -GENERAL: The patient is alert and oriented x3, not in any acute distress. Well developed, well nourished. Patient is anxious HEENT: Pupils are round and equally reacting to light. EOMI. No scleral icterus. No conjunctival pallor. Normocephalic, atraumatic. No pharyngeal erythema. No thyromegaly. CARDIOVASCULAR: S1 and S2 present. No murmurs, rubs, or gallops. PULMONARY: Chest is clear to auscultation, no wheezing or crackles. ABDOMEN: Soft, nontender, nondistended, normoactive bowel sounds. No palpable organomegaly. MUSCULOSKELETAL: No joint swelling or deformity. EXTREMITIES: No cyanosis, clubbing, or pedal edema. NEUROLOGICAL: Gross neurological examination did not reveal any focal deficits. SKIN: No rashes. no petechiae. - Labs CBC & Chem 7: 10/13/21 05:55 10/13/21 05:55 Assessment and Plan Assessment: -Recurrent falls. With evidence of bradycardia and valvular heart disease among rule out cardiac causes -Acute shortness of breath secondary to anxiety disorder. No evidence of COPD. steroids discontinued. Improving. Evaluated by pulmonary chest -Mild iatrogenic hyperthyroidism. Lower the dose of levothyroxine and to 125 g daily -Generalized anxiety disorder, continue with vistaril , he wanted by psychiatrist -Benzodiazepine dependence, lower the dose of Restoril 30 mg down to 15 mg and then to 7.5 mg at bedtime with recommendation to taper it off and replace it with antipsychotic or mood stabilizer per psychiatrist -Combined aortic stenosis and regurgitation, evaluated by profile saw operator, continue with baby aspirin -Chronic kidney disease stage III, creatinine is stable at 1.4. -Hypertension, continue with Norvasc and Lasix -Multiple falls, evaluated by neurologist, replace vitamin B12, her dose of levothyroxine, ordered physical therapy and occupational therapy evaluation. DVT prophylaxis Lovenox GI prophylaxis Protonix Prognosis still guarded Dr. Conti resume the care of the patient to more
[2021-10-17] MEDS: HYDROcodone/APAP 5-325MG 1 EACH TAB PO PRN ×3 (01:14→15:48)
[2021-10-17] MEDS: LEVOTHYROXINE 125 MCG TAB PO SCH (05:45)
[2021-10-17] MEDS: SYMBICORT 160-4.5 MCG INHALER INHALATION SCH ×2 (07:09→19:21)
[2021-10-17] MEDS: IPRATROPIUM-ALBUTEROL 3 ML NEB INHALATION SCH ×4 (07:09→19:21)
[2021-10-17 07:13] LABS: Glucose,Whole Blood 96 mg/dL (70-110)
[2021-10-17] MEDS: INSULIN ASPART (NovoLOG) 100 UNIT/ML VIAL SQ SCH ×3 (07:23→17:35)
[2021-10-17] MEDS: ENOXAPARIN 40 MG/0.4 ML SYRINGE SQ SCH (08:26)
[2021-10-17] MEDS: cycloSPORINE 0.05% OPHTH 0.4 ML DROPERETTE BOTH EYES SCH ×2 (08:26→20:55)
[2021-10-17] MEDS: FUROSEMIDE 40 MG TAB PO SCH (08:26)
[2021-10-17] MEDS: PANTOPRAZOLE 40 MG TABLET PO SCH ×2 (08:26→20:55)
[2021-10-17] MEDS: amLODIPine 5 MG TAB PO SCH (08:27)
[2021-10-17] MEDS: ASPIRIN 81 MG PO SCH (08:27)
[2021-10-17] MEDS: CYANOCOBALAMIN 500 MCG TAB PO SCH (08:27)
[2021-10-17] MEDS: ATORVASTATIN 20 MG TAB PO SCH (08:27)
--- NOTE | 2021-10-17 11:34 | P.PN ---
Subjective This is a pleasant 65-year-old female past medical history significant for coronary artery disease status post PCI to mid LAD in 08/2019, hypertension, dyslipidemia, former tobacco use, aortic regurgitation, mitral regurgitation, COPD. She follows in the office with Dr. Edouard . We have been asked to see in consultation for shortness of breath. Patient presents to the emergency department with complaints of worsening shortness of breath and multiple falls at home for 1 month. She states she feels short of breath with activities and at rest. She states she also has been having falls at home, states she feels weakness in her legs. Denies any syncope or loss of consciousness. Denies chest pain currently, however she has been having intermittent chest discomfort midsternal, non-radiating. Not clearly exertional. She states she has been worked up multiple times for her shortness of breath and does not find anything abnormal when she is evaluated. She denies any cough, fever, chills, symptoms of orthopnea or PND, lower extremity edema.She denies any syncope. She states that she tried breathing treatments with limited relief at home. She is a former smoker, quit in 2010. Denies any illicit drug use. DIAGNOSTICS -THE[facility]ORE 07/2020- Preserved LV Function, No evidence of aortic stenosis, 3+ aortic regurgitation, 2+ mitral regurgitation, 2+tricuspid regurgitation, mild to moderate pulmonary hypertesion, No clot in left atrial appendage, No PFO -2-D echocardiogram 01/2021 revealed EF 5055 %, mild to moderate regurgitation, moderate stenosis of the assessment gradient of 44 mmHg/18, mild MR -Last Cardiac Catheterization 01/2021 patent stent in LAD, diffuse disease with calcification with there is about 3040 percent stenosis in the LAD, circumflex and RCA. -Chest CT- no evidence of pulmonary embolism, no abnormality reported with the heart, thoracic aorta or lungs. 10/13 Patient seen and examined at bedside, no acute distress. She slept well overnight, denies any worsening shortness of breath. Her breathing has improved. Vital signs are stable. Echocardiogram revealed EF 55-60%, moderately increased septal wall and posterior wall thickness, moderate aortic stenosis with peak/mean gradient of 30/18mmHg, mild to moderate aortic regurgitation. No significant pulmonary hypertension, no pericardial effusion. 10/17 Patient seen and examined. Patient unfortunately had an episode when in the shower yesterday started feeling lightheaded and short of breath and had a syncopal episode. Heart rates were in the low 50s which patient has been in the low 50s the entire hospitalization. She has not been on any rate controlling medications. Previous orthostatic vitals have been negative. There is a consideration of chronotropic incompetence and therefore patient walked at bedside with heart rates mildly increased from the 52 range up to 69 with ambulation. Patient had to stop however as she became very lightheaded with approximately 30 steps. After her fall she is feeling significantly short of breath with minimal exertion as well as short of breath sitting there. Echocardiogram personally reviewed and there is significant elevated aortic velocities up to 4.1 m/s however prior THEODORE last year had shown no aortic stenosis and only aortic regurgitation. Patient's mother did suddenly and consideration of possible hypertrophic obstructive cardiomyopathy. PHYSICAL EXAMINATION Vitals reviewed CONSTITUTIONAL: No apparent distress. HEENT: Head is normocephalic. Neck Supple. No JVD. CHEST EXAMINATION: Lungs are clear to auscultation. No chest wall tenderness is noted on palpation or with deep breathing. HEART EXAMINATION: Regular rate and rhythm. S1, S2 heard. Systolic and diastolic murmur noted. ABDOMEN: Soft, nontender. Positive bowel sounds. EXTREMITIES: 2+ peripheral pulses, no lower extremity edema and no calf tenderness. SKIN: warm, dry NEUROLOGIC EXAMINATION: Patient is awake, alert and oriented x3. ASSESSMENT Symptoms of shortness of breath, may be related to LVOT gradient Elevated aortic velocities however normal aortic opening by previous THEODORE. Possible LVOT as cause of some of her symptoms LVH Abnormal EKG Bradycardia Syncope Lightheadedness Chest discomfort, acute coronary syndrome has been ruled out Leukocytosis Lactic acidosis Generalized weakness with falls at home Chronic kidney disease Coronary artery disease status post PCI to mid LAD in 08/2019 Hypertension Dyslipidemia Former nicotine dependence Mild to moderate Aortic regurgitation Mild to moderate aortic stenosis PLAN Consideration of possible bradycardia causing some of her symptoms with heart ra hai mainly in the 50s. Avoid any AV swati blocking agents. Possible chronotropic incompetence however outpatient approximately 20-30 feet and heart rate increased from 50s up to 69. Patient did become lightheaded with this amount of activity. No obvious need for permanent pacemaker. May consider stress EKG to evaluate for chronotropic incompetence in the future. Additionally echo showing significant aortic valve gradients up to 4.1 m/s however prior THEODORE did not show any significant aortic stenosis. Many of symptoms may be explained by LVOT gradient. Not much of a change with Valsalva with 2/6 systolic murmur. She did have mother suddenly approximately 20 years ago with additional abnormal EKG and what appears to be circumferential LVH. May consider cardiac MRI outpatient to evaluate for possible hypertrophic cardiomyopathy. Patient's main symptoms are lightheadedness and dyspnea and currently feeling more lightheaded. We will discontinue her amlodipine as well as lisinopril and monitor lightheadedness. Lightheadedness may also be exacerbated by LVOT gradient. We will avoid dehydration which may have contributed to her syncopal episode. Stop Lasix and monitor response after stopping antihypertensive medications. Objective - Vital Signs Vital signs: Vital Signs Temp 98.2 F 10/17/21 07:15 Pulse 51 L 10/17/21 08:00 Resp 18 10/17/21 08:00 BP 162/77 10/17/21 09:36 Pulse Ox 100 10/17/21 07:15 FiO2 21 10/13/21 07:24 Intake & Output 10/16/21 10/17/21 10/17/21 18:59 06:59 18:59 Intake Total 400 300 Balance 400 300 Intake: Oral 400 300 Other: Voiding Method Toilet Toilet Toilet # Voids 4 3 - Labs CBC & Chem 7: 10/13/21 05:55 10/13/21 05:55 Labs: Abnormal Lab Results - Last 24 Hours (Table) 10/16/21 Range/Units 21:14 POC Glucose (mg/dL) 119 H (70-110) mg/dL
[2021-10-17 12:18] LABS: Glucose,Whole Blood 82 mg/dL (70-110)
[2021-10-17 17:10] LABS: Glucose,Whole Blood 78 mg/dL (70-110)
--- NOTE | 2021-10-17 18:02 | P.PN ---
Progress Note - Text Progress Note Date: 10/16/21 Psychiatry consult follow-up Interval History: Patient was seen in her bed with at bedside. Medical team requested psychiatry to see her today since he fell this morning and there is concern her fall may have been related to her medications. Patient reports she was in the shower and started to feel dizzy, so she sat down, called for her nurse, and after nurse arrived she walked out of the bathroom with her nurse, and blacked out and feel on the floor, hitting her face where she now has a quarter size abrasion over her right cheek. Patient reports she has fallen multiple times at home (describes these as mechanical falls), however she reports this fall is unique for her since she has not blacked out prior to falling like this before. She reports shortness of breath. Her vitals were reviewed and her blood pressure is normal however her heart rate has been bradycardic before and after the fall. She received Ben Bolt, Amlodipine, Lasix, Lisinopril prior to her fall this morning, and Temazepam and Hydroxyzine the night before the fall. She reports high anxiety due to life stressors. She denies depressed mood. At this time, patient denies any suicidal or homicidal ideation, intent or plan. Patient denies any auditory, visual hallucinations and denies any paranoia or delusions. Mental Status Exam: General Appearance: Patient appears to be stated age, has a quarter size abrasion over her right cheek. Behavior: Patient is laying without any agitated behavior. Speech: Patient's speech is fluent and non-pressured. Mood/Affect: Mood is anxious, affect is congruent. Suicidality/Homicidality: Patient denies having any suicidal or homicidal ideation intent or plan. Perceptions: Patient denies any visual hallucinations and denies any auditory hallucinations. Though content/process: There is no evidence of any delusional thought content and thought process is linear and goal-directed. Memory and concentration: AOX3, grossly intact for the purposes of this session Judgment and insight: Average Vital Signs (72 hours) 10/14/21 10/14/21 10/15/21 18:46 18:56 01:32 Temperature 98 F 97.9 F Pulse Rate [ 60 60 53 L Right Pulse Oximetery] Pulse Rate [ Sitting Pulse Oximetery] Pulse Rate [ Standing Pulse Oximetery] Pulse Rate [ Supine Pulse Oximetery] Respiratory 18 18 17 Rate Blood Pressure [Left Arm Sitting] Blood Pressure [Left Arm Standing] Blood Pressure [Left Arm Supine] Blood Pressure 145/74 [Left Arm] Blood Pressure 139/69 [Right Arm] O2 Sat by Pulse 98 Oximetry 10/15/21 10/15/21 10/15/21 07:00 09:19 14:51 Temperature 97.5 F L 97.8 F Pulse Rate [ 46 L 50 L 59 L Right Pulse Oximetery] Pulse Rate [ Sitting Pulse Oximetery] Pulse Rate [ Standing Pulse Oximetery] Pulse Rate [ Supine Pulse Oximetery] Respiratory 16 17 Rate Blood Pressure 136/57 140/70 135/76 [Left Arm Sitting] Blood Pressure [Left Arm Standing] Blood Pressure [Left Arm Supine] Blood Pressure [Left Arm] Blood Pressure [Right Arm] O2 Sat by Pulse 100 100 Oximetry 10/15/21 10/15/21 10/15/21 15:23 15:54 19:22 Temperature 97.9 F Pulse Rate [ 62 60 Right Pulse Oximetery] Pulse Rate [ Sitting Pulse Oximetery] Pulse Rate [ Standing Pulse Oximetery] Pulse Rate [ Supine Pulse Oximetery] Respiratory 19 18 Rate Blood Pressure 133/72 [Left Arm Sitting] Blood Pressure [Left Arm Standing] Blood Pressure [Left Arm Supine] Blood Pressure [Left Arm] Blood Pressure [Right Arm] O2 Sat by Pulse 98 Oximetry 10/15/21 10/16/21 10/16/21 20:00 03:54 07:00 Temperature 97.8 F 98 F Pulse Rate [ 60 45 L 52 L Right Pulse Oximetery] Pulse Rate [ Sitting Pulse Oximetery] Pulse Rate [ Standing Pulse Oximetery] Pulse Rate [ Supine Pulse Oximetery] Respiratory 18 16 18 Rate Blood Pressure [Left Arm Sitting] Blood Pressure [Left Arm Standing] Blood Pressure [Left Arm Supine] Blood Pressure [Left Arm] Blood Pressure 122/58 130/58 [Right Arm] O2 Sat by Pulse 97 99 Oximetry 10/16/21 10/16/21 10/16/21 08:00 10:15 10:50 Temperature Pulse Rate [ 52 L 50 L Right Pulse Oximetery] Pulse Rate [ 52 L Sitting Pulse Oximetery] Pulse Rate [ 58 L Standing Pulse Oximetery] Pulse Rate [ 45 L Supine Pulse Oximetery] Respiratory 18 18 Rate Blood Pressure 120/60 [Left Arm Sitting] Blood Pressure 127/79 [Left Arm Standing] Blood Pressure 122/68 [Left Arm Supine] Blood Pressure [Left Arm] Blood Pressure 130/75 [Right Arm] O2 Sat by Pulse 98 Oximetry 10/16/21 10/16/21 10/16/21 13:38 14:59 20:00 Temperature 98.7 F Pulse Rate [ 50 L 51 L Right Pulse Oximetery] Pulse Rate [ 52 L Sitting Pulse Oximetery] Pulse Rate [ 58 L Standing Pulse Oximetery] Pulse Rate [ 45 L Supine Pulse Oximetery] Respiratory 18 18 18 Rate Blood Pressure [Left Arm Sitting] Blood Pressure [Left Arm Standing] Blood Pressure [Left Arm Supine] Blood Pressure [Left Arm] Blood Pressure 142/50 [Right Arm] O2 Sat by Pulse 100 Oximetry Assessment: Generalized anxiety disorder Bipolar 2 disorder Chronic benzodiazepine use Falls Plan: -At this time patient DOES NOT meet criteria for inpatient psychiatric admission. -Would recommend the following medication changes/additions to decrease risk of falls. She is agreeable to continued taper of her benzodiazepines. Discussed risk of falls, respiratory depression, dependence. Decrease Restoril to 7.5 mg QHS starting Monday night. Continue to monitor vitals. Decrease Vistaril to 25 mg BID PRN for anxiety. Continue Prozac 80 mg QHS for depression/anxiety. Consider switching to morning if has difficulty falling asleep. -Recommend outpatient psychotherapy for anxiety/life stressors. -Continue cardiology work-up for bradycardia as you are. -Psychiatry can continue to follow.
[2021-10-17] MEDS: TEMAZEPAM 7.5 MG CAP PO SCH (20:54)
[2021-10-17] MEDS: hydrOXYzine pamoate 25 MG CAP PO PRN (20:54)
[2021-10-17] MEDS: FLUoxetine HCL 20 MG CAP PO SCH (20:54)
[2021-10-17] MEDS ORDERED: TEMAZEPAM 7.5 MG CAP PO SCH (21:00)
[2021-10-17 21:39] LABS: Glucose,Whole Blood 115 mg/dL (70-110)
[2021-10-18] MEDS: INSULIN ASPART (NovoLOG) 100 UNIT/ML VIAL SQ SCH ×5 (00:24→20:22)
--- NOTE | 2021-10-18 01:39 | P.PN ---
Subjective Progress Note Date: 10/17/21 Patient was seen for a follow-up. Patient is sitting comfortably in the recliner. Patient continues to state that "I cannot breathe", feels tired. Patient apparently had a syncopal spell yesterday on 10/16/2021 at 10:10 AM. Patient was walking back from the shower with the nurse 8. Patient stated she was feeling lightheaded and fell. 8 witnessed the fall. Patient had right shoulder on the floor and has a right upper cheek skin tear and she bit her lower lip which was bruised and swollen. Patient lost consciousness for just a brief moment. Patient does remember people hollering at her, trying to get her attention. Her vitals in the scene was 1:30/75, heart rate 50, saturation 98% on room air respiration 18 and blood glucose 78. Orthostatics checked shows supine blood pressure 122/68. Pulse rate 45, sitting 120/60, pulse rate 52 and standing 127/79 with pulse rate of 58. Orthostatics negative, but patient is bradycardic. Cardiology on board. Psychiatrist and customs broker have adjusted medications. Objective - Vital Signs Vital signs: Vital Signs Temp 98.3 F 10/17/21 21:40 Pulse 51 L 10/17/21 21:40 Resp 16 10/17/21 21:40 BP 143/74 10/17/21 21:40 Pulse Ox 97 10/17/21 21:40 FiO2 21 10/13/21 07:24 Intake & Output 10/17/21 10/17/21 10/18/21 06:59 18:59 06:59 Intake Total 418 Balance 418 Intake: Oral 418 Other: Voiding Method Toilet Toilet Toilet # Voids 3 5 1 - Exam Patient's mental status, speech and leg which functions are normal. Patient has mild fine tremors of outstretched hands. She has mild exophthalmos. Patient appears anxious. Her muscle strength is normal. No ataxia. Patient has skin tear on the right cheek, and slightly swollen lower lip from the fall. - Labs CBC & Chem 7: 10/13/21 05:55 10/13/21 05:55 Labs: Abnormal Lab Results - Last 24 Hours (Table) 10/17/21 Range/Units 21:39 POC Glucose (mg/dL) 115 H (70-110) mg/dL Assessment and Plan Assessment: * Syncopal spell 10/16/2021 (in the hospital), probably vasovagal versus related to medication side effects or bradycardia. Orthostatics negative. * Gait imbalance, frequent falls. Rule out vitamin deficiency. * History of bariatric sleeve surgery in 2016. * Previous history of B1 and B12 deficiency. * Hyperthyroidism, perhaps iatrogenic. * Difficulty breathing, with respiratory alkalosis. Possible COPD exacerbation. * X tobacco use * Hypertension * History of heart murmur. Plan: * B12 is borderline 377, folate 10.8, MMA, B6, B1 pending. TSH is significantly decreased 0.050 and free T4 is elevated 2.75/1.80. Patient's tremors, breathing difficulty could be related to hyperthyroidism. Patient is on levothyroxine 150 g daily. Dose has been decreased to 125 g daily by PCP. * Patient's B12 is borderline 377. MMA 0.24. B1 91 normal. We will give B12 injection 1000 g IM 1 dose. Patient will be started on vitamin B12 1000 g orally daily as well. B6 borderline 7. Patient recommended to take vitamin B6 25 mg OTC two tablets daily. * Hemoglobin A1c is normal 5.6. * Carotid Doppler revealed no hemodynamically significant stenosis in either ICA. Antegrade flow in both vertebral arteries. * Psychiatry has seen the patient, diagnosed with generalized anxiety disorder, bipolar 2 disorder and chronic benzodiazepine use. Medications have been further adjusted. * Neurologically clear for discharge. Neurology will sign off.
[2021-10-18] MEDS: HYDROcodone/APAP 5-325MG 1 EACH TAB PO PRN ×3 (03:35→19:49)
[2021-10-18] MEDS: LEVOTHYROXINE 125 MCG TAB PO SCH (05:17)
[2021-10-18 07:16] LABS: Glucose,Whole Blood 102 mg/dL (70-110)
--- NOTE | 2021-10-18 07:48 | P.PN ---
Subjective This is a pleasant 66 years old female with multiple medical problems presents with dyspnea and frequent falls. Patient been evaluated by pulmonary service for possible COPD exacerbation however patient with no evidence of obstructive lung disease, she is tachypneic secondary to anxiety. IV steroids are stopped and patient clear for discharge by firer diesel locomotive Patient is very anxious, her TSH is elevated mildly while she is on levothyroxine 150 g daily, lower the dose to 125 g daily. Patient will need to check her thyroid function tests in one month Also she has anxiety and benzodiazepine dependence, evaluated by psychiatrist, she was started on Vistaril 3 times a day and lower the dose of her sterile 30 mg down to 15 mg at bedtime with recommendation to gradually tapered off. There is some evidence of flow vitamin B-12, patient started on replacement therapy already. Leukocytosis trending down mostly secondary to steroid effect Echocardiogram showing combined aortic stenosis and regurgitation, evaluated by account manager trainee and placed on baby aspirin, she will need outpatient follow up with account manager trainee. Pharmacy Director team already on the case. Creatinine is stable at 1.4 patient has chronic kidney disease. Ejection fraction is 55-60% and hemoglobin A1c is normal at 5.6% 10/16/2021 This patient is a pleasant 66 years old female who known to me from taking care of her earlier in the week. I'm resume the care of the patient today for Dr. Conti and over the weekend and he'll be back on Monday. The patient originally admitted for COPD and evaluated by firer diesel locomotive and she is doing well, and even her systemic steroids were stopped, and the rhythm is stable. Also patient with frequent fall, she fell 3 times about 8 weeks earlier to admission. Neurologist evaluation and some vitamins been replaced. Also patient found to have an that a lot of anxiety and stress and psychiatrist already evaluated her and she is currently placed on Vistaril 25 mg 3 times a day when necessary and 50 mg at bedtime which she received last night, metoprolol for [place] she got this morning, she was feeling unwell this morning but she was insistent upon discharged today, I explained for the patient still needs to be monitored for another day. Since she is not completely asymptomatic. And after morning rounds the afternoon patient got more dizzy and fell on the ground. She denies any head trauma only some scratching wounds in her left thigh, staff for at bedside when the seventh and they couldn't hold her and help her. We'll put a neuro check for precaution. Psychiatric follow-up requested today and this atrial 50 mg just was discontinue it and the when necessary dose lower to twice a day. Also I agree with tapering down her Restoril into 7.5 mg at bedtime. Orthostatic vitals checked and there were negative Also patient was mildly tachycardic with 40 to 50s is the rate. We will reconsult cardiology tomorrow. 10/17/2021 Patient yesterday had a syncopal episode while she was getting out from the bathroom, ate and staff for around her at that time it happened, she doesn't remember what happened but generalized when she woke up while she was lying down and staff were around her and there was from scratch and superficial wound injury to her right side of the face and extremity. Patient also noticed to be bradycardic Patient has been evaluated by account manager trainee with suspected LVOT gradient based on her previous echo. Also she has significant past family history with her mother of cardiac causes. We will keep monitoring and we'll keep the patient on telemetry I have an extensive discussion with the patient and her at bedside about the importance of limiting narcotics and sedatives and patient is in agreement, she agrees with the lower dose of Restoril 7.5 mg and to decrease visatril . Patient still looks more anxious today but she is calm. And she looks motivated to treat her cardiac condition. No chest pain or dyspnea. No weakness or numbness. No other new complaints. Other vitals are stable Objective - Vital Signs Vital signs: Vital Signs Temp 98.2 F 10/17/21 07:15 Pulse 51 L 10/17/21 07:15 Resp 18 10/17/21 07:15 BP 126/52 10/17/21 07:15 Pulse Ox 100 10/17/21 07:15 FiO2 21 10/13/21 07:24 Intake & Output 10/16/21 10/17/21 10/17/21 18:59 06:59 18:59 Intake Total 400 Balance 400 Intake: Oral 400 Other: Voiding Method Toilet Toilet # Voids 4 3 - Exam -GENERAL: The patient is alert and oriented x3, not in any acute distress. Well developed, well nourished. Patient is anxious HEENT: Pupils are round and equally reacting to light. EOMI. No scleral icterus. No conjunctival pallor. Normocephalic, atraumatic. No pharyngeal erythema. No thyromegaly. CARDIOVASCULAR: S1 and S2 present. No murmurs, rubs, or gallops. PULMONARY: Chest is clear to auscultation, no wheezing or crackles. ABDOMEN: Soft, nontender, nondistended, normoactive bowel sounds. No palpable organomegaly. MUSCULOSKELETAL: No joint swelling or deformity. EXTREMITIES: No cyanosis, clubbing, or pedal edema. NEUROLOGICAL: Gross neurological examination did not reveal any focal deficits. SKIN: No rashes. no petechiae. - Labs CBC & Chem 7: 10/13/21 05:55 10/13/21 05:55 Labs: Abnormal Lab Results - Last 24 Hours (Table) 10/16/21 Range/Units 21:14 POC Glucose (mg/dL) 119 H (70-110) mg/dL Assessment and Plan Assessment: -Recurrent falls. With evidence of bradycardia and valvular heart disease among rule out cardiac causes -Acute shortness of breath secondary to anxiety disorder. No evidence of COPD. steroids discontinued. Improving. Evaluated by pulmonary chest -Mild iatrogenic hyperthyroidism. Lower the dose of levothyroxine and to 125 g daily -Generalized anxiety disorder, continue with vistaril , he wanted by psychiatrist -Benzodiazepine dependence, lower the dose of Restoril 30 mg down to 15 mg and then to 7.5 mg at bedtime with recommendation to taper it off and replace it with antipsychotic or mood stabilizer per psychiatrist -Combined aortic stenosis and regurgitation, evaluated by account manager trainee, continue with baby aspirin -Chronic kidney disease stage III, creatinine is stable at 1.4. -Hypertension, continue with Norvasc and Lasix -Multiple falls, evaluated by neurologist, replace vitamin B12, her dose of levothyroxine, ordered physical therapy and occupational therapy evaluation. DVT prophylaxis Lovenox GI prophylaxis Protonix Prognosis still guarded Dr. Conti resume the care of the patient to more
[2021-10-18] MEDS: IPRATROPIUM-ALBUTEROL 3 ML NEB INHALATION SCH ×4 (08:13→20:29)
[2021-10-18] MEDS: SYMBICORT 160-4.5 MCG INHALER INHALATION SCH ×2 (08:13→20:29)
[2021-10-18] MEDS: cycloSPORINE 0.05% OPHTH 0.4 ML DROPERETTE BOTH EYES SCH ×2 (08:48→20:22)
[2021-10-18] MEDS: CYANOCOBALAMIN 500 MCG TAB PO SCH (08:48)
[2021-10-18] MEDS: PANTOPRAZOLE 40 MG TABLET PO SCH ×2 (08:48→19:49)
[2021-10-18] MEDS: amLODIPine 5 MG TAB PO SCH (08:48)
[2021-10-18] MEDS: ASPIRIN 81 MG PO SCH (08:48)
[2021-10-18] MEDS: ATORVASTATIN 20 MG TAB PO SCH (08:48)
[2021-10-18] MEDS: ENOXAPARIN 40 MG/0.4 ML SYRINGE SQ SCH (08:49)
--- NOTE | 2021-10-18 10:01 | P.PN ---
Subjective Progress Note Date: 10/18/21 HISTORY OF PRESENT ILLNESS: This is a pleasant 65-year-old female past medical history significant for coronary artery disease status post PCI to mid LAD in 08/2019, hypertension, d yslipidemia, former tobacco use, aortic regurgitation, mitral regurgitation, COPD. She follows in the office with Dr. Edouard . We have been asked to see in consultation for shortness of breath. Patient presents to the emergency department with complaints of worsening shortness of breath and multiple falls at home for 1 month. She states she feels short of breath with activities and at rest. She states she also has been having falls at home, states she feels weakness in her legs. Denies any syncope or loss of consciousness. Denies chest pain currently, however she has been having intermittent chest discomfort midsternal, non-radiating. Not clearly exertional. She states she has been wor ked up multiple times for her shortness of breath and does not find anything abnormal when she is evaluated. She denies any cough, fever, chills, symptoms of orthopnea or PND, lower extremity edema.She denies any syncope. She states that she tried breathing treatments with limited relief at home. She is a former smoker, quit in 2010. Denies any illicit drug use. DIAGNOSTICS -THEODORE 07/2020- Preserved LV Function, No evidence of aortic stenosis, 3+ aortic regurgitation, 2+ mitral regurgitation, 2+tricuspid regurgitation, mild to moderate pulmonary hypertesion, No clot in left atrial appendage, No PFO -2-D echocardiogram 01/2021 revealed EF 5055 %, mild to moderate regurgitation, moderate stenosis of the assessment gradient of 44 mmHg/18, mild MR -Last Cardiac Catheterization 01/2021 patent stent in LAD, diffuse disease with calcification with there is about 3040 percent stenosis in the LAD, circumflex and RCA. -Chest CT- no evidence of pulmonary embolism, no abnormality reported with the heart, thoracic aorta or lungs. 10/13 Patient seen and examined at bedside, no acute distress. She slept well overnight, denies any worsening shortness of breath. Her breathing has improved. Vital signs are stable. Echocardiogram revealed EF 55-60%, moderately increased septal wall and poste rior wall thickness, moderate aortic stenosis with peak/mean gradient of 30/18mmHg, mild to moderate aortic regurgitation. No significant pulmonary hypertension, no pericardial effusion. 10/17 Patient seen and examined. Patient unfortunately had an episode when in the shower yesterday started feeling lightheaded and short of breath and had a syncopal episode. Heart rates were in the low 50s which patient has been in the low 50s the entire hospitalization. She has not been on any rate controlling medications. Previous orthostatic vitals have been negative. There is a consideration of chronotropic incompetence and therefore patient walked at bedside with heart rates mildly increased from the 52 range up to 69 with ambulation. Patient had to stop however as she became very lightheaded with approximately 30 steps. After her fall she is feeling significantly short of breath with minimal exertion as well as short of breath sitting there. Echocardiogram personally reviewed and there is significant elevated aortic velocities up to 4.1 m/s however prior THEODORE last year had shown no aortic stenosis and only aortic regurgitation. Patient's mother did suddenly and consideration of possible hypertrophic obstructive cardiomyopathy. PHYSICAL EXAM: VITAL SIGNS: Reviewed. GENERAL: Well-developed in no acute distress. NECK: Supple. No JVD or thyromegaly LUNGS: Respirations even and unlabored. Lungs essentially clear to auscultation bilaterally. HEART: Regular rate and rhythm. S1 and S2 heard. Systolic and diastolic murmur noted. EXTREMITIES: Normal range of motion. No clubbing or cyanosis. Peripheral pulses intact. No lower extremity edema ASSESSMENT: Symptoms of shortness of breath, may be related to LVOT gradient Elevated aortic velocities however normal aortic opening by previous THEODORE. Possible LVOT as cause of some of her symptoms LVH Abnormal EKG Bradycardia Syncope Lightheadedness Chest discomfort, acute coronary syndrome has been ruled out Leukocytosis Lactic acidosis Generalized weakness with falls at home Chronic kidney disease Coronary artery disease status post PCI to mid LAD in 08/2019 Hypertension Dyslipidemia Former nicotine dependence Mild to moderate Aortic regurgitation Mild to moderate aortic stenosis PLAN: Continue current cardiac medications Discontinue Lasix and Imdur at discharge Continue to hold lisinopril at this time Resume amlodipine at 5 mg daily Further outpatient workup for possible hypertrophic cardiomyopathy Patient is currently stable from a cardiac standpoint Nurse practitioner note has been reviewed by physician. Signing provider agrees with the documented findings, assessment, and plan of care. Objective - Vital Signs Vital signs: Vital Signs Temp 98.1 F 10/18/21 07:00 Pulse 60 10/18/21 07:00 Resp 18 10/18/21 07:00 BP 124/55 10/18/21 07:00 Pulse Ox 98 10/18/21 07:00 FiO2 21 10/13/21 07:24 Intake & Output 10/17/21 10/18/21 10/18/21 18:59 06:59 18:59 Intake Total 418 Balance 418 Intake: Oral 418 Other: Voiding Method Toilet Toilet # Voids 5 2 - Labs CBC & Chem 7: 10/13/21 05:55 10/13/21 05:55 Labs: Abnormal Lab Results - Last 24 Hours (Table) 10/17/21 Range/Units 21:39 POC Glucose (mg/dL) 115 H (70-110) mg/dL
[2021-10-18 12:30] LABS: Glucose,Whole Blood 95 mg/dL (70-110)
[2021-10-18] MEDS: hydrOXYzine pamoate 25 MG CAP PO PRN (15:02)
[2021-10-18 17:20] LABS: Glucose,Whole Blood 88 mg/dL (70-110)
[2021-10-18] MEDS: FLUoxetine HCL 20 MG CAP PO SCH (19:49)
[2021-10-18] MEDS: TEMAZEPAM 7.5 MG CAP PO SCH (19:49)
[2021-10-18 20:22] LABS: Glucose,Whole Blood 95 mg/dL (70-110)
[2021-10-19] MEDS: LEVOTHYROXINE 125 MCG TAB PO SCH (04:49)
[2021-10-19] MEDS: HYDROcodone/APAP 5-325MG 1 EACH TAB PO PRN (04:50)
[2021-10-19 07:30] LABS: Glucose,Whole Blood 89 mg/dL (70-110)
[2021-10-19] MEDS: hydrOXYzine pamoate 25 MG CAP PO PRN (08:23)
[2021-10-19] MEDS: INSULIN ASPART (NovoLOG) 100 UNIT/ML VIAL SQ SCH ×2 (08:24→13:21)
[2021-10-19 08:46] VITALS: BP 135/72; PULSE 52; RESP 18; TEMP 98
[2021-10-19] MEDS: IPRATROPIUM-ALBUTEROL 3 ML NEB INHALATION SCH ×2 (08:53→12:00)
[2021-10-19] MEDS: SYMBICORT 160-4.5 MCG INHALER INHALATION SCH (08:53)
--- NOTE | 2021-10-19 09:36 | P.PN ---
Subjective Progress Note Date: 10/19/21 HISTORY OF PRESENT ILLNESS: This is a pleasant 65-year-old female past medical history significant for coronary artery disease status post PCI to mid LAD in 08/2019, hypertension, d yslipidemia, former tobacco use, aortic regurgitation, mitral regurgitation, COPD. She follows in the office with Dr. Edouard . We have been asked to see in consultation for shortness of breath. Patient presents to the emergency department with complaints of worsening shortness of breath and multiple falls at home for 1 month. She states she feels short of breath with activities and at rest. She states she also has been having falls at home, states she feels weakness in her legs. Denies any syncope or loss of consciousness. Denies chest pain currently, however she has been having intermittent chest discomfort midsternal, non-radiating. Not clearly exertional. She states she has been wor ked up multiple times for her shortness of breath and does not find anything abnormal when she is evaluated. She denies any cough, fever, chills, symptoms of orthopnea or PND, lower extremity edema.She denies any syncope. She states that she tried breathing treatments with limited relief at home. She is a former smoker, quit in 2010. Denies any illicit drug use. DIAGNOSTICS -THEODORE 07/2020- Preserved LV Function, No evidence of aortic stenosis, 3+ aortic regurgitation, 2+ mitral regurgitation, 2+tricuspid regurgitation, mild to moderate pulmonary hypertesion, No clot in left atrial appendage, No PFO -2-D echocardiogram 01/2021 revealed EF 5055 %, mild to moderate regurgitation, moderate stenosis of the assessment gradient of 44 mmHg/18, mild MR -Last Cardiac Catheterization 01/2021 patent stent in LAD, diffuse disease with calcification with there is about 3040 percent stenosis in the LAD, circumflex and RCA. -Chest CT- no evidence of pulmonary embolism, no abnormality reported with the heart, thoracic aorta or lungs. 10/13 Patient seen and examined at bedside, no acute distress. She slept well overnight, denies any worsening shortness of breath. Her breathing has improved. Vital signs are stable. Echocardiogram revealed EF 55-60%, moderately increased septal wall and poste rior wall thickness, moderate aortic stenosis with peak/mean gradient of 30/18mmHg, mild to moderate aortic regurgitation. No significant pulmonary hypertension, no pericardial effusion. 10/17 Patient seen and examined. Patient unfortunately had an episode when in the shower yesterday started feeling lightheaded and short of breath and had a syncopal episode. Heart rates were in the low 50s which patient has been in the low 50s the entire hospitalization. She has not been on any rate controlling medications. Previous orthostatic vitals have been negative. There is a consideration of chronotropic incompetence and therefore patient walked at bedside with heart rates mildly increased from the 52 range up to 69 with ambulation. Patient had to stop however as she became very lightheaded with approximately 30 steps. After her fall she is feeling significantly short of breath with minimal exertion as well as short of breath sitting there. Echocardiogram personally reviewed and there is significant elevated aortic velocities up to 4.1 m/s however prior THEODORE last year had shown no aortic stenosis and only aortic regurgitation. Patient's mother did suddenly and consideration of possible hypertrophic obstructive cardiomyopathy. 10/19/2021 Patient examined this morning at the bedside. Patient denies chest pain or pressure. She denies SOB. She reports minimal lightheadedness when ambulating. Blood pressure 130s. PHYSICAL EXAM: VITAL SIGNS: Reviewed. GENERAL: Well-developed in no acute distress. NECK: Supple. No JVD or thyromegaly LUNGS: Respirations even and unlabored. Lungs essentially clear to auscultation bilaterally. HEART: Regular rate and rhythm. S1 and S2 heard. Systolic and diastolic murmur noted. EXTREMITIES: Normal range of motion. No clubbing or cyanosis. Peripheral pulses intact. No lower extremity edema ASSESSMENT: Symptoms of shortness of breath, may be related to LVOT gradient Elevated aortic velocities however normal aortic opening by previous THEODORE. Possible LVOT as cause of some of her symptoms LVH Abnormal EKG Bradycardia Syncope Lightheadedness Chest discomfort, acute coronary syndrome has been ruled out Leukocytosis Lactic acidosis Generalized weakness with falls at home Chronic kidney disease Coronary artery disease status post PCI to mid LAD in 08/2019 Hypertension Dyslipidemia Former nicotine dependence Mild to moderate Aortic regurgitation Mild to moderate aortic stenosis PLAN: Continue current cardiac medications Discontinue Lasix, Imdur, and lisinopril at discharge Continue current dose of Norvasc. May increase outpatient if needed. Patient not able to tolerate beta cindy due to baseline bradycardia Further outpatient workup for possible hypertrophic cardiomyopathy Patient to follow up in the office. She will be given an event monitor at her follow up appointment with Dr. Isaias Wheeler for discharge home today from a cardiac standpoint Nurse practitioner note has been reviewed by physician. Signing provider agrees with the documented findings, assessment, and plan of care. Objective - Vital Signs Vital signs: Vital Signs Temp 98.0 F 10/19/21 07:00 Pulse 52 L 10/19/21 07:00 Resp 18 10/19/21 07:00 BP 135/72 10/19/21 07:00 Pulse Ox 99 10/19/21 07:00 FiO2 21 10/13/21 07:24 Intake & Output 10/18/21 10/19/21 10/19/21 18:59 06:59 18:59 Intake Total 420 236 Balance 420 236 Intake: Oral 420 236 Other: Voiding Method Toilet # Voids 2 1 - Labs CBC & Chem 7: 10/13/21 05:55 10/13/21 05:55
[2021-10-19] MEDS: CYANOCOBALAMIN 500 MCG TAB PO SCH (09:38)
[2021-10-19] MEDS: cycloSPORINE 0.05% OPHTH 0.4 ML DROPERETTE BOTH EYES SCH (09:38)
[2021-10-19] MEDS: amLODIPine 5 MG TAB PO SCH (09:39)
[2021-10-19] MEDS: PANTOPRAZOLE 40 MG TABLET PO SCH (09:39)
[2021-10-19] MEDS: ASPIRIN 81 MG PO SCH (09:39)
[2021-10-19] MEDS: ATORVASTATIN 20 MG TAB PO SCH (09:39)
[2021-10-19] MEDS: ENOXAPARIN 40 MG/0.4 ML SYRINGE SQ SCH (09:39)
[2021-10-19 11:35] LABS: Glucose,Whole Blood 130 mg/dL (70-110)
--- NOTE | 2021-10-20 19:34 | DS ---
DISCHARGE SUMMARY CHIEF COMPLAINT: Chest pain and shortness of breath. HISTORY OF PRESENT ILLNESS AND PHYSICAL EXAMINATION: Details of this lady's history and physical can be found in the initial workup. LABORATORY STUDIES: While she is in the hospital, she had laboratory studies, details of which can be found in the laboratory section of her chart. COURSE IN THE HOSPITAL: After admission, she was placed on bedrest, started on intravenous fluids, and evaluation for chest pain. She was seen by Cardiology, who could not identify any significant cardiac disease. She was improving, and finally, her shortness of breath was resolved, and she was felt safer to go home. She will go home on her usual activity, diet, and medications, and she will be followed up in the office in several days. FINAL DIAGNOSES: 1. Chest pain. 2. Chronic obstructive pulmonary disease. 3. Elevated D-dimer. OPERATIONS: None. CONSULTATIONS: Cardiology and Pulmonology. CONDITION: She is improved. MMODL / SHANTALN: [id number] /
--- NOTE | 2021-10-20 20:20 | PN ---
PROGRESS NOTE CHIEF COMPLAINT: Chest pain, shortness of breath. HISTORY OF PRESENT ILLNESS: This lady is doing well. Her shortness of breath is improving, and she is not having any further chest pain. We are increasing her activity, and it is expected that she will be able to go home soon. PHYSICAL EXAMINATION: CHEST: Demonstrates improved breath sounds. CARDIAC: Normal. ABDOMEN: Soft, nontender. IMPRESSION: 1. Chest pain, currently not due to cardiac disease according to Cardiology. 2. Shortness of breath. PLAN: Increase activity and probably home in the next day or two. MMODL / IJN: [id number] /
== END 2021-10-19 14:38 | disposition home or self-care (01) | DRG 191 ==
LOC: EC 13:41 → 6NMEDSUR 20:48 → OBSVTOIN 10-14 08:53
PROVIDERS: ADMIT Family Medicine; ATTEND Family Medicine
DX: J44.9 Chronic obstructive pulmonary disease, unspecified (principal); E51.9 Thiamine deficiency, unspecified; E87.1 Hypo-osmolality and hyponatremia; F13.20 Sedative, hypnotic or anxiolytic dependence, uncomplicated; F31.81 Bipolar II disorder; E87.4 Mixed disorder of acid-base balance; I45.89 Other specified conduction disorders; E87.2 Acidosis; F06.4 Anxiety disorder due to known physiological condition; F41.0 Panic disorder [episodic paroxysmal anxiety]; E03.9 Hypothyroidism, unspecified; Z79.890 Hormone replacement therapy; E53.8 Deficiency of other specified B group vitamins; I25.10 Atherosclerotic heart disease of native coronary artery without angina pectoris; E78.5 Hyperlipidemia, unspecified; E86.0 Dehydration; S00.81XA Abrasion of other part of head, initial encounter; S01.551A Open bite of lip, initial encounter; T38.0X5A Adverse effect of glucocorticoids and synthetic analogues, initial encounter; I12.9 Hypertensive chronic kidney disease with stage 1 through stage 4 chronic kidney disease, or unspecified chronic kidney disease; N18.30 Chronic kidney disease, stage 3 unspecified; R29.6 Repeated falls; E66.9 Obesity, unspecified; Z98.84 Bariatric surgery status; R55 Syncope and collapse; I08.3 Combined rheumatic disorders of mitral, aortic and tricuspid valves; Z91.81 History of falling; D72.829 Elevated white blood cell count, unspecified; E05.80 Other thyrotoxicosis without thyrotoxic crisis or storm; E87.8 Other disorders of electrolyte and fluid balance, not elsewhere classified; H91.90 Unspecified hearing loss, unspecified ear; M19.90 Unspecified osteoarthritis, unspecified site; M79.7 Fibromyalgia; W19.XXXA Unspecified fall, initial encounter; Z79.51 Long term (current) use of inhaled steroids; Z79.82 Long term (current) use of aspirin; Z79.899 Other long term (current) drug therapy; Z87.891 Personal history of nicotine dependence; Z90.710 Acquired absence of both cervix and uterus; R00.1 Bradycardia, unspecified; Z91.041 Radiographic dye allergy status; Z96.642 Presence of left artificial hip joint; Z95.5 Presence of coronary angioplasty implant and graft; Z68.37 Body mass index [BMI] 37.0-37.9, adult; Z88.8 Allergy status to other drugs, medicaments and biological substances
CPT/HCPCS: 36415; 36600; 71046; 71275; 80048; 80053; 80076; 81001; 82607; 82746; 82805; 83036; 83605; 83735; 83880; 83921; 84207; 84425; 84439; 84443; 84484; 85025; 85379; 85610; 85730; 93005; 93306; 93880; 94640; 94760; 96361; 96372; 96374; 96375; 96376; 99285

== ENCOUNTER → 2021-11-23 | Outpatient (CLI) | payer MEDICARE ==
[2021-11-23 18:34] LABS: ALT 21 U/L (8-44); AST 27 U/L (13-35); African American GFR (CKD) 49.5 (60.0-200.0); Albumin 4.6 g/dL (3.8-4.9); Albumin/Globulin Ratio 1.59 (1.60-3.17); Alkaline Phosphatase 99 U/L (41-126); BUN/Creat Ratio 11.08 Ratio (12.00-20.00); Blood Urea Nitrogen 14.4 mg/dL (9.0-27.0); Calcium 9.6 mg/dL (8.7-10.3); Carbon Dioxide 22.9 mmol/L (20.0-27.5); Chloride 97 mmol/L (96-109); Chol/HDL Ratio 2.04 Ratio; Globulin 2.9 g/dL (1.6-3.3); Glucose 90 mg/dL (70-110); LDL Cholesterol,Calculated 77.6 mg/dL (0.0-131.0); Non-African American GFR(CKD) 42.7 (60.0-200.0); Potassium 4.6 mmol/L (3.5-5.5); Sodium 133 mmol/L (135-145); Total Protein 7.5 g/dL (6.2-8.2)
== END | disposition home or self-care (01) ==
LOC: LABWHC1 10:52
PROVIDERS: ATTEND Internal Medicine Clinical Cardiac Electrophysiology
DX: I10 Essential (primary) hypertension (principal); I25.10 Atherosclerotic heart disease of native coronary artery without angina pectoris; E78.5 Hyperlipidemia, unspecified
CPT/HCPCS: 36415; 80053; 80061; 84443

== ENCOUNTER → 2022-06-06 | Outpatient (CLI) | payer MEDICARE ==
[2022-06-06 11:04] LABS: Basophils # (A) 0.03 X 10*3/uL (0.00-0.10); Basophils % (A) 0.6 %; Eosinophils # (A) 0.17 X 10*3/uL (0.04-0.35); Eosinophils % (A) 3.3 %; HCT 38.3 % (37.2-46.3); HGB 12.1 g/dL (12.0-15.0); Immature Grans, Automated 0.2 %; Lymphocytes # (A) 0.94 X 10*3/uL (0.90-5.00); Lymphocytes % (A) 18.5 %; MCH 28.3 pg (27.0-32.0); MCHC 31.6 g/dL (32.0-37.0); MCV 89.7 fL (80.0-97.0); Monocytes # (A) 0.46 X 10*3/uL (0.20-1.00); NRBC Per 100 WBC 0 /100 WBCS (0.0-0.0); Neutrophils # (A) 3.48 X 10*3/uL (1.80-7.70); Neutrophils % (A) 68.4 %; Platelet Count 201 X 10*3/uL (140-440); RBC 4.27 X 10*6/uL (4.10-5.20); RDW 13.9 % (11.5-14.5); WBC 5.09 X 10*3/uL (4.50-10.00)
[2022-06-06 11:13] LABS: % Iron Saturation 22.23 (12.00-45.00); African American GFR (CKD) 41.4 (60.0-200.0); Anion Gap 14.2 mmol/L (10.00-18.00); BUN/Creat Ratio 14.67 Ratio (12.00-20.00); Calcium 9.9 mg/dL (8.7-10.3); Carbon Dioxide 21.8 mmol/L (20.0-27.5); Magnesium 1.8 mg/dL (1.5-2.4); Non-African American GFR(CKD) 35.7 (60.0-200.0); Phosphorus 4.1 mg/dL (2.4-5.1); Potassium 4.7 mmol/L (3.5-5.5); Uric Acid 8.3 mg/dL (2.9-7.7)
[2022-06-06 11:48] LABS: Albumin 4.4 g/dL (3.8-4.9)
[2022-06-06 21:21] LABS: Appearance,Urine Clear (Clear); Bilirubin,Urine Negative (Negative); Blood,Urine Negative (Negative); Color,Urine Dark Yellow (Yellow); Ketones,Urine Trace mg/dL (Negative); Nitrite,Urine Negative (Negative); PH, Urine 5.5 (5.0-8.0)
[2022-06-06 21:34] LABS: Bacteria,Urine None Seen /HPF (None Seen)
== END | disposition home or self-care (01) ==
LOC: LABWHC1 07:16
PROVIDERS: ATTEND Internal Medicine Nephrology
DX: E55.9 Vitamin D deficiency, unspecified (principal); N25.81 Secondary hyperparathyroidism of renal origin; N18.32 Chronic kidney disease, stage 3b; M10.9 Gout, unspecified; N39.0 Urinary tract infection, site not specified; D63.1 Anemia in chronic kidney disease; R80.9 Proteinuria, unspecified
CPT/HCPCS: 36415; 80048; 81001; 82040; 82043; 82306; 82570; 82728; 83540; 83550; 83735; 83970; 84100; 84550; 85025

== ENCOUNTER → 2022-06-23 | Outpatient (CLI) | payer MEDICARE ==
--- NOTE | 2022-06-24 13:35 | MR ---
EXAMINATION TYPE: MR brain wo con DATE OF EXAM: 06/23/2022 8:16 PM COMPARISON: None. CLINICAL INDICATION:Female, 67 years old with history of R41.3 Memory Loss R25.3 Muscle twitching R29 .6 Fall; Unsteady gait, loss of balance and falls, memory loss TECHNIQUE: Multi planar, multi sequence imaging was performed through the brain including: T1, T2, In version recovery, Diffusion weighted imaging, and gradient echo imaging. No gadolinium was given. FINDINGS: High T2 signal focus within the right cerebellar hemisphere. Additional scattered high T2 signal area s within the deep white matter and periventricular white matter. The welch-white junctions, ventricula r system, and cisterns appear unremarkable. Midline structures show no abnormality. Diffusion-weigh sunny imaging shows no evidence of restricted diffusion. The susceptibility weighted images do not reve al any evidence for micro-hemorrhage. The bone marrow signal is within normal limits. Paranasal sinuses and mastoid air cells: No significant paranasal sinus disease. Visualized orbits: Bilateral aphakia IMPRESSION: 1. No evidence of intracranial mass or acute/subacute infarct. 2. Suspected prior right cerebellar hemisphere injury. 3. Nonspecific white matter changes, likely secondary to small vessel ischemic disease.
== END | disposition home or self-care (01) ==
LOC: RADMRIMAIN 19:13
PROVIDERS: ATTEND Family Medicine
DX: R90.82 White matter disease, unspecified (principal); R26.81 Unsteadiness on feet; R41.3 Other amnesia; R25.3 Fasciculation; R29.6 Repeated falls
CPT/HCPCS: 70551

== ENCOUNTER → 2022-09-10 | Outpatient (CLI) | payer MEDICARE ==
[2022-09-11 07:51] LABS: Chol/HDL Ratio 2.13 Ratio; LDL Cholesterol,Calculated 65.2 mg/dL (0.0-131.0); VLDL Calculation 15.62 mg/dL (5.00-40.00)
[2022-09-11 07:56] LABS: Albumin 4.4 d/dL (3.8-4.9); Protein, Total 7.2 d/dL (6.2-8.2)
[2022-09-12 13:25] LABS: Zinc, Serum 72 ug/dL (60-130)
[2022-09-12 16:22] LABS: Gamma Globulin 1.06 d/dL (0.70-1.50)
== END | disposition home or self-care (01) ==
LOC: LABWHC1 09:09
PROVIDERS: ATTEND Psychiatry & Neurology Neurology
DX: G62.9 Polyneuropathy, unspecified (principal)
CPT/HCPCS: 36415; 80061; 82607; 84165; 84207; 84425; 84630

== ENCOUNTER → 2022-09-23 | Outpatient (CLI) | payer MEDICARE ==
[2022-09-26 09:55] LABS: Protein, Total 6.3 d/dL (6.2-8.2)
== END | disposition home or self-care (01) ==
LOC: LABWHC1 07:04
PROVIDERS: ATTEND Psychiatry & Neurology Neurology
DX: G62.9 Polyneuropathy, unspecified (principal)
CPT/HCPCS: 36415; 82175; 82525; 82607; 83655; 83825; 84165; 84255; 84425; 84591; 84630

== ENCOUNTER → 2022-11-10 | Outpatient (CLI) | payer MEDICARE ==
[2022-11-10 11:25] LABS: Basophils # (A) 0.02 X 10*3/uL (0.00-0.10); Basophils % (A) 0.4 %; Eosinophils # (A) 0.17 X 10*3/uL (0.04-0.35); Eosinophils % (A) 3.3 %; HCT 36.4 % (37.2-46.3); HGB 11.7 d/dL (12.0-15.0); Lymphocytes # (A) 1.05 X 10*3/uL (0.90-5.00); Lymphocytes % (A) 20.6 %; MCHC 32.1 d/dL (32.0-37.0); MCV 87.1 FL (80.0-97.0); Mean Platelet Volume 11.3 FL (9.5-12.2); Monocytes # (A) 0.54 X 10*3/uL (0.20-1.00); Monocytes % (A) 10.6 %; NRBC Per 100 WBC 0 X 10*3/uL (0.00-0.01); Neutrophils % (A) 64.7 %; Platelet Count 180 X 10*3/uL (140-440); RBC 4.18 X 10*6/uL (4.10-5.20); RDW 13.6 % (11.5-14.5)
[2022-11-10 11:43] LABS: Microalbumin Creatinine Ratio <15 mg/g Cr (0-30); Urine Creatinine 79.5 mg/dL (28.0-217.0)
[2022-11-10 11:58] LABS: % Iron Saturation 21.02 (12.00-45.00); Albumin 4.1 d/dL (3.8-4.9); BUN/Creat Ratio 13.46 Ratio (12.00-20.00); Blood Urea Nitrogen 17.5 mg/dL (9.0-27.0); Calcium 9.5 mg/dL (8.7-10.3); Carbon Dioxide 22.5 mmol/L (21.6-31.8); Chloride 103 mmol/L (96-109); Ferritin 84.5 ng/mL (10.0-291.0); Glucose 85 mg/dL (70-110); Iron 66 UG/DL (50-170); Magnesium 1.8 mg/dL (1.5-2.4); Phosphorus 4.2 mg/dL (2.4-5.1); Potassium 4.9 mmol/L (3.5-5.5); Sodium 138 mmol/L (135-145); Total Iron Binding Capacity 314 UG/DL (228-460); Uric Acid 7.2 mg/dL (2.9-7.7)
[2022-11-10 12:17] LABS: Appearance,Urine Clear (Clear); Bilirubin,Urine Negative (Negative); Blood,Urine Negative (Negative); Color,Urine Yellow (Yellow); Ketones,Urine Negative (Negative); Nitrite,Urine Negative (Negative); PH, Urine 6.5; Specific Gravity,Urine 1.013 (1.001-1.030)
[2022-11-10 12:24] LABS: Bacteria,Urine None Seen (None Seen)
== END | disposition home or self-care (01) ==
LOC: LABWHC1 06:47
PROVIDERS: ATTEND Internal Medicine Nephrology
DX: N25.81 Secondary hyperparathyroidism of renal origin (principal); N18.32 Chronic kidney disease, stage 3b; D63.1 Anemia in chronic kidney disease; E55.9 Vitamin D deficiency, unspecified; M10.9 Gout, unspecified; N39.0 Urinary tract infection, site not specified
CPT/HCPCS: 36415; 80048; 81001; 82040; 82043; 82306; 82570; 82728; 83540; 83550; 83735; 83970; 84100; 84550; 85025

== ENCOUNTER → 2023-07-14 | Outpatient (CLI) | payer MEDICARE, OTHER ==
--- NOTE | 2023-07-14 15:13 | MR ---
EXAMINATION TYPE: MR lumbar spine wo con DATE OF EXAM: 07/14/2023 COMPARISON: None HISTORY: 68-year-old female Lower back pain, BLE radiculopathy. M47.816,M62.81,M54.16 TECHNIQUE: Multiplanar, multisequence images of the lumbar spine were acquired without IV contrast. FINDINGS: Vertebral body heights are preserved. Alignment is maintained. No suspicious bone marrow replacement. Conus medullaris is normal. There is mild congenital spinal canal narrowing. Superimposed mild to moderate degenerative disc dise ase with desiccated and bulging discs. Variable disc space narrowing is also present, greatest at L3- L4 and L4-L5. Some edematous Modic type I endplate changes present anteriorly and towards the left at L1-L2. Bulging discs are present at multiple levels further accentuating the congenital spinal canal narrowi ng and causing mild overall spinal canal stenosis at T11-T12, L1-L2, L3-L4. Facet arthropathy lower lumbar spine especially towards the right. On the right, results in moderate neural foraminal stenosis at both L4-L5 and L5-S1. There is an intr aforaminal annular fissure at L4-L5. Possible abutment of the exiting nerve roots at both of these le vels. Mild neural foraminal stenosis L3-L4. On the left, changes result in moderate neural foraminal stenosis at L5-S1 and mild at L3-L4 and L4-L 5. No prevertebral paravertebral soft tissue abnormality seen. IMPRESSION: 1. Some underlying congenital spinal canal narrowing with superimposed mild to moderate degenerative disc disease. There is associated edematous Modic type I endplate change anteriorly and toward the le ft at L1-L2. Bulging discs further accentuate the mild spinal canal stenosis particularly at T11-T12, L1-L2, and L3-L4. However, no significant spinal canal stenosis seen. 2. Moderate facet arthropathy mid to lower lumbar spine greater towards the right. No malalignment. 3. Moderate neuroforaminal stenosis on the right at both L4-L5 and L5-S1. There is an intraforaminal annular fissure at L4-L5. Possible abutment of these exiting nerve roots at both levels. 4. Additional moderate neuroforaminal stenosis on the left at L5-S1.
== END | disposition home or self-care (01) ==
LOC: RADMRIMAIN 12:03
PROVIDERS: ATTEND Orthopaedic Surgery
DX: M47.816 Spondylosis without myelopathy or radiculopathy, lumbar region (principal); M51.16 Intervertebral disc disorders with radiculopathy, lumbar region; M99.73 Connective tissue and disc stenosis of intervertebral foramina of lumbar region; M47.26 Other spondylosis with radiculopathy, lumbar region; R60.9 Edema, unspecified
CPT/HCPCS: 72148

== ENCOUNTER → 2023-07-14 | Outpatient (CLI) | payer MEDICARE, OTHER ==
--- NOTE | 2023-07-14 12:51 | CT ---
EXAMINATION TYPE: CT brain wo con CT DLP: 1165 mGycm, Automated exposure control for dose reduction was used. DATE OF EXAM: 07/14/2023 12:14 PM COMPARISON: . CLINICAL INDICATION:Female, 68 years old with history of R42 DIZZINESS AND GIDDINESS R29.6 REPEATED F ALLS, dizziness, headaches, loss of balance, memory changes TECHNIQUE: Brain: Axial CT images of the brain were obtained with coronal and sagittal reformats created and rev iewed. Contrast used: None. Oral contrast used: None. FINDINGS: Brain: Extra-axial spaces: No abnormal extra-axial fluid collections. Ventricular system: Ventricles and sulci are mildly prominent consistent with early involutional collier ge Cerebral parenchyma: No acute intraparenchymal hemorrhage or mass effect. The welch-white junction is well differentiated. Scattered hypoattenuating areas are seen within the white matter. Cerebellum: Unremarkable. Mass effect: No evidence of midline shift. Intracranial vasculature: unremarkable Soft tissues: Normal. Calvarium/osseous structures: No depressed skull fracture. Paranasal sinuses and mastoid air cells: Mild scattered paranasal sinus disease. Visualized orbits: Orbital contents are intact. IMPRESSION: No acute intracranial process. Early age-related changes.
== END | disposition home or self-care (01) ==
LOC: RADCTMAIN 11:52
PROVIDERS: ATTEND Family Medicine
DX: R42 Dizziness and giddiness (principal); R29.6 Repeated falls; R26.9 Unspecified abnormalities of gait and mobility
CPT/HCPCS: 70450

== ENCOUNTER 2023-09-12 10:00 | Day surgery (SDC) | payer MEDICARE ==
[2023-09-12] MEDS ORDERED: LIDOCAINE 1% INJ 10MG/ML (20 ML MDV) ONE (14:19)
[2023-09-12] MEDS ORDERED: SODIUM CHLORIDE 0.9% 50 ML BAG IV ONE (14:19)
[2023-09-12] MEDS ORDERED: SODIUM CHLORIDE 0.9% 1,000 ML BAG ONE (14:19)
[2023-09-12] MEDS ORDERED: HEPARIN SODIUM,PORCINE 10,000 UNIT/ML 1 ML VIAL ONE (14:19)
[2023-09-12] MEDS ORDERED: ceFAZolin 10 GM VIAL IVPB ONE (14:19)
== END 2023-09-12 15:25 | disposition home or self-care (01) ==
LOC: CATHEP 10:00
PROVIDERS: ATTEND Internal Medicine Clinical Cardiac Electrophysiology
DX: R55 Syncope and collapse
CPT/HCPCS: 33285

== ENCOUNTER → 2023-10-18 | Outpatient (CLI) | payer MEDICARE ==
[2023-10-18 17:07] LABS: Partial Thromboplastin Time 27.1 sec (22.0-30.0)
[2023-10-19 02:51] LABS: HCT 36.2 % (37.2-46.3); HGB 11.5 g/dL (12.0-15.0); MCH 27.1 pg (27.0-32.0); MCHC 31.8 g/dL (32.0-37.0); MCV 85.2 FL (80.0-97.0); Mean Platelet Volume 11.1 FL (9.5-12.2); NRBC Per 100 WBC 0 X 10*3/uL (0.00-0.01); Platelet Count 176 X 10*3/uL (140-440); RBC 4.25 X 10*6/uL (4.10-5.20); RDW 14.5 % (11.5-14.5); WBC 4.74 X 10*3/uL (4.50-10.00)
[2023-10-19 04:32] LABS: % Iron Saturation 10.29 (12.00-45.00); ALT 17 U/L (8-44); AST 23 U/L (13-35); Albumin 4.3 g/dL (3.8-4.9); Albumin/Globulin Ratio 1.65 Ratio (1.60-3.17); Alkaline Phosphatase 132 U/L (41-126); BUN/Creat Ratio 17.77 Ratio (12.00-20.00); Blood Urea Nitrogen 23.1 mg/dL (9.0-27.0); Calcium 9.5 mg/dL (8.7-10.3); Carbon Dioxide 23.4 mmol/L (21.6-31.8); Chloride 103 mmol/L (96-109); Chol/HDL Ratio 1.92 Ratio; Ferritin 35.1 ng/mL (10.0-291.0); Globulin 2.6 g/dL (1.6-3.3); Glucose 84 mg/dL (70-110); Iron 39 UG/DL (50-170); LDL Cholesterol,Calculated 69.1 mg/dL (0.0-131.0); Magnesium 1.7 mg/dL (1.5-2.4); Phosphorus 3.8 mg/dL (2.4-5.1); Potassium 4.4 mmol/L (3.5-5.5); Sodium 138 mmol/L (135-145); Total Bilirubin 0.5 mg/dL (0.3-1.2); Total Iron Binding Capacity 379 UG/DL (228-460); Total Protein 6.9 g/dL (6.2-8.2); VLDL Calculation 9.82 mg/dL (5.00-40.00)
[2023-10-19 05:29] LABS: Prealbumin 16.7 mg/dL (18.0-42.0)
[2023-10-19 12:03] LABS: Zinc, Serum 74 ug/dL (60-130)
[2023-10-20 06:16] LABS: Vitamin A 46 ug/dL (38-106)
[2023-10-23 07:33] LABS: Vit B1(Thiamine) 78 ug/L (38-122)
[2023-10-28 01:44] LABS: Selenium 107 mcg/L (63-160)
== END | disposition home or self-care (01) ==
LOC: LABWHC1 15:44
PROVIDERS: ATTEND Surgery Plastic and Reconstructive Surgery
DX: E66.01 Morbid (severe) obesity due to excess calories
CPT/HCPCS: 36415; 80053; 80061; 82306; 82525; 82607; 82728; 82746; 83036; 83540; 83550; 83735; 83970; 84100; 84134; 84255; 84425; 84443; 84590; 84630; 85027; 85610; 85730

== ENCOUNTER → 2024-04-25 | Outpatient (CLI) | payer MEDICARE ==
--- NOTE | 2024-04-25 14:04 | EEG ---
ELECTROENCEPHALOGRAM REPORT PREAMBLE: This is a 69-year-old female with possible syncope, also having some memory disturbance. CURRENT MEDICATIONS: 1. Pregabalin. 2. Levothyroxine. 3. Lamotrigine. 4. Nifedipine. 5. Atorvastatin. 6. Eliquis. 7. Valsartan. 8. Aspirin. 9. Fluoxetine. 10.Omeprazole. EEG FINDINGS: This is a 21-channel digital EEG recorded with video component, utilizing 10/20 international system with referential and bipolar montages. The background consists of moderately well-developed and regulated mixed frequencies of 8 to 9 hertz alpha, mixed with some 4 to 6 hertz theta activity in bihemispheric region. Photic driving response was seen with some flash frequencies. Drowsiness and then stage 2 sleep was seen with appearance of continuous mixed delta and theta frequency rhythm with presence of sleep spindles. No focal or generalized epileptiform activity was seen. EKG channel showed no obvious arrhythmia. IMPRESSION: This is an abnormal EEG due to background slowing and some disorganization, suggestive of mild encephalopathy. No focal, lateralized, or epileptiform activity was seen. MMODL / IJN: [id number] /
== END ==
LOC: NEUROMAIN 07:46
PROVIDERS: ATTEND Family Medicine
DX: G31.83 Neurocognitive disorder with Lewy bodies (principal); R68.89 Other general symptoms and signs; I70.90 Unspecified atherosclerosis; R29.6 Repeated falls; Z91.041 Radiographic dye allergy status; Z88.3 Allergy status to other anti-infective agents; Z87.891 Personal history of nicotine dependence
CPT/HCPCS: 95819

== ENCOUNTER → 2024-05-14 | Outpatient (CLI) | payer MEDICARE ==
--- NOTE | 2024-05-14 16:05 | MR ---
EXAMINATION TYPE: MR knee RT wo con DATE OF EXAM: 05/14/2024 3:50 PM COMPARISON: None. CLINICAL INDICATION: Female, 69 years old with history of M25.561 right knee pain, Right knee pain, S /P fall 2 mos ago. IV Contrast: cc (None if empty) TECHNIQUE: Multiplanar, multisequence imaging of the right knee is performed without IV contrast. FINDINGS: There is edema in the lateral tibial plateau and bilateral femoral condyles consistent with contusion but no discrete fracture. There is a small joint effusion there is an 8 x 20 x 42 mm Gregg's cyst. Within the Gregg cyst is mas slike signal intensity which could represent prior hemorrhage but true synovial mass cannot be exclud ed and further workup may be indicated. The cruciate and collateral ligaments are intact. There is a tear of the anterior horn of the lateral meniscus. The medial meniscus is intact. Quadriceps and patellar tendons are intact. The anterior fat pads are normal. There is advanced osteoarthritis of the patellofemoral compartment where there are subchondral change s within the patella and marked loss of the articular cartilage resulting in markedly decreased joint space. There is mild thinning of the articular cartilages within the medial and lateral compartments . IMPRESSION: 1. Bone contusions involving the lateral tibial plateau and femoral condyles but no discrete fracture . 2. Small joint effusion. 3. Gregg's cyst with intraluminal abnormality could indicate hemorrhage or synovial mass. Further ibrahima luation is indicated. 4. Tear of the anterior horn of the lateral meniscus. 5. No ligamentous injury. 6. Severe osteoarthritis of the patellofemoral compartment and mild osteoarthritis of the medial and lateral compartments.. [facility], , 05/14/2024 4:03 PM
== END | disposition home or self-care (01) ==
LOC: RADMRIMAIN 14:44
PROVIDERS: ATTEND Orthopaedic Surgery
DX: S83.281A Other tear of lateral meniscus, current injury, right knee, initial encounter (principal); M17.11 Unilateral primary osteoarthritis, right knee; M25.461 Effusion, right knee; M71.21 Synovial cyst of popliteal space [Baker], right knee